=== PATIENT | male | born 1955 | race Caucasian/White ===

== ENCOUNTER 2020-06-29 13:19 | Outpatient (REF) | payer OTHER, SELFPAY | END 2020-06-29 13:20 | disposition home or self-care (01) | LOC: HO.LAB 13:19 | PROVIDERS: PCP Internal Medicine; Visit Provider Internal Medicine | DX: Z20.828 Contact with and (suspected) exposure to other viral communicable diseases (principal) | CPT/HCPCS: C9803; U0003 ==

== ENCOUNTER 2020-07-04 06:10 | Outpatient (REF) | payer OTHER, SELFPAY ==
[2020-07-04 07:32] LABS: Alanine Aminotransferase 24 U/L (0-40); Albumin Level 4.6 g/dL (3.5-5.0); Alkaline Phosphatase 70 U/L (39-117); Anion Gap 14 (12-20); Aspartate Amino Transferase 17 U/L (5-37); Bilirubin Total 0.3 mg/dL (0.0-1.0); Blood Urea Nitrogen 34 mg/dL (9-16); Calcium 9.3 mg/dL (8.4-10.2); Carbon Dioxide 29 mmol/L (22-29); Chloride 104 mmol/L (96-108); Cholesterol 209 mg/dL; Estimated Glomerular Filt Rate 57; Glucose Random 103 mg/dL (60-115); HDL Cholesterol 34 mg/dL; Sodium 142 mmol/L (135-145); Total Protein 7.3 g/dL (6.5-8.0); Triglycerides 552 mg/dL
== END 2020-07-04 06:11 | disposition home or self-care (01) ==
LOC: HO.LAB 06:10
PROVIDERS: Visit Provider Internal Medicine
DX: E78.00 Pure hypercholesterolemia, unspecified (principal); I10 Essential (primary) hypertension
CPT/HCPCS: 36415; 80053; 80061

== ENCOUNTER 2020-08-09 08:09 | Outpatient (REF) | payer OTHER, SELFPAY | END 2020-08-09 08:10 | disposition home or self-care (01) | LOC: HO.LAB 08:09 | PROVIDERS: Visit Provider Internal Medicine | DX: Z20.822 Contact with and (suspected) exposure to COVID-19 (principal) | CPT/HCPCS: 36415; C9803; U0003; U0005 ==

== ENCOUNTER 2020-08-31 08:53 | Outpatient (REF) | payer OTHER, SELFPAY | END 2020-08-31 08:54 | disposition home or self-care (01) | LOC: HO.LAB 08:53 | PROVIDERS: Visit Provider Internal Medicine | DX: Z20.822 Contact with and (suspected) exposure to COVID-19 (principal) | CPT/HCPCS: 36415; C9803; U0003; U0005 ==

== ENCOUNTER 2020-09-29 06:08 | Outpatient (REF) | payer OTHER, SELFPAY ==
[2020-09-29 07:30] LABS: Alanine Aminotransferase 31 U/L (0-40); Albumin Level 4.7 g/dL (3.5-5.0); Alkaline Phosphatase 53 U/L (39-117); Anion Gap 13 (12-20); Aspartate Amino Transferase 22 U/L (5-37); Bilirubin Total 0.5 mg/dL (0.0-1.0); Blood Urea Nitrogen 29 mg/dL (9-16); Calcium 9.6 mg/dL (8.4-10.2); Carbon Dioxide 26 mmol/L (22-29); Chloride 105 mmol/L (96-108); Cholesterol 181 mg/dL; Estimated Glomerular Filt Rate > 60; Glucose Random 110 mg/dL (60-115); HDL Cholesterol 37 mg/dL; LDL Cholesterol Calculated 91 mg/dl; Potassium 5.3 mmol/L (3.3-5.1); Sodium 139 mmol/L (135-145); Total Protein 7.6 g/dL (6.5-8.0); Triglycerides 267 mg/dL
[2020-09-29 07:57] LABS: Estimated Average Glucose 117 mg/dL; Hemoglobin A1C 155.5362 umol/L; Hemoglobin A1c % 5.7 %
== END 2020-09-29 06:09 | disposition home or self-care (01) ==
LOC: HO.LAB 06:08
PROVIDERS: PCP Internal Medicine; Visit Provider Internal Medicine
DX: N28.9 Disorder of kidney and ureter, unspecified (principal); R73.02 Impaired glucose tolerance (oral); E78.00 Pure hypercholesterolemia, unspecified
CPT/HCPCS: 36415; 80053; 80061; 83036

== ENCOUNTER 2020-10-19 07:52 | Outpatient (REF) | payer OTHER, SELFPAY | END 2020-10-19 07:53 | disposition home or self-care (01) | LOC: HO.HOSX 07:52 | PROVIDERS: Visit Provider Orthopaedic Surgery | DX: M17.11 Unilateral primary osteoarthritis, right knee (principal); R73.02 Impaired glucose tolerance (oral) | CPT/HCPCS: 20610; 99212; J1100 ==

== ENCOUNTER 2021-01-10 17:02 | Emergency (ER) | payer OTHER, SELFPAY ==
--- NOTE | ~2021-01-10 | CT_ITS ---
EXAMINATION: CT ABDOMEN AND PELVIS WITHOUT CONTRAST CLINICAL INFORMATION: upper abd pain rule out complicated pancreatitis . COMPARISON: 06/26/2016. TECHNIQUE: Multidetector volumetric imaging was performed from the superior aspect of the liver through the pubic symphysis without contrast per request. Sagittal and coronal reformatted images were obtained on the technologist workstation. This CT examination was performed using dose optimization techniques as appropriate, variously including the following: *Automated exposure control *Adjustment of mA and/or kV according to patient size (this includes techniques or standardized protocols for targeted exams where dose is matched to indication/reason for exam; i.e. extremities or head) *Use of iterative reconstruction technique DLP: 500 mGy-cm. FINDINGS: LUNG BASES: Calcified granuloma the right lung base. LIVER, GALLBLADDER, BILIARY TREE: Diffuse fatty infiltration of the liver with mild focal fatty sparing adjacent to the gallbladder fossa and falciform ligament. No suspicious hepatic lesion or biliary ductal dilatation. The gallbladder is contracted but otherwise unremarkable with no evidence of radiopaque gallstones, gallbladder wall thickening, or obvious pericholecystic inflammatory changes. PANCREAS: Pancreas is grossly unremarkable on this noncontrast study. I do not appreciate any pancreatic calcification or peripancreatic inflammatory changes/fluid. No obvious pancreatic ductal dilatation. Contrast was not given and I cannot assess for degree of pancreatic enhancement. SPLEEN: Unremarkable. ADRENAL GLANDS: Unremarkable. KIDNEYS AND URETERS: The kidneys are normal in size, shape, and attenuation. No hydronephrosis, hydroureter, or calculi seen. No perinephric stranding. BLADDER: Unremarkable. GASTROINTESTINAL TRACT: Decompressed with a few scattered colonic diverticula but no evidence for diverticulitis. Visualized small bowel unremarkable ABDOMINAL WALL: No significant hernia is appreciated. LYMPHOVASCULAR STRUCTURES: Vascular calcification within the aorta iliac system. No bulky adenopathy. PELVIC VISCERA: Unremarkable. OSSEUS STRUCTURES: Multilevel degenerative changes in the spine and degenerative changes in the hips. CT/CT abdomen pelvis wo con IMPRESSION: Diffuse fatty infiltration of the liver. No biliary ductal dilatation. Pancreas is essentially unremarkable on this noncontrast CT scan. I do not appreciate any CT complications of pancreatitis at this time.
[2021-01-10 17:08] VITALS: BP 124/57; PULSE 86; RESP 18; TEMP 36.2; O2SAT 97; BMI 29.2
[2021-01-10 17:46] VITALS: BP 124/57; PULSE 86; RESP 18; TEMP 36.2; O2SAT 97
--- NOTE | 2021-01-10 17:50 | ED_ITS ---
HPI - Abdominal Pain General Chief Complaint: Abdominal Pain Stated Complaint: Possible pancreas?? Time Seen by Provider: 01/10/21 17:45 Source: patient Mode of arrival: ambulatory Limitations: no limitations History of Present Illness HPI narrative: 65-year-old male came in for evaluation abdominal pain. started since yesterday, described as dull aching pain, constant, severe 7/10, pain is localized to the epigastric mid abdominal area, no radiation, food worsening the pain, nothing relieves the pain, pain is associated with nausea but no vomiting, had similar pain in the past and patient had pancreatitis. Patient also feels the abdomen is bloated since yesterday, normal bowel movement, passing flatus. Patient is a former alcohol abuser. Related Data Home Medications Medication Instructions Recorded Confirmed alclometasone 0.05 % topical cream 1 applic TOPICAL BID 03/29/20 10/03/20 Previous Rx's Medication Instructions Recorded hydrochlorothiazide 12.5 mg tablet 12.5 mg PO QAM #90 tab 04/26/20 folic acid 1 mg tablet 1 mg PO DAILY #90 tab 06/16/20 citalopram 10 mg tablet 10 mg PO QAM #90 tab 06/21/20 quetiapine 100 mg tablet 100 mg PO BEDTIME #90 tab 06/21/20 simvastatin 20 mg tablet 20 mg PO BEDTIME #90 tab 10/03/20 tramadol 50 mg tablet 50 mg PO BID PRN #60 tab 10/03/20 sildenafil 100 mg tablet 100 mg PO DAILY PRN #10 tab 11/02/20 diclofenac sodium 50 mg 50 mg PO BID 90 Days #180 tab 12/20/20 tablet,delayed release lisinopril 40 mg tablet 40 mg PO DAILY 90 Days #90 tab 12/25/20 fenofibrate 160 mg tablet 160 mg PO DAILY #90 tab 01/04/21 omeprazole magnesium [Prilosec OTC] 20 mg PO BID #30 tab 01/10/21 oxycodone 5 mg PO Q8H PRN #7 tab 01/10/21 Allergies Allergy/AdvReac Type Severity Reaction Status Date / Time bupropion [From Wellbutrin] AdvReac Unknown Anxiety Verified 01/10/21 17:12 Review of Systems Review of Systems All other systems are reviewed and are negative Constitutional: Reports as per HPI and Reports no additional constitutional complaints Eyes: Reports as per HPI and Reports no additional eye complaints Reports system reviewed and no additional complaints, except as documented Cardiovascular: Reports as per HPI and Reports no additional cardiovascular complaints Respiratory: Reports as per HPI and Reports no additional respiratory complaints Gastrointestinal: Reports as per HPI and Reports no additional gastrointestinal complaints Genitourinary: Reports no additional female genitourinary complaints Musculoskeletal: Reports no additional musculoskeletal complaints Skin/Breast: Reports system reviewed and no additional complaints, except as docu Psychiatric: Reports no additional psychiatric complaints Endocrine: Reports no additional endocrine complaints Hematologic/Lymphatic: Reports no additional hematologic/lymphatic complaints Allergic/Immunologic: Reports no additional allergic/immunologic complaints Reports system reviewed and no additional complaints, except as documented and Reports Abnormal speech present Physical Exam Vital Signs: Vital Signs: Last Vital Signs Temp 98.4 F 01/10/21 18:00 Pulse 69 01/10/21 18:00 Resp 20 01/10/21 19:13 BP 115/61 01/10/21 18:00 Pulse Ox 96 01/10/21 18:00 Body Mass Index 29.2 Vital signs have been reviewed as appeared to be correct. Blood pressure normal. Heart rate normal. Respiration rate normal. Temperature normal. Oxygen saturation normal. Appearance: Alert. Oriented X3. No acute distress. Head: Normal external exam. Normocephalic. Atraumatic. No Carpenter signs noted. No raccoon eyes noted Eyes: PERRLA. EOMI. Conjunctiva and sclera normal. Eyelids normal. ENT: TM's Normal. Pharynx normal. Uvula midline. Moist mucous membranes. No trismus noted. No drooling noted. No muffled voice noted. Neck: Normal inspection. Neck supple. FROM. No adenopathy. Thyroid Normal. No meningeal signs. No neck mass noted. CVS: Normal heart rate and rhythm. Heart sound normal. No murmurs noted. Pulses normal throughout. Respiratory: No respiratory distress. Painless inspiration. Breath sounds normal. No wheezes/rales/rhonchi noted. Chest nontender. No accessory muscle usage noted or decreased air movement noted. Abdomen: Soft , epigastric tenderness, no rebound tenderness or guarding.. Bowel sounds normal in all 4 quadrants. No distention noted. No organomegaly noted. No visible injury noted. Back: No CVA tenderness. Full range of motion noted. Skin: Skin warm and dry. Normal skin color. Normal skin turgor. No rashes/lesions/lacerations noted. Extremities: No lower extremity edema. Extremities exhibit normal range of motion. Extremities nontender. Neuro: Oriented X 3. No motor deficit. No sensory deficit. Reflexes normal. Course Course Course Narrative: Assessment and plan. 65-year-old male came in with abdominal pain, patient has a slight elevation of lipase, CT of the abdomen pelvis was unremarkable. Labs unremarkable except for slight elevation of lipase. Patient admitted to eating fried food, do not drink alcohol. Patient was instructed to stay away from spicy food and fried food. Will discharge the patient with Prilosec and pain medication. MDM - Abdominal Pain Lab Data Attestation: I reviewed the patient's lab results. Result diagrams: 01/10/21 18:17 01/10/21 18:17 Labs: Lab Results 01/10/21 01/10/21 01/10/21 Range/Units 18:17 18:17 18:17 WBC 10.1 (4.8-10.8) X10*3/uL RBC 3.76 L (4.60-5.80) X10*6/uL Hgb 12.5 L (14.0-18.0) g/dl Hct 36.5 L (42-52) % MCV 97.1 (80-98) fL MCH 33.2 H (27.0-33.0) pg MCHC 34.2 (31.0-36.0) g/dl RDW 12.8 (11.0-16.0) % Plt Count 216 (160-400) X10*3/uL MPV 12.3 (9.4-12.4) fL Immature Gran % (Auto) 0.3 (0.0-0.4) % Neut % (Auto) 66.5 (45-73) % Lymph % (Auto) 23.5 (20-40) % [place] % (Auto) 6.6 (2-11) % Eos % (Auto) 2.8 (0-4) % Baso % (Auto) 0.3 (0-2) % Lymph # (Auto) 2.4 (1.2-4.9) X10*3/uL [place] # (Auto) 0.7 (0.1-1.2) X10*3/uL Eos # (Auto) 0.3 (0.0-0.4) X10*3/uL Baso # (Auto) 0.0 (0.0-0.2) X10*3/uL Abs Immat Gran (auto) 0.03 (0.00-0.03) X10*3/uL Absolute Neuts (auto) 6.7 (2.0-8.3) X10*3/uL Absolute Nucleated RBC 0.000 (0.0-0.012) X10*3/uL Nucleated RBC % (auto) 0.0 (0.0-0.2) /100WBC Sodium 140 (135-145) mmol/L Potassium 4.4 (3.3-5.1) mmol/L Chloride 109 H (96-108) mmol/L Carbon Dioxide 21 L (22-29) mmol/L Anion Gap 14 (12-20) BUN 37 H (9-16) mg/dL Creatinine 1.73 H (0.5-1.4) mg/dL Estim Creat Clear Calc 37.7 Estimated GFR 40 Random Glucose 128 H (60-115) mg/dL Calcium 9.6 (8.4-10.2) mg/dL Total Bilirubin 0.4 (0.0-1.0) mg/dL Direct Bilirubin < 0.2 (0.0-0.5) mg/dL AST 21 (5-37) U/L ALT 26 (0-40) U/L Alkaline Phosphatase 47 (39-117) U/L Total Protein 7.0 (6.5-8.0) g/dL Albumin 4.4 (3.5-5.0) g/dL Lipase 101 H (8-78) U/L Urine Color Urine Appearance Urine pH (5.0-8.0) Ur Specific [place] (1.005-1.025) Urine Protein (NEG-TRACE) MG/DL Urine Glucose (UA) (NEG) MG/DL Urine Ketones (NEG) MG/DL Urine Blood (NEG) Urine Nitrite (NEG) Ur Leukocyte Esterase (NEG) 01/10/21 Range/Units 18:17 WBC (4.8-10.8) X10*3/uL RBC (4.60-5.80) X10*6/uL Hgb (14.0-18.0) g/dl Hct (42-52) % MCV (80-98) fL MCH (27.0-33.0) pg MCHC (31.0-36.0) g/dl RDW (11.0-16.0) % Plt Count (160-400) X10*3/uL MPV (9.4-12.4) fL Immature Gran % (Auto) (0.0-0.4) % Neut % (Auto) (45-73) % Lymph % (Auto) (20-40) % [place] % (Auto) (2-11) % Eos % (Auto) (0-4) % Baso % (Auto) (0-2) % Lymph # (Auto) (1.2-4.9) X10*3/uL [place] # (Auto) (0.1-1.2) X10*3/uL Eos # (Auto) (0.0-0.4) X10*3/uL Baso # (Auto) (0.0-0.2) X10*3/uL Abs Immat Gran (auto) (0.00-0.03) X10*3/uL Absolute Neuts (auto) (2.0-8.3) X10*3/uL Absolute Nucleated RBC (0.0-0.012) X10*3/uL Nucleated RBC % (auto) (0.0-0.2) /100WBC Sodium (135-145) mmol/L Potassium (3.3-5.1) mmol/L Chloride (96-108) mmol/L Carbon Dioxide (22-29) mmol/L Anion Gap (12-20) BUN (9-16) mg/dL Creatinine (0.5-1.4) mg/dL Estim Creat Clear Calc Estimated GFR Random Glucose (60-115) mg/dL Calcium (8.4-10.2) mg/dL Total Bilirubin (0.0-1.0) mg/dL Direct Bilirubin (0.0-0.5) mg/dL AST (5-37) U/L ALT (0-40) U/L Alkaline Phosphatase (39-117) U/L Total Protein (6.5-8.0) g/dL Albumin (3.5-5.0) g/dL Lipase (8-78) U/L Urine Color YELLOW Urine Appearance CLEAR Urine pH 6.0 (5.0-8.0) Ur Specific [place] 1.025 (1.005-1.025) Urine Protein NEG (NEG-TRACE) MG/DL Urine Glucose (UA) NEG (NEG) MG/DL Urine Ketones NEG (NEG) MG/DL Urine Blood NEG (NEG) Urine Nitrite NEG (NEG) Ur Leukocyte Esterase NEG (NEG) Imaging Data CT scan - abdomen: Radiologist's impression: Diffuse fatty infiltration of the liver. No biliary ductal dilatation. Pancreas is essentially unremarkable on this noncontrast CT scan. I do not appreciate any CT complications of pancreatitis at this time. Discharge Plan Discharge Clinical Impression: Pancreatitis Qualifiers: Chronicity: acute Pancreatitis type: unspecified pancreatitis type Acute pancreatitis complication: no infection or necrosis Qualified Code(s): K85.90 - Acute pancreatitis without necrosis or infection, unspecified Gastritis Qualifiers: Gastritis type: unspecified gastritis Chronicity: acute Gastritis bleeding: without bleeding Qualified Code(s): K29.00 - Acute gastritis without bleeding Patient Disposition: Home, Self-Care Instructions: Gastritis (ED), Pancreatitis (ED) Prescriptions: New omeprazole magnesium [Prilosec OTC] 20 mg tablet,delayed release (DR/EC) 20 mg PO BID Qty: 30 RF: 0 oxycodone 5 mg tablet 5 mg PO Q8H PRN (Reason: pain) Qty: 7 RF: 0 No Action hydrochlorothiazide 12.5 mg tablet 12.5 mg PO QAM Qty: 90 RF: 3 folic acid 1 mg tablet 1 mg PO DAILY Qty: 90 RF: 2 citalopram 10 mg tablet 10 mg PO QAM Qty: 90 RF: 0 quetiapine 100 mg tablet 100 mg PO BEDTIME Qty: 90 RF: 0 sildenafil 100 mg tablet 100 mg PO DAILY PRN (Reason: sexual activity) Qty: 10 RF: 5 diclofenac sodium 50 mg tablet,delayed release (DR/EC) 50 mg PO BID 90 Days Qty: 180 RF: 0 lisinopril 40 mg tablet 40 mg PO DAILY 90 Days Qty: 90 RF: 2 fenofibrate 160 mg tablet 160 mg PO DAILY Qty: 90 RF: 2 alclometasone 0.05 % cream 1 applic topical BID RF: 0 tramadol 50 mg tablet 50 mg PO BID PRN (Reason: pain) Qty: 60 RF: 0 simvastatin 20 mg tablet 20 mg PO BEDTIME Qty: 90 RF: 1 Referrals: Romulo Ward MD [Physician] - 2 days [facility] Past Medical History Medical History Alcohol abuse Amputation finger Bipolar disorder Erectile dysfunction Hypercholesterolemia Hypertension Hypogonadism Macrocytosis without anemia Osteoarthritis Overweight (BMI 25.0-29.9) Pancreatitis Right arm fracture Tobacco abuse Vitamin D deficiency Surgical History Finger amputation, no complication History of surgery on arm Family History Family History Father No problems noted. Mother No problems noted. Sister No problems noted. Sister No problems noted. Son No problems noted. Daughter No problems noted. Daughter No problems noted. 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
[2021-01-10 18:00] VITALS: BP 115/61; PULSE 69; RESP 16; TEMP 36.9; O2SAT 96
[2021-01-10] MEDS: Morphine Sulfate 2 MG/ML CARTRIDGE 1 MG IVPUSH (18:21)
[2021-01-10] MEDS: 0.9 % Sodium Chloride 1,000 ML 999 ML IVCONT (18:22)
[2021-01-10 18:23] LABS: Basophils Percent Auto 0.3 % (0-2); Eosinophils Absolute Auto 0.3 X10*3/uL (0.0-0.4); Eosinophils Percent Auto 2.8 % (0-4); Glucose Urine UA NEG (NEG); Hematocrit 36.5 % (42-52); Hemoglobin 12.5 g/dl (14.0-18.0); Imm Gran Abs Auto 0.03 X10*3/uL (0.00-0.03); Imm Gran Pct Auto 0.3 % (0.0-0.4); Leukocyte Esterase Urine NEG (NEG); Lymphocytes Absolute Auto 2.4 X10*3/uL (1.2-4.9); Lymphocytes Percent Auto 23.5 % (20-40); MANUAL DIFF FLAG NO; Mean Corpuscular HGB Conc 34.2 g/dl (31.0-36.0); Mean Corpuscular Hemoglobin 33.2 pg (27.0-33.0); Mean Corpuscular Volume 97.1 fL (80-98); Mean Platelet Volume 12.3 fL (9.4-12.4); Monocytes Absolute Auto 0.7 X10*3/uL (0.1-1.2); Monocytes Percent Auto 6.6 % (2-11); Neutrophils Absolute Auto 6.7 X10*3/uL (2.0-8.3); Neutrophils Percent Auto 66.5 % (45-73); Nitrite Urine NEG (NEG); Platelet Count 216 X10*3/uL (160-400); Red Blood Count 3.76 X10*6/uL (4.60-5.80); Red Cell Distribution Width 12.8 % (11.0-16.0); Specific Gravity - Urine 1.025 (1.005-1.025); Urine Blood NEG (NEG); Urine Ketones NEG (NEG); Urine Protein NEG (NEG-TRACE); White Blood Count 10.1 X10*3/uL (4.8-10.8)
[2021-01-10 18:24] LABS: Appearance Urine CLEAR; Color Urine YELLOW
[2021-01-10 18:46] LABS: Anion Gap 14 (12-20); Blood Urea Nitrogen 37 mg/dL (9-16); Calcium 9.6 mg/dL (8.4-10.2); Carbon Dioxide 21 mmol/L (22-29); Chloride 109 mmol/L (96-108); Creatinine Clr Calc Pharmacy 37.7; Estimated Glomerular Filt Rate 40; Glucose Random 128 mg/dL (60-115); Potassium 4.4 mmol/L (3.3-5.1); Sodium 140 mmol/L (135-145)
[2021-01-10 18:51] LABS: Alanine Aminotransferase 26 U/L (0-40); Albumin Level 4.4 g/dL (3.5-5.0); Alkaline Phosphatase 47 U/L (39-117); Aspartate Amino Transferase 21 U/L (5-37); Bilirubin Direct < 0.2 mg/dL (0.0-0.5); Bilirubin Total 0.4 mg/dL (0.0-1.0)
[2021-01-10 19:05] LABS: Lipase 101 U/L (8-78)
[2021-01-10 19:13] VITALS: RESP 20
[2021-01-10] MEDS: HYDROmorphone HCl 1 MG/ML SYRINGE IVPUSH (19:13)
== END 2021-01-10 20:16 | disposition home or self-care (01) ==
PROVIDERS: Emergency Provider Emergency Medicine; PCP Internal Medicine
DX: K85.90 Acute pancreatitis without necrosis or infection, unspecified (principal); K29.00 Acute gastritis without bleeding; Z79.899 Other long term (current) drug therapy; F17.210 Nicotine dependence, cigarettes, uncomplicated; Z71.6 Tobacco abuse counseling
CPT/HCPCS: 36415; 74176; 80048; 80076; 81003; 83690; 85025; 96365; 96375; 99284; J1170; J2270

== ENCOUNTER → 2021-01-18 10:38 | Outpatient (BNVA) | payer OTHER, SELFPAY | PROVIDERS: PCP Internal Medicine; Visit Provider Orthopaedic Surgery | DX: M17.11 Unilateral primary osteoarthritis, right knee (principal); E55.9 Vitamin D deficiency, unspecified; I10 Essential (primary) hypertension; E66.9 Obesity, unspecified; Z68.29 Body mass index [BMI] 29.0-29.9, adult; Z88.8 Allergy status to other drugs, medicaments and biological substances | CPT/HCPCS: 99212 ==

== ENCOUNTER 2021-01-20 18:56 | Emergency (ER) | payer OTHER, SELFPAY | END 2021-01-20 19:38 | disposition left against medical advice (07) | PROVIDERS: Emergency Provider Emergency Medicine; PCP Internal Medicine | DX: S61.419A Laceration without foreign body of unspecified hand, initial encounter (principal); W45.8XXA Other foreign body or object entering through skin, initial encounter; Y93.9 Activity, unspecified; Y92.9 Unspecified place or not applicable; Y99.9 Unspecified external cause status ==

== ENCOUNTER 2021-01-21 06:10 | Emergency (ER) | payer OTHER, SELFPAY ==
--- NOTE | ~2021-01-21 | XR_ITS ---
EXAMINATION: XR HAND, LEFT CLINICAL INFORMATION: Dog bite COMPARISON: None TECHNIQUE: PA, lateral, and oblique views of the left hand. FINDINGS: There is indistinctness in the tuft of the third distal phalanx. There may be some soft tissue swelling. There is an opaque foreign body in the soft tissues adjacent to the distal radius. Although difficult to evaluate I suspect an incomplete fingernail overlying the distal aspect of the long finger. There is no other evidence of an acute fracture. There is joint narrowing with proliferative changes including osteophytes involving the PIP and DIP joints of all the fingers. There is a cyst or erosion involving the lunate and there is some proliferative change involving the ulnar styloid. These findings are all consistent with degenerative joint disease. XR/XR hand LT min 3V IMPRESSION: There is cortical disruption involving the distal tuft of the third finger and there may be an overlying soft tissue injury. Correlation necessary. There is soft tissue swelling. Small foreign body of uncertain chronicity.
[2021-01-21 06:20] VITALS: BP 134/70; PULSE 82; RESP 16; TEMP 36.8; O2SAT 98; BMI 28.3
--- NOTE | 2021-01-21 06:35 | ED_ITS ---
HPI - Animal Bite General Chief Complaint: Animal Bite Stated Complaint: Dog bite Time Seen by Provider: 01/21/21 06:35 Source: patient Mode of arrival: ambulatory Limitations: no limitations History of Present Illness HPI narrative: dog bite left hand yesterday. Bit by stray dog yesterday complaint: animal bite Onset (ago): day(s) Animal: dog Description of animal: unknown animal Mechanism: bite Location - Extremities: left: hand Pain description: sharp Severity scale (1-10): 6 Context: unprovoked Associated symptoms: other (swelling and pain) Related Data Home Medications Medication Instructions Recorded Confirmed alclometasone 0.05 % topical cream 1 applic TOPICAL BID 03/29/20 10/03/20 Previous Rx's Medication Instructions Recorded hydrochlorothiazide 12.5 mg tablet 12.5 mg PO QAM #90 tab 04/26/20 folic acid 1 mg tablet 1 mg PO DAILY #90 tab 06/16/20 citalopram 10 mg tablet 10 mg PO QAM #90 tab 06/21/20 quetiapine 100 mg tablet 100 mg PO BEDTIME #90 tab 06/21/20 simvastatin 20 mg tablet 20 mg PO BEDTIME #90 tab 10/03/20 tramadol 50 mg tablet 50 mg PO BID PRN #60 tab 10/03/20 sildenafil 100 mg tablet 100 mg PO DAILY PRN #10 tab 11/02/20 diclofenac sodium 50 mg 50 mg PO BID 90 Days #180 tab 12/20/20 tablet,delayed release lisinopril 40 mg tablet 40 mg PO DAILY 90 Days #90 tab 12/25/20 fenofibrate 160 mg tablet 160 mg PO DAILY #90 tab 01/04/21 omeprazole magnesium [Prilosec OTC] 20 mg PO BID #30 tab 01/10/21 oxycodone 5 mg PO Q8H PRN #7 tab 01/10/21 amoxicillin-pot clavulanate 1 tab PO BID #14 tab 01/21/21 [Augmentin] naproxen [Naprosyn] 500 mg PO BID #20 tab 01/21/21 Allergies Allergy/AdvReac Type Severity Reaction Status Date / Time bupropion [From Wellbutrin] AdvReac Unknown Anxiety Verified 01/18/21 10:55 Review of Systems Constitutional: Constitutional: Reports no additional constitutional complaints Eyes: Eyes: Reports no additional eye complaints ENT: Denies dizziness Cardiovascular: Cardiovascular: Reports no additional cardiovascular complaints Respiratory: Respiratory: Reports as per HPI Gastrointestinal: Gastrointestinal: Reports no additional gastrointestinal complaints Musculoskeletal: Musculoskeletal: Reports no additional musculoskeletal complaints Integumentary/Breasts: Skin/Breast: Denies rash Neurologic: Reports system reviewed and no additional complaints, except as documented, Denies dizziness and Denies Sensory deficit (Neuro) Psychiatric: Psychiatric: Denies anxiety [facility] Past Medical History Medical History Alcohol abuse Amputation finger Bipolar disorder Erectile dysfunction Hypercholesterolemia Hypertension Hypogonadism Macrocytosis without anemia Osteoarthritis Overweight (BMI 25.0-29.9) Pancreatitis Right arm fracture Tobacco abuse Vitamin D deficiency Surgical History Finger amputation, no complication History of surgery on arm Family History Family History Father No problems noted. Mother No problems noted. Sister No problems noted. Sister No problems noted. Son No problems noted. Daughter No problems noted. Daughter No problems noted. 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 Physical Exam Vital Signs: Vital Signs: Last Vital Signs Temp 98.2 F 01/21/21 06:20 Pulse 82 01/21/21 06:20 Resp 16 01/21/21 06:20 BP 134/70 01/21/21 06:20 Pulse Ox 98 01/21/21 06:20 Body Mass Index 28.3 Const: General: healthy appearing Nutritional Appearance: average body habitus Orientation/consciousness: oriented to person and patient oriented x3 Limitations: no limitations HENMT: Head: Yes normal to inspection Ears: external ears normal General nose exam: Normal external nose present Mouth: Normal oral and palatal mucosa present and oropharynx normal Throat: Yes posterior oropharynx normal Eyes: General: appearance normal, both eyes and all related structures Neck: Other: supple Neck: Yes normal visual inspection Chest: Chest palpation & inspection: normal inspection of the chest Resp: Auscultation: clear to auscultation bilaterally Cardio: Jugular venous distension: no JVD Rate: regular rate Rhythm: regular rhythm Heart sounds: S1 normal heart sound present and S2 normal heart sound present GI: Inspection: Yes normal to inspection Palpation (GI): Soft to palpation, nontender and No hepatosplenomegaly present Auscultation: normal bowel sounds : General: Yes no CVA tenderness Back/Spine/Pelvis: Back: no CVA tenderness Skin: General skin exam: no rashes or lesions noted Neuro: General: oriented to person and patient oriented x3 Cranial nerves: Yes CN's II-XII intact bilaterally Motor exam (neuro): 5/5 motor strength present throughout Sensory Exam: No Sensory deficit (Neuro) Extrem: Other: LEft hand at 2nd digit MCP joint with puncture wounds and swelling, no pus, no drainage Psych: Appearance: grossly normal Course Reevaluation(s) Reevaluation #1: No fracture, patient with dog bit and likely early infection, will splint hand and start abx and dc home with follow up Time: 08:47 MDM - Animal Bite Lab Data Result diagrams: 01/21/21 06:59 01/21/21 06:59 Labs: Lab Results 01/21/21 01/21/21 Range/Units 06:59 06:59 WBC 10.7 (4.8-10.8) X10*3/uL RBC 3.82 L (4.60-5.80) X10*6/uL Hgb 12.3 L (14.0-18.0) g/dl Hct 37.0 L (42-52) % MCV 96.9 (80-98) fL MCH 32.2 (27.0-33.0) pg MCHC 33.2 (31.0-36.0) g/dl RDW 12.8 (11.0-16.0) % Plt Count 222 (160-400) X10*3/uL MPV 12.1 (9.4-12.4) fL Immature Gran % (Auto) 0.4 (0.0-0.4) % Neut % (Auto) 74.8 H (45-73) % Lymph % (Auto) 14.1 L (20-40) % [place] % (Auto) 8.2 (2-11) % Eos % (Auto) 2.2 (0-4) % Baso % (Auto) 0.3 (0-2) % Lymph # (Auto) 1.5 (1.2-4.9) X10*3/uL [place] # (Auto) 0.9 (0.1-1.2) X10*3/uL Eos # (Auto) 0.2 (0.0-0.4) X10*3/uL Baso # (Auto) 0.0 (0.0-0.2) X10*3/uL Abs Immat Gran (auto) 0.04 H (0.00-0.03) X10*3/uL Absolute Neuts (auto) 8.0 (2.0-8.3) X10*3/uL Absolute Nucleated RBC 0.000 (0.0-0.012) X10*3/uL Nucleated RBC % (auto) 0.0 (0.0-0.2) /100WBC Sodium 137 (135-145) mmol/L Potassium 4.7 (3.3-5.1) mmol/L Chloride 107 (96-108) mmol/L Carbon Dioxide 22 (22-29) mmol/L Anion Gap 13 (12-20) BUN 30 H (9-16) mg/dL Creatinine 1.18 (0.5-1.4) mg/dL Estim Creat Clear Calc 52.4 Estimated GFR > 60 Random Glucose 113 (60-115) mg/dL Calcium 9.4 (8.4-10.2) mg/dL Imaging Data left hand: Radiologist's impression: IMPRESSION: There is cortical disruption involving the distal tuft of the third finger and there may be an overlying soft tissue injury. Correlation necessary. There is soft tissue swelling. Discharge Plan Discharge Clinical Impression: Bite by animal, Rabies contact Patient Disposition: Home, Self-Care Instructions: Animal Bite (ED) Additional Instructions: must follow up with Dr. Ackerman for wound check in 2 days. Return to the ED for increased swelling pain or fever. Follow the regimen for rabies Prescriptions: New amoxicillin-pot clavulanate [Augmentin] 875-125 mg tablet 1 tab PO BID Qty: 14 RF: 0 naproxen [Naprosyn] 500 mg tablet 500 mg PO BID Qty: 20 RF: 0 No Action hydrochlorothiazide 12.5 mg tablet 12.5 mg PO QAM Qty: 90 RF: 3 folic acid 1 mg tablet 1 mg PO DAILY Qty: 90 RF: 2 citalopram 10 mg tablet 10 mg PO QAM Qty: 90 RF: 0 quetiapine 100 mg tablet 100 mg PO BEDTIME Qty: 90 RF: 0 sildenafil 100 mg tablet 100 mg PO DAILY PRN (Reason: sexual activity) Qty: 10 RF: 5 diclofenac sodium 50 mg tablet,delayed release (DR/EC) 50 mg PO BID 90 Days Qty: 180 RF: 0 lisinopril 40 mg tablet 40 mg PO DAILY 90 Days Qty: 90 RF: 2 fenofibrate 160 mg tablet 160 mg PO DAILY Qty: 90 RF: 2 omeprazole magnesium [Prilosec OTC] 20 mg tablet,delayed release (DR/EC) 20 mg PO BID Qty: 30 RF: 0 oxycodone 5 mg tablet 5 mg PO Q8H PRN (Reason: pain) Qty: 7 RF: 0 alclometasone 0.05 % cream 1 applic topical BID RF: 0 tramadol 50 mg tablet 50 mg PO BID PRN (Reason: pain) Qty: 60 RF: 0 simvastatin 20 mg tablet 20 mg PO BEDTIME Qty: 90 RF: 1 Referrals: Po,Latesha Astudillo MD [Primary Care Provider] - 2 days (must be seen for wound check)
[2021-01-21 07:03] LABS: MANUAL DIFF FLAG NO
[2021-01-21 07:08] LABS: Basophils Percent Auto 0.3 % (0-2); Eosinophils Absolute Auto 0.2 X10*3/uL (0.0-0.4); Eosinophils Percent Auto 2.2 % (0-4); Hemoglobin 12.3 g/dl (14.0-18.0); Imm Gran Abs Auto 0.04 X10*3/uL (0.00-0.03); Imm Gran Pct Auto 0.4 % (0.0-0.4); Lymphocytes Absolute Auto 1.5 X10*3/uL (1.2-4.9); Lymphocytes Percent Auto 14.1 % (20-40); Mean Corpuscular HGB Conc 33.2 g/dl (31.0-36.0); Mean Corpuscular Hemoglobin 32.2 pg (27.0-33.0); Mean Corpuscular Volume 96.9 fL (80-98); Mean Platelet Volume 12.1 fL (9.4-12.4); Monocytes Absolute Auto 0.9 X10*3/uL (0.1-1.2); Monocytes Percent Auto 8.2 % (2-11); Neutrophils Percent Auto 74.8 % (45-73); Platelet Count 222 X10*3/uL (160-400); Red Blood Count 3.82 X10*6/uL (4.60-5.80); Red Cell Distribution Width 12.8 % (11.0-16.0); White Blood Count 10.7 X10*3/uL (4.8-10.8)
[2021-01-21 07:26] LABS: Anion Gap 13 (12-20); Blood Urea Nitrogen 30 mg/dL (9-16); Calcium 9.4 mg/dL (8.4-10.2); Carbon Dioxide 22 mmol/L (22-29); Chloride 107 mmol/L (96-108); Creatinine Clr Calc Pharmacy 52.4; Estimated Glomerular Filt Rate > 60; Glucose Random 113 mg/dL (60-115); Potassium 4.7 mmol/L (3.3-5.1); Sodium 137 mmol/L (135-145)
[2021-01-21] MEDS: Rabies Immune Globulin/PF 900 UNIT/3 ML VIAL 1360.78 UNIT IM (07:40)
[2021-01-21] MEDS: Rabies Vaccine (PCEC)/PF 1 ML VIAL IM (07:41)
[2021-01-21] MEDS: Diphth,Pertus(ACell),Tet Adult 0.5 ML SYRINGE IM (07:43)
[2021-01-21] MEDS: Ampicillin Sodium/Sulbactam Na 3 GM in 0.9 % Sodium Chloride 100 ML IV (07:56)
[2021-01-21] MEDS: NaPROXEN 500 MG TABLET PO (09:07)
--- NOTE | 2021-01-21 09:15 | PC.NURSE ---
PT DC TO HOME SPLINT APPLIED PRIOR TO C PAIN MEDIATION GIVEN. PT AOX4 AMB WITH STEADY GAIT
== END 2021-01-21 09:17 | disposition home or self-care (01) ==
PROVIDERS: Emergency Provider Emergency Medicine; PCP Internal Medicine
DX: S61.231A Puncture wound without foreign body of left index finger without damage to nail, initial encounter (principal); W54.0XXA Bitten by dog, initial encounter; R22.32 Localized swelling, mass and lump, left upper limb; Y93.9 Activity, unspecified; Y92.410 Unspecified street and highway as the place of occurrence of the external cause; Y99.9 Unspecified external cause status; Z20.3 Contact with and (suspected) exposure to rabies
CPT/HCPCS: 36415; 73130; 80048; 85025; 90375; 90471; 90675; 90715; 96365; 96372; 99283; 99284; J0295

== ENCOUNTER 2021-01-24 13:30 | Outpatient (REF) | payer OTHER, SELFPAY | END 2021-01-24 13:31 | disposition home or self-care (01) | LOC: HO.MDS 13:30 | PROVIDERS: PCP Internal Medicine | DX: Z29.14 Encounter for prophylactic rabies immune globulin (principal); S60.572D Other superficial bite of hand of left hand, subsequent encounter; W54.0XXD Bitten by dog, subsequent encounter; Z20.3 Contact with and (suspected) exposure to rabies | CPT/HCPCS: 90471; 90675 ==

== ENCOUNTER 2021-01-28 07:50 | Outpatient (REF) | payer OTHER, SELFPAY | END 2021-01-28 07:51 | disposition home or self-care (01) | LOC: HO.MDS 07:50 | PROVIDERS: PCP Internal Medicine | DX: Z29.14 Encounter for prophylactic rabies immune globulin (principal); S60.47 Other superficial bite of fingers; W54.0XXD Bitten by dog, subsequent encounter; Z20.3 Contact with and (suspected) exposure to rabies | CPT/HCPCS: 90471; 90675 ==

== ENCOUNTER 2021-02-05 14:23 | Outpatient (REF) | payer OTHER, SELFPAY | END 2021-02-05 14:24 | disposition home or self-care (01) | LOC: HO.MDS 14:23 | PROVIDERS: PCP Internal Medicine | DX: Z29.14 Encounter for prophylactic rabies immune globulin (principal); S60.572D Other superficial bite of hand of left hand, subsequent encounter; W54.0XXD Bitten by dog, subsequent encounter; Z20.3 Contact with and (suspected) exposure to rabies | CPT/HCPCS: 90471; 90675 ==

== ENCOUNTER → 2021-02-22 09:27 | Outpatient (BNVA) | payer OTHER, SELFPAY | PROVIDERS: Visit Provider Orthopaedic Surgery | DX: Z01.812 Encounter for preprocedural laboratory examination (principal); Z01.810 Encounter for preprocedural cardiovascular examination ==

== ENCOUNTER 2021-03-19 06:22 | Outpatient (REF) | payer OTHER, SELFPAY ==
[2021-03-19 07:10] LABS: MANUAL DIFF FLAG NO
[2021-03-19 07:13] LABS: Basophils Percent Auto 0.4 % (0-2); Eosinophils Absolute Auto 0.3 X10*3/uL (0.0-0.4); Eosinophils Percent Auto 4.6 % (0-4); Hemoglobin 14.1 g/dl (14.0-18.0); Imm Gran Abs Auto 0.03 X10*3/uL (0.00-0.03); Imm Gran Pct Auto 0.4 % (0.0-0.4); Immature Retic Fraction 6.9 % (2.3-13.4); Lymphocytes Absolute Auto 2.1 X10*3/uL (1.2-4.9); Lymphocytes Percent Auto 28.7 % (20-40); Mean Corpuscular HGB Conc 32.8 g/dl (31.0-36.0); Mean Corpuscular Hemoglobin 32.3 pg (27.0-33.0); Mean Corpuscular Volume 98.4 fL (80-98); Mean Platelet Volume 12.7 fL (9.4-12.4); Monocytes Absolute Auto 0.6 X10*3/uL (0.1-1.2); Monocytes Percent Auto 7.9 % (2-11); Neutrophils Absolute Auto 4.2 X10*3/uL (2.0-8.3); Platelet Count 238 X10*3/uL (160-400); Red Blood Count 4.37 X10*6/uL (4.60-5.80); Red Cell Distribution Width 12.6 % (11.0-16.0); Retic HGB Equivalent 33.4 pg (30.0-35.0); Reticulocyte Percent 1.1 % (0.5-1.8); Reticulocytes Absolute 0.049 X10*6/uL (0.026-0.095); White Blood Count 7.2 X10*3/uL (4.8-10.8)
[2021-03-19 07:46] LABS: Anion Gap 16 (12-20); Blood Urea Nitrogen 34 mg/dL (9-16); Calcium 9.8 mg/dL (8.4-10.2); Carbon Dioxide 23 mmol/L (22-29); Chloride 104 mmol/L (96-108); Estimated Glomerular Filt Rate 52; Glucose Random 121 mg/dL (60-115); Iron 124 mcg/dL (45-160); Percent Iron Saturation 37 % (15-50); Potassium 4.9 mmol/L (3.3-5.1); Sodium 138 mmol/L (135-145); Total Iron Binding Capacity 331 mcg/dL (228-428); Unsaturated Iron Binding 207 ug/dL
[2021-03-19 08:01] LABS: Ferritin 262 ng/mL (20-250)
== END 2021-03-19 06:23 | disposition home or self-care (01) ==
LOC: HO.LAB 06:22
PROVIDERS: PCP Internal Medicine; Visit Provider Internal Medicine
DX: N28.9 Disorder of kidney and ureter, unspecified (principal)
CPT/HCPCS: 36415; 80048; 82728; 83540; 85025; 85045

== ENCOUNTER 2021-03-27 09:02 | Outpatient (REF) | payer OTHER, SELFPAY | END 2021-03-27 09:03 | disposition home or self-care (01) | LOC: HO.LAB 09:02 | PROVIDERS: PCP Internal Medicine; Visit Provider Internal Medicine | DX: Z20.822 Contact with and (suspected) exposure to COVID-19 (principal) | CPT/HCPCS: C9803; U0003; U0005 ==

== ENCOUNTER → 2021-03-27 | Day surgery (SDC) | payer OTHER, MEDICARE, SELFPAY ==
--- NOTE | 2021-03-07 11:26 | ECG_ITS ---
Test Reason : PREOP Blood Pressure : / mmHG Vent. Rate : 072 BPM Atrial Rate : 072 BPM P-R Int : 184 ms QRS Dur : 078 ms QT Int : 380 ms P-R-T Axes : 050 070 051 degrees QTc Int : 416 ms Normal sinus rhythm Normal ECG When compared with ECG of 08-MAR-2019 13:23, No significant change was found Referred By: Kev Adair Electronically Signed By:JONATAN LOPEZ
[2021-03-07 11:51] LABS: MANUAL DIFF FLAG NO
[2021-03-07 11:53] LABS: Basophils Percent Auto 0.1 % (0-2); Eosinophils Absolute Auto 0.2 X10*3/uL (0.0-0.4); Eosinophils Percent Auto 2.4 % (0-4); Hemoglobin 13.2 g/dl (14.0-18.0); Imm Gran Abs Auto 0.03 X10*3/uL (0.00-0.03); Imm Gran Pct Auto 0.4 % (0.0-0.4); Lymphocytes Absolute Auto 2.1 X10*3/uL (1.2-4.9); Mean Corpuscular Hemoglobin 32.6 pg (27.0-33.0); Mean Corpuscular Volume 98.8 fL (80-98); Mean Platelet Volume 12.6 fL (9.4-12.4); Monocytes Absolute Auto 0.6 X10*3/uL (0.1-1.2); Monocytes Percent Auto 7.8 % (2-11); Neutrophils Absolute Auto 4.6 X10*3/uL (2.0-8.3); Neutrophils Percent Auto 61.3 % (45-73); Platelet Count 197 X10*3/uL (160-400); Red Blood Count 4.05 X10*6/uL (4.60-5.80); White Blood Count 7.6 X10*3/uL (4.8-10.8)
[2021-03-07 12:12] LABS: Anion Gap 16 (12-20); Blood Urea Nitrogen 22 mg/dL (9-16); Calcium 9.5 mg/dL (8.4-10.2); Carbon Dioxide 23 mmol/L (22-29); Chloride 106 mmol/L (96-108); Estimated Glomerular Filt Rate 54; Glucose Random 107 mg/dL (60-115); Sodium 140 mmol/L (135-145)
[2021-03-27 12:00] VITALS: BP 136/64; PULSE 70; RESP 20; O2SAT 97; BMI 29.9
--- NOTE | 2021-03-27 12:15 | P.CONAN_ITS ---
HPI - Anesthesia Eval Consult details Narrative: Surgery to be rescheduled d/t pt with increased productive cough, SOB since PAT. DOS pt admitted through ED for COPD exac 65yo M for Right Knee Replacement Total 04/10/21 PCP cleared pending repeat blood work Pending covid (negative) PMFSH Active Problems Active Problems: All Active Problems (Updated 03/27/21 @ 11:58 by Barbra Turk, RN) Impaired glucose tolerance (Acute) Renal insufficiency (Acute) Primary osteoarthritis of knee (Acute) Preop exam for internal medicine (Acute) Obesity (BMI 30-39.9) (Acute) Overweight (BMI 25.0-29.9) (Acute) Tobacco abuse (Acute) Hypercholesterolemia (Acute) Hypertension (Acute) Bipolar disorder (Acute) Past Medical History Medical History Alcohol abuse Amputation finger Bipolar disorder COVID-19 vaccine series completed Elevated cholesterol Erectile dysfunction Hypercholesterolemia Hypertension Hypogonadism Lab test negative for COVID-19 virus Macrocytosis without anemia Osteoarthritis Overweight (BMI 25.0-29.9) Pancreatitis Right arm fracture Tobacco abuse Vitamin D deficiency Narrative: Mild cough, mostly at night. COVID test 03/27/21 pending No CP/SOB with walking. Limited to knee pain Family History Family History Father No problems noted. Mother No problems noted. Sister No problems noted. Sister No problems noted. Son No problems noted. Daughter No problems noted. Daughter No problems noted. Family history of problems with anesthesia: No Surgical History Surgical History Finger amputation, no complication History of surgery on arm History of Problems with Anesthesia: No Social History Social History Housing: Apartment Are you a primary child care center assistant director to a significant other at home: No Do you presently have visiting nurse or other home services: No Alcohol intake: never Patient Tobacco Use Status: Current everyday Tobacco user Tobacco use type: Cigarette Cigarette Packs Per Day: 1 Cigarettes Per Day: 20.0 Years Smoked: 35 Smoked in Last 30 Days: Yes e-Cigarette/Vaping Use: Never Used Patient Interested in Nicotine Replacement: No Patient Given Instructions on How to Stop Smoking: Yes Date Education Initiated: 04/10/21 Second Hand Smoke Exposure: No Use of substances other than those prescribed or required for medical reasons: No Advance Directives: No Advance Directives Information Provided: Yes service: No Current occupational status: employed 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 Meds Allergies Allergy/AdvReac Type Severity Reaction Status Date / Time bupropion [From Wellbutrin] AdvReac Severe Anxiety Verified 04/03/21 15:36 Exam Exam Date and Time: March 27, 2021 1215 Height,Weight and Vital Signs: Height 5 ft 2 in Weight 74.389 kg Last Vital Signs Pulse 70 03/27/21 12:00 Resp 20 03/27/21 12:00 BP 136/64 03/27/21 12:00 Pulse Ox 97 03/27/21 12:00 Pertinent Lab Results Pertinent Lab Results: Laboratory Tests 03/07/21 03/07/21 11:05 11:05 WBC 7.6 RBC 4.05 L Hgb 13.2 L Hct 40.0 L MCV 98.8 H MCH 32.6 MCHC 33.0 RDW 13.0 Plt Count 197 MPV 12.6 H Immature Gran % (Auto) 0.4 Neut % (Auto) 61.3 Lymph % (Auto) 28.0 Cedar % (Auto) 7.8 Eos % (Auto) 2.4 Baso % (Auto) 0.1 Lymph # (Auto) 2.1 Cedar # (Auto) 0.6 Eos # (Auto) 0.2 Baso # (Auto) 0.0 Abs Immat Gran (auto) 0.03 Absolute Neuts (auto) 4.6 Absolute Nucleated RBC 0.000 Nucleated RBC % (auto) 0.0 Sodium 140 Potassium 5.0 Chloride 106 Carbon Dioxide 23 Anion Gap 16 BUN 22 H Creatinine 1.34 Estim Creat Clear Calc TNP Estimated GFR 54 Random Glucose 107 Calcium 9.5 Narrative Narrative: EKG 02/2021 Vent. Rate : 072 BPM ? ? Atrial Rate : 072 BPM ?? P-R Int : 184 ms? QRS Dur : 078 ms ? ? QT Int : 380 ms ? ? ? P-R-T Axes : 050 070 051 degrees ?? QTc Int : 416 ms ? Normal sinus rhythm Normal ECG When compared with ECG of 08-MAR-2019 13:23, No significant change was found Airway Mallampati Class: II TM Dist: >3cm Neck ROM: Full Denture: Upper and Lower Heart: RRR, +M Lungs: CTAB Assessment and Plan Assessment Anesthesia Assessment: Anesthesia Plan Discussed, Smoking Cess. Discussed and PAT Visit Final Anesthetic Review Family History of Problems with Anesthesia: No History of Problems with Anesthesia: No
[2021-03-27 15:12] LABS: MRSA Nasal PCR NEGATIVE (Negative); SA Nasal PCR NEGATIVE (Negative)
== END ==
PROVIDERS: Physician Assistant; PCP Internal Medicine; Visit Provider Orthopaedic Surgery
DX: M25.561 Pain in right knee (principal); M17.11 Unilateral primary osteoarthritis, right knee; Z53.8 Procedure and treatment not carried out for other reasons
CPT/HCPCS: 36415; 80048; 85025; 86850; 86900; 86901; 87640; 87641; 93005

== ENCOUNTER 2021-04-01 06:25 | Emergency (ER) | payer MEDICARE, SELFPAY ==
--- NOTE | ~2021-04-01 | XR_ITS ---
EXAMINATION: XR CHEST CLINICAL INFORMATION: Cough, rule out pneumonia. COMPARISON: 03/07/2019 portable chest. TECHNIQUE: 2 views of the chest were obtained. FINDINGS: No significant abnormality is noted involving the heart, lungs, mediastinum, bony thorax or soft tissues. XR/XR chest 2V IMPRESSION: No acute cardiopulmonary process.
[2021-04-01 06:50] VITALS: BP 117/75; PULSE 78; RESP 18; TEMP 36.8; O2SAT 95; BMI 30.3
[2021-04-01 07:23] LABS: COVID-19 Test Negative (Negative)
--- NOTE | 2021-04-01 08:23 | ED.URI ---
HPI - URI/Sore Throat General Chief Complaint: Upper Respiratory Symptoms Stated Complaint: Difficulty breathing, SoB Time Seen by Provider: 04/01/21 08:08 Source: patient and group contract analyst Mode of arrival: ambulatory Limitations: language barrier History of Present Illness HPI Narrative: 66-year-old male past medical history significant for hypertension, and renal insufficiency presents to the emergency department with dry cough X10 days. He states this is his only complaint. Cough is worse at night. The cough has been progressively worsening. He smokes 1 pack per day. He does not have asthma or COPD that he knows of. He denies chest pain, shortness of breath, fevers, chills, abdominal pain, weakness, recent sick contacts. He states he is knee replacement scheduled for 04/10/2021, and for this reason he stopped his blood pressure medication. MD elicited complaint: cough Onset (ago): day(s) Consistency: intermittent Severity: severe Able to tolerate fluids by mouth: Yes Exacerbating factors: nothing Relieving factors: nothing Associated symptoms: denies other symptoms Treatments prior to arrival: none Related Data Home Medications Medication Instructions Recorded Confirmed alclometasone 0.05 % topical cream 1 applic TOPICAL BID 03/29/20 03/26/21 Previous Rx's Medication Instructions Recorded hydrochlorothiazide 12.5 mg tablet 12.5 mg PO QAM #90 tab 04/26/20 simvastatin 20 mg tablet 20 mg PO BEDTIME #90 tab 10/03/20 lisinopril 40 mg tablet 40 mg PO DAILY 90 Days #90 tab 12/25/20 fenofibrate 160 mg tablet 160 mg PO DAILY #90 tab 01/04/21 hydrocodone-homatropine 5 mg-1.5 5 ml PO Q6H PRN #50 ml 04/01/21 mg/5 mL oral syrup (Hycodan (with homatropine)) prednisone 20 mg tablet 40 mg PO DAILY 4 Days #8 tab 04/01/21 Allergies Allergy/AdvReac Type Severity Reaction Status Date / Time bupropion [From Wellbutrin] AdvReac Severe Anxiety Verified 03/27/21 11:59 Review of Systems Review of Systems: Yes all other systems are reviewed and are negative Constitutional: Constitutional: Reports no additional constitutional complaints, Denies body ache(s), Denies chills, Denies fever(s), Denies headache(s) and Denies weakness Eyes: Eyes: Reports no additional eye complaints ENT: Reports system reviewed and no additional complaints, except as documented, Denies dizziness, Denies headache(s), Denies nasal congestion, Denies nasal discharge and Denies neck pain Cardiovascular: Cardiovascular: Reports no additional cardiovascular complaints, Denies chest pain, Denies leg edema and Denies dyspnea Respiratory: Respiratory: Reports cough and Denies dyspnea Gastrointestinal: Gastrointestinal: Reports no additional gastrointestinal complaints, Denies abdominal pain, Denies diarrhea, Denies nausea and Denies vomiting Genitourinary: Genitourinary: Denies urinary incontinence Musculoskeletal: Musculoskeletal: Reports no additional musculoskeletal complaints, Denies back pain, Denies arthralgias, Denies joint swelling, Denies neck pain, Denies numbness and Denies tingling Integumentary/Breasts: Skin/Breast: Reports system reviewed and no additional complaints, except as docu and Denies rash Neurologic: Reports system reviewed and no additional complaints, except as documented, Denies Abnormal speech present, Denies dizziness, Denies headache(s), Denies numbness, Denies tingling and Denies weakness [facility] Past Medical History Attestation statement: The following information was validated with the patient. Source: old records reviewed Medical History (Updated 04/01/21 @ 10:04 by Concha Devlin NP) Alcohol abuse Amputation finger Bipolar disorder COVID-19 vaccine series completed Elevated cholesterol Erectile dysfunction Hypercholesterolemia Hypertension Hypogonadism Lab test negative for COVID-19 virus Macrocytosis without anemia Osteoarthritis Overweight (BMI 25.0-29.9) Pancreatitis Right arm fracture Tobacco abuse Vitamin D deficiency Surgical History Finger amputation, no complication History of surgery on arm Family History Family History Father No problems noted. Mother No problems noted. Sister No problems noted. Sister No problems noted. Son No problems noted. Daughter No problems noted. Daughter No problems noted. 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 Physical Exam Vital Signs: Vital Signs: Last Vital Signs Temp 98.2 F 04/01/21 06:50 Pulse 78 04/01/21 11:16 Resp 18 04/01/21 11:16 BP 139/82 04/01/21 11:16 Pulse Ox 95 04/01/21 11:16 Body Mass Index 30.3 Const: General: cooperative, healthy appearing, comfortable and no acute distress Orientation/consciousness: patient oriented x3 Limitations: no limitations HENMT: Head: Yes normal to inspection Ears: hearing grossly normal bilaterally General nose exam: Normal external nose present Face and sinus: Yes normal facial exam Mouth: Normal oral and palatal mucosa present Throat: Yes posterior oropharynx normal Eyes: General: appearance normal, both eyes and all related structures Pupils: Equal, round and reactive pupils present Neck: Neck: Yes normal visual inspection Chest: Chest palpation & inspection: normal inspection of the chest Resp: Effort & Inspection: normal respiratory effort Auscultation: wheezes (Expiratory wheezes bilaterally) expiratory wheezes Cardio: Rate: regular rate Rhythm: regular rhythm Peripheral pulses: Peripheral pulses 2+ throughout GI: Inspection: Yes normal to inspection Palpation (GI): Soft to palpation and nontender Auscultation: normal bowel sounds Back/Spine/Pelvis: Thoracic/Lumbar Spine: thoracic and lumbar spine normal to inspection Skin: General skin exam: no rashes or lesions noted Neuro: General: patient oriented x3, no focal motor deficits and normal sensation to monofilament Cranial nerves: Yes Equal, round and reactive pupils present Cognition (Neuro): normal cognition Speech: No Abnormal speech present Gait exam (Neuro): Normal gait present Motor exam (neuro): 5/5 motor strength present throughout Extrem: General: Yes normal to inspection Course Course Course Narrative: 66-year-old male past medical history significant for hypertension presents with 10 days of dry cough. He is a daily smoker he smokes 1 pack per day. He denies chest pain, fever and shortness of breath. On physical examination there are faint expiratory wheezes noted to bilateral lower lobes. This is likely undiagnosed COPD, based off the patient's symptoms, and his longstanding smoking history. Reevaluation(s) Reevaluation #1: Upon re-evaluation the patient is feeling better after DuoNeb, and prednisone. He still having a dry cough, likely due to underlying COPD. Laboratory study show no acute infection, chest x-ray is negative, COVID negative. Based off of laboratory studies, physical exam, and chest x-ray this is likely bronchitis, with underlying COPD. He will be discharged home with an albuterol inhaler, prednisone burst, and medication for the cough. Time: 10:03 MDM - URI/Sore Throat MDM Narrative Medical decision making narrative: Plan at this time is to administer DuoNeb and prednisone, obtain a chest x-ray, and basic labs to rule out infection. Less likely PNA with no reports of fever, normal CXR Less likely PE with score 1 for age. Medical Records Attestation: I reviewed the patient's medical records. Lab Data Attestation: I reviewed the patient's lab results. Result diagrams: 04/01/21 08:36 04/01/21 08:36 Labs: Lab Results 04/01/21 04/01/21 04/01/21 Range/Units 06:56 08:36 08:36 WBC 7.6 (4.8-10.8) X10*3/uL RBC 4.27 L (4.60-5.80) X10*6/uL Hgb 13.9 L (14.0-18.0) g/dl Hct 41.2 L (42-52) % MCV 96.5 (80-98) fL MCH 32.6 (27.0-33.0) pg MCHC 33.7 (31.0-36.0) g/dl RDW 12.7 (11.0-16.0) % Plt Count 232 (160-400) X10*3/uL MPV 12.0 (9.4-12.4) fL Immature Gran % (Auto) 0.3 (0.0-0.4) % Neut % (Auto) 59.7 (45-73) % Lymph % (Auto) 27.9 (20-40) % Orange % (Auto) 7.9 (2-11) % Eos % (Auto) 3.8 (0-4) % Baso % (Auto) 0.4 (0-2) % Lymph # (Auto) 2.1 (1.2-4.9) X10*3/uL Orange # (Auto) 0.6 (0.1-1.2) X10*3/uL Eos # (Auto) 0.3 (0.0-0.4) X10*3/uL Baso # (Auto) 0.0 (0.0-0.2) X10*3/uL Abs Immat Gran (auto) 0.02 (0.00-0.03) X10*3/uL Absolute Neuts (auto) 4.6 (2.0-8.3) X10*3/uL Absolute Nucleated RBC 0.000 (0.0-0.012) X10*3/uL Nucleated RBC % (auto) 0.0 (0.0-0.2) /100WBC Sodium 138 (135-145) mmol/L Potassium 4.9 (3.3-5.1) mmol/L Chloride 108 (96-108) mmol/L Carbon Dioxide 21 L (22-29) mmol/L Anion Gap 14 (12-20) BUN 30 H (9-16) mg/dL Creatinine 1.27 (0.5-1.4) mg/dL Estim Creat Clear Calc 51.5 Estimated GFR 57 Random Glucose 95 (60-115) mg/dL Calcium 9.8 (8.4-10.2) mg/dL COVID-19 (JASSON) Negative (Negative) COVID-19 Clin Com See Note Discharge Plan Discharge Clinical Impression: Cough, Bronchitis Patient Disposition: Home, Self-Care Instructions: Acute Bronchitis (ED), Acute Cough (ED) Additional Instructions: You will be sent home with medications for the cough, who also be sent home with an inhaler. Follow-up with your PCP, it is important that you see them before your surgical procedure. You tested negative for COVID-19 today Return to the emergency department with new or worsening symptoms Prescriptions: New prednisone 20 mg tablet 40 mg PO DAILY 4 Days Qty: 8 RF: 0 hydrocodone-homatropine [Hycodan (with homatropine)] 5-1.5 mg/5 mL syrup 5 ml PO Q6H PRN (Reason: cough) Qty: 50 RF: 0 No Action hydrochlorothiazide 12.5 mg tablet 12.5 mg PO QAM Qty: 90 RF: 3 lisinopril 40 mg tablet 40 mg PO DAILY 90 Days Qty: 90 RF: 2 fenofibrate 160 mg tablet 160 mg PO DAILY Qty: 90 RF: 2 alclometasone 0.05 % cream 1 applic topical BID RF: 0 simvastatin 20 mg tablet 20 mg PO BEDTIME Qty: 90 RF: 1 Referrals: Po,Latesha Astudillo MD [Primary Care Provider] - 2 days Interventions: ED Discharge Assessment Last Done: 04/01/21 11:16 Discharge Date/Time: 04/01/21 11:17
[2021-04-01] MEDS: predniSONE 20 MG TABLET 60 MG PO (08:33)
[2021-04-01] MEDS: Albuterol/Iprat 2.5/0.5MG 3 ML AMPUL.NEB INHALE (08:37)
[2021-04-01 08:38] VITALS: PULSE 74; O2SAT 96
[2021-04-01 08:44] VITALS: O2SAT 95
[2021-04-01 08:44] LABS: MANUAL DIFF FLAG NO
[2021-04-01 08:45] LABS: Basophils Percent Auto 0.4 % (0-2); Eosinophils Absolute Auto 0.3 X10*3/uL (0.0-0.4); Eosinophils Percent Auto 3.8 % (0-4); Hematocrit 41.2 % (42-52); Hemoglobin 13.9 g/dl (14.0-18.0); Imm Gran Abs Auto 0.02 X10*3/uL (0.00-0.03); Imm Gran Pct Auto 0.3 % (0.0-0.4); Lymphocytes Absolute Auto 2.1 X10*3/uL (1.2-4.9); Lymphocytes Percent Auto 27.9 % (20-40); Mean Corpuscular HGB Conc 33.7 g/dl (31.0-36.0); Mean Corpuscular Hemoglobin 32.6 pg (27.0-33.0); Mean Corpuscular Volume 96.5 fL (80-98); Monocytes Absolute Auto 0.6 X10*3/uL (0.1-1.2); Monocytes Percent Auto 7.9 % (2-11); Neutrophils Absolute Auto 4.6 X10*3/uL (2.0-8.3); Neutrophils Percent Auto 59.7 % (45-73); Platelet Count 232 X10*3/uL (160-400); Red Blood Count 4.27 X10*6/uL (4.60-5.80); Red Cell Distribution Width 12.7 % (11.0-16.0); White Blood Count 7.6 X10*3/uL (4.8-10.8)
[2021-04-01 08:47] VITALS: RESP 19
[2021-04-01 09:08] LABS: Anion Gap 14 (12-20); Blood Urea Nitrogen 30 mg/dL (9-16); Calcium 9.8 mg/dL (8.4-10.2); Carbon Dioxide 21 mmol/L (22-29); Chloride 108 mmol/L (96-108); Creatinine Clr Calc Pharmacy 51.5; Estimated Glomerular Filt Rate 57; Glucose Random 95 mg/dL (60-115); Potassium 4.9 mmol/L (3.3-5.1); Sodium 138 mmol/L (135-145)
[2021-04-01] MEDS: Albuterol Sulfate 90 MCG 8 GM INHALER 2 PUFF INHALE (10:07)
[2021-04-01 10:11] VITALS: PULSE 75; O2SAT 90
[2021-04-01 11:16] VITALS: BP 139/82; PULSE 78; RESP 18; O2SAT 95
== END 2021-04-01 11:17 | disposition home or self-care (01) ==
PROVIDERS: Nurse Practitioner Family; Emergency Provider Internal Medicine; PCP Internal Medicine
DX: J40 Bronchitis, not specified as acute or chronic (principal); R05.9 Cough, unspecified; R06.02 Shortness of breath; Z20.822 Contact with and (suspected) exposure to COVID-19; F17.210 Nicotine dependence, cigarettes, uncomplicated; Z71.6 Tobacco abuse counseling
CPT/HCPCS: 36415; 71046; 80048; 85025; 87635; 94640; 99284; 99285

== ENCOUNTER 2021-04-10 08:37 | Observation (INO) | payer MEDICARE, OTHER, SELFPAY ==
[2021-04-10] VITALS (12 sets, daily range): BP systolic 122–158; BP diastolic 58–96; PULSE 90–121; RESP 16–29; TEMP 36.5–37.3; O2SAT 91–97; BMI 28.5
--- NOTE | 2021-04-10 | ECG_ITS ---
Test Reason : CHEST PAIN Blood Pressure : / mmHG Vent. Rate : 118 BPM Atrial Rate : 118 BPM P-R Int : 164 ms QRS Dur : 080 ms QT Int : 334 ms P-R-T Axes : 051 077 044 degrees QTc Int : 468 ms Sinus tachycardia Otherwise normal ECG When compared with ECG of 10-APR-2021 08:50, No significant change was found Referred By: Ismael Weston Electronically Signed By:LIZZ MCRAE MD
--- NOTE | ~2021-04-10 | CT_ITS ---
EXAMINATION: CT CHEST WITHOUT CONTRAST CLINICAL INFORMATION: SOB COMPARISON: None TECHNIQUE: Multidetector volumetric CT imaging of the chest was done. Axial MIP volume rendering provided. Sagittal and coronal reformatted images were obtained. This CT examination was performed using dose optimization techniques as appropriate, variously including the following: *Automated exposure control *Adjustment of mA and/or kV according to patient size (this includes techniques or standardized protocols for targeted exams where dose is matched to indication/reason for exam; i.e. 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 There is bibasilar mild bronchiectasis. Minimal parenchymal groundglass attenuation seen in both lung bases, nonspecific. No acute consolidation or mass seen. There is 3 mm subpleural nodule right middle lobe adjacent to the minor fissure axial image 204/9, right posterior pleural-based 1.1 cm thickening, 2 mm calcified nodule right lower lobe axial image 305/9. MEDIASTINUM: The thyroid lobes are symmetrical and normal. The central trachea and the bronchi widely patent. Heart size and the great vessels are normal caliber. No pericardial effusion seen. There are coronary artery calcifications present. PLEURA: No pleural effusion or calcification. There is mild right posterior pleural thickening measuring 1.1 cm long on axial image 191/9. AXILLA: There are small shotty lymph nodes in the axilla. The chest wall is unremarkable. UPPER ABDOMEN: Visualized liver is diffusely attenuated with likely mild hepatomegaly. No focal lesion or intrahepatic ductal dilatation seen. Visualized spleen, pancreas and bilateral adrenal glands are unremarkable. OSSEOUS STRUCTURES: There is mild ventral spondylosis mid and lower dorsal spine. No lytic process seen. Mild degenerative changes bilateral sternoclavicular joint and first rib costochondral junctions are noted CT/CT chest wo con IMPRESSION: Mild centrilobular emphysema with bibasilar minimal bronchiectasis but no consolidation. Nonspecific groundglass attenuation seen in both lung bases. Small nodules and mild right posterior pleural thickening, nonspecific. Diffuse hepatic steatosis with probable hepatomegaly.
--- NOTE | ~2021-04-10 | XR_ITS ---
EXAMINATION: XR CHEST CLINICAL INFORMATION: SOB. COMPARISON: Chest 04/01/2021. TECHNIQUE: Frontal view of the chest was obtained. FINDINGS: The lungs are well-expanded and clear of acute pneumonic process. There is mild prominence of bilateral parahilar interstitial markings without any edema. No pleural effusion. The heart size and pulmonary vascularity is normal. XR/XR chest 1V IMPRESSION: Mild prominent interstitial markings with no acute process. No major change from 04/01/2021.
--- NOTE | 2021-04-10 08:59 | ECG_ITS ---
Test Reason : SOB Blood Pressure : / mmHG Vent. Rate : 106 BPM Atrial Rate : 106 BPM P-R Int : 162 ms QRS Dur : 074 ms QT Int : 328 ms P-R-T Axes : 063 091 064 degrees QTc Int : 435 ms Sinus tachycardia Rightward axis Borderline ECG When compared with ECG of 07-MAR-2021 12:00, Heart rate has increased Referred By: Concha Devlin Electronically Signed By:LIZZ MCRAE MD
--- NOTE | 2021-04-10 09:03 | ED_ITS ---
HPI - SOB/Dyspnea General Chief Complaint: Dyspnea Stated Complaint: difficulty breathing Time Seen by Provider: 04/10/21 08:55 Source: patient Mode of arrival: ambulatory Limitations: no limitations History of Present Illness HPI Narrative: 66-year-old male with a past medical history of hypertension, renal insufficiency, longstanding smoking history here with complaints of shortness of breath. The patient was seen here on April 01 for similar complaints. He was thought to have underlying COPD and was sent home with albuterol MDI and a course of prednisone. Patient tells me he has been using the inhaler but was unable to fill the prednisone. He did have some improvement for several days but then his shortness of breath returned. It is associated with cough and wheezing. No fevers, chills, leg swelling or pain. No chest pain. Patient has tried to get in with his primary care but has been unable Related Data Previous Rx's Medication Instructions Recorded hydrochlorothiazide 12.5 mg tablet 12.5 mg PO QAM #90 tab 04/26/20 lisinopril 40 mg tablet 40 mg PO DAILY 90 Days #90 tab 12/25/20 fenofibrate 160 mg tablet 160 mg PO DAILY #90 tab 01/04/21 simvastatin 20 mg tablet 20 mg PO BEDTIME #90 tab 04/03/21 Allergies Allergy/AdvReac Type Severity Reaction Status Date / Time bupropion [From Wellbutrin] AdvReac Severe Anxiety Verified 04/03/21 15:36 Review of Systems Review of Systems: Yes all other systems are reviewed and are negative Constitutional: Constitutional: Reports no additional constitutional complaints, Denies body ache(s), Denies chills, Denies fever(s), Denies headache(s) and Denies weakness Eyes: Eyes: Reports no additional eye complaints and Denies change in vision ENT: Reports system reviewed and no additional complaints, except as documented, Denies dizziness, Denies headache(s), Denies nasal congestion, Denies nasal discharge and Denies neck pain Cardiovascular: Cardiovascular: Reports no additional cardiovascular complaints, Denies chest pain, Denies leg edema and Reports dyspnea Respiratory: Respiratory: Reports no additional respiratory complaints, Reports cough and Reports dyspnea Gastrointestinal: Gastrointestinal: Reports no additional gastrointestinal complaints, Denies abdominal pain, Denies diarrhea, Denies nausea and Denies vomiting Genitourinary: Genitourinary: Denies urinary incontinence Musculoskeletal: Musculoskeletal: Reports no additional musculoskeletal complaints, Denies back pain, Denies arthralgias, Denies joint swelling, Denies neck pain, Denies numbness and Denies tingling Integumentary/Breasts: Skin/Breast: Reports system reviewed and no additional complaints, except as docu and Denies rash Neurologic: Reports system reviewed and no additional complaints, except as documented, Denies Abnormal speech present, Denies dizziness, Denies headache(s), Denies numbness, Denies tingling and Denies weakness Psychiatric: Psychiatric: Reports anxiety PMFSH Past Medical History Attestation statement: The following information was validated with the patient. Source: old records reviewed and nursing notes reviewed Medical History Alcohol abuse Amputation finger Bipolar disorder COVID-19 vaccine series completed Elevated cholesterol Erectile dysfunction Hypercholesterolemia Hypertension Hypogonadism Lab test negative for COVID-19 virus Macrocytosis without anemia Osteoarthritis Overweight (BMI 25.0-29.9) Pancreatitis Right arm fracture Tobacco abuse Vitamin D deficiency Surgical History Finger amputation, no complication History of surgery on arm Family History Family History Father No problems noted. Mother No problems noted. Sister No problems noted. Sister No problems noted. Son No problems noted. Daughter No problems noted. Daughter No problems noted. Social History Social History Housing: Apartment Are you a primary home care assistant to a significant other at home: No Do you presently have visiting nurse or other home services: No Alcohol intake: never Patient Tobacco Use Status: Current everyday Tobacco user Tobacco use type: Cigarette Cigarette Packs Per Day: 1 Cigarettes Per Day: 20 Years Smoked: 52 e-Cigarette/Vaping Use: Never Used Second Hand Smoke Exposure: No Use of substances other than those prescribed or required for medical reasons: No Advance Directives: No Advance Directives Information Provided: Yes service: No Current occupational status: employed 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 Physical Exam Vital Signs: Vital Signs: Last Vital Signs Temp 98.3 F 04/10/21 08:39 Pulse 90 04/10/21 10:30 Resp 22 H 04/10/21 09:39 BP 158/96 H 04/10/21 08:39 Pulse Ox 91 L 04/10/21 11:45 Body Mass Index 28.5 Const: General: cooperative, healthy appearing, comfortable and no acute distress Orientation/consciousness: patient oriented x3 Limitations: no limitations HENMT: Head: Yes normal to inspection Ears: hearing grossly normal bilaterally General nose exam: Normal external nose present Face and sinus: Yes normal facial exam Mouth: Normal oral and palatal mucosa present Throat: Yes posterior oropharynx normal Eyes: General: appearance normal, both eyes and all related structures Pupils: Equal, round and reactive pupils present Neck: Neck: Yes normal visual inspection Chest: Chest palpation & inspection: normal inspection of the chest Resp: Other: Tachypnea with a rate of 26 Inspiratory and expiratory wheezing throughout Sitting upright, pursed lip breathing, accessory muscle use Cardio: Rate: regular rate Rhythm: regular rhythm Peripheral pulses: Peripheral pulses 2+ throughout GI: Inspection: Yes normal to inspection Palpation (GI): Soft to palpation and nontender Auscultation: normal bowel sounds Back/Spine/Pelvis: Thoracic/Lumbar Spine: thoracic and lumbar spine normal to inspection Skin: General skin exam: no rashes or lesions noted Neuro: General: patient oriented x3, no focal motor deficits and normal sensation to monofilament Cranial nerves: Yes Equal, round and reactive pupils present Cognition (Neuro): normal cognition Speech: No Abnormal speech present Gait exam (Neuro): Normal gait present Motor exam (neuro): 5/5 motor strength present throughout Extrem: General: Yes normal to inspection, Yes no pedal edema and Yes no calf tenderness Course Course Course Narrative: 66-year-old male here with likely underlying COPD with shortness of breath, cough. Patient on arrival is tachypneic, mild respiratory distress noted. He is also quite anxious. Has wheezing throughout. Will check EKG, chest x-ray, COVID screen and labs. Will give DuoNeb and Solu- Medrol and reassessed. 1115-CT chest consistent with emphysema. No focal consolidation. Patient received additional 5 mg of albuterol for wheezing. Plan for ambulatory oxygen saturation trial for disposition. 1150-Patient very tachypnic with any movement. RA sat91%. Continued wheezing. Feels quite uncomfortable going home as he lives alone. Will admit to medicine. 1400-No response from medicine. Call back. 1430-Spoke to Patricia STOVER from medicine for admit. MDM - SOB/Dyspnea MDM Narrative Medical decision making narrative: pe Differential Diagnosis Differential diagnosis: Likely acute exacerbation of chronic obstructive airways disease and pneumonia Medical Records Attestation: I reviewed the patient's medical records. Lab Data Attestation: I reviewed the patient's lab results. Result diagrams: 04/10/21 09:04 04/10/21 09:04 Labs: Lab Results 04/10/21 04/10/21 04/10/21 Range/Units 09:04 09:04 09:04 WBC 11.7 H (4.8-10.8) X10*3/uL RBC 4.38 L (4.60-5.80) X10*6/uL Hgb 14.3 (14.0-18.0) g/dl Hct 42.9 (42-52) % MCV 97.9 (80-98) fL MCH 32.6 (27.0-33.0) pg MCHC 33.3 (31.0-36.0) g/dl RDW 13.0 (11.0-16.0) % Plt Count 226 (160-400) X10*3/uL MPV 12.2 (9.4-12.4) fL Immature Gran % (Auto) 0.7 H (0.0-0.4) % Neut % (Auto) 68.5 (45-73) % Lymph % (Auto) 17.8 L (20-40) % [place] % (Auto) 8.9 (2-11) % Eos % (Auto) 3.8 (0-4) % Baso % (Auto) 0.3 (0-2) % Lymph # (Auto) 2.1 (1.2-4.9) X10*3/uL [place] # (Auto) 1.0 (0.1-1.2) X10*3/uL Eos # (Auto) 0.5 H (0.0-0.4) X10*3/uL Baso # (Auto) 0.0 (0.0-0.2) X10*3/uL Abs Immat Gran (auto) 0.08 H (0.00-0.03) X10*3/uL Absolute Neuts (auto) 8.0 (2.0-8.3) X10*3/uL Absolute Nucleated RBC 0.000 (0.0-0.012) X10*3/uL Nucleated RBC % (auto) 0.0 (0.0-0.2) /100WBC D-Dimer NG/ML Sodium 140 (135-145) mmol/L Potassium 5.0 (3.3-5.1) mmol/L Chloride 105 (96-108) mmol/L Carbon Dioxide 26 (22-29) mmol/L Anion Gap 14 (12-20) BUN 29 H (9-16) mg/dL Creatinine 1.30 (0.5-1.4) mg/dL Estim Creat Clear Calc 52.5 Estimated GFR 55 Random Glucose 107 (60-115) mg/dL Lactic Acid 1.8 (0.5-2.0) mmol/L Calcium 9.6 (8.4-10.2) mg/dL Magnesium 2.0 (1.6-2.6) mg/dL Total Bilirubin 0.4 (0.0-1.0) mg/dL Direct Bilirubin 0.2 (0.0-0.5) mg/dL AST 21 (5-37) U/L ALT 26 (0-40) U/L Alkaline Phosphatase 51 (39-117) U/L Troponin I High Sens (<3.5-35.0) ng/L B-Natriuretic Peptide (<100) pg/mL Total Protein 7.4 (6.5-8.0) g/dL Albumin 4.4 (3.5-5.0) g/dL COVID-19 (JASSON) (Negative) COVID-19 Clin Com 04/10/21 04/10/21 04/10/21 Range/Units 09:04 09:42 09:42 WBC (4.8-10.8) X10*3/uL RBC (4.60-5.80) X10*6/uL Hgb (14.0-18.0) g/dl Hct (42-52) % MCV (80-98) fL MCH (27.0-33.0) pg MCHC (31.0-36.0) g/dl RDW (11.0-16.0) % Plt Count (160-400) X10*3/uL MPV (9.4-12.4) fL Immature Gran % (Auto) (0.0-0.4) % Neut % (Auto) (45-73) % Lymph % (Auto) (20-40) % [place] % (Auto) (2-11) % Eos % (Auto) (0-4) % Baso % (Auto) (0-2) % Lymph # (Auto) (1.2-4.9) X10*3/uL [place] # (Auto) (0.1-1.2) X10*3/uL Eos # (Auto) (0.0-0.4) X10*3/uL Baso # (Auto) (0.0-0.2) X10*3/uL Abs Immat Gran (auto) (0.00-0.03) X10*3/uL Absolute Neuts (auto) (2.0-8.3) X10*3/uL Absolute Nucleated RBC (0.0-0.012) X10*3/uL Nucleated RBC % (auto) (0.0-0.2) /100WBC D-Dimer < 200 NG/ML Sodium (135-145) mmol/L Potassium (3.3-5.1) mmol/L Chloride (96-108) mmol/L Carbon Dioxide (22-29) mmol/L Anion Gap (12-20) BUN (9-16) mg/dL Creatinine (0.5-1.4) mg/dL Estim Creat Clear Calc Estimated GFR Random Glucose (60-115) mg/dL Lactic Acid (0.5-2.0) mmol/L Calcium (8.4-10.2) mg/dL Magnesium (1.6-2.6) mg/dL Total Bilirubin (0.0-1.0) mg/dL Direct Bilirubin (0.0-0.5) mg/dL AST (5-37) U/L ALT (0-40) U/L Alkaline Phosphatase (39-117) U/L Troponin I High Sens 7.6 (<3.5-35.0) ng/L B-Natriuretic Peptide < 10 (<100) pg/mL Total Protein (6.5-8.0) g/dL Albumin (3.5-5.0) g/dL COVID-19 (JASSON) Negative (Negative) COVID-19 Clin Com See Note Imaging Data Chest x-ray: Attestation: I personally reviewed and interpreted this imaging study as follows: Radiologist's impression: EXAMINATION: XR CHEST CLINICAL INFORMATION: SOB. COMPARISON: Chest 04/01/2021. TECHNIQUE: Frontal view of the chest was obtained. FINDINGS: The lungs are well-expanded and clear of acute pneumonic process. There is mild prominence of bilateral parahilar interstitial markings without any edema. No pleural effusion. The heart size and pulmonary vascularity is normal. XR/XR chest 1V IMPRESSION: Mild prominent interstitial markings with no acute process. No major change from 04/01/2021. ? CT scan - chest: Attestation: I personally reviewed and interpreted this imaging study as follows: Radiologist's impression: IMPRESSION: Mild centrilobular emphysema with bibasilar minimal bronchiectasis but no consolidation. Nonspecific groundglass attenuation seen in both lung bases. ? Small nodules and mild right posterior pleural thickening, nonspecific. ? Diffuse hepatic steatosis with probable hepatomegaly.? ? ECG Data Attestation: I personally reviewed and interpreted this ECG as follows: ECG interpretation date: 04/10/21 ECG interpretation time: 08:50 Interpretation: Sinus tachycardia with a rate of 106, normal DC, normal QRS, normal QT Rightward axis Discharge Plan Discharge Clinical Impression: Emphysema/COPD Patient Disposition: Admitted As Inpatient
[2021-04-10 09:11] LABS: MANUAL DIFF FLAG NO
[2021-04-10 09:12] LABS: Basophils Percent Auto 0.3 % (0-2); Eosinophils Absolute Auto 0.5 X10*3/uL (0.0-0.4); Eosinophils Percent Auto 3.8 % (0-4); Hematocrit 42.9 % (42-52); Hemoglobin 14.3 g/dl (14.0-18.0); Imm Gran Abs Auto 0.08 X10*3/uL (0.00-0.03); Imm Gran Pct Auto 0.7 % (0.0-0.4); Lymphocytes Absolute Auto 2.1 X10*3/uL (1.2-4.9); Lymphocytes Percent Auto 17.8 % (20-40); Mean Corpuscular HGB Conc 33.3 g/dl (31.0-36.0); Mean Corpuscular Hemoglobin 32.6 pg (27.0-33.0); Mean Corpuscular Volume 97.9 fL (80-98); Mean Platelet Volume 12.2 fL (9.4-12.4); Monocytes Percent Auto 8.9 % (2-11); Neutrophils Percent Auto 68.5 % (45-73); Platelet Count 226 X10*3/uL (160-400); Red Blood Count 4.38 X10*6/uL (4.60-5.80); White Blood Count 11.7 X10*3/uL (4.8-10.8)
[2021-04-10] MEDS: Albuterol/Iprat 2.5/0.5MG 3 ML AMPUL.NEB INHALE (09:13)
[2021-04-10] MEDS: methylPREDNISolone Sod Succ 125 MG/2 ML VIAL IVPUSH (09:15)
[2021-04-10 09:26] LABS: Lactic Acid 1.8 mmol/L (0.5-2.0)
[2021-04-10 09:36] LABS: B Type Natriuretic Peptide < 10 pg/mL (<100); Troponin-I High Sensitivity 7.6 ng/L (<3.5-35.0)
[2021-04-10 09:39] LABS: Alanine Aminotransferase 26 U/L (0-40); Albumin Level 4.4 g/dL (3.5-5.0); Alkaline Phosphatase 51 U/L (39-117); Anion Gap 14 (12-20); Aspartate Amino Transferase 21 U/L (5-37); Bilirubin Direct 0.2 mg/dL (0.0-0.5); Bilirubin Total 0.4 mg/dL (0.0-1.0); Blood Urea Nitrogen 29 mg/dL (9-16); Calcium 9.6 mg/dL (8.4-10.2); Carbon Dioxide 26 mmol/L (22-29); Chloride 105 mmol/L (96-108); Creatinine Clr Calc Pharmacy 52.5; Estimated Glomerular Filt Rate 55; Glucose Random 107 mg/dL (60-115); Sodium 140 mmol/L (135-145); Total Protein 7.4 g/dL (6.5-8.0)
[2021-04-10 10:04] LABS: D Dimer < 200 NG/ML
[2021-04-10 10:17] LABS: COVID-19 Test Negative (Negative)
[2021-04-10] MEDS: Albuterol Sulfate (0.083%) 2.5 MG/3 ML VIAL.NEB 5 MG INHALE (10:28)
[2021-04-10] MEDS: HYDROcodone/Homat 5/1.5/5 ML 5 ML SYRUP PO ×2 (10:28→21:25)
--- NOTE | 2021-04-10 13:33 | PHA.MEDREC ---
Pharmacy Consult ? Medication Reconciliation Pharmacy has completed the medication reconciliation. There are no remarkable issues for provider's attention. Jaqueline Brooks, ViridianaD
--- NOTE | 2021-04-10 16:26 | PM.IMHP ---
History of Present Illness Date of Service: 04/10/21 <Patricia Monsivais NP - Last Filed: 04/10/21 16:43> Chief Complaint: Coughing <Patricia Monsivais NP - Last Filed: 04/10/21 16:43> 66 year old man presenting to the ER with increased cough and shortness of breath. He reports that over the last 2 weeks he has had coughing mostly at nighttime that has been keeping him awake with no sputum production. He did report some shortness of breath. He continues to smoke a pack cigarettes a day. He denies chest pain, nausea, vomiting diarrhea, alcohol use or drug use. Chest CT shows central lobular emphysema with bibasilar minimum bronchiectases no consolidation. Labs within acceptable limits he was given Albuterol, Solumedrol in the ED. he will be placed on observation for COPD exacerbation. <Patricia Monsivais NP - Last Filed: 04/10/21 16:43> Review of Systems Review of Systems: Denies any recent fever chills or decrease in appetite respiratory See HPI cardiovascular denies chest pain gastrointestinal denies any dysphagia abdominal pain nausea vomiting or diarrhea genitourinary denies any dysuria frequency or hematuria musculoskeletal denies any joint pain or swelling neuropsych denies any weakness or seizures all other systems reviewed are negative <Patricia Monsivais NP - Last Filed: 04/10/21 16:43> [facility] Medical History: Medical History Alcohol abuse Amputation finger Bipolar disorder COVID-19 vaccine series completed Elevated cholesterol Erectile dysfunction Hypercholesterolemia Hypertension Hypogonadism Lab test negative for COVID-19 virus Macrocytosis without anemia Osteoarthritis Overweight (BMI 25.0-29.9) Pancreatitis Right arm fracture Tobacco abuse Vitamin D deficiency <Patricia Monsivais NP - Last Filed: 04/10/21 16:43> Family History: Family History Father No problems noted. Mother No problems noted. Sister No problems noted. Sister No problems noted. Son No problems noted. Daughter No problems noted. Daughter No problems noted. <Patricia Monsivais NP - Last Filed: 04/10/21 16:43> Pertinent family history: . <Patricia Monsivais NP - Last Filed: 04/10/21 16:43> Surgical History: Surgical History Finger amputation, no complication History of surgery on arm <Patricia Monsivais NP - Last Filed: 04/10/21 16:43> Social History: Social History Housing: Apartment Are you a primary associate director career services to a significant other at home: No Do you presently have visiting nurse or other home services: No Alcohol intake: never Patient Tobacco Use Status: Current everyday Tobacco user Tobacco use type: Cigarette Cigarette Packs Per Day: 1 Cigarettes Per Day: 20.0 Years Smoked: 35 Smoked in Last 30 Days: Yes e-Cigarette/Vaping Use: Never Used Patient Interested in Nicotine Replacement: No Patient Given Instructions on How to Stop Smoking: Yes Date Education Initiated: 04/10/21 Second Hand Smoke Exposure: No Use of substances other than those prescribed or required for medical reasons: No Advance Directives: No Advance Directives Information Provided: Yes service: No Current occupational status: employed 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 <Patricia Monsivais NP - Last Filed: 04/10/21 16:43> Meds Allergies/Adverse reactions: Allergies Allergy/AdvReac Type Severity Reaction Status Date / Time bupropion [From Wellbutrin] AdvReac Severe Anxiety Verified 04/03/21 15:36 <Patricia Monsivais NP - Last Filed: 04/10/21 16:43> Active Medications: Current Medications Acetaminophen (Acetaminophen 325 Mg Tablet) 650 mg PO Q6H PRN PRN Reason: Pain, Mild (Pain Scale 1-3) Albuterol Sulfate (Albuterol Sulfate (0.083%) 2.5 Mg/3 Ml Vial.Neb) 2.5 mg INHALE RQ4H WHILE AWAKE CATHIE Fenofibrate (Fenofibrate 160 Mg Tablet) 160 mg PO DAILY CATHIE Hydrochlorothiazide (Hydrochlorothiazide 12.5 Mg Tablet) 12.5 mg PO QAM CATHIE; Protocol Lisinopril (Lisinopril 40 Mg Tablet) 40 mg PO DAILY CATHIE; Protocol Methylprednisolone Sodium Succinate (Methylprednisolone Sod Succ 40 Mg/Ml Vial) 40 mg IVPUSH Q12H CATHIE Non-Formulary Medication (Simvastatin) 20 mg PO BEDTIME CATHIE Ondansetron HCl (Ondansetron Hcl 4 Mg/2 Ml Vial) 4 mg IVPUSH Q8H PRN PRN Reason: Nausea and Vomiting Pharmacy Consult (Consult Rx Perform Med Rec) 1 each MISCELLANE ONCE PRN PRN Reason: Consult order Sodium Chloride (0.9 % Sodium Chloride Flush 3 Ml Syringe) 3 ml IVFLUSH QSHIFT CATHIE <Patricia Monsivais NP - Last Filed: 04/10/21 16:43> Physical Exam Vital Signs and Narrative: Vital Signs: Last Vital Signs Temp 98.3 F 04/10/21 08:39 Pulse 90 04/10/21 10:30 Resp 22 H 04/10/21 09:39 BP 158/96 H 04/10/21 08:39 Pulse Ox 91 L 04/10/21 11:45 Body Mass Index 28.5 <Patricia Monsivais NP - Last Filed: 04/10/21 16:43> Appearing in no acute distress head is normocephalic atraumatic eyes pupils are PERRLA sclera is anicteric mouth throat mucous membranes are intact and moist neck is supple no lymphadenopathy, no JVD noted lung sounds rhonchi, expiratory wheezes heart regular rate rhythm, clear S1, S2 positive bowel sounds, abdomen is soft, nontender neuro patient is alert x3, no focal deficits <Patricia Monsivais NP - Last Filed: 04/10/21 16:43> Results Labs CBC and Chem 7: : 04/11/21 05:16 04/11/21 05:16 <Patricia Monsivais NP - Last Filed: 04/10/21 16:43> Labs: Laboratory Results - last 24 hr 04/10/21 04/10/21 04/10/21 09:04 09:04 09:04 MCV 97.9 MCH 32.6 MCHC 33.3 RDW 13.0 Plt Count 226 MPV 12.2 Immature Gran % (Auto) 0.7 H Neut % (Auto) 68.5 Lymph % (Auto) 17.8 L [place] % (Auto) 8.9 Eos % (Auto) 3.8 Baso % (Auto) 0.3 Lymph # (Auto) 2.1 [place] # (Auto) 1.0 Eos # (Auto) 0.5 H Baso # (Auto) 0.0 Abs Immat Gran (auto) 0.08 H Absolute Neuts (auto) 8.0 Absolute Nucleated RBC 0.000 Nucleated RBC % (auto) 0.0 D-Dimer Anion Gap 14 Estim Creat Clear Calc 52.5 Estimated GFR 55 Random Glucose 107 Lactic Acid 1.8 Calcium 9.6 Magnesium 2.0 Total Bilirubin 0.4 Direct Bilirubin 0.2 AST 21 ALT 26 Alkaline Phosphatase 51 Troponin I High Sens B-Natriuretic Peptide Total Protein 7.4 Albumin 4.4 COVID-19 (JASSON) COVID-19 Clin Com 04/10/21 04/10/21 04/10/21 09:04 09:42 09:42 MCV MCH MCHC RDW Plt Count MPV Immature Gran % (Auto) Neut % (Auto) Lymph % (Auto) [place] % (Auto) Eos % (Auto) Baso % (Auto) Lymph # (Auto) [place] # (Auto) Eos # (Auto) Baso # (Auto) Abs Immat Gran (auto) Absolute Neuts (auto) Absolute Nucleated RBC Nucleated RBC % (auto) D-Dimer < 200 Anion Gap Estim Creat Clear Calc Estimated GFR Random Glucose Lactic Acid Calcium Magnesium Total Bilirubin Direct Bilirubin AST ALT Alkaline Phosphatase Troponin I High Sens 7.6 B-Natriuretic Peptide < 10 Total Protein Albumin COVID-19 (JASSON) Negative COVID-19 Clin Com See Note <Patricia Monsivais NP - Last Filed: 04/10/21 16:43> Imaging Radiologist's Impressions: Impressions Chest X-Ray 04/10/21 08:59 IMPRESSION: Mild prominent interstitial markings with no acute process. No major change from 04/01/2021. Chest CT 04/10/21 10:18 IMPRESSION: Mild centrilobular emphysema with bibasilar minimal bronchiectasis but no consolidation. Nonspecific groundglass attenuation seen in both lung bases. Small nodules and mild right posterior pleural thickening, nonspecific. Diffuse hepatic steatosis with probable hepatomegaly. <Patricia Monsivais NP - Last Filed: 04/10/21 16:43> Assessment and Plan (1) Emphysema/COPD: Status: Acute <Patricia Monsivais NP - Last Filed: 04/10/21 16:43> (2) Tobacco abuse: Status: Acute <Patricia Monsivais NP - Last Filed: 04/10/21 16:43> (3) Bipolar disorder: Qualifiers: Active/Remission status: currently active Current bipolar episode type: mixed Current episode severity: moderate Qualified Code(s): F31.62 - Bipolar disorder, current episode mixed, moderate <Patricia Monsivais NP - Last Filed: 04/10/21 16:43> Status: Acute <Patricia Monsivais NP - Last Filed: 04/10/21 16:43> (4) Hypercholesterolemia: Status: Acute <Patricia Monsivais NP - Last Filed: 04/10/21 16:43> (5) Hypertension: Qualifiers: Hypertension type: essential hypertension Qualified Code(s): I10 - Essential (primary) hypertension <Patricia Monsivais NP - Last Filed: 04/10/21 16:43> Status: Acute <Patricia Monsivais NP - Last Filed: 04/10/21 16:43> (6) Obesity (BMI 30-39.9): Status: Acute <Patricia Monsivais NP - Last Filed: 04/10/21 16:43> 66-year-old smoker admit admitted to observation for COPD exacerbation COPD exacerbation/emphysema IV Solu-Medrol b.i.d. Albuterol q.4 hours while awake Supplemental oxygen as needed Hypertension. Stable blood pressure Continue hydrochlorothiazide and lisinopril Hyperlipidemia Continue statin Tobacco use Discussed the importance of smoking cessation NRT DVT prophylaxis with heparin Attending Dr. Jamil Full code <Patricia Monsivais NP - Last Filed: 04/10/21 16:43> 66-year-old smoker admit admitted to observation for COPD exacerbation COPD exacerbation/emphysema IV Solu-Medrol b.i.d. Albuterol q.4 hours while awake Supplemental oxygen as needed Hypertension. Stable blood pressure Continue hydrochlorothiazide and lisinopril Hyperlipidemia Continue statin Tobacco use Discussed the importance of smoking cessation NRT DVT prophylaxis with heparin Attending Dr. Jamil Full code Attending Attestation: Patient seen and examined independently and I was present during mitchell portion of E/M service. Agree with Dinora Monsivais NP's history, physical, assessment, and plan. 66 yo presenting with respiratory symptoms and found to be in COPD exacerbation. Will give IV steroids and updrafts. Remainder per BUSINESS SOLUTION ANALYST documentation as above. <Lee Jamil MD - Last Filed: 04/11/21 13:53> Quality Stroke Does the patient have a stroke diagnosis?: No <Patricia Monsivais NP - Last Filed: 04/10/21 16:43> VTE Prior VTE?: No <Patricia Monsivais NP - Last Filed: 04/10/21 16:43> VTE Risk Level:: Medical - moderate - high <Patricia Monsivais NP - Last Filed: 04/10/21 16:43> VTE Device Contraindication: Treatment Not Indicated <Patricia Mnosivais NP - Last Filed: 04/10/21 16:43> VTE Drug Contraindication: N/A - Med Ordered <Patricia Monsivais NP - Last Filed: 04/10/21 16:43>
[2021-04-10] MEDS: hydroCHLOROthiazide 12.5 MG TABLET PO (18:07)
[2021-04-10] MEDS: methylPREDNISolone Sod Succ 40 MG/ML VIAL IVPUSH (18:08)
--- NOTE | 2021-04-10 19:08 | PC.NURSE ---
REPORT FROM LARRY AT 19:30, PT ADIMIT AWAITING BED ASSIGNMENT.
[2021-04-10] MEDS: Albuterol Sulfate (0.083%) 2.5 MG/3 ML VIAL.NEB INHALE (19:58)
--- NOTE | 2021-04-10 20:41 | PC.NURSE ---
PT EVELOPED CHEST PAIN FOLLOWING NEB TREATMENT, RANG HIS CALL WILSON. PT ALSO HAS INCREASED COUGHING.
--- NOTE | 2021-04-10 20:42 | PC.NURSE ---
HOSPITALIST NOTIFIED OF CHEST DISCOMFORT.
[2021-04-10] MEDS: Nitroglycerin 0.4 MG TAB.SUBL SUBLINGUAL (20:43)
[2021-04-10 21:23] LABS: D Dimer < 200 NG/ML
--- NOTE | 2021-04-10 21:26 | PC.NURSE ---
PT HAS PERSISTANT COUGH, HOSPITAL APPROVED VERBAL ORDERS FOR ANOTHR DOSE OF HYDROCODONE SYRUP. PT'S CHEST PAIN REDUCED TO 2/10 FOLLOWING NITRO.
[2021-04-10 21:34] LABS: Troponin-I High Sensitivity 6.6 ng/L (<3.5-35.0)
[2021-04-10] MEDS: Benzonatate 100 MG CAPSULE PO (22:42)
--- NOTE | 2021-04-10 22:47 | PC.NURSE ---
PT WAS GIVEN HIS ATORVASTATIN AT SAME TIME NITRO TAB, 20:23? MEDICATION WAS NOT CHARTED, COULD NOT GO BACK TO DOCUMENT.
[2021-04-10] MEDS: 0.9 % Sodium Chloride Flush 3 ML SYRINGE IVFLUSH (23:22)
[2021-04-11] VITALS (12 sets, daily range): BP systolic 124–174; BP diastolic 55–86; PULSE 91–113; RESP 16–22; TEMP 36.4–36.9; O2SAT 92–99
--- NOTE | 2021-04-11 04:48 | PC.NURSE ---
04/10 @ 2220; P: Patient admitted to room 386 under observation with copd exacerbation. Patient tachy, hr 121 with oxygen saturation of 96 % on room air. I: Dr. Weston made aware of elevated hr. 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
[2021-04-11 05:42] LABS: MANUAL DIFF FLAG NO
[2021-04-11 05:47] LABS: Basophils Percent Auto 0.1 % (0-2); Hematocrit 37.4 % (42-52); Hemoglobin 12.6 g/dl (14.0-18.0); Imm Gran Abs Auto 0.19 X10*3/uL (0.00-0.03); Lymphocytes Absolute Auto 1.3 X10*3/uL (1.2-4.9); Lymphocytes Percent Auto 6.6 % (20-40); Mean Corpuscular HGB Conc 33.7 g/dl (31.0-36.0); Mean Corpuscular Hemoglobin 32.6 pg (27.0-33.0); Mean Corpuscular Volume 96.6 fL (80-98); Mean Platelet Volume 12.4 fL (9.4-12.4); Monocytes Absolute Auto 0.7 X10*3/uL (0.1-1.2); Monocytes Percent Auto 3.5 % (2-11); Neutrophils Absolute Auto 17.1 X10*3/uL (2.0-8.3); Neutrophils Percent Auto 88.8 % (45-73); Platelet Count 218 X10*3/uL (160-400); Red Blood Count 3.87 X10*6/uL (4.60-5.80); Red Cell Distribution Width 13.4 % (11.0-16.0); White Blood Count 19.3 X10*3/uL (4.8-10.8)
[2021-04-11] MEDS: Benzonatate 100 MG CAPSULE PO ×3 (05:51→20:23)
[2021-04-11] MEDS: methylPREDNISolone Sod Succ 40 MG/ML VIAL IVPUSH (05:51)
[2021-04-11 06:10] LABS: Anion Gap 14 (12-20); Blood Urea Nitrogen 40 mg/dL (9-16); Calcium 9.2 mg/dL (8.4-10.2); Carbon Dioxide 24 mmol/L (22-29); Chloride 105 mmol/L (96-108); Creatinine Clr Calc Pharmacy 50.6; Estimated Glomerular Filt Rate 53; Glucose Random 143 mg/dL (60-115); Potassium 5.2 mmol/L (3.3-5.1); Sodium 138 mmol/L (135-145)
[2021-04-11] MEDS: lisinopriL 40 MG TABLET PO (07:44)
[2021-04-11] MEDS: hydroCHLOROthiazide 12.5 MG TABLET PO (07:45)
[2021-04-11] MEDS: Fenofibrate 160 MG TABLET PO (07:48)
[2021-04-11] MEDS: 0.9 % Sodium Chloride Flush 3 ML SYRINGE IVFLUSH ×3 (07:49→20:21)
[2021-04-11] MEDS: methylPREDNISolone Sod Succ 40 MG/ML VIAL 60 MG IVPUSH ×3 (08:26→23:28)
[2021-04-11] MEDS: Doxycycline Hyclate 100 MG in 0.9 % Sodium Chloride 250 ML 166.67 MG IV ×2 (08:48→20:21)
--- NOTE | 2021-04-11 11:09 | MHC.CM.PN ---
met with pt who explains that he lives with s/o dc plan home no services pt has won transportation home
--- NOTE | 2021-04-11 11:26 | P.PNIM_ITS ---
Progress Note: A&P (1) Emphysema/COPD: Status: Acute (2) Hypertension: Status: Acute (3) Tobacco abuse: Status: Acute (4) Suicidal ideation: Status: Acute Assessment and Plan: 66-year-old smoker admit admitted to observation for COPD exacerbation COPD exacerbation/emphysema, worse today increased IV Solu-Medrol to 60 mg t.i.d. LevAlbuterol q.4 hours while awake d/t tachycardia Supplemental oxygen as needed Mucinex for dry cough Doxycycline for possible bronchitis Stated suicidal ideation. Patient significant other stated that he said that he wanted to because of his cough He stated to me that he did not say that however will obtain care team consultation Hypertension.? Stable blood pressure Continue hydrochlorothiazide and lisinopril Hyperlipidemia Continue statin Tobacco use Discussed the importance of smoking cessation NRT DVT prophylaxis with heparin Attending Dr. Jamil Full code Subjective Subjective Date of Service: 04/11/21 Review of Systems Follow-up COPD exacerbation More wheezy today Dry cough Physical Exam Vital Signs: Vital Signs: Last Vital Signs Temp 97.8 F 04/11/21 07:46 Pulse 113 H 04/11/21 09:31 Resp 22 H 04/11/21 07:46 BP 172/74 H 04/11/21 09:31 Pulse Ox 96 04/11/21 07:46 Body Mass Index 28.5 Appearing in no acute distress lung sounds expiratory wheezes, diminished heart regular rate rhythm, clear S1, S2 positive bowel sounds, abdomen is soft, nontender neuro patient is alert x3, no focal deficits Objective Data Current Medications Acetaminophen (Acetaminophen 325 Mg Tablet) 650 mg PO Q6H PRN PRN Reason: Pain, Mild (Pain Scale 1-3) Atorvastatin Calcium (Atorvastatin Calcium 10 Mg Tablet) 10 mg PO BEDTIME [facility] Benzonatate (Benzonatate 100 Mg Capsule) 100 mg PO TID PRN PRN Reason: Cough Last Admin: 04/11/21 05:51 Dose: 100 mg Documented by: Fenofibrate (Fenofibrate 160 Mg Tablet) 160 mg PO DAILY [facility] Last Admin: 04/11/21 07:48 Dose: 160 mg Documented by: Hydrochlorothiazide (Hydrochlorothiazide 12.5 Mg Tablet) 12.5 mg PO DAILY [facility]; Protocol Last Admin: 04/11/21 07:45 Dose: 12.5 mg Documented by: Doxycycline Hyclate 100 mg/ (Sodium Chloride) 250 mls @ 166.67 mls/hr IV Q12H [facility] Last Infusion: 04/11/21 11:10 Dose: Infused Documented by: Levalbuterol HCl (Levalbuterol Hcl 1.25 Mg/0.5 Ml Vial.Neb) 1.25 mg INHALE RQ4H WHILE AWAKE [facility] Last Admin: 04/11/21 08:47 Dose: 1.25 mg Documented by: Levalbuterol HCl (Levalbuterol Hcl 1.25 Mg/0.5 Ml Vial.Neb) 1.25 mg INHALE Q3H PRN PRN Reason: Wheezing Lisinopril (Lisinopril 40 Mg Tablet) 40 mg PO DAILY [facility]; Protocol Last Admin: 04/11/21 07:44 Dose: 40 mg Documented by: Methylprednisolone Sodium Succinate (Methylprednisolone Sod Succ 40 Mg/Ml Vial) 60 mg IVPUSH Q8H [facility] Last Admin: 04/11/21 08:26 Dose: 60 mg Documented by: Nitroglycerin (Nitroglycerin 0.4 Mg Tab.Subl) 0.4 mg SUBLINGUAL Q5MX3 PRN PRN Reason: Chest Pain Last Admin: 04/10/21 20:43 Dose: 0.4 mg Documented by: Ondansetron HCl (Ondansetron Hcl 4 Mg/2 Ml Vial) 4 mg IVPUSH Q8H PRN PRN Reason: Nausea and Vomiting Pharmacy Consult (Consult Rx Perform Med Rec) 1 each MISCELLANE ONCE PRN PRN Reason: Consult order Sodium Chloride (0.9 % Sodium Chloride Flush 3 Ml Syringe) 3 ml IVFLUSH QSHIFT [facility] Last Admin: 04/11/21 07:49 Dose: 3 ml Documented by: Labs CBC & Chem 7: 04/11/21 05:16 04/11/21 05:16 Labs: Laboratory Results - last 24 hr 04/10/21 04/10/21 04/11/21 21:06 21:06 05:16 MCV 96.6 MCH 32.6 MCHC 33.7 RDW 13.4 Plt Count 218 MPV 12.4 Immature Gran % (Auto) 1.0 H Neut % (Auto) 88.8 H Lymph % (Auto) 6.6 L Meagher % (Auto) 3.5 Eos % (Auto) 0.0 Baso % (Auto) 0.1 Lymph # (Auto) 1.3 Meagher # (Auto) 0.7 Eos # (Auto) 0.0 Baso # (Auto) 0.0 Abs Immat Gran (auto) 0.19 H Absolute Neuts (auto) 17.1 H Absolute Nucleated RBC 0.000 Nucleated RBC % (auto) 0.0 D-Dimer < 200 Anion Gap Estim Creat Clear Calc Estimated GFR Random Glucose Calcium Troponin I High Sens 6.6 04/11/21 05:16 MCV MCH MCHC RDW Plt Count MPV Immature Gran % (Auto) Neut % (Auto) Lymph % (Auto) Meagher % (Auto) Eos % (Auto) Baso % (Auto) Lymph # (Auto) Meagher # (Auto) Eos # (Auto) Baso # (Auto) Abs Immat Gran (auto) Absolute Neuts (auto) Absolute Nucleated RBC Nucleated RBC % (auto) D-Dimer Anion Gap 14 Estim Creat Clear Calc 50.6 Estimated GFR 53 Random Glucose 143 H Calcium 9.2 Troponin I High Sens Microbiology Microbiology Results: Microbiology 04/10/21 09:04 Blood - Venous Blood Culture - Preliminary No growth after 24 hours. Quality Stroke Does the patient have a stroke diagnosis?: No VTE Prior VTE?: No VTE Risk Level:: Medical - moderate - high VTE Device Contraindication: Treatment Not Indicated VTE Drug Contraindication: N/A - Med Ordered
[2021-04-11] MEDS: guaiFENesin LA 600 MG TAB.ER.12H PO ×2 (13:11→20:21)
--- NOTE | 2021-04-11 14:15 | MHC.CARE ---
Met with pt after receiving a consult from SAMEER Monsivais, the concern being suicidal ideation that was reported by his , upon entering the room pt asked if CARE Team was there because ?I?m suicidal?.? Pt stated that he is not suicidal and that ?I am afraid to .? I don?t want to .?? He states that he was frustrated and angry because he cannot walk and is having difficulty breathing.? 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 He stated that his present condition makes him angry and frustrated as it is a loss of a great deal of independence, the constant coughing and wheezing ads to his frustration as well.? Pt stated that he was scheduled to have knee surgery and was concerned for over a month due to fear of him being put to sleep and not waking up ever again.? He then repeated ?I?m afraid to .? I don?t want to .? Pt is at times, cheerful, laughing occasionally and smiling at other times.? He denies any hx of mental illness, denies SI/HI, AVH and does not appear delusional or suffering from psychosis.? Pt does report that he struggled with alcoholism but has been sober for 21 years. Pt does not appear in crisis.
[2021-04-11] MEDS: Atorvastatin Calcium 10 MG TABLET PO (20:21)
[2021-04-12 04:00] VITALS: BP 135/69; PULSE 94; RESP 16; TEMP 36.8; O2SAT 94
[2021-04-12 05:40] LABS: Hematocrit 37.4 % (42-52); Hemoglobin 12.4 g/dl (14.0-18.0); Mean Corpuscular HGB Conc 33.2 g/dl (31.0-36.0); Mean Corpuscular Hemoglobin 32.4 pg (27.0-33.0); Mean Corpuscular Volume 97.7 fL (80-98); Mean Platelet Volume 12.6 fL (9.4-12.4); Platelet Count 216 X10*3/uL (160-400); Red Blood Count 3.83 X10*6/uL (4.60-5.80); Red Cell Distribution Width 13.8 % (11.0-16.0); White Blood Count 22.1 X10*3/uL (4.8-10.8)
[2021-04-12 06:09] LABS: Anion Gap 14 (12-20); Blood Urea Nitrogen 42 mg/dL (9-16); Carbon Dioxide 23 mmol/L (22-29); Chloride 108 mmol/L (96-108); Creatinine Clr Calc Pharmacy 58.9; Estimated Glomerular Filt Rate > 60; Glucose Random 175 mg/dL (60-115); Potassium 4.6 mmol/L (3.3-5.1); Sodium 140 mmol/L (135-145)
[2021-04-12 07:42] VITALS: BP 160/72; PULSE 92; RESP 21; TEMP 37; O2SAT 95
[2021-04-12] MEDS: methylPREDNISolone Sod Succ 40 MG/ML VIAL 60 MG IVPUSH (08:08)
[2021-04-12] MEDS: hydroCHLOROthiazide 12.5 MG TABLET PO (08:09)
[2021-04-12] MEDS: lisinopriL 40 MG TABLET PO (08:09)
[2021-04-12] MEDS: guaiFENesin LA 600 MG TAB.ER.12H PO (08:09)
[2021-04-12] MEDS: Fenofibrate 160 MG TABLET PO (08:09)
[2021-04-12] MEDS: 0.9 % Sodium Chloride Flush 3 ML SYRINGE IVFLUSH (08:10)
[2021-04-12] MEDS: Doxycycline Hyclate 100 MG in 0.9 % Sodium Chloride 250 ML 166.67 MG IV (08:10)
[2021-04-12 08:23] VITALS: PULSE 86; O2SAT 94
--- NOTE | 2021-04-12 10:22 | PM.DS ---
DS: Providers Provider Date of Service: 04/12/21 Date of admission: 04/10/21 16:20 Primary care physician: Latesha Ackerman MD Consults: 04/11/21 11:26 Consult to Care Team Stat Comment: Reason for consultation: suicidal ideation reported from spouse DS: Diagnosis Discharge Diagnosis (1) COPD exacerbation: Status: Acute DS: Summary Hospital Course Hospital Course: HPI: 66 year old man? presenting to the ER with increased cough and shortness of breath.? He reports that over the last 2 weeks he has had coughing mostly at nighttime that has been keeping him awake with no sputum production.? He did report some shortness of breath.? He continues to smoke a pack cigarettes a day.? He denies chest pain, nausea, vomiting diarrhea, alcohol use or drug use.? Chest CT shows central lobular emphysema with bibasilar minimum bronchiectases no consolidation.? Labs within acceptable limits he was given Albuterol, Solumedrol in the ED.? he will be placed on observation for COPD exacerbation. Hospital Course: Patient was treated with systemic steroids and scheduled bronchodilators and doxycycline Over the course of 3 days his symptoms improved significantly. He was no longer wheezing was not requiring oxygen either. He will be discharged home on 5 more days of p.o. prednisone and doxycycline. He has also been referred to Pulmonary for further management of his COPD. Patient is hospital course was complicated suicidal ideation. Patient made a statement along the lines of I want to because of my cough.? Upon further evaluation by the care team he further clarify this by stating that he was frustrated and that in fact he did not want to . He was cleared by the care team. Time Spent with Patient Time attestation: Total time spent providing and/or coordinating discharge services: Discharge coordination time: Greater than 30 minutes Quality: Stroke Does the patient have a stroke diagnosis?: No Physical Exam Vital Signs: Vital Signs: Last Vital Signs Temp 98.6 F 04/12/21 07:42 Pulse 86 04/12/21 08:23 Resp 21 H 04/12/21 07:42 BP 160/72 H 04/12/21 07:42 Pulse Ox 95 04/12/21 07:42 Body Mass Index 28.5 Const: Other: General - no acute distress, appears comfortable Cardiovascular - regular rate and rhythm, S1-S2 Lungs - normal respiratory effort, clear to auscultation bilaterally, no wheezing Abdomen - soft, nontender, no rebound or guarding Extremities - no edema bilaterally Neuro - awake and alert, no focal deficits DS: Data Data Completed and Pending Labs on day of discharge: Laboratory Results - last 24 hr 04/12/21 04/12/21 05:09 05:09 WBC 22.1 H RBC 3.83 L Hgb 12.4 L Hct 37.4 L MCV 97.7 MCH 32.4 MCHC 33.2 RDW 13.8 Plt Count 216 MPV 12.6 H Absolute Nucleated RBC 0.000 Nucleated RBC % (auto) 0.0 Sodium 140 Potassium 4.6 Chloride 108 Carbon Dioxide 23 Anion Gap 14 BUN 42 H Creatinine 1.16 Estim Creat Clear Calc 58.9 Estimated GFR > 60 Random Glucose 175 H Calcium 9.0 Preliminary micro results at discharge 04/10/21 09:42 Blood Culture - Preliminary Blood - Venous No growth after 24 hours. 04/10/21 09:04 Blood Culture - Preliminary Blood - Venous No growth after 24 hours. Discharge Plan Discharge Patient Disposition: Home, Self-Care Referrals: Latesha Ackerman MD [Primary Care Provider] - 1 Week Wang Monsivais MD [Physician] - 1 Month Discharge Medications: New albuterol sulfate 90 mcg/actuation HFA aerosol inhaler 2 puff inhalation Q6H PRN (Reason: shortness of breath or wheezing) Qty: 8.5 RF: 1 prednisone 20 mg tablet 40 mg PO DAILY Qty: 10 RF: 0 doxycycline hyclate 100 mg capsule 100 mg PO BID Qty: 10 RF: 0 Continued hydrochlorothiazide 12.5 mg tablet 12.5 mg PO QAM Qty: 90 RF: 3 lisinopril 40 mg tablet 40 mg PO DAILY 90 Days Qty: 90 RF: 2 fenofibrate 160 mg tablet 160 mg PO DAILY Qty: 90 RF: 2 simvastatin 20 mg tablet 20 mg PO BEDTIME Qty: 90 RF: 0 Discharge Orders: Discharge Order (Routine); Ordered 04/12/21 Ordered By: Lee Jamil Diet: advance to usual diet Activity on Discharge: As tolerated Stand Alone Forms: Patient Portal Discharge page Care Plan Goals: To stay healthy and out of the hospital. Health Concerns: COPD, Bronchitis, Tobacco use Plan of Treatment: Take 5 more days of prednisone and doxycycline. Take albuterol inhaler as needed. Do not smoke. Follow up with Dr. Ackerman and pulmonology. Assessment: 66 yo smoker admitted for COPD exacerbation. Treated with systemic steroids. Will be d/c on short prednisone course. Will also be referred to pulmonary as well.
--- NOTE | 2021-04-12 11:50 | MHC.CM.PN ---
PT DISCHARGED HOME SELF-CARE, PT ARRANGED TRANSPORT
== END 2021-04-12 11:23 | disposition home or self-care (01) ==
LOC: HO.ED 15:58 → HO.EDOVER 16:37 → HO.S3 20:30
PROVIDERS: Hospitalist; Nurse Practitioner Family; Admitting Provider Nurse Practitioner Acute Care; Emergency Provider Emergency Medicine; PCP Internal Medicine; Visit Provider Physician Assistant Medical
DX: J43.2 Centrilobular emphysema (principal); J47.9 Bronchiectasis, uncomplicated; R06.02 Shortness of breath; K76.0 Fatty (change of) liver, not elsewhere classified; I10 Essential (primary) hypertension; E78.00 Pure hypercholesterolemia, unspecified; E66.9 Obesity, unspecified; F17.210 Nicotine dependence, cigarettes, uncomplicated; R45.851 Suicidal ideations; F31.62 Bipolar disorder, current episode mixed, moderate; Z20.822 Contact with and (suspected) exposure to COVID-19; Z79.899 Other long term (current) drug therapy
CPT/HCPCS: 36415; 71045; 71250; 80048; 80076; 83605; 83735; 83880; 84484; 85025; 85027; 85379; 87040; 87635; 93005; 94640; 96365; 96375; 96376; 99218; 99285; J2920; J2930

== ENCOUNTER → 2021-05-04 14:36 | Outpatient (BNVA) | payer OTHER, MEDICARE, SELFPAY | PROVIDERS: PCP Internal Medicine; Visit Provider Hospitalist ==

== ENCOUNTER 2021-06-14 06:01 | Outpatient (REF) | payer MEDICARE, MEDICAID, SELFPAY ==
[2021-06-14 06:14] LABS: MANUAL DIFF FLAG NO
[2021-06-14 07:16] LABS: Basophils Percent Auto 0.5 % (0-2); Eosinophils Absolute Auto 0.3 X10*3/uL (0.0-0.4); Eosinophils Percent Auto 4.2 % (0-4); Hematocrit 42.4 % (42.0-52.0); Hemoglobin 13.8 g/dl (14.0-18.0); Imm Gran Abs Auto 0.03 X10*3/uL (0.00-0.03); Imm Gran Pct Auto 0.5 % (0.0-0.4); Lymphocytes Absolute Auto 2.4 X10*3/uL (1.2-4.9); Lymphocytes Percent Auto 38.7 % (20-40); Mean Corpuscular HGB Conc 32.5 g/dl (31.0-36.0); Mean Corpuscular Hemoglobin 32.2 pg (27.0-33.0); Mean Corpuscular Volume 99.1 fL (80.0-98.0); Mean Platelet Volume 12.6 fL (9.4-12.4); Monocytes Absolute Auto 0.7 X10*3/uL (0.1-1.2); Monocytes Percent Auto 10.5 % (2-11); Neutrophils Absolute Auto 2.8 x10*3/uL (2.0-8.3); Neutrophils Percent Auto 45.6 % (45-73); Platelet Count 228 X10*3/uL (160-400); Red Blood Count 4.28 X10*6/uL (4.60-5.80); Red Cell Distribution Width 13.5 % (11.0-16.0); White Blood Count 6.2 X10*3/uL (4.8-10.8)
[2021-06-14 07:26] LABS: INTERNATIONAL NORM RATIO 0.9 (0.9-1.1); Prothrombin Time 10.3 SEC (9.9-13.0)
[2021-06-14 07:43] LABS: Estimated Average Glucose 123 mg/dL; Hemoglobin A1c % 5.9 %
[2021-06-14 07:49] LABS: Alanine Aminotransferase 25 U/L (0-40); Albumin Level 4.3 g/dL (3.5-5.0); Alkaline Phosphatase 42 U/L (39-117); Anion Gap 11 (12-20); Aspartate Amino Transferase 18 U/L (5-37); Bilirubin Total 0.4 mg/dL (0.0-1.0); Blood Urea Nitrogen 26 mg/dL (9-16); Calcium 9.4 mg/dL (8.4-10.2); Carbon Dioxide 24 mmol/L (22-29); Chloride 110 mmol/L (96-108); Estimated Glomerular Filt Rate 55; Glucose Random 110 mg/dL (60-115); Potassium 5.1 mmol/L (3.3-5.1); Sodium 140 mmol/L (135-145); Total Protein 6.8 g/dL (6.5-8.0)
[2021-06-14 08:43] LABS: Appearance Urine CLEAR; Color Urine YELLOW; Glucose Urine UA NEG (NEG); Leukocyte Esterase Urine NEG (NEG); Nitrite Urine NEG (NEG); PH 5.5 (5.0-8.0); Specific Gravity - Urine 1.025 (1.005-1.025); Urine Blood NEG (NEG); Urine Ketones NEG (NEG); Urine Protein NEG (NEG-TRACE)
[2021-06-14 08:57] LABS: RBC Urine 0 /HPF (0); WBC Urine 0-2 /HPF (0-4)
[2021-06-14 09:21] LABS: UACC CULT NO
== END 2021-06-14 06:02 | disposition home or self-care (01) ==
LOC: HO.LAB 06:01
PROVIDERS: Nurse Practitioner Family; PCP Internal Medicine; Visit Provider Internal Medicine
DX: Z01.818 Encounter for other preprocedural examination (principal); I10 Essential (primary) hypertension; R73.02 Impaired glucose tolerance (oral)
CPT/HCPCS: 36415; 80053; 81001; 83036; 85025; 85610

== ENCOUNTER 2021-07-24 12:38 | Outpatient (REF) | payer MEDICARE, OTHER, SELFPAY ==
--- NOTE | 2021-07-24 17:23 | PFT_ITS ---
Forced vital capacity 93, FEV1 96, FEF 25-75 is 100 and MVV 103. All these numbers are within normal range. There is no significant change after bronchodilator therapy. Total lung capacity 105% and residual volume 126%. Diffusion capacity 94, normal. CONCLUSION: Normal pulmonary function test without any evidence of obstructive or restrictive pulmonary disorder. MD JULIAN Ventura/KHARI / [id number]
== END 2021-07-24 12:39 | disposition home or self-care (01) ==
LOC: HO.RESP 12:38
PROVIDERS: Visit Provider Hospitalist
DX: J40 Bronchitis, not specified as acute or chronic (principal)
CPT/HCPCS: 94060; 94727; 94729; 99212

== ENCOUNTER 2021-07-25 10:44 | Outpatient (REF) | payer MEDICARE, OTHER, SELFPAY ==
--- NOTE | ~2021-07-25 | US_ITS ---
EXAMINATION: US PELVIS LIMITED (BLADDER) CLINICAL INFORMATION: Frequency of micturition. COMPARISON: CT abdomen and pelvis 01/10/2021. Ultrasound abdomen complete 06/26/2016. TECHNIQUE: Real-time imaging of the bladder. FINDINGS: BLADDER: Partially distended. Bilateral ureteral jets are demonstrated. Prevoid bladder volume is 141.0 mL. Postvoid bladder volume is 13.0 mL. ADDITIONAL FINDINGS: Prostate is enlarge 61 mL. US/US bladder IMPRESSION: Prostatomegaly. Normal post void urine volume 13 mL..
== END 2021-07-25 10:45 | disposition home or self-care (01) ==
LOC: HO.US 10:44
PROVIDERS: Visit Provider Internal Medicine
DX: R35.0 Frequency of micturition (principal)
CPT/HCPCS: 76857

== ENCOUNTER 2021-08-06 09:28 | Outpatient (REF) | payer MEDICARE, OTHER, SELFPAY ==
[2021-08-07 07:40] LABS: COVID-19 Test Negative (Negative)
== END 2021-08-06 09:29 | disposition home or self-care (01) ==
LOC: HO.LAB 09:28
PROVIDERS: PCP Internal Medicine; Visit Provider Internal Medicine
DX: Z20.822 Contact with and (suspected) exposure to COVID-19 (principal)
CPT/HCPCS: 87635; C9803

== ENCOUNTER 2021-12-08 07:10 | Outpatient (REF) | payer MEDICARE, OTHER, SELFPAY ==
[2021-12-08 07:34] LABS: MANUAL DIFF FLAG NO
[2021-12-08 08:36] LABS: Basophils Percent Auto 0.4 % (0-2); Eosinophils Absolute Auto 0.2 X10*3/uL (0.0-0.4); Eosinophils Percent Auto 3.3 % (0-4); Hematocrit 45.5 % (42.0-52.0); Hemoglobin 15.1 g/dl (14.0-18.0); Imm Gran Abs Auto 0.03 X10*3/uL (0.00-0.03); Imm Gran Pct Auto 0.4 % (0.0-0.4); Immature Retic Fraction 9.1 % (2.3-13.4); Lymphocytes Percent Auto 27.8 % (20-40); Mean Corpuscular HGB Conc 33.2 g/dl (31.0-36.0); Mean Corpuscular Hemoglobin 32.2 pg (27.0-33.0); Monocytes Absolute Auto 0.6 X10*3/uL (0.1-1.2); Monocytes Percent Auto 8.4 % (2-11); Neutrophils Absolute Auto 4.2 x10*3/uL (2.0-8.3); Neutrophils Percent Auto 59.7 % (45-73); Platelet Count 226 X10*3/uL (160-400); Red Blood Count 4.69 X10*6/uL (4.60-5.80); Red Cell Distribution Width 13.2 % (11.0-16.0); Retic HGB Equivalent 37.4 pg (30.0-35.0); Reticulocyte Percent 1.2 % (0.5-1.8); Reticulocytes Absolute 0.057 X10*6/uL (0.026-0.095)
[2021-12-08 08:37] LABS: Estimated Average Glucose 126 mg/dL
[2021-12-08 08:58] LABS: Alanine Aminotransferase 27 U/L (0-40); Albumin Level 4.6 g/dL (3.5-5.0); Alkaline Phosphatase 48 U/L (39-117); Anion Gap 13 (12-20); Aspartate Amino Transferase 21 U/L (5-37); Bilirubin Total 0.5 mg/dL (0.0-1.0); Blood Urea Nitrogen 42 mg/dL (9-16); Calcium 9.5 mg/dL (8.4-10.2); Carbon Dioxide 22 mmol/L (22-29); Chloride 108 mmol/L (96-108); Cholesterol 174 mg/dL; Estimated Glomerular Filt Rate 47; Glucose Random 108 mg/dL (60-115); HDL Cholesterol 31 mg/dL; Iron 124 mcg/dL (45-160); LDL Cholesterol Calculated 100 mg/dl; Percent Iron Saturation 34 % (15-50); Potassium 5.4 mmol/L (3.3-5.1); Sodium 138 mmol/L (135-145); Total Iron Binding Capacity 369 mcg/dL (228-428); Total Protein 7.4 g/dL (6.5-8.0); Triglycerides 217 mg/dL; Unsaturated Iron Binding 245 ug/dL
[2021-12-08 09:08] LABS: Ferritin 258 ng/mL (20-250); Free T4 (Free Thyroxine) 0.93 ng/dL (0.71-1.85); Prostate Specific Antigen Scr 1.08 ng/mL (<0.05-4.0); Thyroid Stimulating Hormone 1.15 uIU/mL (0.32-4.0)
[2021-12-10 09:26] LABS: Folate 11.3 ng/mL (> or = 4.0); Vitamin B12 257 pg/mL (200-900)
== END 2021-12-08 07:11 | disposition home or self-care (01) ==
LOC: HO.LAB 07:10
PROVIDERS: PCP Internal Medicine; Visit Provider Internal Medicine
DX: N40.0 Benign prostatic hyperplasia without lower urinary tract symptoms (principal); R73.02 Impaired glucose tolerance (oral); E78.00 Pure hypercholesterolemia, unspecified; Z12.5 Encounter for screening for malignant neoplasm of prostate; D64.9 Anemia, unspecified
CPT/HCPCS: 36415; 80053; 80061; 82607; 82728; 82746; 83036; 83540; 84153; 84439; 84443; 85025; 85045

== ENCOUNTER 2021-12-24 06:02 | Outpatient (REF) | payer MEDICARE, OTHER, SELFPAY ==
[2021-12-24 07:56] LABS: Appearance Urine CLEAR; Color Urine YELLOW; Glucose Urine UA NEG (NEG); Leukocyte Esterase Urine NEG (NEG); Nitrite Urine NEG (NEG); Specific Gravity - Urine 1.025 (1.005-1.025); Urine Blood NEG (NEG); Urine Ketones NEG (NEG); Urine Protein NEG (NEG-TRACE)
[2021-12-24 08:12] LABS: Alanine Aminotransferase 27 U/L (0-40); Albumin Level 4.4 g/dL (3.5-5.0); Alkaline Phosphatase 45 U/L (39-117); Anion Gap 14 (12-20); Aspartate Amino Transferase 17 U/L (5-37); Bilirubin Total 0.4 mg/dL (0.0-1.0); Blood Urea Nitrogen 38 mg/dL (9-16); Calcium 9.3 mg/dL (8.4-10.2); Carbon Dioxide 23 mmol/L (22-29); Chloride 107 mmol/L (96-108); Estimated Glomerular Filt Rate 47; Glucose Random 178 mg/dL (60-115); Potassium 4.8 mmol/L (3.3-5.1); Sodium 139 mmol/L (135-145); Total Protein 6.9 g/dL (6.5-8.0)
[2021-12-24 08:27] LABS: RBC Urine 0 /HPF (0); Squamous Epithelial Cell Urine TRACE /LPF; WBC Urine 0-2 /HPF (0-4)
== END 2021-12-24 06:03 | disposition home or self-care (01) ==
LOC: HO.LAB 06:02
PROVIDERS: PCP Internal Medicine; Visit Provider Internal Medicine
DX: H53.9 Unspecified visual disturbance (principal); N28.9 Disorder of kidney and ureter, unspecified
CPT/HCPCS: 36415; 80053; 81001

== ENCOUNTER 2022-01-02 16:10 | Outpatient (REF) | payer MEDICARE, OTHER, SELFPAY ==
--- NOTE | ~2022-01-02 | CT_ITS ---
EXAMINATION: CT CHEST WITHOUT CONTRAST CLINICAL INFORMATION: Pulmonary nodule COMPARISON: Previous chest CT March 2021 TECHNIQUE: Multidetector volumetric CT imaging of the chest was done. Axial MIP volume rendering provided. Sagittal and coronal reformatted images were obtained. This CT examination was performed using dose optimization techniques as appropriate, variously including the following: *Automated exposure control *Adjustment of mA and/or kV according to patient size (this includes techniques or standardized protocols for targeted exams where dose is matched to indication/reason for exam; i.e. extremities or head) *Use of iterative reconstruction technique DLP: 189 mGy-cm FINDINGS: LUNGS: There is evidence of mild paraseptal emphysema. There is increased peribronchial attenuation seen predominantly in the upper lobes. This may represent respiratory bronchiolitis related to smoking. Small calcified and noncalcified pulmonary nodules are stable. No new pulmonary nodule is seen. No endobronchial or endotracheal lesion is seen. MEDIASTINUM: Normal heart size. Coronary artery and aortic valve calcification. Upper normal caliber thoracic aorta. Small mediastinal lymph nodes. No enlarged hilar or mediastinal lymph nodes. PLEURA: There is no pleural effusion. No pleural mass or thickening. AXILLA: No lymphadenopathy. UPPER ABDOMEN: Fatty liver. OSSEOUS STRUCTURES: Degenerative changes of the spine. CT/CT chest wo con IMPRESSION: Stable small pulmonary nodules. Mild paraseptal emphysema. Increased peribronchial attenuation in the upper lobes, question representing respiratory bronchiolitis related to smoking. Coronary artery and aortic valve calcification. Fatty liver. Fleischner guidelines were followed.
== END 2022-01-02 16:11 | disposition home or self-care (01) ==
LOC: HO.CT 16:10
PROVIDERS: Visit Provider Hospitalist
DX: R91.1 Solitary pulmonary nodule (principal)
CPT/HCPCS: 71250

== ENCOUNTER 2022-04-12 11:56 | Outpatient (REF) | payer MEDICARE, OTHER, SELFPAY ==
--- NOTE | ~2022-04-12 | US_ITS ---
EXAMINATION: US RETROPERITONEAL LIMITED (RENAL ONLY) CLINICAL INFORMATION: Disorder of kidney and ureter, unspecified. COMPARISON: CT abdomen and pelvis without contrast 01/10/2021. Ultrasound abdomen complete 06/26/2016. TECHNIQUE: Real-time imaging of the kidneys. FINDINGS: RIGHT KIDNEY: 11.7 x 6.5 x 4.6 cm (SAG x AP x TRV). The kidney is normal in size, contour, and echogenicity. Renal cortical thickness is normal. No calculi or focal parenchymal lesions. No hydronephrosis. LEFT KIDNEY: 10.1 x 5.3 x 4.2 cm (SAG x AP x TRV). The kidney is normal in size, contour, and echogenicity. Renal cortical thickness is normal. No calculi or focal parenchymal lesions. No hydronephrosis. US/US renal BI IMPRESSION: Unremarkable renal ultrasound..
== END 2022-04-12 11:57 | disposition home or self-care (01) ==
LOC: HO.US 11:56
PROVIDERS: Visit Provider Internal Medicine
DX: N28.9 Disorder of kidney and ureter, unspecified (principal)
CPT/HCPCS: 76775

== ENCOUNTER → 2022-05-09 14:28 | Outpatient (BNVA) | payer MEDICARE, OTHER, SELFPAY | PROVIDERS: PCP Internal Medicine; Visit Provider Hospitalist | DX: J41.8 Mixed simple and mucopurulent chronic bronchitis (principal); R91.1 Solitary pulmonary nodule; I27.20 Pulmonary hypertension, unspecified; R01.1 Cardiac murmur, unspecified; F17.210 Nicotine dependence, cigarettes, uncomplicated | CPT/HCPCS: 99212 ==

== ENCOUNTER → 2022-05-16 13:32 | Outpatient (REF) | payer MEDICARE, OTHER, SELFPAY ==
--- NOTE | 2022-05-16 13:35 | CA_ITS ---
Transthoracic Echocardiogram Patient (Last, First, Middle): Kris Hunter A Gender: Male Date of : 1955 Age: 67 Procedure Date: 05/16/2022 Procedure Type: Transthoracic Echocardiogram Location: OP Height: 157.48 cm Weight: 79.83 kg BSA: 1.81 m2 Heart Rate: bpm BP: 130 / 68 mmHg General Manager Land Department: [place] Referring MD: Wang Monsivais MD Tank Truck Engine Mechanic: Jj Iyer MD Symptoms: I27.20 - Pulmonary hypertension, unspecified Study Quality: Adequate ECG Rhythm: Sinus Conclusions: - 1. Normal LV systolic function with impaired relaxation filling pattern 2. Mild aortic stenosis 3. Normal RV systolic pressure 4. No gross pericardial effusion Findings Left Ventricle Normal left ventricular size, thickness, and systolic function. The visually estimated ejection fraction is between 60-65%. Spectral Doppler is indicative of an impaired relaxation filling pattern. E/E prime ratio is between 8 and 15 consistent with indeterminate filling pressures. Right Ventricle Normal right ventricular cavity size and systolic function. Atria Both atria are normal in size. Interatrial shunt cannot be excluded. Aortic Valve There is mild calcification of the aortic valve. There is mild aortic valve stenosis. The peak aortic gradient is 19 mmHg.The mean gradient is 10 mmHg. The aortic valve area is 1.94 cm2. There is no aortic valve regurgitation. Mitral Valve Likely normal mitral valve structure and function. There is trace mitral valve regurgitation. There is no mitral valve stenosis. Pulmonic Valve The pulmonic valve is likely normal. Tricuspid Valve Likely normal tricuspid valve structure and function. There is trace tricuspid valve regurgitation. The right ventricular systolic pressure is normal. The right ventricular systolic pressure is 17 mmHg. Normal right atrial pressure. There is no evidence of pulmonary hypertension. Great Vessels All visible segments of the aorta are normal in size. The pulmonary artery was not well visualized. Venous The inferior vena cava is normal in size and collapses greater than 50% with inspiration. Pericardium/Pleural There is no evidence of pericardial effusion. Prior Study Comparison Changes noted compared to prior study dated: 05/31/2016. mild aortic stenosis is noted Measurements 2D Linear Measurements IVSd: 1.03 0.6-0.9/0.6-1.0 cm LVIDd: 4.67 3.9-5.3/4.2-5.9 cm LVIDd Index: 2.58 2.4-3.2/2.2-3.1 cm/m2 LVIDs: 2.96 2.0-3.6 cm LVPWd: 0.91 0.7-1.1 cm LA Diam: 3.40 2.7-3.8/3.0-4.0 cm LAIDs Index: 1.88 1.5-2.3 cm/m2 LV Mass: 194.98 67-162/88-224 g LV Mass Index: 107.72 43-95/49-115 g/m2 LVOT Diam: 2.20 3.0+(-)1.3 cm 2D Systolic Function EF 4C: 57.30 >55% EF 2C: 64.00 >55% EF BiP: 60.90 >55% Mitral Valve MV Pk E: 0.62 MV PK A: 0.77 MV Decel Time: 116.00 E/A: 0.80 E'Lateral: 9.03 E'Medial: 5.33 E/E' Med: 11.70 E/E' Lat: 6.90 PHT: 34.00 MVA PHT: 6.47 Decel [place]: 5.36 Aortic Valve AoV Pk Kosta: 2.16 AoV Mn Kosta: 1.51 AoV VTI: 0.41 AoV Pk Grad: 19.00 Aov Mn Grad: 10.00 JESUS Cont.VTI: 1.94 LVOT LVOT Pk Kosta: 1.03 LVOT Mn Kosta: 0.74 LVOT VTI: 0.21 LVOT Pk Grad: 4.00 LVOT Mn Grad: 2.00 LVOT Diam: 2.20 LVOT Area: 3.80 Diastolic Function MV Pk E: 0.62 MV Pk A: 0.77 E/A: 0.80 E'Medial: 5.33 E/E' Med: 11.70 E' Laterial: 9.03 E/E' Lat: 6.90 Right Ventricle TAPSE (mm): 21.10 TVS' Kosta: 10.00 Tricuspid Valve TR Pk Kosta: 1.85 TR Pk Grad: 14.00 RA Press: 3.00 RVSP: 17.00 Great Vessels Aorta Sinus of Valsalva: 3.22 2.0-3.5 cm Ao Asc: 3.20 2.1-3.4 cm Updated in Other Vendor System with Status of Final Jj Jaylon MD electronically signed on 05/17/2022 2:35:35 PM with status of Final
== END ==
LOC: HO.CARD 13:32
PROVIDERS: Visit Provider Hospitalist
DX: I27.20 Pulmonary hypertension, unspecified (principal)
CPT/HCPCS: 93306

== ENCOUNTER 2022-10-10 06:04 | Outpatient (REF) | payer MEDICARE, MEDICAID, SELFPAY ==
[2022-10-10 08:03] LABS: Alanine Aminotransferase 31 U/L (0-40); Albumin Level 4.4 g/dL (3.5-5.0); Alkaline Phosphatase 46 U/L (39-117); Anion Gap 14 (12-20); Aspartate Amino Transferase 20 U/L (5-37); Bilirubin Total 0.6 mg/dL (0.0-1.0); Blood Urea Nitrogen 24 mg/dL (9-16); Calcium 9.7 mg/dL (8.4-10.2); Carbon Dioxide 25 mmol/L (22-29); Chloride 109 mmol/L (96-108); Cholesterol 157 mg/dL; Estimated Glomerular Filt Rate 54; Glucose Random 106 mg/dL (60-115); HDL Cholesterol 30 mg/dL; LDL Cholesterol Calculated 83 mg/dl; Potassium 5.5 mmol/L (3.3-5.1); Sodium 142 mmol/L (135-145); Total Protein 6.8 g/dL (6.5-8.0); Triglycerides 220 mg/dL
[2022-10-10 08:29] LABS: Free T4 (Free Thyroxine) 0.98 ng/dL (0.71-1.85)
== END 2022-10-10 06:05 | disposition home or self-care (01) ==
LOC: HO.LAB 06:04
PROVIDERS: PCP Internal Medicine; Visit Provider Internal Medicine
DX: E78.00 Pure hypercholesterolemia, unspecified (principal); R73.02 Impaired glucose tolerance (oral)
CPT/HCPCS: 36415; 80053; 80061; 84439

== ENCOUNTER 2022-11-22 05:58 | Outpatient (REF) | payer MEDICARE, MEDICAID, SELFPAY ==
[2022-11-22 08:12] LABS: Alanine Aminotransferase 28 U/L (0-40); Albumin Level 4.3 g/dL (3.5-5.0); Alkaline Phosphatase 51 U/L (39-117); Anion Gap 15 (12-20); Aspartate Amino Transferase 19 U/L (5-37); Bilirubin Total 0.4 mg/dL (0.0-1.0); Blood Urea Nitrogen 31 mg/dL (9-16); Calcium 9.4 mg/dL (8.4-10.2); Carbon Dioxide 23 mmol/L (22-29); Chloride 108 mmol/L (96-108); Cholesterol 125 mg/dL; Estimated Glomerular Filt Rate 51; Glucose Random 134 mg/dL (60-115); HDL Cholesterol 32 mg/dL; LDL Cholesterol Calculated 70 mg/dl; Potassium 5.2 mmol/L (3.3-5.1); Sodium 141 mmol/L (135-145); Triglycerides 119 mg/dL
== END 2022-11-22 05:59 | disposition home or self-care (01) ==
LOC: HO.LAB 05:58
PROVIDERS: PCP Internal Medicine; Visit Provider Internal Medicine
DX: E78.00 Pure hypercholesterolemia, unspecified (principal); E87.5 Hyperkalemia
CPT/HCPCS: 36415; 80053; 80061

== ENCOUNTER 2023-01-22 12:43 | Outpatient (REF) | payer MEDICARE, MEDICAID, SELFPAY ==
--- NOTE | ~2023-01-22 | CT_ITS ---
EXAMINATION: CT CHEST WITHOUT CONTRAST CLINICAL INFORMATION: Solitary pulmonary nodule. COMPARISON: CT chest 01/04/2022, 04/10/2021. TECHNIQUE: Multidetector volumetric CT imaging of the chest was done. Axial MIP volume rendering provided. Sagittal and coronal reformatted images were obtained. This CT examination was performed using dose optimization techniques as appropriate, variously including the following: *Automated exposure control *Adjustment of mA and/or kV according to patient size (this includes techniques or standardized protocols for targeted exams where dose is matched to indication/reason for exam; i.e. 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 LUNGS: There are emphysematous changes of both lungs with mild bronchial wall thickening and minimal bronchiectasis in both lower lobes. Mild peribronchial attenuation seen in upper lobes is stable. There is a right middle lobe 3 mm nodule on axial slice 241/6 is stable to last two CT chest exams. No new nodules are seen. No acute consolidation. MEDIASTINUM: Heart size and the great vessels are normal caliber. No abnormal-sized mediastinal or hilar lymph node seen. Thyroid lobes are symmetrical. The central trachea and the bronchi are widely patent. Small benign lymph nodes seen in the precarinal space CORONARY ARTERY CALCIFICATION: Moderate coronary artery calcification seen. PLEURA: There is no pleural effusion. No pleural mass or thickening. AXILLA: Small shotty lymph nodes are seen in bilateral axilla similar to previous study. UPPER ABDOMEN: The liver is diffusely attenuated from fatty infiltration. No focal lesion seen. There is no hepatomegaly. Visualized spleen, pancreas and adrenal glands are unremarkable. OSSEOUS STRUCTURES: No aggressive lytic or sclerotic process seen. CT/CT chest wo IV con IMPRESSION: 1. Emphysema with stable pulmonary nodule right middle lobe adjacent to the minor fissure. No new nodule seen. 2. Minimal bronchiectasis and bronchial wall thickening in both lower lobes and peribronchial attenuation are all stable. 3. Fatty liver. Fleischner guidelines were followed.
== END 2023-01-22 12:44 | disposition home or self-care (01) ==
LOC: HO.CT 12:43
PROVIDERS: PCP Internal Medicine; Visit Provider Hospitalist
DX: R91.1 Solitary pulmonary nodule (principal)
CPT/HCPCS: 71250

== ENCOUNTER 2023-01-27 13:48 | Outpatient (AMB) | payer MEDICARE, MEDICAID, SELFPAY ==
--- NOTE | 2023-01-27 14:37 | A.OFFVIS_ITS ---
Intake Vital Signs 01/27/23 14:38 Height 5 ft 4 in Weight 174 lb 9.698 oz BMI 30.0 BP 126/70 Blood Pressure Location Lt brachial Position Sitting Pulse 74 Pulse Source Pulse Oximeter Pulse Oximetry (%) 95 Oxygen Delivery Method Room Air Intake Visit Reasons: COPD/CT Chest Follow Up Travel Accommodations Rater Required: No Allergies bupropion [From Wellbutrin] Adverse Reaction (Severe, Verified 01/27/23 14:41) Anxiety HPI HPI Comments History of Present Illness Details The patient is a 67-year-old gentleman with a known history of tobacco dependency. Recently was admitted to the hospital with a COPD exacerbation and bronchitis. the patient was given nebulized therapy In addition to steroids and antibiotics. Further workup included a CT scan of the chest which ruled out PE. I did personally review the CAT scan with the patient demonstrating him the emphysema that he has. He also has extensive chronic bronchitis. In addition to that appears to be a 5 mm hazy pulmonary nodule in the right hemithorax. The patient is motivated to quitting although is very hard for him. He is willing to try the Nicotrol inhaler so therefore I will send the to the pharmacy. He does have a rescue inhaler at this time. He does not use it daily. I will hold off on additional respiratory therapy until he undergoes pulmonary function studies. The patient has been doing well since he was discharged from the [facility]. 07/24/2021 the patient is here for a pulmonary follow-up visit. Overall the patient has been doing very well. He is cutting down his smoking significantly from pack a day to about 4 cigarettes a day. His motivated in will try to quit completely. The inhalers also have been helpful. although, he still complains of chronic bronchitis symptoms with chest congestion and frequent mucus production. He was already hospitalized for COPD exacerbation. I do believe that adding Daliresp will be helpful in decreasing his flare-ups and exacerbations and therefore decreasing his hospitalizations.He continues to use Trelegy. He has not had to use his rescue inhaler as often. In the meantime the patient did undergo pulmonary function studies which I personally reviewed today demonstrating no obstructive nor restrictive ventilatory defects. Actually has pretty good lung capacity which is reassuring. He understands he still have some emphysema on the CT scan. He did try the Nicotrol inhaler but it only made him smoke more. He will just have to quit altogether. He does have pulmonary nodules on his CT scan and he will need follow-up imaging studies. 05/09/2022 the patient is here for a pulmonary follow-up visit. Overall the patient has been doing very well. He finally was able to quit smoking after more than 50 years. He did with the use of Chantix. He has been on Chantix now for couple months. He is agreeable to continue on for another month. Then he can stop the chances and hopefully stable from the cigarettes. Since he stop smoking his respiratory status improved dramatically. Already on the CT scan there was evidence of respiratory bronchiolitis from the smoking. Therefore now that he stop smoking he has significant improvement. He was able to stop his maintenance inhaler. He has not been using his rescue inhaler. Otherwise the patient is without any other complaints. For 01/27/2023 the patient is here for a pulmonary follow-up visit. The patient overall has been doing okay. Unfortunately went back to smoking cigarettes. He did succeed with Chantix. He would like to try again. I will send him a starter pack to the pharmacy. He does have a rescue inhaler. He is no longer using any maintenance therapy which is okay. The patient recently had a CT scan of the chest to follow up his pulmonary nodules. The patient does not appear to have any significant findings on the CT scan of the chest. Although, has not been officially read by Radiology as of yet. will plan to wait for the official read. If the nodules appear stable then we can follow up with the nodules a year from now. [facility] Medical History (Updated 01/27/23 @ 20:52 by Wnag Monsivais MD) Alcohol abuse Amputation finger Arm pain, left Bipolar disorder COPD (chronic obstructive pulmonary disease) COPD exacerbation COVID-19 vaccine series completed Elevated cholesterol Emphysema/COPD Erectile dysfunction Hypercholesterolemia Hyperkalemia Hypertension Hypogonadism Lab test negative for COVID-19 virus Macrocytosis without anemia Murmur, cardiac Obesity (BMI 30-39.9) Osteoarthritis Overweight (BMI 25.0-29.9) Pancreatitis Pulmonary nodule Right arm fracture Tobacco abuse Vitamin D deficiency Surgical History Finger amputation, no complication History of surgery on arm Family History Father No problems noted. Mother No problems noted. Sister No problems noted. Sister No problems noted. Son No problems noted. Daughter No problems noted. Daughter No problems noted. 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 Cognitive needs: No Hearing needs: No Vision needs: Yes Review of Systems Const Denies night sweats ENT Denies change in voice, Denies lip swelling, Denies mouth pain, Reports nasal congestion, Reports nasal discharge and Denies tongue swelling Card Denies chest pain Resp Reports cough GI Denies abdominal pain Musc Denies no additional complaints Neuro Denies Neuro-related abnormal movements Psych Denies no additional complaints Gerardo/Lymph Denies easy bleeding and Denies lymphadenopathy Aller/Immun Denies lip swelling and Denies tongue swelling Physical Exam Vital Signs: Last Vital Signs Pulse 74 01/27/23 14:38 BP 126/70 01/27/23 14:38 Pulse Ox 95 01/27/23 14:38 Oxygen Delivery Method Room Air 01/27/23 14:38 BMI result Body Mass Index 30.0 Const General: alert Neck Neck: Yes normal visual inspection, Yes full ROM and Yes no lymphadenopathy Chest Chest palpation & inspection: normal inspection of the chest Resp Auscultation: no rales, no rhonchi, no wheezes and diminished lung sounds Cardio Rate: regular rate Rhythm: regular rhythm Heart sounds: S1 normal heart sound present, S2 normal heart sound present and Murmur heart sound present systolic GI Palpation (GI): Soft to palpation and nontender Auscultation: normal bowel sounds Skin General skin exam: rashes and/or lesions noted Assessment & Plan Assessment & Plan (1) COPD (chronic obstructive pulmonary disease): Code(s): J44.9 - Chronic obstructive pulmonary disease, unspecified Qualifiers: COPD type: chronic bronchitis Chronic bronchitis type: mixed simple and mucopurulent Qualified Code(s): J41.8 - Mixed simple and mucopurulent chronic bronchitis (2) Pulmonary nodule: Comment: December 2021 CT scan Code(s): R91.1 - Solitary pulmonary nodule (3) Tobacco abuse: Comment: 02/2022 stopped and relapsed Code(s): Z72.0 - Tobacco use (4) Murmur, cardiac: Code(s): R01.1 - Cardiac murmur, unspecified Plan continue BAN as needed Will need repeat CT chest november 2023 tobacco cessation. Restart Chantix requesting echocardiogram to assess cardiac murmur follow-up 6-8 months Medications: New varenicline (Chantix Starting Month Box) PO PER PKG DIR 42 ea 0RF varenicline (Chantix Continuing Month Box) 1 mg PO BID 28 days 56 tabs 4RF Refilled albuterol sulfate 90 mcg/actuation 2 puffs PO Q6H PRN 8.5 ea 11RF for wheezing Quality Reporting (2019) Adult ([facility] 138/08/21/68) Smoking risk assessment performed?: Yes Patient Tobacco Use Status: Current everyday Tobacco user Coding Level of Care Code Est Pt Level 4 (33086) Diagnoses COPD (chronic obstructive pulmonary disease) J41.8 COPD type: chronic bronchitis Chronic bronchitis type: mixed simple and mucopurulent Pulmonary nodule R91.1 Tobacco abuse Z72.0 Murmur, cardiac R01.1 Time Spent (min) 18
[2023-01-27 14:38] VITALS: BP 126/70; PULSE 74; O2SAT 95
== END 2023-01-27 15:01 | disposition home or self-care (01) ==
PROVIDERS: PCP Internal Medicine; Visit Provider Hospitalist
DX: J41.8 Mixed simple and mucopurulent chronic bronchitis (principal); R91.1 Solitary pulmonary nodule; Z72.0 Tobacco use; R01.1 Cardiac murmur, unspecified
CPT/HCPCS: 99214

== ENCOUNTER → 2023-01-27 13:48 | Outpatient (BNVA) | payer MEDICARE, MEDICAID, SELFPAY | PROVIDERS: PCP Internal Medicine; Visit Provider Hospitalist | DX: J41.8 Mixed simple and mucopurulent chronic bronchitis (principal); R91.1 Solitary pulmonary nodule; R01.1 Cardiac murmur, unspecified; F17.210 Nicotine dependence, cigarettes, uncomplicated | CPT/HCPCS: 99212 ==

== ENCOUNTER 2023-01-30 15:23 | Outpatient (AMB) | payer MEDICARE, MEDICAID, SELFPAY ==
[2023-01-30 15:44] VITALS: BP 138/68; PULSE 80; O2SAT 98; BMI 28.7
--- NOTE | 2023-01-30 15:44 | A.OFFPC_ITS ---
Vital Signs 01/30/23 15:44 Height 5 ft 4 in Weight 167 lb BMI 28.7 BP 138/68 Blood Pressure Location Lt brachial Position Sitting Pulse 80 Pulse Source Pulse Oximeter Pulse Oximetry (%) 98 Oxygen Delivery Method Room Air Intake Visit Reasons: hyperkalemia, cholesterol , HTN, Sciatic nerve pain Allergies bupropion [From Wellbutrin] Adverse Reaction (Severe, Verified 01/30/23 15:45) Anxiety Tobacco use date assessed: 07/12/22 Fall risk assessment: No Falls in past year Last assessed Fall Risk: 01/30/23 Dental Screening Dental Screen Date: 01/30/23 Did you have a dental visit in the last 12 months?: No Did you have a dental problem in the last 6 months where you did not have access to dental care?: No Was dental information given to patient?: No HPI hyperkalemia, cholesterol , HTN HPI Details 67-year-old obese male with hypertension, coronary artery disease fatty liver hypercholesterolemia COPD renal insufficiency in generalized anxiety disorder last seen in September 2022 blood work requested and has been prescribed anxiety medication patient is here for follow-up review of the notes follows up with Pulmonary recently admitted for COPD exacerbation and bronchitis patient continues to smoke. Patient had an echocardiogram 2021Normal LV systolic function with impaired relaxation filling pattern 2. Mild aortic stenosis 1.94 3. Normal RV systolic pressure 4. 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 deny fall or trauma [facility] Medical History (Updated 01/30/23 @ 16:10 by Latesha Ackerman MD) Alcohol abuse Amputation finger Arm pain, left Bipolar disorder Bronchitis COPD (chronic obstructive pulmonary disease) COPD exacerbation COVID-19 vaccine series completed Elevated cholesterol Emphysema/COPD Erectile dysfunction Hypercholesterolemia Hyperkalemia Hypertension Hypogonadism Lab test negative for COVID-19 virus Macrocytosis without anemia Murmur, cardiac Obesity (BMI 30-39.9) Osteoarthritis Overweight (BMI 25.0-29.9) Pancreatitis Pulmonary nodule Right arm fracture Tobacco abuse Vitamin D deficiency Surgical History Finger amputation, no complication History of surgery on arm Family History Father No problems noted. Mother No problems noted. Sister No problems noted. Sister No problems noted. Son No problems noted. Daughter No problems noted. Daughter No problems noted. 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 1. Little interest or pleasure in doing things: not at all 2. Feeling down, depressed, or hopeless: not at all 3. Trouble falling or staying asleep, or sleeping too much: not at all 4. Feeling tired or having little energy: not at all 5. Poor appetite or overeating: not at all 6. Feeling bad about yourself - or that you are a failure or have let yourself or your family down: not at all 7. Trouble concentrating on things, such as reading the newspaper or watching television: not at all 8. Moving or speaking so slowly that other people could have noticed. Or the opposite - being so fidgety or restless that you have been moving around a lot more than usual: not at all 9. Thoughts that you would be better off or of hurting yourself in some way: not at all Total score: 0 Depression Screening Interpretation: Negative Source: Developed by Drs. Emil Piedra, Eugenia Hester, Delfin Duncan and colleagues, with an educational leslie from [employer]. Thrive Questionnaire Date Thrive assessed: 07/12/22 AUDIT C Alcohol Use Questionnaire (AUDIT-C) 1. How often do you have a drink containing alcohol?: Never 3. How often do you have six or more drinks on one occasion?: Never Total Score: 0 GENO-7 AMB Questionnaire GENO-7 Date GENO - 7 assessed: 07/12/22 Source: Developed by Drs. Emil Piedra, Eugenia Hester, Delfin Duncan and colleagues, with an educational leslie from [employer]. Physical exam (Primary Care) Vital Signs: Last Vital Signs Pulse 80 01/30/23 15:44 BP 138/68 01/30/23 15:44 Pulse Ox 98 01/30/23 15:44 Oxygen Delivery Method Room Air 01/30/23 15:44 Care Plan Goal for BP management: tender on the L gluteal area BMI result Body Mass Index 28.7 Tobacco/Smoking Status: Tobacco use Status Tobacco use date assessed 07/12/22 01/30/23 15:45 Patient Tobacco Use Status Current everyday Tobacco 01/30/23 15:45 Tobacco use type Cigarette 01/30/23 15:45 e-Cigarette/Vaping Use Never Used 01/30/23 15:45 PHQ-9: PHQ-9 Score PHQ-9: Total score 0 01/30/23 15:56 Depression Screening Interpretation: Negative Thrive Assessment: Date of Thrive Assessment Date Thrive assessed 07/12/22 01/30/23 15:45 Const General: alert; No acute distress Eyes Conjunctivae: conjunctivae normal Resp Auscultation: clear to auscultation bilaterally Cardio Rate: regular rate Rhythm: regular rhythm GI Inspection: Yes normal to inspection Extrem General: Yes normal to inspection and No edema Assessment and Plan Assessment & Plan (1) Sciatic nerve pain: Code(s): M54.30 - Sciatica, unspecified side Plan: decline PT and will refill muscle relaxant (2) Impaired glucose tolerance: Code(s): R73.02 - Impaired glucose tolerance (oral) Plan: Decrease the amount of carbohydrate intake, pasta, bread, rice and potatoes are all sugar and that is aside from all the sweet stuff, remember that fruits are good but they are Sweet also. (3) COPD (chronic obstructive pulmonary disease): Code(s): J44.9 - Chronic obstructive pulmonary disease, unspecified Qualifiers: COPD type: chronic bronchitis Chronic bronchitis type: mixed simple and mucopurulent Qualified Code(s): J41.8 - Mixed simple and mucopurulent chronic bronchitis Plan: Patient follows up with Pulmonary continue with inhaler (4) Pulmonary nodule: Comment: December 2021 CT scan Code(s): R91.1 - Solitary pulmonary nodule Plan: Patient is on surveillance CT scan done 12/2022 results pending (5) Obesity (BMI 30.0-34.9): Code(s): E66.9 - Obesity, unspecified Plan: Diet and exercise (6) Hypercholesterolemia: Comment: long discussion with the patient with regards to the need to diet. Discussed about fried foods chicken skin eggs butter margarine meats like pork or beef has to be decreased or even avoided. The stings needs for prevention of heart attacks Code(s): E78.00 - Pure hypercholesterolemia, unspecified Plan: Avoid fried foods, chicken skin, eggs, butter margarine, pastries and meat. Be it pork or beef they have a lot of cholesterol LDL goal of less than 70 and triglyceride less than 150 patient is on fenofibrate 160 mg once a day and atorvastatin 20 mg once a day (7) Hypertension: Code(s): I10 - Essential (primary) hypertension Plan: Continue with blood pressure medication. Decrease salt intake and exercise (8) Coronary artery disease: Comment: December 2021 CT scan Code(s): I25.10 - Atherosclerotic heart disease of [place] coronary artery without angina pectoris Plan: Control the cholesterol, weight, blood pressure (9) Sciatic nerve injury: Comment: left Code(s): S74.00XA - Injury of sciatic nerve at hip and thigh level, unspecified leg, initial encounter (10) Generalized anxiety disorder: Code(s): F41.1 - Generalized anxiety disorder Medications: Refilled cyclobenzaprine 5 mg PO TID PRN 30 tabs 0RF muscle spasm M79.602 - Pain in left arm Coding Level of Care Code Est Pt Level 4 (66197) Diagnoses Sciatic nerve pain M54.30 Impaired glucose tolerance R73.02 COPD (chronic obstructive pulmonary disease) J41.8 COPD type: chronic bronchitis Chronic bronchitis type: mixed simple and mucopurulent Pulmonary nodule R91.1 Obesity (BMI 30.0-34.9) E66.9 Hypercholesterolemia E78.00 Hypertension I10 Coronary artery disease I25.10 Sciatic nerve injury S74.00XA Generalized anxiety disorder F41.1 Additional Codes PHQ-9 - 09740 - PHQ-9 Billing: Y ([id number])
== END 2023-01-30 16:21 | disposition home or self-care (01) ==
PROVIDERS: PCP Internal Medicine; Visit Provider Internal Medicine
DX: M54.30 Sciatica, unspecified side (principal); I10 Essential (primary) hypertension; R73.02 Impaired glucose tolerance (oral); R91.1 Solitary pulmonary nodule
CPT/HCPCS: 99214

== ENCOUNTER 2023-03-12 07:41 | Emergency (ER) | payer MEDICARE, OTHER, SELFPAY ==
--- NOTE | ~2023-03-12 | XR_ITS ---
EXAMINATION: XR SHOULDER, LEFT CLINICAL INFORMATION: Shoulder pain, limited range of motion, no trauma COMPARISON: None available. TECHNIQUE: AP external rotation, Grashey, scapular Y, views of the left shoulder. FINDINGS: There are calcifications adjacent to the greater tuberosity felt likely to reflect calcific tendinosis. Acromioclavicular hypertrophic and proliferative changes are noted as well. There may be a small loose body within the joint visualized only on the transscapular Y view. The glenohumeral joint space is maintained. No fracture, dislocation or bone lesion is evident. XR/XR shoulder LT min 2V IMPRESSION: 1. Calcific tendinosis. 2. Question intra-articular loose body. 3. Acromioclavicular hypertrophic and proliferative changes.
[2023-03-12 07:43] VITALS: BP 130/67; PULSE 105; RESP 19; TEMP 36.6; O2SAT 99; BMI 29.7
--- NOTE | 2023-03-12 07:59 | ED.EXTPRO ---
HPI - Extremity Problem General Chief complaint: Extremity Injury, Upper Stated complaint: L Shoulder Pain No Injury Time Seen by Provider: 03/12/23 07:49 Source: patient and RN notes reviewed Mode of arrival: ambulatory Limitations: no limitations History of Present Illness HPI Narrative: This is a 67-year-old male, with a past medical history of hypertension, coronary artery disease, fatty liver, hypercholesterolemia, COPD, adrenal insufficiency, and generalized anxiety disorder, presenting to the emergency department with complete to body aches, chills, abdominal pain, and left shoulder pain since yesterday. Patient states that while he was working he noticed increased pain to his left shoulder without any trauma heavy lifting. He noticed throughout the day the pain in his left shoulder was worsening and his range of motion of his left shoulder was diminished. He also states that he had diffuse body aches yesterday. He states that he took ibuprofen and Tylenol which alleviated the body aches but he still continues to have for severe left shoulder pain which worsens with movement and with palpation. He also states that he developed abdominal pain after taking ibuprofen and Tylenol together. He denies any documented fevers, chest pain, shortness of breath, cough, nasal congestion, ear pain, sore throat vomiting or diarrhea. Denies any other complaints or concerns at this time. MD Complaint: extremity pain Onset (ago): day(s) Pain Consistency: constant Location: left and upper extremity Quality: aching Radiation: none Relieving factors: immobilization Exacerbating factors: range of motion and palpation Associated symptoms: denies other symptoms Related Data Previous Rx's Medication Instructions Recorded sildenafil 100 mg tablet 100 mg PO DAILY PRN sexual 09/04/21 activity #10 tabs blood pressure monitor (Blood #1 ea 07/12/22 Pressure Kit) fenofibrate 160 mg tablet 160 mg PO DAILY #90 tabs 09/06/22 hydrochlorothiazide 12.5 mg tablet 12.5 mg PO QAM #90 tabs 10/24/22 buspirone 5 mg tablet 5 mg PO BID #180 tabs 01/20/23 atorvastatin 20 mg tablet 20 mg PO DAILY 30 days #30 tabs 01/21/23 albuterol sulfate 90 mcg/actuation 2 puff PO Q6H PRN for wheezing 01/27/23 aerosol inhaler #8.5 ea varenicline 0.5 mg (11)-1 mg (42) See Rx Instructions PO PER PKG DIR 01/27/23 tablets in a dose pack (Chantix #42 ea Starting Month Box) cyclobenzaprine 5 mg tablet 5 mg PO TID PRN muscle spasm #30 01/30/23 tabs lisinopril 40 mg tablet 40 mg PO DAILY 90 days #90 tabs 02/17/23 varenicline 1 mg tablet (Chantix 1 mg PO BID 28 days #56 tabs 02/27/23 Continuing Month Box) acetaminophen 500 mg tablet 1,000 mg (2 x 500 mg) PO Q6H PRN 03/12/23 (Tylenol Extra Strength) pain #30 tabs cyclobenzaprine 5 mg tablet 5 mg PO TID PRN muscle spasm #14 03/12/23 tabs lidocaine 5 % topical patch 1 patch topical DAILY #30 ea 03/12/23 (Lidoderm) prednisone 20 mg tablet 40 mg (2 x 20 mg) PO DAILY 5 days 03/12/23 #10 tabs Allergies Allergy/AdvReac Type Severity Reaction Status Date / Time bupropion [From Wellbutrin] AdvReac Severe Anxiety Verified 03/12/23 07:43 Review of Systems Review of Systems: Yes all other systems are reviewed and are negative Constitutional: Constitutional: Reports as per [facility] Past Medical History Attestation statement: The following information was validated with the patient. Medical History Murmur, cardiac Arm pain, left Hyperkalemia Pulmonary nodule COPD (chronic obstructive pulmonary disease) COPD exacerbation Emphysema/COPD Bronchitis Lab test negative for COVID-19 virus Elevated cholesterol COVID-19 vaccine series completed Obesity (BMI 30-39.9) Pancreatitis Alcohol abuse Overweight (BMI 25.0-29.9) Tobacco abuse Erectile dysfunction Vitamin D deficiency Hypogonadism Macrocytosis without anemia Osteoarthritis Hypercholesterolemia Hypertension Bipolar disorder Amputation finger Right arm fracture Surgical History History of surgery on arm Finger amputation, no complication Family History Family History Father No problems noted. Mother No problems noted. Sister No problems noted. Sister No problems noted. Son No problems noted. Daughter No problems noted. Daughter No problems noted. 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 Cognitive needs: No Hearing needs: No Vision needs: Yes Physical Exam Vital Signs: Vital Signs: Last Vital Signs Temp 99.0 F 03/12/23 10:16 Pulse 109 H 03/12/23 10:16 Resp 18 03/12/23 10:16 BP 126/69 03/12/23 10:16 Pulse Ox 97 03/12/23 10:16 O2 Del Method Room Air 03/12/23 10:16 BMI result Body Mass Index 29.7 Const: General: cooperative, comfortable and no acute distress Orientation/consciousness: patient oriented x3 Limitations: no limitations HEENT: Head: Yes normal to inspection, Yes normocephalic and Yes atraumatic Ears: hearing grossly normal bilaterally General nose exam: Normal external nose present Face and sinus: Yes normal facial exam Mouth: Normal oral and palatal mucosa present, oropharynx normal and moist mucous membranes Throat: Yes posterior oropharynx normal Eyes: General: appearance normal, both eyes and all related structures Eyelids: Yes eyelids normal Conjunctivae: conjunctivae normal Sclerae: sclerae normal Pupils: Equal, round and reactive pupils present EOM: EOMs intact bilaterally Neck: Neck: Yes normal visual inspection, Yes full ROM and Yes no lymphadenopathy Lymphatic: no lymphadenopathy noted Chest: Chest palpation & inspection: normal inspection of the chest Resp: Effort & Inspection: normal respiratory effort and able to speak in complete sentences Auscultation: clear to auscultation bilaterally, no crackles, no rales, no rhonchi and no wheezes Cardio: Rate: regular rate Rhythm: regular rhythm Heart sounds: S1 normal heart sound present and S2 normal heart sound present GI: Other: Abdomen is soft, with tenderness palpation within the epigastrium, no rebound or guarding. Normoactive bowel sounds present in 4 quadrants Inspection: Yes normal to inspection Skin: General skin exam: no rashes or lesions noted Trauma: no lacerations or abrasions Wounds: no wounds Neuro: General: patient oriented x3 and moves all extremities Cranial nerves: Yes Equal, round and reactive pupils present Extrem: Other: Left shoulder with prominent distal clavicle elevation which is tender to palpation. Tender to palpation within the AC joint. Limited range of motion of the right shoulder secondary to pain. Strong radial pulse noted. No surrounding erythema or edema. Good president and chief operating officer strength, full range of motion of the digits, wrist, and elbow without pain. General: Yes normal to inspection Right upper extremity: normal to inspection Left upper extremity: normal to inspection Right lower extremity: normal to inspection Left lower extremity: normal to inspection Course Reevaluation(s) Reevaluation #1: Patient's stomach feeling much better after receiving lidocaine and Maalox, complaining worsening of left shoulder pain. Patient will be medicated with Toradol 30 mg IM. X-rays were performed and reviewed as calcific tendon no cyst, question intra-articular loose body, AC hypertrophic and proliferative changes. I discussed case with orthopedic PA, Tamera Nielsen, recommends no overhead movements. Time: 09:52 Medications Administered Discontinued Medications Generic Name Dose Route Start Last Admin Trade Name Freq PRN Reason Stop Dose Admin Al Hydroxide/Mg Hydroxide 30 ml 03/12/23 07:58 03/12/23 08:02 Magnesium Hydrox/Alum Hydrox 30 Ml Oral.Susp PO 03/12/23 07:59 30 ml ONCE ONE Administration Ketorolac Tromethamine 30 mg 03/12/23 09:51 03/12/23 10:17 Ketorolac Tromethamine 30 Mg/Ml Vial IM 03/12/23 09:52 30 mg ONCE ONE Administration Lidocaine HCl 15 ml 03/12/23 07:58 03/12/23 08:02 Lidocaine Hcl Viscous 2 % 15 Ml Solution MUCOUS MEM 03/12/23 07:59 15 ml ONCE ONE Administration Medical Decision Making Medical Decision Making MDM Narrative: 57-year-old male presenting to the emergency department with complaints of left shoulder pain since yesterday. He also endorsed body aches and chills which started yesterday. Body aches alleviated with Tylenol and ibuprofen however patient developed a stomach pain shortly after taking these medications. On arrival, vital signs within normal limits. On examination, patient has tenderness to palpation to the left AC joint, and distal clavicle. Limited range of motion secondary to pain. Differential diagnoses include AC joint separation, fracture, septic arthritis, sprain, viral syndrome, gastritis Plan: Left shoulder x-ray, GI cocktail, COVID Differential Diagnosis Differential Diagnoses: The differential diagnosis associated with the presentation includes See above Lab Data MDM Lab Attestation statement: I reviewed the patient's lab results. Labs: Lab Results 03/12/23 Range/Units 08:03 COVID-19 (JASSON) Negative (Negative) COVID-19 Clin Com See Note Radiology Impression Discussion of test interpretation with radiology: I have reviewed the radiologist's reading. External Record Review External record reviewed: Inpatient record, Office record, Outpatient record, Prior outpatient labs, Prior outpatient radiology, Primary care record and Outside ED record Discharge Plan Discharge Clinical Impression: Acute pain of left shoulder Patient Disposition: Home, Self-Care Instructions: Shoulder Pain (ED) Additional Instructions: Your x-ray today shows evidence of arthritis as well as a questionable loose body fragment. This could either be bone are part of the tendon. Please wear sling for comfort measures only. Please take arm at of sling multiple times a day. Gentle range of motion is crucial to prevent frozen shoulder. Please take prescribed medication as directed. Please be advised that Flexeril can cause drowsiness, do not drink alcohol or drive while taking this medication. Take Tylenol as directed as needed for pain. Prednisone is a steroid that can help with anti-inflammatory affects, please complete the whole course. Please call Orthopedics today for follow-up as you may need to be referred to physical therapy and have additional treatment to treat your shoulder pain. You tested negative for COVID today. If any new or worsening symptoms occur, please return for re-evaluation. Caraballo radiograf?a de hoy muestra evidencia de artritis, as? liliana un fragmento de cuerpo suelto cuestionable. Abie podr?a ser hueso o parte del tend?n. Utilice un cabestrillo ?nicamente liliana medida de comodidad. [place] el brazo del cabestrillo varias veces al d?a. Un rango de movimiento suave es crucial para prevenir el hombro congelado. [place] los medicamentos recetados seg?n las indicaciones. Tenga en cuenta que Flexeril puede provocar somnolencia; no mitul alcohol ni conduzca mientras noah sarah medicamento. [place] Tylenol seg?n las indicaciones seg?n sea necesario para el dolor. La prednisona es un esteroide que puede ayudar con los efectos antiinflamatorios; complete todo el curso. Llame a [employer] hoy para realizar un seguimiento, ya que es posible que deba ser remitido a fisioterapia y recibir tratamiento adicional para tratar caraballo dolor de hombro. Tu prueba de COVID fue negativa hoy. Si se presenta alg?n s?ntoma nuevo o que empeora, regrese para gricel nueva evaluaci?n. Prescriptions: New prednisone 20 mg tablet 40 mg PO DAILY 5 Days Qty: 10 0RF cyclobenzaprine 5 mg tablet 5 mg PO TID PRN (Reason: muscle spasm) Qty: 14 0RF lidocaine [Lidoderm] 5 % adhesive patch,medicated 1 patch topical DAILY Qty: 30 0RF Rx Instructions: leave on most painful area for up to 12 hrs acetaminophen [Tylenol Extra Strength] 500 mg tablet 1,000 mg PO Q6H PRN (Reason: pain) Qty: 30 0RF Rx Instructions: Do not exceed 4000 mg in 24 hours No Action fenofibrate 160 mg tablet 160 mg PO DAILY Qty: 90 2RF buspirone 5 mg tablet 5 mg PO BID Qty: 180 2RF atorvastatin 20 mg tablet 20 mg PO DAILY 30 Days Qty: 30 3RF lisinopril 40 mg tablet 40 mg PO DAILY 90 Days Qty: 90 2RF varenicline [Chantix Continuing Month Box] 1 mg tablet 1 mg PO BID 28 Days Qty: 56 4RF (DME) blood pressure monitor [Blood Pressure Kit] Kit See Rx Instructions .ROUTE .MEDSUPPLY Qty: 1 0RF Rx Instructions: As directed cyclobenzaprine 5 mg tablet 5 mg PO TID PRN (Reason: muscle spasm) Qty: 30 0RF sildenafil 100 mg tablet 100 mg PO DAILY PRN (Reason: sexual activity) Qty: 10 5RF Rx Instructions: administer 30 minutes to 4 hours before activity hydrochlorothiazide 12.5 mg tablet 12.5 mg PO QAM Qty: 90 3RF varenicline [Chantix Starting Month Box] 0.5 mg (11)- 1 mg (42) tablets,dose pack See Rx Instructions PO PER PKG DIR Qty: 42 0RF Rx Instructions: PO PER PKG DIR albuterol sulfate 90 mcg/actuation HFA aerosol inhaler 2 puff PO Q6H PRN (Reason: for wheezing) Qty: 8.5 11RF Referrals: [facility] [Provider Group] Print Language: Tunisian
[2023-03-12] MEDS: Lidocaine HCl Viscous 2 % 15 ML SOLUTION MUCOUS MEM (08:02)
[2023-03-12] MEDS: Magnesium Hydrox/Alum Hydrox 30 ML ORAL.SUSP PO (08:02)
--- NOTE | 2023-03-12 08:07 | PC.NURSE ---
alert and oriented, respirations even and unlabored. medicated per the MAR, swab obtained and sent.
[2023-03-12 08:34] LABS: COVID-19 Test Negative (Negative); IDNOW Serial# BCCEAD1C
[2023-03-12 10:16] VITALS: BP 126/69; PULSE 109; RESP 18; TEMP 37.2; O2SAT 97
[2023-03-12] MEDS: Ketorolac Tromethamine 30 MG/ML VIAL IM (10:17)
--- NOTE | 2023-03-12 10:26 | PC.NURSE ---
medicated per the MAR for pain, pt continues to endorse left shoulder pain worsening since his arrival. at bedside, call bates within reach. vss.
== END 2023-03-12 11:29 | disposition home or self-care (01) ==
PROVIDERS: Physician Assistant Medical; Emergency Provider Emergency Medicine Emergency Medical Services; PCP Internal Medicine
DX: M25.512 Pain in left shoulder (principal); F17.210 Nicotine dependence, cigarettes, uncomplicated; Z71.6 Tobacco abuse counseling
CPT/HCPCS: 73030; 87635; 99284; J1885

== ENCOUNTER 2023-03-14 07:07 | Inpatient (IN) | payer MEDICARE, OTHER, SELFPAY ==
[2023-03-14] VITALS (36 sets, daily range): BP systolic 89–121; BP diastolic 44–69; PULSE 107–133; RESP 16–28; TEMP 36.9–40.3; O2SAT 92–98; BMI 29.0
--- NOTE | ~2023-03-14 | XR_ITS ---
EXAMINATION: XR CHEST CLINICAL INFORMATION: Chest pain COMPARISON: 03/16/2023 TECHNIQUE: Frontal view of the chest was obtained. FINDINGS: No significant abnormality is noted involving the heart, lungs, mediastinum, bony thorax or soft tissues. XR/XR chest 1V IMPRESSION: Unremarkable examination.
--- NOTE | ~2023-03-14 | NM_ITS ---
EXAMINATION: TC-99M CERETEC WHITE BLOOD CELL STUDY CLINICAL INFORMATION: Staph. Bacteremia. Left shoulder monoarticular arthritis. COMPARISON: Left shoulder radiograph and CT scan done on 03/12/2023 and 03/15/2023. TECHNIQUE: Multiple gamma scintillation camera images of the whole body were performed 2.25 hours following the intravenous administration of 15 millicuries technetium 99m Ceretec labeled autologous white cells. Additional images of the chest and abdomen were obtained to demonstrate physiological white blood cell tagging. FINDINGS: Normal physiologic radiotracer distribution is identified within the lung, liver, spleen, bone marrow, kidneys and the bladder. Specifically, no asymmetric increased radiotracer activity is identified around the left shoulder. Both shoulders appear symmetric. NM/NM white blood scan IMPRESSION: Unremarkable study. Specifically, no scintigraphic evidence of source of infection is identified, and the left shoulder appear unremarkable.
--- NOTE | ~2023-03-14 | CT_ITS ---
Examination: CT shoulder LT wo IV con Indication: monoarticular arthritis/sepsis Comparison: 03/14/2023 images of the chest partially including this area Technique: Multiple serial helical thin slice CT scan images through the left shoulder were obtained. Soft tissue and bony algorithms were evaluated. Coronal and sagittal reformatted images were obtained on the technologist workstation. DLP [address] examination was performed using dose optimization techniques as appropriate, variously including the following: *Automated exposure control *Adjustment of mA and/or kV according to patient size (this includes techniques or standardized protocols for targeted exams where dose is matched to indication/reason for exam; i.e. extremities or head) *Use of iterative reconstruction technique Findings: Degenerative arthritic changes to the left glenohumeral joint space are seen with subchondral cystic change along the anterior aspect of the humeral head near the bicipital groove. Tiny likely degenerative intra-articular ossifications/loose body along the anteromedial aspect of the joint space. There is also some subtle calcification near the attachment point of the supraspinatus tendon suggesting underlying calcific tendinitis. I do not appreciate any acute fracture or dislocation. Humeral head is well-seated in the glenoid fossa. I do not appreciate a significant joint effusion on this noncontrast study. No abnormal soft tissue gas. Mild hypertrophic degenerative changes in the acromioclavicular joint. Visualized portions of the clavicle, scapula, humerus, and left ribs are grossly unremarkable. CT/CT shoulder LT wo IV con Impression: Chronic appearing and degenerative changes as described above. I do not appreciate any acute fracture or dislocation.
--- NOTE | ~2023-03-14 | XR_ITS ---
EXAMINATION: XR CHEST CLINICAL INFORMATION: Hypoxia. COMPARISON: 03/14/2023 TECHNIQUE: Frontal view of the chest was obtained. FINDINGS: The cardiomediastinal silhouette is normal. There is no focal lung consolidation or pleural effusion. There appears to be bronchial thickening bilaterally. The bony structures and soft tissues are unremarkable. XR/XR chest 1V IMPRESSION: Bronchial thickening may be seen with bronchitis. There is no focal consolidation or evidence for significant pleural effusion.
--- NOTE | ~2023-03-14 | CT_ITS ---
EXAMINATION: CT ABDOMEN AND PELVIS WITHOUT CONTRAST CLINICAL INFORMATION: Upper abdominal pain. COMPARISON: 03/15/2023 TECHNIQUE: Multidetector volumetric imaging was performed from the superior aspect of the liver through the pubic symphysis. Sagittal and coronal reformatted images were obtained on the technologist's workstation. Oral contrast was administered. This CT examination was performed using dose optimization techniques as appropriate, variously including the following: *Automated exposure control *Adjustment of mA and/or kV according to patient size (this includes techniques or standardized protocols for targeted exams where dose is matched to indication/reason for exam; i.e. extremities or head) *Use of iterative reconstruction technique DLP: 530 mGy-cm FINDINGS: LUNG BASES: Small bilateral pleural effusions and dependent atelectasis. LIVER, GALLBLADDER, AND BILIARY TREE: The noncontrast liver is decreased in attenuation. Ill-defined 2.0 cm right hepatic hypodense lesion. No biliary ductal dilatation is present. The gallbladder is unremarkable with no evidence of radiopaque gallstones, gallbladder wall thickening, or obvious pericholecystic inflammatory changes. PANCREAS: Unremarkable. SPLEEN: Unremarkable. ADRENAL GLANDS: Unremarkable. KIDNEYS AND URETERS: The kidneys are symmetric in size. Nonobstructing left renal calculi. No hydronephrosis. Nonspecific perinephric stranding worse on the right. BLADDER: Nondependent gas in the urinary bladder. Anterior bladder wall thickening. GASTROINTESTINAL TRACT: Small and large bowel loops are of normal caliber. No small bowel obstruction. Appendix is within normal limits. ABDOMINAL WALL: No significant hernia is appreciated. LYMPH NODES: No bulky abdominal or pelvic lymphadenopathy. VASCULAR: Normal caliber abdominal aorta. PELVIC VISCERA: The prostate gland and seminal vesicles are unremarkable. OSSEOUS STRUCTURES: No destructive bone lesions. CT/CT abdomen pelvis wo IV con IMPRESSION: Bilateral perinephric stranding. Worse on the right. Correlation should be made with urinalysis. Nondependent gas in the urinary bladder and anterior bladder wall thickening. Nonobstructing left renal calculi. Hepatic steatosis. Ill-defined 2.0 cm right hepatic hypodensity. Further characterization with MRI abdomen is recommended. Small bilateral pleural effusions and dependent atelectasis.
--- NOTE | ~2023-03-14 | XR_ITS ---
EXAMINATION: XR CHEST CLINICAL INFORMATION: Weakness COMPARISON: 04/10/2021 Healthcare Representative image from 01/22/2023 CT TECHNIQUE: Frontal view of the chest was obtained. FINDINGS: Mild opacity in the right upper lung may be a small area of early infiltrate. The remainder lung estes are felt to be comparable. The cardiac silhouette is within normal limits. There is no effusion. The hilar regions do not appear pathologically enlarged XR/XR chest 1V IMPRESSION: Mild right upper lung opacity could be a small area of infiltrate. Follow-up films recommended after treatment to assess for resolution and establish baseline
--- NOTE | ~2023-03-14 | CT_ITS ---
EXAMINATION: CT CHEST WITHOUT CONTRAST CLINICAL INFORMATION: Pneumonia COMPARISON: Same day chest radiograph. 01/22/[address] TECHNIQUE: Multidetector volumetric CT imaging of the chest was done. Axial MIP volume rendering provided. Sagittal and coronal reformatted images were obtained. This CT examination was performed using dose optimization techniques as appropriate, variously including the following: *Automated exposure control *Adjustment of mA and/or kV according to patient size (this includes techniques or standardized protocols for targeted exams where dose is matched to indication/reason for exam; i.e. 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 Flattening of the hemidiaphragms. Mild diffuse bronchial wall thickening. Evaluation of the lung parenchyma limited due to motion artifact. No pulmonary parenchymal abnormality identified in the right upper lung as questioned on same day radiograph. Mild paraseptal emphysema. Small right upper lobe bleb. No suspicious lung nodules. MEDIASTINUM: Unremarkable thyroid. No pathologic lymphadenopathy. Nonenlarged heart. Trace pericardial effusion. Atherosclerotic calcifications nonaneurysmal aorta and branch vessels. Nonenlarged periaortic views. CORONARY ARTERY CALCIFICATION: Severe PLEURA: 3 mm right minor fissural lymph node There is no pleural effusion. No pleural mass or thickening. AXILLA: No pathologic lymphadenopathy. UPPER ABDOMEN: Enlarged hypodense liver, enlarged spleen at 14 cm. OSSEOUS STRUCTURES: No suspicious osseous lesions. CT/CT chest wo IV con IMPRESSION: No CT evidence of pneumonia or other acute intrathoracic pathology. Fleischner guidelines were followed.
--- NOTE | ~2023-03-14 | US_ITS ---
EXAMINATION: US RETROPERITONEAL LIMITED (RENAL ONLY) CLINICAL INFORMATION: AK I. COMPARISON: CT abdomen pelvis 03/15/2023 TECHNIQUE: Ultrasound of the kidneys was performed FINDINGS: RIGHT KIDNEY: 11.3 x 5.7 x 6.2 cm (SAG x AP x TRV). The kidney is normal in size, contour, and echogenicity. Renal cortical thickness is normal. No calculi or focal parenchymal lesions. No hydronephrosis. LEFT KIDNEY: 10.4 x 6.4 x 5.2 cm (SAG x AP x TRV). The kidney is normal in size, contour, and echogenicity. Renal cortical thickness is normal. No calculi or focal parenchymal lesions. No hydronephrosis. US/US renal BI IMPRESSION: Normal-appearing kidneys.
--- NOTE | ~2023-03-14 | CT_ITS ---
EXAMINATION: CT ABDOMEN AND PELVIS WITHOUT CONTRAST CLINICAL INFORMATION: Pain, loose stools COMPARISON: 01/10/2021 TECHNIQUE: Multidetector volumetric imaging was performed from the superior aspect of the liver through the pubic symphysis. Sagittal and coronal reformatted images were obtained on the technologist's workstation. This CT examination was performed using dose optimization techniques as appropriate, variously including the following: *Automated exposure control *Adjustment of mA and/or kV according to patient size (this includes techniques or standardized protocols for targeted exams where dose is matched to indication/reason for exam; i.e. extremities or head) *Use of iterative reconstruction technique DLP: 518 mGy-cm FINDINGS: LUNG BASES: The starts tools visualized lung bases are unremarkable. LIVER, GALLBLADDER, AND BILIARY TREE: Probable fatty change in the liver and focal sparing around the gallbladder there is a low-density lesion on image 21 measuring 1.7 cm that was not present previously. This cannot be said to be a simple cyst The gallbladder is unremarkable with no evidence of radiopaque gallstones, gallbladder wall thickening, or obvious pericholecystic inflammatory changes. PANCREAS: Unremarkable. SPLEEN: Unremarkable. ADRENAL GLANDS: Unremarkable. KIDNEYS AND URETERS: Nonobstructing calculi are noted BLADDER: Unremarkable. GASTROINTESTINAL TRACT: The bowel pattern is felt to be nonobstructing. There is abnormality involving the first and second and third portion of the duodenum. Thickening with soft tissue stranding emanating into the fat around the duodenum. ABDOMINAL WALL: No significant hernia is appreciated. LYMPH NODES: There is no bulky adenopathy here. Prominent node in the region of the duodenum is similar to previous. VASCULAR: Atherosclerotic changes are noted PELVIC VISCERA: Unremarkable. OSSEOUS STRUCTURES: Degenerative change at L5-S1 once again seen. CT/CT abdomen pelvis wo IV con IMPRESSION: This exam is abnormal. There is thickening in the first second and third portion of the duodenum with some surrounding soft tissue stranding. Findings may also include the duodenal bulb and antrum. This would be most consistent with duodenitis. No free air is seen. There are some prominent nodes in the region and these may be reactive. These however appear similar in appearance to previous study. Differential would include pancreatic head abnormality or inflammatory change in the adjacent pancreas but this would seem less likely on the imaging Of course underlying tumor cannot be excluded and follow-up is necessary There is also a low-density lesion which is not present previously in the right lobe of liver. This cannot be said to be a simple cyst on this study. Recommendation is ultrasound or MR to further evaluate Other findings are as described above Fleischner guidelines were followed.
--- NOTE | ~2023-03-14 | CT_ITS ---
EXAMINATION: CT ABDOMEN AND PELVIS WITHOUT CONTRAST CLINICAL INFORMATION: Abdominal pain and loose stools. Abnormal duodenum seen on CT of the abdomen and pelvis done yesterday. Suspected retroperitoneal perforation. COMPARISON: CT of the abdomen and pelvis done on 03/14/2023 and 01/10/2021. TECHNIQUE: Multidetector volumetric imaging was performed from the superior aspect of the liver through the pubic symphysis. Sagittal and coronal reformatted images were obtained on the technologist's workstation. Oral contrast was administered. This CT examination was performed using dose optimization techniques as appropriate, variously including the following: *Automated exposure control *Adjustment of mA and/or kV according to patient size (this includes techniques or standardized protocols for targeted exams where dose is matched to indication/reason for exam; i.e. extremities or head) *Use of iterative reconstruction technique DLP: 746 mGy-cm FINDINGS: LUNG BASES: The visualized lung bases are unremarkable. LIVER, GALLBLADDER, AND BILIARY TREE: Diffuse hepatic steatosis. The gallbladder is unremarkable with no evidence of radiopaque gallstones, gallbladder wall thickening, or obvious pericholecystic inflammatory changes. PANCREAS: Unremarkable. SPLEEN: Unremarkable. ADRENAL GLANDS: Unremarkable. KIDNEYS AND URETERS: The kidneys are normal in size, shape, and attenuation. No hydronephrosis, hydroureter seen. Persistent stable nonspecific mild bilateral perinephric stranding, unchanged since prior studies. Linear radiopaque densities are present within the mid posterior left renal sinus and in the region of the left renal pelvis, likely represent vascular calcifications and less likely to be nonobstructing calculi, unchanged since 01/10/2021. BLADDER: There is a Arroyo's catheter present within the bladder. Air-fluid level is likely secondary to the catheter. GASTROINTESTINAL TRACT: Previously documented apparent mural thickening and stranding around the second, third part of the duodenum shows interval resolution. Apparent thickening of the stomach is likely physiologic, new since prior study. The small, large bowel loops are decompressed. Oral contrast is seen to extend to the level of the distal descending colon and proximal sigmoid colon. ABDOMINAL WALL: No significant hernia is appreciated. LYMPH NODES: There are no pathologically enlarged, morphologically abnormal mesenteric or retroperitoneal lymphadenopathy, unchanged. VASCULAR: Extensive calcific atherosclerotic disease of the aorta and its branches. The infrarenal abdominal aorta measures 2.5 cm, unchanged. PELVIC VISCERA: Unremarkable. OSSEOUS STRUCTURES: Multilevel moderate degenerative spondylosis, unchanged. CT/CT abdomen pelvis wo IV con IMPRESSION: 1. Interval resolution of duodenal thickening and periduodenal inflammatory stranding involving the second and third part of the duodenum since the prior study done yesterday. No evidence of any retroperitoneal perforation. 2. Interval placement of a Arroyo's catheter. 3. No other significant interval change. Fleischner guidelines were followed.
--- NOTE | 2023-03-14 07:23 | ECG_ITS ---
Test Reason : BLACK STOOL, DIARRHEA Blood Pressure : / mmHG Vent. Rate : 114 BPM Atrial Rate : 114 BPM P-R Int : 160 ms QRS Dur : 078 ms QT Int : 288 ms P-R-T Axes : 056 077 058 degrees QTc Int : 396 ms Sinus tachycardia Nonspecific ST abnormality Abnormal ECG When compared with ECG of 10-APR-2021 20:31, Nonspecific ST abnormality is now Present Referred By: Generic ED Physician Electronically Signed By:JONATAN LOPEZ
--- NOTE | 2023-03-14 08:09 | ED.GENADULT ---
HPI - General Adult General Chief complaint: General Medical Stated complaint: seen 2 days ago/ vomiting, body pain Time Seen by Provider: 03/14/23 08:09 History of Present Illness HPI narrative: 67-year-old male past medical history significant for sciatica, anxiety, hyperkalemia, hypertension, high cholesterol, COPD, pancreatitis, alcohol use disorder, who presents emergency department for evaluation of whole body pain x3 days, subjective fevers, nausea and vomiting x2 last night, 1 episode of dark black stools last night, weakness, fatigue. Patient was seen in the emergency department on 03/12/2023 for evaluation of complete body aches, chills, abdominal pain and left shoulder pain which started on 03/11/2023. He was taking Tylenol and ibuprofen without symptoms. Exam did reveal epigastric tenderness as well as tenderness and pain with movement of his left shoulder. X-rays of the left shoulder were concerning for possible left shoulder tendinitis he was prescribed prednisone 40 mg daily, cyclobenzaprine 5 mg 3 times a day and lidocaine patches. He was also advised to take Tylenol for his pain. Patient states his symptoms got worse. He had new symptoms of nausea, vomiting x2 last night and 1 dark tarry stools. Related Data Previous Rx's Medication Instructions Recorded sildenafil 100 mg tablet 100 mg PO DAILY PRN sexual 09/04/21 activity #10 tabs blood pressure monitor (Blood #1 ea 07/12/22 Pressure Kit) fenofibrate 160 mg tablet 160 mg PO DAILY #90 tabs 09/06/22 hydrochlorothiazide 12.5 mg tablet 12.5 mg PO QAM #90 tabs 10/24/22 buspirone 5 mg tablet 5 mg PO BID #180 tabs 01/20/23 atorvastatin 20 mg tablet 20 mg PO DAILY 30 days #30 tabs 01/21/23 albuterol sulfate 90 mcg/actuation 2 puff PO Q6H PRN for wheezing 01/27/23 aerosol inhaler #8.5 ea varenicline 0.5 mg (11)-1 mg (42) See Rx Instructions PO PER PKG DIR 01/27/23 tablets in a dose pack (Chantix #42 ea Starting Month Box) cyclobenzaprine 5 mg tablet 5 mg PO TID PRN muscle spasm #30 01/30/23 tabs lisinopril 40 mg tablet 40 mg PO DAILY 90 days #90 tabs 02/17/23 varenicline 1 mg tablet (Chantix 1 mg PO BID 28 days #56 tabs 02/27/23 Continuing Month Box) acetaminophen 500 mg tablet 1,000 mg (2 x 500 mg) PO Q6H PRN 03/12/23 (Tylenol Extra Strength) pain #30 tabs cyclobenzaprine 5 mg tablet 5 mg PO TID PRN muscle spasm #14 03/12/23 tabs lidocaine 5 % topical patch 1 patch topical DAILY #30 ea 03/12/23 (Lidoderm) prednisone 20 mg tablet 40 mg (2 x 20 mg) PO DAILY 5 days 03/12/23 #10 tabs Allergies Allergy/AdvReac Type Severity Reaction Status Date / Time bupropion [From Wellbutrin] AdvReac Severe Anxiety Verified 03/12/23 07:43 Review of Systems Review of Systems: Yes all other systems are reviewed and are negative [facility] Past Medical History Attestation statement: The following information was validated with the patient. [facility] Narrative: Social history: He is and he has here in the emergency department with his . The patient does smoke cigarettes. He denies alcohol use. He denies drug use. Medical History Murmur, cardiac Arm pain, left Hyperkalemia Pulmonary nodule COPD (chronic obstructive pulmonary disease) COPD exacerbation Emphysema/COPD Bronchitis Lab test negative for COVID-19 virus Elevated cholesterol COVID-19 vaccine series completed Obesity (BMI 30-39.9) Pancreatitis Alcohol abuse Overweight (BMI 25.0-29.9) Tobacco abuse Erectile dysfunction Vitamin D deficiency Hypogonadism Macrocytosis without anemia Osteoarthritis Hypercholesterolemia Hypertension Bipolar disorder Amputation finger Right arm fracture Surgical History History of surgery on arm Finger amputation, no complication Family History Family History Father No problems noted. Mother No problems noted. Sister No problems noted. Sister No problems noted. Son No problems noted. Daughter No problems noted. Daughter No problems noted. Social History Social History Housing: Apartment Are you a primary multi care technician to a significant other at home: No Do you presently have visiting nurse or other home services: No Alcohol intake: never Patient Tobacco Use Status: Current everyday Tobacco user Tobacco use type: Cigarette Cigarettes Per Day: 2 Years Smoked: 35 Smoked in Last 30 Days: Yes e-Cigarette/Vaping Use: Never Used Second Hand Smoke Exposure: No Use of substances other than those prescribed or required for medical reasons: No Advance Directives: Yes Advance Directives Information Provided: Yes Advance Directives on File: No service: No Current occupational status: employed 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 Cognitive needs: No Hearing needs: No Vision needs: Yes Physical Exam ED Vital Signs: Vital Signs - 24 hr 03/14/23 07:14 03/14/23 08:08 03/14/23 08:13 Temperature 98.6 F 98.4 F Pulse Rate 123 H 110 H Pulse Rate [Monitor] 114 H Respiratory Rate 16 20 Blood Pressure 99/57 L 114/69 Pulse Oximetry 97 96 Oxygen Delivery Method Room Air Room Air 03/14/23 10:09 03/14/23 12:01 Temperature 98.9 F 99.9 F Pulse Rate 113 H 122 H Pulse Rate [Monitor] Respiratory Rate 20 24 H Blood Pressure 98/59 L 102/60 Pulse Oximetry 96 94 Oxygen Delivery Method Room Air Room Air BMI result Body Mass Index 29.0 Vital signs did reveal a slightly low blood pressure of 99/57, elevated pulse of 123 otherwise unremarkable. Exam: General: Patient appears to be anxious and in distress secondary to his body pain, he is awake and alert answers all questions appropriately Head: Normocephalic, atraumatic EENT: PERRL, Lids normal, sclera normal, conjunctiva normal, nose normal , ears normal, throat without erythema or exudates Neck: Supple, no adenopathy, trachea midline and nontender Lung: breath sounds symmetric, no wheezing, rales or rhonchi Chest: symmetric movement, nontender Heart: regular rate and rhythm, normal S1, S2 no murmurs or rubs Abdomen: soft, moderate right upper quadrant and epigastric tenderness, mild diffuse tenderness, no rebound, no voluntary or involuntary guarding, normoactive bowel sounds Rectal: Normal external appearance, normal rectal tone, no rectal masses on digital exam, patient's stool was loose, brown , strongly Hemoccult positive Back: no vertebral tenderness, no CVAT Extremities: no deformities, moves all extremities symmetrically Skin: no rashes, no lesion, normal color and warmth Neuro: Awake, alert, oriented, normal speech, cranial nerves intact, moves all extremities symmetrically Psych: Pleasant, cooperative Medications Administered Discontinued Medications Generic Name Dose Route Start Last Admin Trade Name Tiffany PRN Reason Stop Dose Admin Sodium Chloride 1,000 mls @ 999 mls/hr 03/14/23 08:26 03/14/23 10:42 Ns IV 03/14/23 09:26 Infused .Q1H1M STA Infusion Sodium Chloride 2,229 mls @ 2,229 mls/hr 03/14/23 11:23 03/14/23 11:59 Ns 30 ml/kg infuse over 1 hr (2229 ml) 03/14/23 12:22 2,229 mls/hr IV Administration .Q1H STA Piperacillin Sod/Tazobactam 100 mls @ 200 mls/hr 03/14/23 11:23 03/14/23 11:59 Sod 4.5 gm/ Sodium Chloride IV 03/14/23 11:52 200 mls/hr ONCE ONE Administration Morphine Sulfate 4 mg 03/14/23 08:26 03/14/23 08:46 Morphine Sulfate 4 Mg/Ml Cartridge IVPUSH 03/14/23 08:27 4 mg ONCE STA Administration Protocol Ondansetron HCl 4 mg 03/14/23 08:26 03/14/23 08:46 Ondansetron Hcl 4 Mg/2 Ml Vial IVPUSH 03/14/23 08:27 4 mg ONCE ONE Administration Medical Decision Making Medical Decision Making [facility] Narrative: 67-year-old male past medical history significant for sciatica, anxiety, hyperkalemia, hypertension, high cholesterol, COPD, pancreatitis, alcohol use disorder, who presents emergency department for evaluation of whole body pain x3 days, subjective fevers, nausea and vomiting x2 last night, 1 episode of dark black stools last night, weakness, fatigue, left shoulder. Patient was seen in the emergency department 03/12/2023 (2 days prior) for similar symptoms-she was taking Tylenol and ibuprofen for his pain, he was diagnosed with left shoulder and started on prednisone 40 mg daily, cyclobenzaprine 5 mg 3 times a day and lidocaine patches. Patient had no improvement of symptoms. Patient's vital signs did reveal low blood pressure and elevated pulse otherwise were unremarkable. Patient did appear to be very uncomfortable secondary to his body pain. Abdominal exam did reveal epigastric and right upper quadrant tenderness as well as diffuse abdominal tenderness. Stool was strongly Hemoccult positive. I ordered the following evaluation on the patient: CBC, BMP, liver panel, lactic acid, lipase, PT/INR, PTT, troponin, urinalysis, COVID-19, type and screen, chest x-ray one view, CT abdomen pelvis with IV contrast. Patient was treated with morphine 4 mg IV, Zofran 4 mg IV, normal saline x1 L. 1159: Start sepsis alert Patient's laboratory evaluation revealed normal white blood cell count but a significant bandemia. Patient also has new thrombocytopenia. Patient's BUN creatinine are elevated-this could be secondary to volume depletion versus acute upper GI bleed secondary to NSAIDs and prednisone. I do not think that this is caused by acute kidney injury secondary to hypoperfusion/sepsis. Patient is anemic but does not meet criteria for transfusion at this point. Chest x-ray is concerning for possible right upper lobe infiltrate. CT scan of the abdomen pelvis without IV contrast is consistent with duodenitis versus pancreatitis. I did order more fluid IV completed 30 cc/kilogram fluid bolus. Patient is not hypotensive. I did order Zosyn 4.5 mg IV. I will discuss admission with GI and with the covering hospitalist. 1237: I did discuss the patient's presentation over tiger text with the gastrologist, Dr. Jimenez She recommended keeping the patient on a clear liquid diet. He also recommended PPI b.i.d. IV therefore I ordered Protonix 80 mg IV now. I also discuss the patient's presentation with the covering hospitalist, physician payroll and benefits assistant Maranda Munroe the patient will be admitted to the hospital service for further management Differential Diagnosis 1159 Differential diagnosis includes but is not limited to acute upper GI bleed, viral syndrome, colitis, diverticulitis, pneumonia, electrolyte abnormalities, anemia Admission/Observation Consideration of admission/observation: Escalation of care including admission/observation considered Consult Healthcare Provider Management of the patient was discussed with: Hospitalist (Physician payroll and benefits assistant Maranda Munroe) and And Rescue Fire Fighter [employer] (Correctional Guard, Dr. Jimenez) Lab Data MDM Lab Attestation statement: I reviewed the patient's lab results. My interpretation patient's laboratory evaluation as follows: Normal WBC 8500 however left shift with 23% bands. Normocytic anemia with an H&H of 12.5 and 35.9. New thrombocytopenia 84,000. Elevated BUN and creatinine of 76 and 2.07-this could be caused by an upper GI bleed verses acute kidney injury. Glucose elevated 198. PT/INR, PTT were normal. Sodium low 130, bicarb low 21, lactic acid elevated 2.8. Bilirubin normal. Lipase normal. Occult stool was positive. COVID-19 was negative. CK was normal. 03/14/23 08:28 03/14/23 08:28 Labs: Lab Results 03/14/23 03/14/23 03/14/23 Range/Units 08:28 08:31 09:42 WBC 8.5 (4.8-10.8) X10*3/uL RBC 3.89 L (4.60-5.80) X10*6/uL Hgb 12.5 L (14.0-18.0) g/dl Hct 35.9 L D (42.0-52.0) % MCV 92.3 (80.0-98.0) fL MCH 32.1 (27.0-33.0) pg MCHC 34.8 (31.0-36.0) g/dl RDW 13.7 (11.0-16.0) % Plt Count 84 L D (160-400) X10*3/uL MPV Not Reportable Immature Gran % (Auto) Cancelled Neut % (Auto) Cancelled Lymph % (Auto) Cancelled [place] % (Auto) Cancelled Eos % (Auto) Cancelled Baso % (Auto) Cancelled Lymph # (Auto) Cancelled [place] # (Auto) Cancelled Eos # (Auto) Cancelled Baso # (Auto) Cancelled Abs Immat Gran (auto) Cancelled Absolute Neuts (auto) Cancelled Absolute Nucleated RBC 0.000 (0.0-0.012) X10*3/uL Nucleated RBC % (auto) 0.0 (0.0-0.2) /100WBC Neutrophils % (Manual) 70 (45-73) % Band Neutrophils % 23 H (3-5) % Lymphocytes % (Manual) 2 L (20-40) % Monocytes % (Manual) 5 (2-11) % Abs Neuts (Manual) 7.9 (2.0-8.3) X10*3/uL Lymphocytes # (Manual) 0.2 L (1.2-4.9) X10*3/uL Monocytes # (Manual) 0.4 (0.1-1.2) X10*3/uL Platelet Estimate DECREASED (NORMAL) Large Platelets PRESENT Plt Morphology Comment NOTED RBC Morphology NOTED [place] Cells 2+ (3-5) /OIF PT 11.5 (11.1-13.3) SEC INR 0.9 (0.9-1.1) APTT 28.5 (26.0-36.4) SEC Sodium 130 L (135-145) mmol/L Potassium 4.7 (3.3-5.1) mmol/L Chloride 99 (96-108) mmol/L Carbon Dioxide 21 L (22-29) mmol/L Anion Gap 15 (12-20) BUN 76 H (9-16) mg/dL Creatinine 2.07 H (0.5-1.4) mg/dL Estim Creat Clear Calc 31.7 Estimated GFR 32 Random Glucose 198 H (60-115) mg/dL Lactic Acid 2.8 H* (0.5-2.0) mmol/L Calcium 8.6 D (8.4-10.2) mg/dL Total Bilirubin 0.5 (0.0-1.0) mg/dL Direct Bilirubin 0.3 (0.0-0.5) mg/dL AST 49 H (5-37) U/L ALT 37 (0-40) U/L Alkaline Phosphatase 47 (39-117) U/L Troponin I High Sens 40.5 H (<3.5-35.0) ng/L Total Protein 5.9 L (6.5-8.0) g/dL Albumin 3.2 L (3.5-5.0) g/dL Lipase 47 (8-78) U/L Stool Occult Blood POSITIVE (NEGATIVE) COVID-19 (JASSON) Negative (Negative) COVID-19 Clin Com See Note Blood Type A Positive Antibody Screen NEGATIVE Radiology Impression Discussion of test interpretation with radiology: I have reviewed the radiologist's reading. Radiologist Impression: CT abdomen pelvis wo IV con IMPRESSION: This exam is abnormal. There is thickening in the first second and third portion of the duodenum with some surrounding soft tissue stranding. Findings may also include the duodenal bulb and antrum. This would be most consistent with duodenitis. No free air is seen. There are some prominent nodes in the region and these may be reactive. These however appear similar in appearance to previous study. Differential would include pancreatic head abnormality or inflammatory change in the adjacent pancreas but this would seem less likely on the imaging Of course underlying tumor cannot be excluded and follow-up is necessary There is also a low-density lesion which is not present previously in the right lobe of liver. This cannot be said to be a simple cyst on this study. Recommendation is ultrasound or MR to further evaluate Other findings are as described above Fleischner guidelines were followed. Dictated By: Janes Delacruz MD XR chest 1V IMPRESSION: Mild right upper lung opacity could be a small area of infiltrate. Follow-up films recommended after treatment to assess for resolution and establish baseline Dictated By: Janes Delacruz MD Critical Care Time Critical Care Time Critical Care Time: Yes Total Critical Care Time: 45 Attestation: Critical Care: The patient was critically ill with a high probability of imminent or life threatening deterioration. I spent greater than 30 minutes of discontinuous time evaluating the patient,delivering critical care at the bedside, discussing and evaluating pertinent data with consultants. Critical care time does not include time spent performing separately billable procedures or teaching. Total time spent performing critical care was 45 minutes. Discharge Plan Discharge Clinical Impression: Duodenitis, Acute GI bleeding, Thrombocytopenia Patient Disposition: Admitted As Inpatient
[2023-03-14 08:43] LABS: OBS Int Ctl Valid YES; OBS1 POSITIVE (NEGATIVE)
[2023-03-14] MEDS: Morphine Sulfate 4 MG/ML CARTRIDGE IVPUSH ×2 (08:46→13:44)
[2023-03-14] MEDS: ondansetron HCL 4 MG/2 ML VIAL IVPUSH (08:46)
[2023-03-14] MEDS: 0.9 % Sodium Chloride 1,000 ML 999 ML IV (08:46)
[2023-03-14 08:52] LABS: INTERNATIONAL NORM RATIO 0.9 (0.9-1.1); Prothrombin Time 11.5 SEC (11.1-13.3)
[2023-03-14 08:55] LABS: Partial Thromboplastin Time 28.5 SEC (26.0-36.4)
[2023-03-14 08:56] LABS: Hematocrit 35.9 % (42.0-52.0); Hemoglobin 12.5 g/dl (14.0-18.0); Mean Corpuscular HGB Conc 34.8 g/dl (31.0-36.0); Mean Corpuscular Hemoglobin 32.1 pg (27.0-33.0); Mean Corpuscular Volume 92.3 fL (80.0-98.0); Red Blood Count 3.89 X10*6/uL (4.60-5.80); Red Cell Distribution Width 13.7 % (11.0-16.0); White Blood Count 8.5 X10*3/uL (4.8-10.8)
[2023-03-14 08:58] LABS: Anion Gap 15 (12-20); Blood Urea Nitrogen 76 mg/dL (9-16); Calcium 8.6 mg/dL (8.4-10.2); Carbon Dioxide 21 mmol/L (22-29); Chloride 99 mmol/L (96-108); Creatinine Clr Calc Pharmacy 31.7; Estimated Glomerular Filt Rate 32; Glucose Random 198 mg/dL (60-115); Potassium 4.7 mmol/L (3.3-5.1); Sodium 130 mmol/L (135-145)
--- NOTE | 2023-03-14 09:05 | PC.NURSE ---
pt reports having an episode of black colored vomit and diarrhea yesterday. pt denies n/v/d/cp/sob at this time. pt denies upper resp. sx at this time. MD to bedside for rectal exam/stool occult. iv established. labs drawn. type and screen completed; blood bank wristband on pt. sinus tachy on monitor 112 bpm. + bs x4.
[2023-03-14 09:07] LABS: Troponin-I High Sensitivity 40.5 ng/L (<3.5-35.0)
[2023-03-14 09:15] LABS: Neutrophils Percent Manual 70 % (45-73)
[2023-03-14 09:16] LABS: Band Neutrophils Percent 23 % (3-5); Lymphocytes Absolute Manual 0.2 X10*3/uL (1.2-4.9); Lymphocytes Percent Manual 2 % (20-40); Monocytes Absolute Manual 0.4 X10*3/uL (0.1-1.2); Monocytes Percent Manual 5 % (2-11); Neutrophils Absolute Manual 7.9 X10*3/uL (2.0-8.3)
[2023-03-14 09:17] LABS: Large Platelet PRESENT; Platelet Estimate DECREASED (NORMAL); Platelet Morphology Comment NOTED
[2023-03-14 09:18] LABS: Burr Cells 2+ (3-5) /OIF; RBC Morphology NOTED
[2023-03-14 09:22] LABS: COVID-19 Test Negative (Negative); IDNOW Serial# 9DB6401D
[2023-03-14 10:05] LABS: Alanine Aminotransferase 37 U/L (0-40); Albumin Level 3.2 g/dL (3.5-5.0); Alkaline Phosphatase 47 U/L (39-117); Aspartate Amino Transferase 49 U/L (5-37); Bilirubin Direct 0.3 mg/dL (0.0-0.5); Bilirubin Total 0.5 mg/dL (0.0-1.0); Lipase 47 U/L (8-78); Total Protein 5.9 g/dL (6.5-8.0)
[2023-03-14 10:11] LABS: Platelet Count 84 X10*3/uL (160-400)
[2023-03-14 10:39] LABS: Lactic Acid 2.8 mmol/L (0.5-2.0)
[2023-03-14 11:46] LABS: Reflex Lactate? Lactic Acid Added
[2023-03-14] MEDS: Piperacillin Sodium/Tazobactam 4.5 GM in 0.9 % Sodium Chloride 100 ML IV ×2 (11:59→21:32)
[2023-03-14] MEDS: SODIUM CHLORIDE 2229 ML IV (11:59)
--- NOTE | 2023-03-14 11:59 | PC.NURSE ---
1159 sepsis protocol initiated. ivf and abx infusing. low grade fever 99.9F. sinus tachy on monitor 125 bpm. vss. at bedside. call bates within reach.
[2023-03-14 12:56] LABS: Appearance Urine Clear; Color Urine Yellow; Glucose Urine UA Negative (Negative); Leukocyte Esterase Urine Negative (Negative); Nitrite Urine Negative (Negative); PH 5.5 (5.0-9.0); UMIC TRIGGER UACC YES; Urine Blood Negative (Negative); Urine Ketones Negative (Negative); Urine Protein 30 (1+) mg/dL (Neg-Trace)
[2023-03-14 12:58] LABS: Bacteria Urine None Seen (None Seen); RBC Urine 0-2 /HPF (0-2); Squamous Epithelial Cell Urine 0-2 /HPF (0-2); WBC Urine 0-5 /HPF (0-5)
--- NOTE | 2023-03-14 13:02 | PC.NURSE ---
communicated with Dr. Herman; would like 1st liter pt received to count towards order of 30mL/kg.
[2023-03-14] MEDS: Pantoprazole Sodium 40 MG/10 ML VIAL 80 MG IVPUSH (13:04)
[2023-03-14 13:27] LABS: ~Lactic Acid-LAB USE ONLY 3.2 mmol/L (0.5-2.0)
--- NOTE | 2023-03-14 13:34 | P.HPHOSP_ITS ---
History of Present Illness Date of Service: 03/14/23 Attending physician on admission: [facility] Chief Complaint: Generalized weakness, myalgias, melena Pt is a 67-year-old male with a PMH significant for? who presents to the ED with? Platelets 84 In the ED patient was febrile to 102.4, tachycardic up to 133, tachypneic up to 25, with soft BP as low as 98/59. Labs were significant for H&H of 12.5/35.9, platelets 84, sodium 130, BUN 76, creatinine 2.07, lactic acid 2.8 with repeat 3.2, AST 49. UA negative for UTI. Stool positive for occult blood. CXR showed mild right upper lung opacity that could be a small area of infiltrate. CT?of abdomen and pelvis found an abnormal exam: Thickening in the 1st, 2nd, and 3rd portion of the duodenum with some surrounding soft tissue stranding that may also include the duodenal bulb and antrum, findings most consistent with duodenitis. Also found several prominent nodes in the region that may be reactive, though have similar appearance to previous study. Differential for these would include pancreatic head abnormality or, less likely, inflammatory change in the changed sent pancreas. Also found low-density lesion not present on previous study in right lobe of liver. Recommend ultrasound or MR high for further evaluation as it cannot be determined to be a simple cyst on this study. EKG demonstrated sinus tachycardia of [address] abnormalities. Pt was treated with IVF, ondansetron, morphine, Zosyn, pantoprazole, and acetaminophen. Pt will be admitted to the hospital [facility] Medical History Murmur, cardiac Arm pain, left Hyperkalemia Pulmonary nodule COPD (chronic obstructive pulmonary disease) COPD exacerbation Emphysema/COPD Bronchitis Lab test negative for COVID-19 virus Elevated cholesterol COVID-19 vaccine series completed Obesity (BMI 30-39.9) Pancreatitis Alcohol abuse Overweight (BMI 25.0-29.9) Tobacco abuse Erectile dysfunction Vitamin D deficiency Hypogonadism Macrocytosis without anemia Osteoarthritis Hypercholesterolemia Hypertension Bipolar disorder Amputation finger Right arm fracture Family History Father No problems noted. Mother No problems noted. Sister No problems noted. Sister No problems noted. Son No problems noted. Daughter No problems noted. Daughter No problems noted. Surgical History History of surgery on arm Finger amputation, no complication Social History Housing: Apartment Are you a primary health careers instructor to a significant other at home: No Do you presently have visiting nurse or other home services: No Alcohol intake: never Patient Tobacco Use Status: Current everyday Tobacco user Tobacco use type: Cigarette Cigarettes Per Day: 2 Years Smoked: 35 Smoked in Last 30 Days: Yes e-Cigarette/Vaping Use: Never Used Second Hand Smoke Exposure: No Use of substances other than those prescribed or required for medical reasons: No Advance Directives: Yes Advance Directives Information Provided: Yes Advance Directives on File: No service: No Current occupational status: employed 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 Cognitive needs: No Hearing needs: No Vision needs: Yes Meds Allergies Allergy/AdvReac Type Severity Reaction Status Date / Time bupropion [From Wellbutrin] AdvReac Severe Anxiety Verified 03/12/23 07:43 Physical Exam 2 Vital Signs and Narrative: Vital Signs: Last Vital Signs Temp 102.4 F H 03/14/23 13:08 Pulse 133 H 03/14/23 13:08 Resp 25 H 03/14/23 12:37 BP 107/56 L 03/14/23 13:08 Pulse Ox 94 03/14/23 12:37 O2 Del Method Room Air 03/14/23 12:37 BMI result Body Mass Index 29.0 Results Labs 03/14/23 08:28 03/14/23 08:28 Labs: Laboratory Results - last 24 hr 03/14/23 03/14/23 03/14/23 08:28 08:31 09:42 MCV 92.3 MCH 32.1 MCHC 34.8 RDW 13.7 Plt Count 84 L D MPV Not Reportable Immature Gran % (Auto) Cancelled Neut % (Auto) Cancelled Lymph % (Auto) Cancelled [place] % (Auto) Cancelled Eos % (Auto) Cancelled Baso % (Auto) Cancelled Lymph # (Auto) Cancelled [place] # (Auto) Cancelled Eos # (Auto) Cancelled Baso # (Auto) Cancelled Abs Immat Gran (auto) Cancelled Absolute Neuts (auto) Cancelled Absolute Nucleated RBC 0.000 Nucleated RBC % (auto) 0.0 Neutrophils % (Manual) 70 Band Neutrophils % 23 H Lymphocytes % (Manual) 2 L Monocytes % (Manual) 5 Abs Neuts (Manual) 7.9 Lymphocytes # (Manual) 0.2 L Monocytes # (Manual) 0.4 Platelet Estimate DECREASED Large Platelets PRESENT Plt Morphology Comment NOTED RBC Morphology NOTED [place] Cells 2+ (3-5) PT 11.5 INR 0.9 APTT 28.5 Anion Gap 15 Estim Creat Clear Calc 31.7 Estimated GFR 32 Random Glucose 198 H Lactic Acid 2.8 H* Lactic Acid F/U @ 2Hr Calcium 8.6 D Total Bilirubin 0.5 Direct Bilirubin 0.3 AST 49 H ALT 37 Alkaline Phosphatase 47 Total Creatine Kinase 134 Total Protein 5.9 L Albumin 3.2 L Lipase 47 Urine Color Urine Appearance Urine pH Ur Specific [place] Urine Protein Urine Glucose (UA) Urine Ketones Urine Blood Urine Nitrite Ur Leukocyte Esterase Urine RBC Urine WBC Ur Squamous Epith Cells Urine Bacteria Hyaline Casts Stool Occult Blood POSITIVE COVID-19 ([facility]ASSON) Negative COVID-19 Clin Com See Note Blood Type A Positive Antibody Screen NEGATIVE 03/14/23 12:48 MCV MCH MCHC RDW Plt Count MPV Immature Gran % (Auto) Neut % (Auto) Lymph % (Auto) [place] % (Auto) Eos % (Auto) Baso % (Auto) Lymph # (Auto) [place] # (Auto) Eos # (Auto) Baso # (Auto) Abs Immat Gran (auto) Absolute Neuts (auto) Absolute Nucleated RBC Nucleated RBC % (auto) Neutrophils % (Manual) Band Neutrophils % Lymphocytes % (Manual) Monocytes % (Manual) Abs Neuts (Manual) Lymphocytes # (Manual) Monocytes # (Manual) Platelet Estimate Large Platelets Plt Morphology Comment RBC Morphology [place] Cells PT INR APTT Anion Gap Estim Creat Clear Calc Estimated GFR Random Glucose Lactic Acid Lactic Acid F/U @ 2Hr 3.2 H* Calcium Total Bilirubin Direct Bilirubin AST ALT Alkaline Phosphatase Total Creatine Kinase Total Protein Albumin Lipase Urine Color Yellow Urine Appearance Clear Urine pH 5.5 Ur Specific [place] 1.020 Urine Protein 30 (1+) H Urine Glucose (UA) Negative Urine Ketones Negative Urine Blood Negative Urine Nitrite Negative Ur Leukocyte Esterase Negative Urine RBC 0-2 Urine WBC 0-5 Ur Squamous Epith Cells 0-2 Urine Bacteria None Seen Hyaline Casts 3-5 Stool Occult Blood COVID-19 (JASSON) COVID-19 Clin Com Blood Type Antibody Screen Imaging Radiologist's Impressions: Impressions Chest X-Ray 03/14/23 08:44 IMPRESSION: Mild right upper lung opacity could be a small area of infiltrate. Follow-up films recommended after treatment to assess for resolution and establish baseline Abdomen/Pelvis CT 03/14/23 09:18 IMPRESSION: This exam is abnormal. There is thickening in the first second and third portion of the duodenum with some surrounding soft tissue stranding. Findings may also include the duodenal bulb and antrum. This would be most consistent with duodenitis. No free air is seen. There are some prominent nodes in the region and these may be reactive. These however appear similar in appearance to previous study. Differential would include pancreatic head abnormality or inflammatory change in the adjacent pancreas but this would seem less likely on the imaging Of course underlying tumor cannot be excluded and follow-up is necessary There is also a low-density lesion which is not present previously in the right lobe of liver. This cannot be said to be a simple cyst on this study. Recommendation is ultrasound or MR to further evaluate Other findings are as described above Fleischner guidelines were followed. Assessment and Plan Time Spent With Patient Time: Total time managing care of this patient today ____ minutes.
[2023-03-14] MEDS: Acetaminophen 325 MG TABLET 975 MG PO (13:44)
--- NOTE | 2023-03-14 14:26 | PC.NURSE ---
rectal temp 104.5F, [address] Ortiz notified; ice packs placed on pt per request. no further orders at this time.
--- NOTE | 2023-03-14 14:44 | PC.NURSE ---
Dr. Ortiz to bedside. BP low 95/44. Dr. herrera order LR. ice packs placed on pt.
[2023-03-14] MEDS: Lactated Ringers 1,000 ML 999 ML IV (14:51)
[2023-03-14 14:53] LABS: Reflex Lactate? 2 Y
--- NOTE | 2023-03-14 15:15 | PC.NURSE ---
pt axox4, vitals as documented, lung sounds cta, no edema noted in extremities. temp 103.1F rectally; sinus tachy on monitor 122 bpm.
--- NOTE | 2023-03-14 15:34 | P.HPCC_ITS ---
History of Present Illness Date of Service: 03/14/23 Attending physician on admission: Dawson Ortiz Chief Complaint: febrile to 104 with diffuse myalgias 67-year-old smoker hypertensive and hyperlipidemic probable underlying COPD yesterday noticed an episode of diarrhea and a small amount of emesis but nothing since then without dyspnea without coughing apparently is being treated with 40 of prednisone for left shoulder tendinitis and also took ibuprofen noticed black tarry stool last night and he is guaiac positive on rectal exam apparently has an alcoholic history but he has not had a drink for years and thus far on the serologies he is COVID negative other notable star thrombocytopenia and a marked left shift on his white count with relative lymphocyte a P knee a but no apparent skin rash Review of Systems 2 Review of Systems: Yes all other systems are reviewed and are negative [facility] Past Medical History Medical History Murmur, cardiac Arm pain, left Hyperkalemia Pulmonary nodule COPD (chronic obstructive pulmonary disease) COPD exacerbation Emphysema/COPD Bronchitis Lab test negative for COVID-19 virus Elevated cholesterol COVID-19 vaccine series completed Obesity (BMI 30-39.9) Pancreatitis Alcohol abuse Overweight (BMI 25.0-29.9) Tobacco abuse Erectile dysfunction Vitamin D deficiency Hypogonadism Macrocytosis without anemia Osteoarthritis Hypercholesterolemia Hypertension Bipolar disorder Amputation finger Right arm fracture Family History Family History Father No problems noted. Mother No problems noted. Sister No problems noted. Sister No problems noted. Son No problems noted. Daughter No problems noted. Daughter No problems noted. Surgical History Surgical History History of surgery on arm Finger amputation, no complication Social History Social History Housing: Apartment Are you a primary resident care manager rn to a significant other at home: No Do you presently have visiting nurse or other home services: No Alcohol intake: never Patient Tobacco Use Status: Current everyday Tobacco user Tobacco use type: Cigarette Cigarettes Per Day: 2 Years Smoked: 35 Smoked in Last 30 Days: Yes e-Cigarette/Vaping Use: Never Used Second Hand Smoke Exposure: No Use of substances other than those prescribed or required for medical reasons: No Advance Directives: Yes Advance Directives Information Provided: Yes Advance Directives on File: No service: No Current occupational status: employed 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 Cognitive needs: No Hearing needs: No Vision needs: Yes Meds Allergies Allergy/AdvReac Type Severity Reaction Status Date / Time bupropion [From Wellbutrin] AdvReac Severe Anxiety Verified 03/12/23 07:43 Active Medications: Current Medications Lactated Ringer's (Lr) 1,000 mls @ 999 mls/hr IV .Q1H1M CATHIE Stop: 03/14/23 15:45 Last Admin: 03/14/23 14:51 Dose: 999 mls/hr Physical Exam 2 Vital Signs: Vital Signs: Last Vital Signs Temp 103.1 F H 03/14/23 15:14 Pulse 120 H 03/14/23 15:05 Resp 27 H 03/14/23 15:16 BP 94/52 L 03/14/23 15:14 Pulse Ox 98 03/14/23 15:16 O2 Del Method Room Air 03/14/23 15:16 BMI result Body Mass Index 29.0 awake alert with good cognitive function and nonfocal neurologically bedside echo with class 1 LV and RV function just mild aortic valvular sclerosis and inferior vena cava is flat chest clear without adventitious sounds good bilateral carotid upstrokes good peripheral pulses with no neck vein distension abdomen soft and nontender with no organomegaly Results Labs 03/14/23 08:28 03/14/23 08:28 Labs: Laboratory Results - last 24 hr 03/14/23 03/14/23 03/14/23 08:28 08:31 09:42 MCV 92.3 MCH 32.1 MCHC 34.8 RDW 13.7 Plt Count 84 L D MPV Not Reportable Immature Gran % (Auto) Cancelled Neut % (Auto) Cancelled Lymph % (Auto) Cancelled [place] % (Auto) Cancelled Eos % (Auto) Cancelled Baso % (Auto) Cancelled Lymph # (Auto) Cancelled [place] # (Auto) Cancelled Eos # (Auto) Cancelled Baso # (Auto) Cancelled Abs Immat Gran (auto) Cancelled Absolute Neuts (auto) Cancelled Absolute Nucleated RBC 0.000 Nucleated RBC % (auto) 0.0 Neutrophils % (Manual) 70 Band Neutrophils % 23 H Lymphocytes % (Manual) 2 L Monocytes % (Manual) 5 Abs Neuts (Manual) 7.9 Lymphocytes # (Manual) 0.2 L Monocytes # (Manual) 0.4 Platelet Estimate DECREASED Large Platelets PRESENT Plt Morphology Comment NOTED RBC Morphology NOTED [place] Cells 2+ (3-5) PT 11.5 INR 0.9 APTT 28.5 Anion Gap 15 Estim Creat Clear Calc 31.7 Estimated GFR 32 Random Glucose 198 H Lactic Acid 2.8 H* Lactic Acid F/U @ 2Hr Calcium 8.6 D Total Bilirubin 0.5 Direct Bilirubin 0.3 AST 49 H ALT 37 Alkaline Phosphatase 47 Total Creatine Kinase 134 Total Protein 5.9 L Albumin 3.2 L Lipase 47 Urine Color Urine Appearance Urine pH Ur Specific [place] Urine Protein Urine Glucose (UA) Urine Ketones Urine Blood Urine Nitrite Ur Leukocyte Esterase Urine RBC Urine WBC Ur Squamous [place]ith Cells Urine Bacteria Hyaline Casts Stool Occult Blood POSITIVE COVID-19 (JASSON) Negative COVID-19 Clin Com See Note Blood Type A Positive Antibody Screen NEGATIVE 03/14/23 12:48 MCV MCH MCHC RDW Plt Count MPV Immature Gran % (Auto) Neut % (Auto) Lymph % (Auto) [place] % (Auto) Eos % (Auto) Baso % (Auto) Lymph # (Auto) [place] # (Auto) Eos # (Auto) Baso # (Auto) Abs Immat Gran (auto) Absolute Neuts (auto) Absolute Nucleated RBC Nucleated RBC % (auto) Neutrophils % (Manual) Band Neutrophils % Lymphocytes % (Manual) Monocytes % (Manual) Abs Neuts (Manual) Lymphocytes # (Manual) Monocytes # (Manual) Platelet Estimate Large Platelets Plt Morphology Comment RBC Morphology [place] Cells PT INR APTT Anion Gap Estim Creat Clear Calc Estimated GFR Random Glucose Lactic Acid Lactic Acid F/U @ 2Hr 3.2 H* Calcium Total Bilirubin Direct Bilirubin AST ALT Alkaline Phosphatase Total Creatine Kinase Total Protein Albumin Lipase Urine Color Yellow Urine Appearance Clear Urine pH 5.5 Ur Specific [place] 1.020 Urine Protein 30 (1+) H Urine Glucose (UA) Negative Urine Ketones Negative Urine Blood Negative Urine Nitrite Negative Ur Leukocyte Esterase Negative Urine RBC 0-2 Urine WBC 0-5 Ur Squamous Epith Cells 0-2 Urine Bacteria None Seen Hyaline Casts 3-5 Stool Occult Blood COVID-19 (JASSON) COVID-19 Clin Com Blood Type Antibody Screen Imaging Radiologist's Impressions: Impressions Chest X-Ray 03/14/23 08:44 IMPRESSION: Mild right upper lung opacity could be a small area of infiltrate. Follow-up films recommended after treatment to assess for resolution and establish baseline Abdomen/Pelvis CT 03/14/23 09:18 IMPRESSION: This exam is abnormal. There is thickening in the first second and third portion of the duodenum with some surrounding soft tissue stranding. Findings may also include the duodenal bulb and antrum. This would be most consistent with duodenitis. No free air is seen. There are some prominent nodes in the region and these may be reactive. These however appear similar in appearance to previous study. Differential would include pancreatic head abnormality or inflammatory change in the adjacent pancreas but this would seem less likely on the imaging Of course underlying tumor cannot be excluded and follow-up is necessary There is also a low-density lesion which is not present previously in the right lobe of liver. This cannot be said to be a simple cyst on this study. Recommendation is ultrasound or MR to further evaluate Other findings are as described above Fleischner guidelines were followed. Assessment and Plan (1) Acute kidney injury: Status: Acute (2) Severe sepsis: Status: Acute (3) Thrombocytopenia: Status: Acute (4) Acute GI bleeding: Status: Acute (5) Duodenitis: Status: Acute (6) Hypertension: Status: Acute (7) Fatty liver: Status: Acute (8) Vitamin B 12 deficiency: Status: Acute (9) Hypercholesterolemia: Status: Acute (10) Erectile dysfunction: Status: Acute (11) BPH (benign prostatic hyperplasia): Status: Acute (12) COPD (chronic obstructive pulmonary disease): Qualifiers: COPD type: chronic bronchitis Chronic bronchitis type: mixed simple and mucopurulent Qualified Code(s): J41.8 - Mixed simple and mucopurulent chronic bronchitis Status: Acute Plan impression is that he has SIRS with fever myalgias guaiac-positive stool that may be based on the combined nonsteroidal anti-inflammatory and the prednisone and he has associated significant bandemia as well as borderline blood pressure after 30 cc/kilos of IV fluids might need pressor support but without a skin rash disc combination of issues certainly could represent a tick or mosquito borne disease so will cover with doxycycline mother panel is pending check a sed rate to make sure were not missing autoimmune issues have a [place] placed clearly to in a to be sure that we have adequate circulation Time Spent With Patient Time: Total time managing care of this patient today 45____ minutes.
--- NOTE | 2023-03-14 15:37 | P.CNGI_ITS ---
History of Present Illness Data of Consult Service Date: 03/14/23 Requesting physician: Dawson Ortiz Primary Care Provider: Latesha Ackerman MD [facility] Reason for consult: GI bleed, abrnormal CT scan This is a 67-year-old gentleman with past medical history of hypertension, hyperlipidemia, COPD, alcohol use disorder, who presented to the hospital for diffuse body aches and fevers and is found to have severe sepsis. Gastroenterology has been consulted for question of GI bleeding. Patient presented to the emergency room 2 days ago as well for similar symptoms and and that time, was diagnosed with possible left shoulder tendinitis for which he has been taking ibuprofen and was then started on prednisone as well. Number, after discharge from the emergency my continued to feel unwell. Episodes of emesis as well which were bloody per his report. Although, does report 1 episode of black stool. On bedside evaluation, patient is somnolent but wakes to verbal cues. Able to provide most of the history. Does not report any abdominal pain but does report loss of appetite, has not had much PO over the last 2 days. Vitals are significant for high grade fever, tachy to 130s and MAP of 60s. Work up so far shows elevated white count with bandemia, low platelets, rising lactate. CT Abd/pel without contrast shows significant wall thickening of duodenum with surrounding fatty stranding. Review of Systems 2 Review of Systems: Yes all other systems are reviewed and are negative [facility] Past Medical History Medical History Murmur, cardiac Arm pain, left Hyperkalemia Pulmonary nodule COPD (chronic obstructive pulmonary disease) COPD exacerbation Emphysema/COPD Bronchitis Lab test negative for COVID-19 virus Elevated cholesterol COVID-19 vaccine series completed Obesity (BMI 30-39.9) Pancreatitis Alcohol abuse Overweight (BMI 25.0-29.9) Tobacco abuse Erectile dysfunction Vitamin D deficiency Hypogonadism Macrocytosis without anemia Osteoarthritis Hypercholesterolemia Hypertension Bipolar disorder Amputation finger Right arm fracture Family History Family History Father No problems noted. Mother No problems noted. Sister No problems noted. Sister No problems noted. Son No problems noted. Daughter No problems noted. Daughter No problems noted. Surgical History Surgical History History of surgery on arm Finger amputation, no complication Social History Social History Housing: Apartment Are you a primary date night caregiver to a significant other at home: No Do you presently have visiting nurse or other home services: No Alcohol intake: never Patient Tobacco Use Status: Current everyday Tobacco user Tobacco use type: Cigarette Cigarettes Per Day: 2 Years Smoked: 35 Smoked in Last 30 Days: Yes e-Cigarette/Vaping Use: Never Used Second Hand Smoke Exposure: No Use of substances other than those prescribed or required for medical reasons: No Advance Directives: Yes Advance Directives Information Provided: Yes Advance Directives on File: No service: No Current occupational status: employed 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 Cognitive needs: No Hearing needs: No Vision needs: Yes Meds Allergies Allergy/AdvReac Type Severity Reaction Status Date / Time bupropion [From Wellbutrin] AdvReac Severe Anxiety Verified 03/12/23 07:43 Active Medications: Current Medications Lactated Ringer's (Lr) 1,000 mls @ 999 mls/hr IV .Q1H1M CATHIE Stop: 03/14/23 15:45 Last Admin: 03/14/23 14:51 Dose: 999 mls/hr Physical Exam 2 Vital Signs: Vital Signs: Last Vital Signs Temp 103.1 F H 03/14/23 15:14 Pulse 120 H 03/14/23 15:05 Resp 27 H 03/14/23 15:16 BP 94/52 L 03/14/23 15:14 Pulse Ox 98 03/14/23 15:16 O2 Del Method Room Air 03/14/23 15:16 BMI result Body Mass Index 29.0 Gen appear: Ill appearing, clammy HEENT: nonicteric, no cervical lymphadenopathy Chest: Tachypneac CVS: Rapid S1/S2 Abd: Firm, nontender, mildly distended Ext: no peripheral edema Neuro: Somnolent but awakes to verbal cues Results Labs 03/14/23 08:28 03/14/23 08:28 Labs: Short CBC 03/14/23 Range/Units 08:28 WBC 8.5 (4.8-10.8) X10*3/uL Hgb 12.5 L (14.0-18.0) g/dl Hct 35.9 L D (42.0-52.0) % Plt Count 84 L D (160-400) X10*3/uL BMP 03/14/23 08:28 Sodium 130 L Potassium 4.7 Chloride 99 Carbon Dioxide 21 L BUN 76 H Creatinine 2.07 H Calcium 8.6 D Cardiac Enzymes 03/14/23 Range/Units 09:42 Total Creatine Kinase 134 (38-174) U/L Liver Function 03/14/23 Range/Units 09:42 Total Bilirubin 0.5 (0.0-1.0) mg/dL Direct Bilirubin 0.3 (0.0-0.5) mg/dL AST 49 H (5-37) U/L ALT 37 (0-40) U/L Alkaline Phosphatase 47 (39-117) U/L Albumin 3.2 L (3.5-5.0) g/dL Urine 03/14/23 Range/Units 12:48 Urine Color Yellow Urine Appearance Clear Urine pH 5.5 (5.0-9.0) Ur Specific [place] 1.020 (1.005-1.025) Urine Protein 30 (1+) H (Neg-Trace) mg/dL Urine Glucose (UA) Negative (Negative) mg/dL Assessment and Plan (1) Severe sepsis: Status: Acute (2) Acute kidney injury: Status: Acute (3) Altered mental status: Status: Acute (4) Thrombocytopenia: Status: Acute (5) Acute GI bleeding: Status: Acute (6) Duodenitis: Status: Acute Plan Current presentation worrisome for severe sepsis heading towards septic shock given low MAP despite 30cc/kg fluid bolus and rising lactate. Will need prompt resuscitation and management for this. Given CT findings and recent NSAID use with abd pain and tarry stools, DDx include PUD with concern for microperf. Recommendations: - Hemodynamic resuscitation as per primary team - Consider broadening Abx coverage until source of sepsis identified - Consider ICU consultation - Gastrograffin series to r/o perforation - Keep pt NPO - IV PPI BID - EGD to be considered after pt stabilised from sepsis standpoint and no perforation noted on UGIS Findings and recommendations were discussed with Hospitalist Emil FUCHS at bedside. Time Spent With Patient Time: Total time managing care of this patient today ____ minutes. Procedures Date of Service Date of Service: 03/14/23
--- NOTE | 2023-03-14 15:51 | PC.NURSE ---
bp 98/49. Dr. evangelista and Dr. adamson aware. Dr. Adamson at bedside with U/s.
--- NOTE | 2023-03-14 16:44 | PHA.MEDREC ---
Pharmacy Consult ? Medication Reconciliation Pharmacy has completed the medication reconciliation.
[2023-03-14 17:02] LABS: ~Lactic Acid-LAB USE ONLY 2.1 mmol/L (0.5-2.0)
[2023-03-14 17:05] LABS: Ethanol < 10 mg/dL
[2023-03-14 17:13] LABS: Hematocrit 30.3 % (42.0-52.0)
[2023-03-14 17:14] LABS: Hemoglobin 10.6 g/dl (14.0-18.0); Mean Corpuscular Hemoglobin 32.3 pg (27.0-33.0); Mean Corpuscular Volume 92.4 fL (80.0-98.0); Mean Platelet Volume 14.3 fL (9.4-12.4); Red Blood Count 3.28 X10*6/uL (4.60-5.80); Red Cell Distribution Width 13.8 % (11.0-16.0)
[2023-03-14 17:15] LABS: PLT ABN DIST 1; Platelet Count 58 X10*3/uL (160-400); WBC ABN SCTR FOR CBC 1
[2023-03-14 17:16] LABS: White Blood Count 4.4 X10*3/uL (4.8-10.8)
[2023-03-14] MEDS: Doxycycline Hyclate 100 MG in 0.9 % Sodium Chloride 250 ML 166.67 MG IV (17:17)
--- NOTE | 2023-03-14 17:23 | PC.NURSE ---
Addendum entered by Deirdre Roldan 03/14/23 18:16: lung sounds cta. no peripheral edema noted. Original Note: abx infusing. vss. sinus tachy on monitor 106 bpm. temperature decreased to 100.9F rectally. respirations even and unlabored. pt sleeping in stretcher. call bates within reach.
--- NOTE | 2023-03-14 17:25 | PC.NURSE ---
Ayah ALVARES at bedside to attempt for 2nd IV.
[2023-03-14] MEDS: Lactated Ringers 1,000 ML 150 ML IVCONT (18:14)
[2023-03-14 18:28] LABS: Erythrocyte Sedimentation Rate 55 MM/HR (0-15)
--- NOTE | 2023-03-14 18:33 | PC.NURSE ---
orta inserted per order. pt tolerated well. 400mL yellow clear urine drained.
[2023-03-14 18:45] LABS: Band Neutrophils Percent 29 % (3-5); Lymphocytes Absolute Manual 0.2 X10*3/uL (1.2-4.9); Lymphocytes Percent Manual 4 % (20-40); Metamyelocytes Percent 1 %; Monocytes Absolute Manual 0.3 X10*3/uL (0.1-1.2); Monocytes Percent Manual 6 % (2-11); Neutrophils Absolute Manual 3.9 X10*3/uL (2.0-8.3); Neutrophils Percent Manual 60 % (45-73)
[2023-03-14 18:46] LABS: Dohle Bodies PRESENT; Platelet Estimate DECREASED (NORMAL); Toxic Vacuolation PRESENT
[2023-03-14 18:47] LABS: Burr Cells 1+ (0-2) /OIF; Large Platelet PRESENT; Platelet Morphology Comment NOTED; RBC Morphology NOTED
--- NOTE | 2023-03-14 19:17 | PC.NURSE ---
report given to curriculum coach Doris.
[2023-03-14 21:24] LABS: Amylase 54 U/L (28-100)
[2023-03-14] MEDS: Famotidine/PF 20 MG/2 ML VIAL IVPUSH (21:32)
[2023-03-14 21:41] LABS: Amphetamine Screen Urine Not Detected (Not Detect); Barbiturates, Urine Not Detected (Not Detect); Benzodiazepines Screen Urine Not Detected (Not Detect); Cannabinoid Screen Urine Not Detected (Not Detect); Cocaine Screen Urine Not Detected (Not Detect); Fentanyl, urine Not Detected (Not Detect); Opiate Screen Urine POSITIVE (Not Detect); Phencyclidine Screen Urine Not Detected (Not Detect)
[2023-03-14] MEDS: Morphine Sulfate 2 MG/ML CARTRIDGE IVPUSH (21:43)
[2023-03-14] MEDS: vancomycin HCL 1,000 MG, vancomycin HCL 750 MG in 0.9 % Sodium Chloride 500 ML 267.5 MG IV (22:25)
[2023-03-15] VITALS (28 sets, daily range): BP systolic 91–117; BP diastolic 46–64; PULSE 92–119; RESP 18–37; TEMP 37.2–38.8; O2SAT 90–95; BMI 28.9; BMI 30.9
[2023-03-15] MEDS: Morphine Sulfate 2 MG/ML CARTRIDGE IVPUSH ×6 (01:38→23:01)
[2023-03-15] MEDS: Lactated Ringers 1,000 ML 150 ML IVCONT ×2 (01:57→06:34)
[2023-03-15] MEDS: Piperacillin Sodium/Tazobactam 4.5 GM in 0.9 % Sodium Chloride 100 ML IV ×2 (03:27→09:02)
[2023-03-15] MEDS: Doxycycline Hyclate 100 MG in 0.9 % Sodium Chloride 250 ML 166.67 MG IV ×2 (05:00→17:29)
[2023-03-15 05:19] LABS: VBG Base Excess -5.2 mmol/L; VBG HCO3 18 mmol/L (22-26); VBG pCO2 28 mmHg; VBG pH 7.41 (7.32-7.43); VBG pO2 73 mmHg
[2023-03-15 05:23] LABS: Venous Blood Gas Refer to POC result
[2023-03-15 05:25] LABS: Hemoglobin 10.1 g/dl (14.0-18.0); Mean Corpuscular HGB Conc 34.8 g/dl (31.0-36.0); Mean Corpuscular Hemoglobin 32.3 pg (27.0-33.0); Mean Corpuscular Volume 92.7 fL (80.0-98.0); Mean Platelet Volume 13.8 fL (9.4-12.4); Red Blood Count 3.13 X10*6/uL (4.60-5.80); Red Cell Distribution Width 14.1 % (11.0-16.0); White Blood Count 7.5 X10*3/uL (4.8-10.8)
[2023-03-15 05:29] LABS: INTERNATIONAL NORM RATIO 0.9 (0.9-1.1); Prothrombin Time 11.1 SEC (11.1-13.3)
[2023-03-15 05:32] LABS: PLT ABN DIST 1; Platelet Count 52 X10*3/uL (160-400)
[2023-03-15 05:41] LABS: Alanine Aminotransferase 31 U/L (0-40); Albumin Level 2.5 g/dL (3.5-5.0); Alkaline Phosphatase 44 U/L (39-117); Anion Gap 13 (12-20); Aspartate Amino Transferase 51 U/L (5-37); Blood Urea Nitrogen 71 mg/dL (9-16); Calcium 7.9 mg/dL (8.4-10.2); Carbon Dioxide 19 mmol/L (22-29); Chloride 109 mmol/L (96-108); Creatinine Clr Calc Pharmacy 40.7; Estimated Glomerular Filt Rate 43; Glucose Random 125 mg/dL (60-115); Magnesium 1.9 mg/dL (1.6-2.6); Phosphorus 3.2 mg/dL (2.7-4.5); Potassium 4.2 mmol/L (3.3-5.1); Sodium 137 mmol/L (135-145); Total Protein 5.2 g/dL (6.5-8.0)
[2023-03-15 05:44] LABS: Band Neutrophils Percent 12 % (3-5); Lymphocytes Absolute Manual 0.6 X10*3/uL (1.2-4.9); Lymphocytes Percent Manual 8 % (20-40); Monocytes Absolute Manual 0.1 X10*3/uL (0.1-1.2); Monocytes Percent Manual 1 % (2-11); Neutrophils Absolute Manual 6.8 X10*3/uL (2.0-8.3); Neutrophils Percent Manual 79 % (45-73); RBC Morphology NOTED
[2023-03-15 05:46] LABS: Burr Cells 1+ (0-2) /OIF; Toxic Granulation PRESENT; Toxic Vacuolation PRESENT
[2023-03-15 05:47] LABS: Dohle Bodies PRESENT; Large Platelet PRESENT; Platelet Estimate DECREASED (NORMAL); Platelet Morphology Comment NOTED
[2023-03-15] MEDS: Albumin Human 25 % 100 ML IV ×3 (08:20→19:13)
[2023-03-15] MEDS: Famotidine/PF 20 MG/2 ML VIAL IVPUSH ×2 (08:38→21:08)
--- NOTE | 2023-03-15 12:09 | PM.GIPN ---
Subjective Subjective Date of Service: 03/15/23 Interval History: Transferred to ICU for septic shock. Cont to report no abd pain. Reports severe lower back pain and shoulder pain. Critical Care Time (minutes): 0 Physical Exam Vital Signs: Vital Signs: Last Vital Signs Temp 100.7 F H 03/15/23 08:00 Pulse 118 H 03/15/23 12:00 Resp 26 H 03/15/23 12:00 BP 110/53 L 03/15/23 12:00 Pulse Ox 92 03/15/23 12:00 O2 Del Method Room Air 03/15/23 12:00 BMI result Body Mass Index 28.9 Gen appear: ill appearing HEENT: nonicteric Abd: firm, nontender Objective Data Labs 03/15/23 05:10 03/15/23 05:10 Labs: Laboratory Results - last 24 hr 03/14/23 03/14/23 03/14/23 09:42 12:48 16:37 WBC 4.4 L RBC 3.28 L Hgb 10.6 L Hct 30.3 L MCV 92.4 MCH 32.3 MCHC 35.0 RDW 13.8 Plt Count 58 L D MPV 14.3 H Immature Gran % (Auto) Cancelled Neut % (Auto) Cancelled Lymph % (Auto) Cancelled [place] % (Auto) Cancelled Eos % (Auto) Cancelled Baso % (Auto) Cancelled Lymph # (Auto) Cancelled [place] # (Auto) Cancelled Eos # (Auto) Cancelled Baso # (Auto) Cancelled Abs Immat Gran (auto) Cancelled Absolute Neuts (auto) Cancelled Absolute Nucleated RBC 0.000 Nucleated RBC % (auto) 0.0 Neutrophils % (Manual) 60 Band Neutrophils % 29 H Lymphocytes % (Manual) 4 L Monocytes % (Manual) 6 Metamyelocytes % 1 Abs Neuts (Manual) 3.9 Lymphocytes # (Manual) 0.2 L Monocytes # (Manual) 0.3 Toxic Granulation Toxic Vacuolation PRESENT Dohle Bodies PRESENT Platelet Estimate DECREASED Large Platelets PRESENT Plt Morphology Comment NOTED RBC Morphology NOTED [place] Cells 1+ (0-2) ESR 55 H PT INR VBG pH VBG pCO2 VBG pO2 VBG HCO3 VBG O2 Saturation VBG Base Excess Sodium Potassium Chloride Carbon Dioxide Anion Gap BUN Creatinine Estim Creat Clear Calc Estimated GFR Random Glucose Lactic Acid F/U @ 2Hr 3.2 H* Lactic Acid F/U @ 4Hr 2.1 H* Calcium Phosphorus Magnesium Total Bilirubin AST ALT Alkaline Phosphatase Total Creatine Kinase 134 Total Protein Albumin Amylase 54 Urine Color Yellow Urine Appearance Clear Urine pH 5.5 Ur Specific [place] 1.020 Urine Protein 30 (1+) H Urine Glucose (UA) Negative Urine Ketones Negative Urine Blood Negative Urine Nitrite Negative Ur Leukocyte Esterase Negative Urine RBC 0-2 Urine WBC 0-5 Ur Squamous Epith Cells 0-2 Urine Bacteria None Seen Hyaline Casts 3-5 Urine Opiates Screen POSITIVE H Urine Fentanyl Screen Not Detected Ur Barbiturates Screen Not Detected Ur Phencyclidine Scrn Not Detected Ur Amphetamines Screen Not Detected U Benzodiazepines Scrn Not Detected Urine Cocaine Screen Not Detected U Marijuana (THC) Screen Not Detected Ethyl Alcohol < 10 03/15/23 03/15/23 05:10 05:14 WBC 7.5 RBC 3.13 L Hgb 10.1 L Hct 29.0 L MCV 92.7 MCH 32.3 MCHC 34.8 RDW 14.1 Plt Count 52 L MPV 13.8 H Immature Gran % (Auto) Cancelled Neut % (Auto) Cancelled Lymph % (Auto) Cancelled [place] % (Auto) Cancelled Eos % (Auto) Cancelled Baso % (Auto) Cancelled Lymph # (Auto) Cancelled [place] # (Auto) Cancelled Eos # (Auto) Cancelled Baso # (Auto) Cancelled Abs Immat Gran (auto) Cancelled Absolute Neuts (auto) Cancelled Absolute Nucleated RBC 0.000 Nucleated RBC % (auto) 0.0 Neutrophils % (Manual) 79 H Band Neutrophils % 12 H Lymphocytes % (Manual) 8 L Monocytes % (Manual) 1 L Metamyelocytes % Abs Neuts (Manual) 6.8 Lymphocytes # (Manual) 0.6 L Monocytes # (Manual) 0.1 Toxic Granulation PRESENT Toxic Vacuolation PRESENT Dohle Bodies PRESENT Platelet Estimate DECREASED Large Platelets PRESENT Plt Morphology Comment NOTED RBC Morphology NOTED [place] Cells 1+ (0-2) ESR PT 11.1 INR 0.9 VBG pH 7.41 VBG pCO2 28 VBG pO2 73 VBG HCO3 18 L VBG O2 Saturation 94.0 VBG Base Excess -5.2 Sodium 137 Potassium 4.2 Chloride 109 H Carbon Dioxide 19 L Anion Gap 13 BUN 71 H Creatinine 1.61 H Estim Creat Clear Calc 40.7 Estimated GFR 43 Random Glucose 125 H Lactic Acid F/U @ 2Hr Lactic Acid F/U @ 4Hr Calcium 7.9 L D Phosphorus 3.2 Magnesium 1.9 Total Bilirubin 1.0 AST 51 H ALT 31 Alkaline Phosphatase 44 Total Creatine Kinase Total Protein 5.2 L Albumin 2.5 L Amylase Urine Color Urine Appearance Urine pH Ur Specific [place] Urine Protein Urine Glucose (UA) Urine Ketones Urine Blood Urine Nitrite Ur Leukocyte Esterase Urine RBC Urine WBC Ur Squamous Epith Cells Urine Bacteria Hyaline Casts Urine Opiates Screen Urine Fentanyl Screen Ur Barbiturates Screen Ur Phencyclidine Scrn Ur Amphetamines Screen U Benzodiazepines Scrn Urine Cocaine Screen U Marijuana (THC) Screen Ethyl Alcohol Microbiology Microbiology Results: Microbiology 03/14/23 09:42 Blood - Venous Blood Culture - Preliminary Staphylococcus aureus 03/14/23 08:53 Blood - Venous Blood Culture - Preliminary Staphylococcus aureus Procedures Date of Service Date of Service: 03/15/23 Progress Note: A&P Assessment and plan (1) Severe sepsis: Status: Acute (2) Acute kidney injury: Status: Acute (3) Duodenitis: Status: Acute Plan Abd exam reassuring. However given ongoing sepsis with unclear cause so far and report of severe back pain, would still recommend gastrograffin study to r/o retroperitoneal perforation/abscess from a duo ulcer. Pls keep NPO until this has been ruled out. Time Spent With Patient Time: Total time managing care of this patient today ____ minutes. Quality Stroke Does the patient have a stroke diagnosis?: No VTE Prior VTE?: No VTE Risk Level:: Medical - moderate - high VTE Device Contraindication: N/A - Device Ordered VTE Drug Contraindication: N/A - Med Ordered
[2023-03-15 12:17] LABS: MRSA Nasal PCR NEGATIVE (Negative); SA Nasal PCR POSITIVE (Negative)
--- NOTE | 2023-03-15 14:20 | PM.CCPN ---
Subjective Subjective Date of Service: 03/15/23 Interval History: 67-year-old male came in with complaining of 1 episode of nausea vomiting and diarrhea the day before presented with diffuse myalgias and just feeling poorly bodily and a temperature spike to 104 and cultured and both sets of blood cultures growing Staph aureus and MRSA screen is negative and the only other finding on abdominal exam which is nontender and fairly benign is fat stranding surrounding the duodenum no free air pancreas appears to be intact gallbladder is intact He is a hypertensive was a former drinker has not had anything in the years he is edentulous just wears dentures so there is no oral infection no neck adenopathy No no recent skin bites no skin wounds no evidence of cellulitis he is missing 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 but no active area of infection Presented with considerable leukocytosis with left shift and as well as thrombocytopenia relative lymphocytopenia making me immediately suspicious for possible tick bite and tick-borne disease until he grew the Staph aureus At 1st I just treated with Zosyn but I added 1 dose of vancomycin which I wanted to maintain Critical Care Time (minutes): 35 Physical Exam Vital Signs: Vital Signs: Last Vital Signs Temp 101.9 F H 03/15/23 14:00 Pulse 119 H 03/15/23 14:00 Resp 25 H 03/15/23 14:00 BP 111/53 L 03/15/23 14:00 Pulse Ox 93 03/15/23 14:00 O2 Del Method Room Air 03/15/23 14:00 BMI result Body Mass Index 30.9 Good cognitive function with nonfocal neurologic Abdomen in with feels a little bit tight but he is absolutely nontender has good bowel sounds no rebound no organomegaly Chest again no complaints no adventitious sounds clear to exam Bedside echo no evidence of vegetation no primary valve or pericardial disease normal LV function Skin is intact Objective Data Labs 03/15/23 05:10 03/15/23 05:10 Labs: Laboratory Results - last 24 hr 03/14/23 03/14/23 03/14/23 12:48 16:37 21:35 WBC 4.4 L RBC 3.28 L Hgb 10.6 L Hct 30.3 L MCV 92.4 MCH 32.3 MCHC 35.0 RDW 13.8 Plt Count 58 L D MPV 14.3 H Immature Gran % (Auto) Cancelled Neut % (Auto) Cancelled Lymph % (Auto) Cancelled [place] % (Auto) Cancelled Eos % (Auto) Cancelled Baso % (Auto) Cancelled Lymph # (Auto) Cancelled [place] # (Auto) Cancelled Eos # (Auto) Cancelled Baso # (Auto) Cancelled Abs Immat Gran (auto) Cancelled Absolute Neuts (auto) Cancelled Absolute Nucleated RBC 0.000 Nucleated RBC % (auto) 0.0 Neutrophils % (Manual) 60 Band Neutrophils % 29 H Lymphocytes % (Manual) 4 L Monocytes % (Manual) 6 Metamyelocytes % 1 Abs Neuts (Manual) 3.9 Lymphocytes # (Manual) 0.2 L Monocytes # (Manual) 0.3 Toxic Granulation Toxic Vacuolation PRESENT Dohle Bodies PRESENT Platelet Estimate DECREASED Large Platelets PRESENT Plt Morphology Comment NOTED RBC Morphology NOTED [place] Cells 1+ (0-2) ESR 55 H PT INR VBG pH VBG pCO2 VBG pO2 VBG HCO3 VBG O2 Saturation VBG Base Excess Sodium Potassium Chloride Carbon Dioxide Anion Gap BUN Creatinine Estim Creat Clear Calc Estimated GFR Random Glucose Lactic Acid F/U @ 4Hr 2.1 H* Calcium Phosphorus Magnesium Total Bilirubin AST ALT Alkaline Phosphatase Total Protein Albumin Amylase 54 Nasal Screen MRSA (PCR) NEGATIVE Nasal S. aureus Screen POSITIVE A Nasal MRSA/S.aureus Interp SEE NOTE Urine Opiates Screen POSITIVE H Urine Fentanyl Screen Not Detected Ur Barbiturates Screen Not Detected Ur Phencyclidine Scrn Not Detected Ur Amphetamines Screen Not Detected U Benzodiazepines Scrn Not Detected Urine Cocaine Screen Not Detected U Marijuana (THC) Screen Not Detected Ethyl Alcohol < 10 03/15/23 03/15/23 05:10 05:14 WBC 7.5 RBC 3.13 L Hgb 10.1 L Hct 29.0 L MCV 92.7 MCH 32.3 MCHC 34.8 RDW 14.1 Plt Count 52 L MPV 13.8 H Immature Gran % (Auto) Cancelled Neut % (Auto) Cancelled Lymph % (Auto) Cancelled [place] % (Auto) Cancelled Eos % (Auto) Cancelled Baso % (Auto) Cancelled Lymph # (Auto) Cancelled [place] # (Auto) Cancelled Eos # (Auto) Cancelled Baso # (Auto) Cancelled Abs Immat Gran (auto) Cancelled Absolute Neuts (auto) Cancelled Absolute Nucleated RBC 0.000 Nucleated RBC % (auto) 0.0 Neutrophils % (Manual) 79 H Band Neutrophils % 12 H Lymphocytes % (Manual) 8 L Monocytes % (Manual) 1 L Metamyelocytes % Abs Neuts (Manual) 6.8 Lymphocytes # (Manual) 0.6 L Monocytes # (Manual) 0.1 Toxic Granulation PRESENT Toxic Vacuolation PRESENT Dohle Bodies PRESENT Platelet Estimate DECREASED Large Platelets PRESENT Plt Morphology Comment NOTED RBC Morphology NOTED [place] Cells 1+ (0-2) ESR PT 11.1 INR 0.9 VBG pH 7.41 VBG pCO2 28 VBG pO2 73 VBG HCO3 18 L VBG O2 Saturation 94.0 VBG Base Excess -5.2 Sodium 137 Potassium 4.2 Chloride 109 H Carbon Dioxide 19 L Anion Gap 13 BUN 71 H Creatinine 1.61 H Estim Creat Clear Calc 40.7 Estimated GFR 43 Random Glucose 125 H Lactic Acid F/U @ 4Hr Calcium 7.9 L D Phosphorus 3.2 Magnesium 1.9 Total Bilirubin 1.0 AST 51 H ALT 31 Alkaline Phosphatase 44 Total Protein 5.2 L Albumin 2.5 L Amylase Nasal Screen MRSA (PCR) Nasal S. aureus Screen Nasal MRSA/S.aureus Interp Urine Opiates Screen Urine Fentanyl Screen Ur Barbiturates Screen Ur Phencyclidine Scrn Ur Amphetamines Screen U Benzodiazepines Scrn Urine Cocaine Screen U Marijuana (THC) Screen Ethyl Alcohol Microbiology Microbiology Results: Microbiology 03/14/23 09:42 Blood - Venous Blood Culture - Preliminary Staphylococcus aureus 03/14/23 08:53 Blood - Venous Blood Culture - Preliminary Staphylococcus aureus Progress Note: A&P Assessment and plan (1) Altered mental status: Status: Acute (2) Acute kidney injury: Status: Acute (3) Severe sepsis: Status: Acute (4) Thrombocytopenia: Status: Acute (5) Acute GI bleeding: Status: Acute (6) Duodenitis: Status: Acute (7) Hypertension: Status: Acute (8) Fatty liver: Status: Acute (9) BPH (benign prostatic hyperplasia): Status: Acute (10) Frequency of micturition: Status: Acute (11) COPD (chronic obstructive pulmonary disease): Status: Acute (12) Primary osteoarthritis of knee: Status: Acute Plan So we have an unknown source for a Staph aureus bacteremia no skin portal of entry no upper or lower respiratory portal of entry so somewhat perplexing that we have another finding which which I can not relate which is the potential for duodenitis verses a pancreatitis only the abdominal exam is benign and he is asymptomatic and his lipase is negative and GI because the guaiac-positive stool and the and the stranding surrounding the duodenum wants to do a Gastrografin study to rule out a potential retroperitoneal perforation so this is been ordered Quality Stroke Does the patient have a stroke diagnosis?: No VTE Prior VTE?: No VTE Risk Level:: Medical - moderate - high VTE Device Contraindication: N/A - Device Ordered VTE Drug Contraindication: N/A - Med Ordered
[2023-03-15] MEDS: Linezolid/D5W 600 MG/300 ML PIGGYBACK 300 MG IV (14:32)
[2023-03-15] MEDS: Lactated Ringers 1,000 ML 80 ML IVCONT (17:28)
[2023-03-15] MEDS: dexmedeTOMIDidine HCL/NS 400 MCG/100 ML INFUS..BTL 19.78 MCG IVCONT (17:50)
[2023-03-15] MEDS: vancomycin HCL 1,000 MG in 0.9 % Sodium Chloride 250 ML 270 MG IV (21:08)
[2023-03-16] VITALS (26 sets, daily range): BP systolic 97–145; BP diastolic 47–89; PULSE 89–116; RESP 16–30; TEMP 36.8–37.8; O2SAT 90–98; BMI 34.2; BMI 35.8
[2023-03-16] MEDS: Albumin Human 25 % 100 ML IV (02:38)
[2023-03-16] MEDS: Doxycycline Hyclate 100 MG in 0.9 % Sodium Chloride 250 ML 166.67 MG IV ×2 (04:54→17:22)
[2023-03-16] MEDS: Morphine Sulfate 2 MG/ML CARTRIDGE IVPUSH ×4 (04:55→17:58)
[2023-03-16 05:17] LABS: VBG Base Excess -2.6 mmol/L; VBG HCO3 21 mmol/L (22-26); VBG pCO2 31 mmHg; VBG pH 7.42 (7.32-7.43); VBG pO2 65 mmHg
[2023-03-16 05:26] LABS: PLT ABN DIST 1
[2023-03-16 05:28] LABS: Hematocrit 23.5 % (42.0-52.0); Mean Corpuscular Hemoglobin 31.3 pg (27.0-33.0); Mean Corpuscular Volume 91.8 fL (80.0-98.0); Red Blood Count 2.56 X10*6/uL (4.60-5.80); Red Cell Distribution Width 14.5 % (11.0-16.0); White Blood Count 8.1 X10*3/uL (4.8-10.8)
[2023-03-16 05:29] LABS: Platelet Count 45 X10*3/uL (160-400)
[2023-03-16 05:38] LABS: Venous Blood Gas Refer to POC result
[2023-03-16 05:45] LABS: Alanine Aminotransferase 23 U/L (0-40); Albumin Level 3.3 g/dL (3.5-5.0); Alkaline Phosphatase 45 U/L (39-117); Anion Gap 12 (12-20); Aspartate Amino Transferase 37 U/L (5-37); Bilirubin Total 1.2 mg/dL (0.0-1.0); Blood Urea Nitrogen 61 mg/dL (9-16); Calcium 8.3 mg/dL (8.4-10.2); Carbon Dioxide 20 mmol/L (22-29); Chloride 113 mmol/L (96-108); Creatinine Clr Calc Pharmacy 45.9; Estimated Glomerular Filt Rate 48; Glucose Random 124 mg/dL (60-115); Magnesium 2.6 mg/dL (1.6-2.6); Phosphorus 2.5 mg/dL (2.7-4.5); Potassium 4.1 mmol/L (3.3-5.1); Sodium 141 mmol/L (135-145); Total Protein 5.6 g/dL (6.5-8.0)
[2023-03-16 05:47] LABS: Atypical Lymph Absolute Manual 0.1 x10*3/uL; Atypical Lymphs Percent Manual 1 % (0-6); Band Neutrophils Percent 5 % (3-5); Eosinophils Absolute Manual 0.1 X10*3/uL (0.0-0.4); Eosinophils Percent Manual 1 % (0-4); Lymphocytes Percent Manual 12 % (20-40); Monocytes Absolute Manual 0.6 X10*3/uL (0.1-1.2); Monocytes Percent Manual 7 % (2-11); Neutrophils Absolute Manual 6.4 X10*3/uL (2.0-8.3); Neutrophils Percent Manual 74 % (45-73)
[2023-03-16 05:48] LABS: Dohle Bodies PRESENT; Hypochromasia 1+ (5-14) /OIF; Large Platelet PRESENT; Platelet Estimate DECREASED (NORMAL); Platelet Morphology Comment NOTED; RBC Morphology NOTED; Target Cells 1+ (5-14) /OIF; Toxic Granulation PRESENT; Toxic Vacuolation PRESENT
[2023-03-16 07:07] LABS: Adenovirus PCR Not Detected (Not Detect.); Bordetella parapertussis PCR Not Detected (Not Detect.); Bordetella pertussis PCR Not Detected (Not Detect.); Chlamydia pneumoniae PCR Not Detected (Not Detect.); Coronavirus 229E PCR Not Detected (Not Detect.); Coronavirus HKU1 PCR Not Detected (Not Detect.)
[2023-03-16 07:08] LABS: Coronavirus NL63 PCR Not Detected (Not Detect.); Coronavirus OC43 PCR Not Detected (Not Detect.); Human metapneumovirus PCR Not Detected (Not Detect.); Influenza A PCR Not Detected (Not Detect.); Influenza B PCR Not Detected (Not Detect.); Mycoplasma pneumoniae PCR Not Detected (Not Detect.); Parainfluenza 1 PCR Not Detected (Not Detect.); Parainfluenza 2 PCR Not Detected (Not Detect.); Parainfluenza 3 PCR Not Detected (Not Detect.); Parainfluenza 4 PCR Not Detected (Not Detect.); RSV PCR Not Detected (Not Detect.); Rhino/Enterovirus PCR Not Detected (Not Detect.); SARS-CoV-2 PCR Not Detected (Not Detect.)
[2023-03-16] MEDS: Famotidine/PF 20 MG/2 ML VIAL IVPUSH (08:31)
[2023-03-16 10:09] LABS: OBS Int Ctl Valid YES; OBS1 POSITIVE (NEGATIVE)
[2023-03-16] MEDS: Furosemide 20 MG/2 ML VIAL IVPUSH (11:52)
[2023-03-16] MEDS: Spironolactone 25 MG TABLET PO (12:20)
--- NOTE | 2023-03-16 13:11 | PM.CCPN ---
Subjective Subjective Date of Service: 03/16/23 Interval History: 67-year-old male who is a former alcoholic presented following 1 or 2 episodes of nausea vomiting and diarrhea and then the day of presentation severe diffuse total body aches mostly myalgias in his in his legs but apparently also had some left shoulder discomfort and there is a question that he might have actually had it injected and now it is X exquisitely tender to touch and felt warm but I ordered imaging by with a dry CT scan which showed nothing not anything in the joint space nothing in the soft tissue representing a collection Imaging of his abdomen initially showed what could be duodenitis with some thickening of the bowel in that area with stranding and then that disappeared the following day and and the following day was done with oral contrast In the hospital today he had a melanotic bowel movement which was clearly guaiac-positive as he was on presentation and he does have a drop in his hemoglobin objectively but he has continuing drop in his platelet count so he is thrombocytopenic as well as increasingly anemic But we have methicillin sensitive Staph aureus bacteremia 2/2 culture bottles positive in with today being about 48 hours of vancomycin some of this agitated confusion is seems to be clearing not completely but cognitive functions improving level of fevers improving and of course signs of septic hemodynamics also diminishing because blood pressures are now 130-145 systolic and because he started to develop an increasing cough we noted over 48 hours that he was about 6 L positive on his intake so we gave him 1 dose of Lasix 20 mg and he is right now somewhere between 500 cc and a L of diuresis and the cough seems to be diminishing Critical Care Time (minutes): 40 Physical Exam Vital Signs: Vital Signs: Last Vital Signs Temp 99 F 03/16/23 11:00 Pulse 113 H 03/16/23 13:00 Resp 29 H 03/16/23 13:00 BP 145/89 H 03/16/23 13:00 Pulse Ox 94 03/16/23 13:00 O2 Del Method Nasal Cannula 03/16/23 13:00 O2 Flow Rate 2 03/16/23 13:00 BMI result Body Mass Index 35.8 It seems his left upper extremity movement at the shoulder level is a little bit improved His temperature max is diminishing and his cognitive function is improving and he is nonfocal neurologically A repeat bedside echo by me today shows no evidence of valvular vegetation and he has got globally normal systolic wall motion of both left and right ventricle with no pericardial disease Lung estes on chest x-ray could be a little bit plus Thorek no effusions Abdomen still looks distended but it is soft nontender no organomegaly Skin is intact no evidence of cellulitis no evidence of any bites Objective Data Labs 03/16/23 05:05 03/16/23 05:05 Labs: Laboratory Results - last 24 hr 03/14/23 03/14/23 03/14/23 21:35 21:35 21:35 WBC RBC Hgb Hct MCV MCH MCHC RDW Plt Count MPV Immature Gran % (Auto) Neut % (Auto) Lymph % (Auto) [place] % (Auto) Eos % (Auto) Baso % (Auto) Lymph # (Auto) [place] # (Auto) Eos # (Auto) Baso # (Auto) Abs Immat Gran (auto) Absolute Neuts (auto) Absolute Nucleated RBC Nucleated RBC % (auto) Neutrophils % (Manual) Band Neutrophils % Lymphocytes % (Manual) Atypical Lymphs % (Man) Monocytes % (Manual) Eosinophils % (Manual) Abs Neuts (Manual) Lymphocytes # (Manual) Atyp Lymphs # (Manual) Monocytes # (Manual) Eosinophils # (Manual) Toxic Granulation Toxic Vacuolation Dohle Bodies Platelet Estimate Large Platelets Plt Morphology Comment RBC Morphology Hypochromasia Target Cells VBG pH VBG pCO2 VBG pO2 VBG HCO3 VBG O2 Saturation VBG Base Excess Sodium Potassium Chloride Carbon Dioxide Anion Gap BUN Creatinine Estim Creat Clear Calc Estimated GFR Random Glucose Calcium Phosphorus Magnesium Total Bilirubin AST ALT Alkaline Phosphatase Total Protein Albumin Stool Occult Blood Respiratory Panel Goss See Note Cancelled Adenovirus (Rapid PCR) Not Detected Cancelled B.pert (TEM-PCR) Not Detected B.parapertussis DNA PCR C. pneumoniae DNA (PCR) Coronavirus OC43 (PCR) Coronavirus HKU1 (PCR) Coronavirus 229E (PCR) Coronavirus NL63 (PCR) Human Metapneumovir PCR Influenza A (RT-PCR) Influenza B (RT-PCR) M. pneumoniae (PCR) Parainfluenza 1 (PCR) Parainfluenza 2 (PCR) Parainfluenza 3 (PCR) Parainfluenza 4 (PCR) RSV (PCR) Entero/Rhino (PCR) SARS-CoV-2 RNA (RT-PCR) 03/14/23 03/14/23 03/14/23 21:35 21:35 21:35 WBC RBC Hgb Hct MCV MCH MCHC RDW Plt Count MPV Immature Gran % (Auto) Neut % (Auto) Lymph % (Auto) [place] % (Auto) Eos % (Auto) Baso % (Auto) Lymph # (Auto) [place] # (Auto) Eos # (Auto) Baso # (Auto) Abs Immat Gran (auto) Absolute Neuts (auto) Absolute Nucleated RBC Nucleated RBC % (auto) Neutrophils % (Manual) Band Neutrophils % Lymphocytes % (Manual) Atypical Lymphs % (Man) Monocytes % (Manual) Eosinophils % (Manual) Abs Neuts (Manual) Lymphocytes # (Manual) Atyp Lymphs # (Manual) Monocytes # (Manual) Eosinophils # (Manual) Toxic Granulation Toxic Vacuolation Dohle Bodies Platelet Estimate Large Platelets Plt Morphology Comment RBC Morphology Hypochromasia Target Cells VBG pH VBG pCO2 VBG pO2 VBG HCO3 VBG O2 Saturation VBG Base Excess Sodium Potassium Chloride Carbon Dioxide Anion Gap BUN Creatinine Estim Creat Clear Calc Estimated GFR Random Glucose Calcium Phosphorus Magnesium Total Bilirubin AST ALT Alkaline Phosphatase Total Protein Albumin Stool Occult Blood Respiratory Panel Goss Adenovirus (Rapid PCR) B.pert (TEM-PCR) Cancelled B.parapertussis DNA PCR Not Detected Cancelled C. pneumoniae DNA (PCR) Not Detected Cancelled Coronavirus OC43 (PCR) Not Detected Coronavirus HKU1 (PCR) Coronavirus 229E (PCR) Coronavirus NL63 (PCR) Human Metapneumovir PCR Influenza A (RT-PCR) Influenza B (RT-PCR) M. pneumoniae (PCR) Parainfluenza 1 (PCR) Parainfluenza 2 (PCR) Parainfluenza 3 (PCR) Parainfluenza 4 (PCR) RSV (PCR) Entero/Rhino (PCR) SARS-CoV-2 RNA (RT-PCR) 03/14/23 03/14/23 03/14/23 21:35 21:35 21:35 WBC RBC Hgb Hct MCV MCH MCHC RDW Plt Count MPV Immature Gran % (Auto) Neut % (Auto) Lymph % (Auto) [place] % (Auto) Eos % (Auto) Baso % (Auto) Lymph # (Auto) [place] # (Auto) Eos # (Auto) Baso # (Auto) Abs Immat Gran (auto) Absolute Neuts (auto) Absolute Nucleated RBC Nucleated RBC % (auto) Neutrophils % (Manual) Band Neutrophils % Lymphocytes % (Manual) Atypical Lymphs % (Man) Monocytes % (Manual) Eosinophils % (Manual) Abs Neuts (Manual) Lymphocytes # (Manual) Atyp Lymphs # (Manual) Monocytes # (Manual) Eosinophils # (Manual) Toxic Granulation Toxic Vacuolation Dohle Bodies Platelet Estimate Large Platelets Plt Morphology Comment RBC Morphology Hypochromasia Target Cells VBG pH VBG pCO2 VBG pO2 VBG HCO3 VBG O2 Saturation VBG Base Excess Sodium Potassium Chloride Carbon Dioxide Anion Gap BUN Creatinine Estim Creat Clear Calc Estimated GFR Random Glucose Calcium Phosphorus Magnesium Total Bilirubin AST ALT Alkaline Phosphatase Total Protein Albumin Stool Occult Blood Respiratory Panel Goss Adenovirus (Rapid PCR) B.pert (TEM-PCR) B.parapertussis DNA PCR C. pneumoniae DNA (PCR) Coronavirus OC43 (PCR) Cancelled Coronavirus HKU1 (PCR) Not Detected Cancelled Coronavirus 229E (PCR) Not Detected Cancelled Coronavirus NL63 (PCR) Not Detected Human Metapneumovir PCR Influenza A (RT-PCR) Influenza B (RT-PCR) M. pneumoniae (PCR) Parainfluenza 1 (PCR) Parainfluenza 2 (PCR) Parainfluenza 3 (PCR) Parainfluenza 4 (PCR) RSV (PCR) Entero/Rhino (PCR) SARS-CoV-2 RNA (RT-PCR) 03/14/23 03/14/23 03/14/23 21:35 21:35 21:35 WBC RBC Hgb Hct MCV MCH MCHC RDW Plt Count MPV Immature Gran % (Auto) Neut % (Auto) Lymph % (Auto) [place] % (Auto) Eos % (Auto) Baso % (Auto) Lymph # (Auto) [place] # (Auto) Eos # (Auto) Baso # (Auto) Abs Immat Gran (auto) Absolute Neuts (auto) Absolute Nucleated RBC Nucleated RBC % (auto) Neutrophils % (Manual) Band Neutrophils % Lymphocytes % (Manual) Atypical Lymphs % (Man) Monocytes % (Manual) Eosinophils % (Manual) Abs Neuts (Manual) Lymphocytes # (Manual) Atyp Lymphs # (Manual) Monocytes # (Manual) Eosinophils # (Manual) Toxic Granulation Toxic Vacuolation Dohle Bodies Platelet Estimate Large Platelets Plt Morphology Comment RBC Morphology Hypochromasia Target Cells VBG pH VBG pCO2 VBG pO2 VBG HCO3 VBG O2 Saturation VBG Base Excess Sodium Potassium Chloride Carbon Dioxide Anion Gap BUN Creatinine Estim Creat Clear Calc Estimated GFR Random Glucose Calcium Phosphorus Magnesium Total Bilirubin AST ALT Alkaline Phosphatase Total Protein Albumin Stool Occult Blood Respiratory Panel Goss Adenovirus (Rapid PCR) B.pert (TEM-PCR) B.parapertussis DNA PCR C. pneumoniae DNA (PCR) Coronavirus OC43 (PCR) Coronavirus HKU1 (PCR) Coronavirus 229E (PCR) Coronavirus NL63 (PCR) Cancelled Human Metapneumovir PCR Not Detected Cancelled Influenza A (RT-PCR) Not Detected Cancelled Influenza B (RT-PCR) Not Detected M. pneumoniae (PCR) Parainfluenza 1 (PCR) Parainfluenza 2 (PCR) Parainfluenza 3 (PCR) Parainfluenza 4 (PCR) RSV (PCR) Entero/Rhino (PCR) SARS-CoV-2 RNA (RT-PCR) 03/14/23 03/14/23 03/14/23 21:35 21:35 21:35 WBC RBC Hgb Hct MCV MCH MCHC RDW Plt Count MPV Immature Gran % (Auto) Neut % (Auto) Lymph % (Auto) [place] % (Auto) Eos % (Auto) Baso % (Auto) Lymph # (Auto) [place] # (Auto) Eos # (Auto) Baso # (Auto) Abs Immat Gran (auto) Absolute Neuts (auto) Absolute Nucleated RBC Nucleated RBC % (auto) Neutrophils % (Manual) Band Neutrophils % Lymphocytes % (Manual) Atypical Lymphs % (Man) Monocytes % (Manual) Eosinophils % (Manual) Abs Neuts (Manual) Lymphocytes # (Manual) Atyp Lymphs # (Manual) Monocytes # (Manual) Eosinophils # (Manual) Toxic Granulation Toxic Vacuolation Dohle Bodies Platelet Estimate Large Platelets Plt Morphology Comment RBC Morphology Hypochromasia Target Cells VBG pH VBG pCO2 VBG pO2 VBG HCO3 VBG O2 Saturation VBG Base Excess Sodium Potassium Chloride Carbon Dioxide Anion Gap BUN Creatinine Estim Creat Clear Calc Estimated GFR Random Glucose Calcium Phosphorus Magnesium Total Bilirubin AST ALT Alkaline Phosphatase Total Protein Albumin Stool Occult Blood Respiratory Panel Goss Adenovirus (Rapid PCR) B.pert (TEM-PCR) B.parapertussis DNA PCR C. pneumoniae DNA (PCR) Coronavirus OC43 (PCR) Coronavirus HKU1 (PCR) Coronavirus 229E (PCR) Coronavirus NL63 (PCR) Human Metapneumovir PCR Influenza A (RT-PCR) Influenza B (RT-PCR) Cancelled M. pneumoniae (PCR) Not Detected Cancelled Parainfluenza 1 (PCR) Not Detected Cancelled Parainfluenza 2 (PCR) Not Detected Parainfluenza 3 (PCR) Parainfluenza 4 (PCR) RSV (PCR) Entero/Rhino (PCR) SARS-CoV-2 RNA (RT-PCR) 03/14/23 03/14/23 03/14/23 21:35 21:35 21:35 WBC RBC Hgb Hct MCV MCH MCHC RDW Plt Count MPV Immature Gran % (Auto) Neut % (Auto) Lymph % (Auto) [place] % (Auto) Eos % (Auto) Baso % (Auto) Lymph # (Auto) [place] # (Auto) Eos # (Auto) Baso # (Auto) Abs Immat Gran (auto) Absolute Neuts (auto) Absolute Nucleated RBC Nucleated RBC % (auto) Neutrophils % (Manual) Band Neutrophils % Lymphocytes % (Manual) Atypical Lymphs % (Man) Monocytes % (Manual) Eosinophils % (Manual) Abs Neuts (Manual) Lymphocytes # (Manual) Atyp Lymphs # (Manual) Monocytes # (Manual) Eosinophils # (Manual) Toxic Granulation Toxic Vacuolation Dohle Bodies Platelet Estimate Large Platelets Plt Morphology Comment RBC Morphology Hypochromasia Target Cells VBG pH VBG pCO2 VBG pO2 VBG HCO3 VBG O2 Saturation VBG Base Excess Sodium Potassium Chloride Carbon Dioxide Anion Gap BUN Creatinine Estim Creat Clear Calc Estimated GFR Random Glucose Calcium Phosphorus Magnesium Total Bilirubin AST ALT Alkaline Phosphatase Total Protein Albumin Stool Occult Blood Respiratory Panel Goss Adenovirus (Rapid PCR) B.pert (TEM-PCR) B.parapertussis DNA PCR C. pneumoniae DNA (PCR) Coronavirus OC43 (PCR) Coronavirus HKU1 (PCR) Coronavirus 229E (PCR) Coronavirus NL63 (PCR) Human Metapneumovir PCR Influenza A (RT-PCR) Influenza B (RT-PCR) M. pneumoniae (PCR) Parainfluenza 1 (PCR) Parainfluenza 2 (PCR) Cancelled Parainfluenza 3 (PCR) Not Detected Cancelled Parainfluenza 4 (PCR) Not Detected Cancelled RSV (PCR) Not Detected Entero/Rhino (PCR) SARS-CoV-2 RNA (RT-PCR) 03/14/23 03/14/23 03/14/23 21:35 21:35 21:35 WBC RBC Hgb Hct MCV MCH MCHC RDW Plt Count MPV Immature Gran % (Auto) Neut % (Auto) Lymph % (Auto) [place] % (Auto) Eos % (Auto) Baso % (Auto) Lymph # (Auto) [place] # (Auto) Eos # (Auto) Baso # (Auto) Abs Immat Gran (auto) Absolute Neuts (auto) Absolute Nucleated RBC Nucleated RBC % (auto) Neutrophils % (Manual) Band Neutrophils % Lymphocytes % (Manual) Atypical Lymphs % (Man) Monocytes % (Manual) Eosinophils % (Manual) Abs Neuts (Manual) Lymphocytes # (Manual) Atyp Lymphs # (Manual) Monocytes # (Manual) Eosinophils # (Manual) Toxic Granulation Toxic Vacuolation Dohle Bodies Platelet Estimate Large Platelets Plt Morphology Comment RBC Morphology Hypochromasia Target Cells VBG pH VBG pCO2 VBG pO2 VBG HCO3 VBG O2 Saturation VBG Base Excess Sodium Potassium Chloride Carbon Dioxide Anion Gap BUN Creatinine Estim Creat Clear Calc Estimated GFR Random Glucose Calcium Phosphorus Magnesium Total Bilirubin AST ALT Alkaline Phosphatase Total Protein Albumin Stool Occult Blood Respiratory Panel Goss Adenovirus (Rapid PCR) B.pert (TEM-PCR) B.parapertussis DNA PCR C. pneumoniae DNA (PCR) Coronavirus OC43 (PCR) Coronavirus HKU1 (PCR) Coronavirus 229E (PCR) Coronavirus NL63 (PCR) Human Metapneumovir PCR Influenza A (RT-PCR) Influenza B (RT-PCR) M. pneumoniae (PCR) Parainfluenza 1 (PCR) Parainfluenza 2 (PCR) Parainfluenza 3 (PCR) Parainfluenza 4 (PCR) RSV (PCR) Cancelled Entero/Rhino (PCR) Not Detected Cancelled SARS-CoV-2 RNA (RT-PCR) Not Detected Cancelled 03/16/23 03/16/23 03/16/23 05:05 05:13 10:00 WBC 8.1 RBC 2.56 L Hgb 8.0 L D Hct 23.5 L MCV 91.8 MCH 31.3 MCHC 34.0 RDW 14.5 Plt Count 45 L MPV Not Reportable Immature Gran % (Auto) Cancelled Neut % (Auto) Cancelled Lymph % (Auto) Cancelled [place] % (Auto) Cancelled Eos % (Auto) Cancelled Baso % (Auto) Cancelled Lymph # (Auto) Cancelled [place] # (Auto) Cancelled Eos # (Auto) Cancelled Baso # (Auto) Cancelled Abs Immat Gran (auto) Cancelled Absolute Neuts (auto) Cancelled Absolute Nucleated RBC 0.000 Nucleated RBC % (auto) 0.0 Neutrophils % (Manual) 74 H Band Neutrophils % 5 Lymphocytes % (Manual) 12 L Atypical Lymphs % (Man) 1 Monocytes % (Manual) 7 Eosinophils % (Manual) 1 Abs Neuts (Manual) 6.4 Lymphocytes # (Manual) 1.0 L Atyp Lymphs # (Manual) 0.1 Monocytes # (Manual) 0.6 Eosinophils # (Manual) 0.1 Toxic Granulation PRESENT Toxic Vacuolation PRESENT Dohle Bodies PRESENT Platelet Estimate DECREASED Large Platelets PRESENT Plt Morphology Comment NOTED RBC Morphology NOTED Hypochromasia 1+ (5-14) Target Cells 1+ (5-14) VBG pH 7.42 VBG pCO2 31 VBG pO2 65 VBG HCO3 21 L VBG O2 Saturation 91.0 VBG Base Excess -2.6 Sodium 141 Potassium 4.1 Chloride 113 H Carbon Dioxide 20 L Anion Gap 12 BUN 61 H Creatinine 1.47 H Estim Creat Clear Calc 45.9 Estimated GFR 48 Random Glucose 124 H Calcium 8.3 L Phosphorus 2.5 L Magnesium 2.6 Total Bilirubin 1.2 H AST 37 ALT 23 Alkaline Phosphatase 45 Total Protein 5.6 L Albumin 3.3 L Stool Occult Blood POSITIVE Respiratory Panel Goss Adenovirus (Rapid PCR) B.pert (TEM-PCR) B.parapertussis DNA PCR C. pneumoniae DNA (PCR) Coronavirus OC43 (PCR) Coronavirus HKU1 (PCR) Coronavirus 229E (PCR) Coronavirus NL63 (PCR) Human Metapneumovir PCR Influenza A (RT-PCR) Influenza B (RT-PCR) M. pneumoniae (PCR) Parainfluenza 1 (PCR) Parainfluenza 2 (PCR) Parainfluenza 3 (PCR) Parainfluenza 4 (PCR) RSV (PCR) Entero/Rhino (PCR) SARS-CoV-2 RNA (RT-PCR) Microbiology Microbiology Results: Microbiology 03/14/23 09:42 Blood - Venous Blood Culture - Final Staphylococcus aureus 03/14/23 08:53 Blood - Venous Blood Culture - Final Staphylococcus aureus Progress Note: A&P Assessment and plan (1) Altered mental status: Status: Acute (2) Acute kidney injury: Status: Acute (3) Severe sepsis: Status: Acute (4) Thrombocytopenia: Status: Acute (5) Acute GI bleeding: Status: Acute (6) Duodenitis: Status: Acute (7) Hyperkalemia: Status: Acute (8) Hypertension: Status: Acute (9) Fatty liver: Status: Acute (10) Vitamin B 12 deficiency: Status: Acute (11) Hypercholesterolemia: Status: Acute (12) COPD (chronic obstructive pulmonary disease): Status: Acute (13) Renal insufficiency: Status: Acute (14) Bacteremia due to methicillin susceptible Staphylococcus aureus (MSSA): Status: Acute Plan So all told he seem to present with duodenitis which within 24 hours had resolved at least on CT scan along with what appeared to be GI bleed but he also had a marked left shift on his white count with progressively worsening thrombocytopenia and 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 and the question is whether not that left shoulder if it had been injected could be a source of the Staph bacteremia and most concerned because of the monoarticular arthritis that this is septic arthritis and I am going to order a nuclear medicine white cell scan to see if it demonstrates anything in the shoulder but he needs to have a formal echo proxy and maybe even a transesophageal echo to rule out endocarditis if the shoulder is a metastatic infection With this waxing waning duodenitis and GI bleed GI is following him in is a question that he might need at least upper endoscopy at this point I might be an area that needs to be biopsied here Both the his presenting hypotension as well as acute renal insufficiency all resolving but I think there is an element of iatrogenic fluid overload as he recoup his 3rd space fluid so he is being diuresed today and is beginning to look like he is a candidate for downgrade to the floor Quality Stroke Does the patient have a stroke diagnosis?: No VTE Prior VTE?: No VTE Risk Level:: Medical - moderate - high VTE Device Contraindication: N/A - Device Ordered VTE Drug Contraindication: N/A - Med Ordered
--- NOTE | 2023-03-16 13:56 | MHC.CM.PN ---
Addendum entered by Mima Lagunas 03/16/23 14:31: Per RN patient continues with encephalopathy. He can not name a HCP at this time. A new HCP will be documented once the patient has cleared. The current HCP has been placed on the chart with a note. The RN is aware that the HCP lists a former GF. Addendum entered by Mima Lagunas 03/16/23 14:06: ADMITTING DX SEPSIS. He has ss of a GIB. He also shoulder pain. Work up in progress. Original Note: IMM 03/15/23 Spoke with patients 1st contact Tomasa, his dtr. She states that the patient lives with his significant other. He has a HCP on file. Anna Edwards, is a prior girlfriend per Tomasa. Patient will need a new HCP documented when appropriate. He was independent with all functional mobility prior to admission. DP home with [facility] if needed. A family member will assist with transport at discharge.
[2023-03-16 15:33] LABS: MANUAL DIFF FLAG NO
[2023-03-16 15:34] LABS: Basophils Percent Auto 0.2 % (0-2); Mean Corpuscular Volume 90.8 fL (80.0-98.0); Red Cell Distribution Width 14.7 % (11.0-16.0); SCAN SMEAR FLAG 1
[2023-03-16 15:36] LABS: Eosinophils Percent Auto 0.3 % (0-4); Hematocrit 24.7 % (42.0-52.0); Hemoglobin 8.7 g/dl (14.0-18.0); Lymphocytes Absolute Auto 0.8 X10*3/uL (1.2-4.9); Lymphocytes Percent Auto 7.6 % (20-40); Mean Corpuscular HGB Conc 35.2 g/dl (31.0-36.0); Monocytes Absolute Auto 0.7 X10*3/uL (0.1-1.2); Monocytes Percent Auto 6.6 % (2-11); Neutrophils Absolute Auto 8.6 x10*3/uL (2.0-8.3); Neutrophils Percent Auto 84.3 % (45-73); Platelet Count 60 X10*3/uL (160-400); Red Blood Count 2.72 X10*6/uL (4.60-5.80); White Blood Count 10.3 X10*3/uL (4.8-10.8)
[2023-03-16 15:37] LABS: PLT ABN DIST 1
[2023-03-16 15:59] LABS: Alanine Aminotransferase 24 U/L (0-40); Albumin Level 3.2 g/dL (3.5-5.0); Alkaline Phosphatase 110 U/L (39-117); Anion Gap 11 (12-20); Aspartate Amino Transferase 42 U/L (5-37); Bilirubin Total 1.4 mg/dL (0.0-1.0); Blood Urea Nitrogen 48 mg/dL (9-16); C Reactive Protein 27.34 mg/dL (< or = 0.50); Calcium 8.7 mg/dL (8.4-10.2); Carbon Dioxide 23 mmol/L (22-29); Chloride 108 mmol/L (96-108); Creatinine Clr Calc Pharmacy 56.8; Estimated Glomerular Filt Rate 56; Glucose Random 158 mg/dL (60-115); Potassium 3.8 mmol/L (3.3-5.1); Sodium 138 mmol/L (135-145); Total Protein 5.8 g/dL (6.5-8.0)
[2023-03-16 16:10] LABS: Erythrocyte Sedimentation Rate 96 MM/HR (0-15); Rheumatoid Factor < 13.0 IU/mL (<15.0)
[2023-03-16] MEDS: Pantoprazole Sodium 40 MG/10 ML VIAL IVPUSH (17:22)
[2023-03-16] MEDS: LORazepam 2 MG/ML VIAL 0.5 MG IVPUSH (20:17)
[2023-03-16 21:01] LABS: Vancomycin Random 5.7 mcg/mL (15-20)
--- NOTE | 2023-03-16 21:12 | HE.PHANOTE ---
VANCOMYCIN LEVEL OF 5.8.OF NOTE, PT WEIGHT HAS INCREASED FROM 74 TO 85 TO 91 KG OVER 3 DAYS. iNCREASED DOSE TO 1500 MG Q24H, MONTIOR CRCL AND MAY NEED TO CHANGE TO Q12H DOSING IF KEEPS INMPROVING
[2023-03-16] MEDS: vancomycin HCL 1,500 MG in 0.9 % Sodium Chloride 500 ML 333.33 MG IV (22:19)
[2023-03-17] VITALS (21 sets, daily range): BP systolic 89–143; BP diastolic 44–85; PULSE 70–110; RESP 17–27; TEMP 36.8–37.9; O2SAT 90–98; BMI 34.8
[2023-03-17] MEDS: traZODone HCL 25 MG HALFTAB PO (00:07)
[2023-03-17] MEDS: dexmedeTOMIDidine HCL/NS 400 MCG/100 ML INFUS..BTL 22.93 MCG IVCONT (02:54)
[2023-03-17] MEDS: Albuterol Sulfate (0.083%) 2.5 MG/3 ML VIAL.NEB INHALE ×2 (03:07→12:53)
[2023-03-17] MEDS: Albumin Human 25 % 100 ML IV ×5 (04:24→20:49)
[2023-03-17 04:44] LABS: VBG Base Excess -0.5 mmol/L; VBG HCO3 22 mmol/L (22-26); VBG pCO2 31 mmHg; VBG pH 7.46 (7.32-7.43); VBG pO2 72 mmHg
[2023-03-17 05:14] LABS: Basophils Percent Auto 0.2 % (0-2); SCAN SMEAR FLAG 1
[2023-03-17 05:15] LABS: Venous Blood Gas Refer to POC result
[2023-03-17 05:17] LABS: Eosinophils Absolute Auto 0.1 X10*3/uL (0.0-0.4); Eosinophils Percent Auto 0.5 % (0-4); Hematocrit 22.1 % (42.0-52.0); Hemoglobin 7.6 g/dl (14.0-18.0); Imm Gran Abs Auto 0.08 X10*3/uL (0.00-0.03); Imm Gran Pct Auto 0.8 % (0.0-0.4); Lymphocytes Absolute Auto 1.1 X10*3/uL (1.2-4.9); Lymphocytes Percent Auto 10.7 % (20-40); MANUAL DIFF FLAG SCAN; Mean Corpuscular HGB Conc 34.4 g/dl (31.0-36.0); Mean Corpuscular Hemoglobin 31.3 pg (27.0-33.0); Mean Corpuscular Volume 90.9 fL (80.0-98.0); Mean Platelet Volume 15.3 fL (9.4-12.4); Monocytes Absolute Auto 0.8 X10*3/uL (0.1-1.2); Monocytes Percent Auto 8.3 % (2-11); Neutrophils Percent Auto 79.5 % (45-73); Red Blood Count 2.43 X10*6/uL (4.60-5.80); Red Cell Distribution Width 14.6 % (11.0-16.0); White Blood Count 10.1 X10*3/uL (4.8-10.8)
[2023-03-17 05:23] LABS: PLT ABN DIST 1; Platelet Count 59 X10*3/uL (160-400)
[2023-03-17] MEDS: Doxycycline Hyclate 100 MG in 0.9 % Sodium Chloride 250 ML 166.67 MG IV (05:27)
[2023-03-17 05:31] LABS: Alanine Aminotransferase 26 U/L (0-40); Albumin Level 2.9 g/dL (3.5-5.0); Alkaline Phosphatase 53 U/L (39-117); Anion Gap 11 (12-20); Aspartate Amino Transferase 40 U/L (5-37); Bilirubin Total 1.7 mg/dL (0.0-1.0); Blood Urea Nitrogen 45 mg/dL (9-16); Calcium 8.3 mg/dL (8.4-10.2); Carbon Dioxide 22 mmol/L (22-29); Chloride 109 mmol/L (96-108); Creatinine Clr Calc Pharmacy 55.9; Estimated Glomerular Filt Rate 55; Glucose Random 146 mg/dL (60-115); Magnesium 2.4 mg/dL (1.6-2.6); Phosphorus 2.7 mg/dL (2.7-4.5); Potassium 4.1 mmol/L (3.3-5.1); Sodium 138 mmol/L (135-145); Total Protein 5.3 g/dL (6.5-8.0)
[2023-03-17 05:40] LABS: SLIDE REVIEW VERIFIED
[2023-03-17] MEDS: Pantoprazole Sodium 40 MG/10 ML VIAL IVPUSH ×2 (06:23→17:56)
--- NOTE | 2023-03-17 07:00 | CA_ITS ---
Transthoracic Echocardiogram Patient (Last, First, Middle): Kris Hunter A Gender: Male Date of : 1955 Age: 67 Procedure Date: 03/17/2023 Procedure Type: Transthoracic Echocardiogram Location: ICU Height: 160.02 cm Weight: 88.91 kg BSA: 1.92 m2 Heart Rate: bpm BP: 112 / 60 mmHg [employer] Supervisor: Referring MD: Israel Adamson MD Symptoms: staph bacteremia Study Quality: Good ECG Rhythm: Sinus Conclusions: - Normal left ventricular size and systolic function. There is mildly increased left ventricular wall thickness. The visually estimated ejection fraction is between 55-60%. - Normal right ventricular cavity size and systolic function. - The left atrium is mildly dilated. - There is mild dilatation of the ascending aorta measuring 3.50 cm. - There is mild aortic valve stenosis. Findings Left Ventricle Normal left ventricular size and systolic function. There is mildly increased left ventricular wall thickness. The visually estimated ejection fraction is between 55-60%. There is no evidence of regional wall motion abnormalities. Diastolic function is normal for age. Right Ventricle Normal right ventricular cavity size and systolic function. Atria The left atrium is mildly dilated. Aortic Valve The aortic valve was not well visualized. There is mild aortic valve stenosis. There is no aortic valve regurgitation. Mitral Valve The mitral valve appears normal. There is trace mitral valve regurgitation. There is no mitral valve stenosis. Pulmonic Valve The pulmonic valve was not well visualized. Tricuspid Valve Normal tricuspid valve structure. There is no tricuspid valve regurgitation. The right ventricular systolic pressure is 28 mmHg. Significantly elevated right atrial pressure. There is no evidence of pulmonary hypertension. Great Vessels There is mild dilatation of the ascending aorta measuring 3.50 cm. Venous The inferior vena cava is dilated and does not collapse with inspiration. Pericardium/Pleural There is no evidence of pericardial effusion. Prior Study Comparison No significant change compared to prior study dated: 05/16/2022. Measurements 2D Linear Measurements IVSd: 1.24 0.6-0.9/0.6-1.0 cm LVIDd: 3.91 3.9-5.3/4.2-5.9 cm LVIDd Index: 2.04 2.4-3.2/2.2-3.1 cm/m2 LVIDs: 2.81 2.0-3.6 cm LVPWd: 1.24 0.7-1.1 cm Ao Root: 3.50 2.1-3.5 cm LA Diam: 3.70 2.7-3.8/3.0-4.0 cm LAIDs Index: 1.93 1.5-2.3 cm/m2 LV Mass: 209.19 67-162/88-224 g LV Mass Index: 108.95 43-95/49-115 g/m2 LVOT Diam: 2.20 3.0+(-)1.3 cm Mitral Valve MV Pk E: 1.01 MV PK A: 0.79 MV Decel Time: 101.00 E/A: 1.30 E'Lateral: 9.14 E'Medial: 7.51 E/E' Med: 13.40 E/E' Lat: 11.10 PHT: 30.00 MVA PHT: 7.33 Decel [place]: 10.03 Aortic Valve AoV Pk [place]: 2.31 AoV Mn [place]: 1.54 AoV VTI: 0.47 AoV Pk Grad: 21.00 Aov Mn Grad: 11.00 JESUS Cont.VTI: 1.71 LVOT LVOT Pk [place]: 1.02 LVOT Mn [place]: 0.66 LVOT VTI: 0.21 LVOT Pk Grad: 4.00 LVOT Mn Grad: 2.00 LVOT Diam: 2.20 LVOT Area: 3.80 Diastolic Function MV Pk E: 1.01 MV Pk A: 0.79 E/A: 1.30 E'Medial: 7.51 E/E' Med: 13.40 E' Laterial: 9.14 E/E' Lat: 11.10 Right Ventricle TAPSE (mm): 29.00 Tricuspid Valve TR Pk [place]: 2.51 TR Pk Grad: 25.00 RA Press: 3.00 RVSP: 28.00 Great Vessels Aorta Ao Root-2D: 3.50 2.0-3.7 cm Ao Asc: 3.50 2.1-3.4 cm Pulmonary Valve PV Pk [place]: 0.60 Peak PV Grad: 1.00 Updated in Other Vendor System with Status of Final Shay Maharaj MD electronically signed on 03/17/2023 3:38:31 PM with status of Final
[2023-03-17] MEDS: cefTRIAXone sodium 1 GM in 0.9 % Sodium Chloride 50 ML IV (09:16)
[2023-03-17] MEDS: dexmedeTOMIDidine HCL/NS 400 MCG/100 ML INFUS..BTL 9.17 MCG IVCONT (09:44)
--- NOTE | 2023-03-17 11:04 | PM.CCPN ---
Subjective Subjective Date of Service: 03/17/23 Interval History: 67-year-old gentleman with underlying history of COPD, alcohol abuse, hypertension, bipolar disorder admitted on 03/14/2023 with melena. Hospital course significant for MSSA bacteremia with unclear source and continuation of low level GI bleed. at this time patient is planned for EGD and bleeding scan. No events overnight. Critical Care Time (minutes): 0 Physical Exam Vital Signs: Vital Signs: Last Vital Signs Temp 98.3 F 03/17/23 08:00 Pulse 77 03/17/23 11:00 Resp 22 H 03/17/23 11:00 BP 124/64 03/17/23 11:00 Pulse Ox 97 03/17/23 11:00 O2 Del Method Nasal Cannula 03/17/23 11:00 O2 Flow Rate 3 03/17/23 11:00 BMI result Body Mass Index 34.8 Const: General: no acute distress and lethargic ( [place]) Orientation/consciousness: lethargic ( [place]able) Eyes: Sclerae: sclerae normal EOM: EOMs intact bilaterally Neck: Neck: Yes no lymphadenopathy, Yes trachea midline and Yes supple Resp: Effort & Inspection: normal respiratory effort and no respiratory distress Auscultation: clear to auscultation bilaterally Cardio: Rate: regular rate Rhythm: regular rhythm Heart sounds: no gallops, no murmurs and no rubs GI: Palpation (GI): Soft to palpation and Other GI palpation findings present ( Nontender) Auscultation: normal bowel sounds Extrem: General: Yes no pedal edema, No clubbing and No cyanosis Objective Data Labs 03/17/23 04:39 03/17/23 04:39 Labs: Laboratory Results - last 24 hr 03/16/23 03/16/23 03/17/23 15:01 20:06 04:39 WBC 10.3 10.1 RBC 2.72 L 2.43 L Hgb 8.7 L 7.6 L Hct 24.7 L 22.1 L MCV 90.8 90.9 MCH 32.0 31.3 MCHC 35.2 34.4 RDW 14.7 14.6 Plt Count 60 L D 59 L MPV Not Reportable 15.3 H Immature Gran % (Auto) 1.0 H 0.8 H Neut % (Auto) 84.3 H 79.5 H Lymph % (Auto) 7.6 L 10.7 L [place] % (Auto) 6.6 8.3 Eos % (Auto) 0.3 0.5 Baso % (Auto) 0.2 0.2 Lymph # (Auto) 0.8 L 1.1 L [place] # (Auto) 0.7 0.8 Eos # (Auto) 0.0 0.1 Baso # (Auto) 0.0 0.0 Abs Immat Gran (auto) 0.10 H 0.08 H Absolute Neuts (auto) 8.6 H 8.0 Absolute Nucleated RBC 0.000 0.000 Nucleated RBC % (auto) 0.0 0.0 Smear Tech's Comments VERIFIED ESR 96 H VBG pH 7.46 H VBG pCO2 31 VBG pO2 72 VBG HCO3 22 VBG O2 Saturation 94.0 VBG Base Excess -0.5 Sodium 138 138 Potassium 3.8 4.1 Chloride 108 109 H Carbon Dioxide 23 22 Anion Gap 11 L 11 L BUN 48 H 45 H Creatinine 1.28 1.30 Estim Creat Clear Calc 56.8 55.9 Estimated GFR 56 55 Random Glucose 158 H 146 H Calcium 8.7 8.3 L Phosphorus 2.7 Magnesium 2.4 Total Bilirubin 1.4 H 1.7 H AST 42 H 40 H ALT 24 26 Alkaline Phosphatase 110 53 Total Creatine Kinase 76 C-Reactive Protein 27.34 H Total Protein 5.8 L 5.3 L Albumin 3.2 L 2.9 L Random Vancomycin 5.7 L Rheumatoid Factor < 13.0 Microbiology Microbiology Results: Microbiology 03/16/23 05:05 Blood - Venous Blood Culture - Preliminary Prelim: GPC Gram Stain only 03/16/23 05:05 Blood - Venous Blood Culture - Preliminary Prelim: GPC Gram Stain only 03/14/23 09:42 Blood - Venous Blood Culture - Final Staphylococcus aureus 03/14/23 08:53 Blood - Venous Blood Culture - Final Staphylococcus aureus Progress Note: A&P Assessment and plan (1) Bacteremia due to methicillin susceptible Staphylococcus aureus (MSSA): Status: Acute (2) Acute GI bleeding: Status: Acute (3) COPD (chronic obstructive pulmonary disease): Status: Acute Plan Assessment: 67-year-old gentleman admitted with GI bleed with unclear source, further complicated by MSSA bacteremia Plan: Neuro: No acute issues. Cardiac: No acute issues. Pulmonary: No acute issues. Renal: No acute issues. Endo: No acute issues. GI: GI bleed so far with unclear source. Gastroenterology service appreciated. Planned for EGD and bleeding scan. ID: MSSA bacteremia with unclear source. Vancomycin and doxycycline switched to ceftriaxone. 2D echo is pending. Heme/Onc: No acute issues. Psych: No acute issues. Miscellaneous: No acute issues. Prophylaxis: Pneumatic compression Diet: NPO Quality Stroke Does the patient have a stroke diagnosis?: No VTE Prior VTE?: No VTE Risk Level:: Medical - moderate - high VTE Device Contraindication: N/A - Device Ordered VTE Drug Contraindication: N/A - Med Ordered
--- NOTE | 2023-03-17 12:12 | MHC.SHP ---
Pre-Procedural Eval Section A Date of Service: 03/17/23 The patient is an INPATIENT: Yes The History & Physical has been completed within 30 days and I have reviewed it.: Yes Section B Chief Complaint: Sepsis Allergies: Allergies Allergy/AdvReac Type Severity Reaction Status Date / Time bupropion [From Wellbutrin] AdvReac Severe Anxiety Verified 03/12/23 07:43 Plan Diagnosis/Plan: Unchanged I have reviewed the history and physical and performed a pertinent physical examination on my patient. No changes have occurred unless specified. Time Spent With Patient Time: Total time managing care of this patient today ____ minutes.
[2023-03-17] MEDS: Morphine Sulfate 2 MG/ML CARTRIDGE IVPUSH (12:33)
--- NOTE | 2023-03-17 12:42 | PM.GIPN ---
Subjective Subjective Date of Service: 03/17/23 Interval History: Patient seen in ICU, confused, not orientated, O2 sats 89-90% on nasal cannula coughing and wheezy per r/N no further melena overnight S aureus on BC Critical Care Time (minutes): 0 Physical Exam Vital Signs: Vital Signs: Last Vital Signs Temp 98.5 F 03/17/23 12:00 Pulse 93 03/17/23 12:00 Resp 22 H 03/17/23 12:00 BP 142/73 H 03/17/23 12:00 Pulse Ox 93 03/17/23 12:00 O2 Del Method Nasal Cannula 03/17/23 12:00 O2 Flow Rate 3 03/17/23 12:00 BMI result Body Mass Index 34.8 EXAM: GENERAL: The patient is confused, tachypneic VITAL SIGNS:see workflow HEENT: Nonicteric sclerae, PERRLA, EOMI. Oropharynx clear. Moist mucous membranes. Conjunctivae appear slightyl pale . No thyroid mass. CHEST: Chest wall is nontender. HEART: Regular rate PSM at sternal edge LUNGS: wheeze and bronchial breathing right side ABDOMEN: Soft, positive bowel sounds, nontender, no organomegaly.no flank tenderness RECTAL: blackish stool-dry, not tarry SKIN: No rash, no excessive bruising, petechiae, or purpura. NEUROLOGIC: Cranial nerves II-XII intact without motor/sensory deficit. pscyh-confused Objective Data Labs 03/17/23 04:39 03/17/23 04:39 Labs: Laboratory Results - last 24 hr 03/16/23 03/16/23 03/17/23 15:01 20:06 04:39 WBC 10.3 10.1 RBC 2.72 L 2.43 L Hgb 8.7 L 7.6 L Hct 24.7 L 22.1 L MCV 90.8 90.9 MCH 32.0 31.3 MCHC 35.2 34.4 RDW 14.7 14.6 Plt Count 60 L D 59 L MPV Not Reportable 15.3 H Immature Gran % (Auto) 1.0 H 0.8 H Neut % (Auto) 84.3 H 79.5 H Lymph % (Auto) 7.6 L 10.7 L [place] % (Auto) 6.6 8.3 Eos % (Auto) 0.3 0.5 Baso % (Auto) 0.2 0.2 Lymph # (Auto) 0.8 L 1.1 L [place] # (Auto) 0.7 0.8 Eos # (Auto) 0.0 0.1 Baso # (Auto) 0.0 0.0 Abs Immat Gran (auto) 0.10 H 0.08 H Absolute Neuts (auto) 8.6 H 8.0 Absolute Nucleated RBC 0.000 0.000 Nucleated RBC % (auto) 0.0 0.0 Smear Tech's Comments VERIFIED ESR 96 H VBG pH 7.46 H VBG pCO2 31 VBG pO2 72 VBG HCO3 22 VBG O2 Saturation 94.0 VBG Base Excess -0.5 Sodium 138 138 Potassium 3.8 4.1 Chloride 108 109 H Carbon Dioxide 23 22 Anion Gap 11 L 11 L BUN 48 H 45 H Creatinine 1.28 1.30 Estim Creat Clear Calc 56.8 55.9 Estimated GFR 56 55 Random Glucose 158 H 146 H Calcium 8.7 8.3 L Phosphorus 2.7 Magnesium 2.4 Total Bilirubin 1.4 H 1.7 H AST 42 H 40 H ALT 24 26 Alkaline Phosphatase 110 53 Total Creatine Kinase 76 C-Reactive Protein 27.34 H Total Protein 5.8 L 5.3 L Albumin 3.2 L 2.9 L Random Vancomycin 5.7 L Rheumatoid Factor < 13.[address] scan - abdomen: Attestation: I personally reviewed and interpreted this imaging study as follows: (mild stranding and thickening duodenum, atherosclerosis ) Microbiology Microbiology Results: Microbiology 03/16/23 05:05 Blood - Venous Blood Culture - Preliminary Staphylococcus aureus 03/16/23 05:05 Blood - Venous Blood Culture - Preliminary Staphylococcus aureus 03/14/23 09:42 Blood - Venous Blood Culture - Final Staphylococcus aureus 03/14/23 08:53 Blood - Venous Blood Culture - Final Staphylococcus aureus Echocardiogram Echocardiogram Results: aortic stenosis, mild, no vegetations seen Procedures Date of Service Date of Service: 03/17/23 Progress Note: A&P Assessment and plan (1) Duodenitis: Status: Acute (2) Severe sepsis: Status: Acute (3) Bacteremia due to methicillin susceptible Staphylococcus aureus (MSSA): Status: Acute Plan 1/ Acute blood loss anemia on background of sepsis with pos BC for staph. Seems to have worsening resp status despite O2, aslo low plts ?developing DIc vs drug effect, does not appear to be actively bleeding at this time with recent Ct showing improvement in stranding around duodenum which maybe from PUd or duodenitis PLAN: 1/ Hold on EGD for the moment given the above 2/ cont with high dose PPI 3/ cosndier checking DIC panel 4/ If clinical evidence of further active bleeding then can re evaluate need for endoscopy, I called daughter and explained above, Time Spent With Patient Time: Total time managing care of this patient today ____ minutes. Quality Stroke Does the patient have a stroke diagnosis?: No VTE Prior VTE?: No VTE Risk Level:: Medical - moderate - high VTE Device Contraindication: N/A - Device Ordered VTE Drug Contraindication: N/A - Med Ordered
[2023-03-17] MEDS: Furosemide 20 MG/2 ML VIAL IVPUSH (14:12)
[2023-03-17] MEDS: Acetaminophen 325 MG TABLET 650 MG PO (18:31)
[2023-03-17 22:42] LABS: A. Phagocytphilium DNA,RT-PCR NOT DETECTED (NOT DETECTED); Babesia Microti DNA, RT-PCR NOT DETECTED (NOT DETECTED); Borrelia Miyamotoi,DNA RT-PCR NOT DETECTED (NOT DETECTED); E.Chaffeensis DNA RT-PCR NOT DETECTED (NOT DETECTED); Lyme(Borrelia ssp)DNA RT-PCR NOT DETECTED (NOT DETECTED)
[2023-03-18] VITALS (9 sets, daily range): BP systolic 112–156; BP diastolic 54–72; PULSE 84–98; RESP 12–22; TEMP 36.9–38.5; O2SAT 94–99
[2023-03-18] MEDS: Acetaminophen 325 MG TABLET 650 MG PO ×3 (00:45→19:56)
[2023-03-18] MEDS: Albumin Human 25 % 100 ML IV (01:40)
[2023-03-18] MEDS: Morphine Sulfate 2 MG/ML CARTRIDGE IVPUSH ×2 (02:16→11:03)
[2023-03-18] MEDS: Pantoprazole Sodium 40 MG/10 ML VIAL IVPUSH ×2 (06:22→18:48)
[2023-03-18 08:06] LABS: MANUAL DIFF FLAG NO
[2023-03-18 08:18] LABS: Basophils Percent Auto 0.1 % (0-2); Eosinophils Absolute Auto 0.1 X10*3/uL (0.0-0.4); Hematocrit 21.4 % (42.0-52.0); Hemoglobin 7.5 g/dl (14.0-18.0); Imm Gran Abs Auto 0.27 X10*3/uL (0.00-0.03); Imm Gran Pct Auto 1.9 % (0.0-0.4); Lymphocytes Absolute Auto 1.2 X10*3/uL (1.2-4.9); Lymphocytes Percent Auto 8.3 % (20-40); Mean Corpuscular Hemoglobin 31.4 pg (27.0-33.0); Mean Corpuscular Volume 89.5 fL (80.0-98.0); Mean Platelet Volume 14.8 fL (9.4-12.4); Monocytes Absolute Auto 1.3 X10*3/uL (0.1-1.2); Monocytes Percent Auto 8.8 % (2-11); Neutrophils Absolute Auto 11.4 x10*3/uL (2.0-8.3); Neutrophils Percent Auto 79.9 % (45-73); Platelet Count 105 X10*3/uL (160-400); Red Blood Count 2.39 X10*6/uL (4.60-5.80); Red Cell Distribution Width 14.7 % (11.0-16.0); White Blood Count 14.3 X10*3/uL (4.8-10.8)
[2023-03-18 08:43] LABS: Albumin Level 3.6 g/dL (3.5-5.0); Anion Gap 14 (12-20); Blood Urea Nitrogen 44 mg/dL (9-16); Calcium 8.7 mg/dL (8.4-10.2); Carbon Dioxide 22 mmol/L (22-29); Chloride 107 mmol/L (96-108); Creatinine Clr Calc Pharmacy 63.5; Estimated Glomerular Filt Rate > 60; Glucose Random 117 mg/dL (60-115); Magnesium 2.4 mg/dL (1.6-2.6); Phosphorus 2.9 mg/dL (2.7-4.5); Potassium 3.8 mmol/L (3.3-5.1); Sodium 139 mmol/L (135-145)
[2023-03-18 08:50] LABS: Venous Blood Gas Refer to POC result
[2023-03-18 08:51] LABS: VBG Base Excess 1.1 mmol/L; VBG HCO3 23 mmol/L (22-26); VBG pCO2 29 mmHg; VBG pO2 194 mmHg
[2023-03-18] MEDS: Lidocaine 4 % Patch ADH..PATCH 1 PATCH TRANSDERMA (11:04)
[2023-03-18] MEDS: cefTRIAXone sodium 2 GM in 0.9 % Sodium Chloride 50 ML IV (11:04)
--- NOTE | 2023-03-18 12:57 | PC.NURSE ---
bilateral 20g wrist ivs flushed and patnent.
--- NOTE | 2023-03-18 13:33 | MHC.SHP ---
Pre-Procedural Eval Section A Date of Service: 03/18/23 The patient is an INPATIENT: Yes The History & Physical has been completed within 30 days and I have reviewed it.: Yes Section B Chief Complaint: Sepsis Allergies: Allergies Allergy/AdvReac Type Severity Reaction Status Date / Time bupropion [From Wellbutrin] AdvReac Severe Anxiety Verified 03/12/23 07:43 Plan Diagnosis/Plan: Unchanged I have reviewed the history and physical and performed a pertinent physical examination on my patient. No changes have occurred unless specified. Patient improved from yesterday, plan is for EGD today. HGB stable Time Spent With Patient Time: Total time managing care of this patient today ____ minutes.
--- NOTE | 2023-03-18 13:34 | W.PM.OPN ---
Operative Note Operative Note Date of Service: 03/18/23 Narrative: Procedure Description: EGD Indication: anemia Anesthesia: MAC FLEXIBLE TRANSORAL UPPER GASTROINTESTINAL ENDOSCOPY UPPER ENDOSCOPY Consent: Indications for the procedure and potential complications of bleeding, perforation, reaction to medications and missed diagnosis were discussed with the patient and informed consent was obtained. Instrument: Olympus GIF H 190 J mid size upper endoscope Monitoring: Vital signs and clinical assessment, continuous EKG monitoring, Pulse oximetry, Carbon Dioxide monitoring and blood pressure monitoring were done throughout the procedure. Procedure: The patient was placed in the left lateral decubitis position and pre-procedure medications were administered and a bite block was placed. The endoscope was inserted into the mouth and advanced under direct vision to the third part of duodenum. A careful inspection was made as the upper endoscope was withdrawn including a retroflexed examination of the proximal stomach; Findings and interventions are described below. Findings: Larynx:normal Esophagus: GE junction at 36 cm, diaphragm hiatus at 38 cm, consistent with 2 cm sliding hiatal hernia, no varices seen but there were streaky erosions with slough (LA grade D esophagitis) and bogginess around the GEJ Stomach: Patchy gastric erythema with large pre antral ulcer about 18-20 mm in diameter (Maximiliano grade III) which was not bleeding. Biopsies were obtained from random stomach to r/o H pylori and also from around the edges of the ulcer to r/o neoplasia. Grade 2 flap valve on retroflexed examination of the cardia. Duodenum: Erosive duodenitis was also noted Intervention: Biopsies as noted above Impression/Findings: erosive duodenitis erosive esophagitis gastric ulcer hiatal hernia PLAN: High dose PPI for 3 months then can titrate down e.g pantoprazole 40 mg bID If h pylori pos then treat repeat EGD in 3 months to make sure ulcer healed, avoid nsaids
--- NOTE | 2023-03-18 13:41 | PC.NURSE ---
called lab to redraw an type and screen
--- NOTE | 2023-03-18 14:23 | P.PNIM_ITS ---
Subjective Subjective Date of Service: 03/18/23 Interval History: Bacteremia ,GIB Review of Systems has fevers denies any new bleed has myalgia Physical Exam 2 Vital Signs: Vital Signs: Last Vital Signs Temp 100.6 F H 03/18/23 12:48 Pulse 95 03/18/23 12:48 Resp 22 H 03/18/23 12:48 BP 126/54 L 03/18/23 12:48 Pulse Ox 99 03/18/23 12:48 O2 Del Method Nasal Cannula 03/18/23 12:48 O2 Flow Rate 2 03/18/23 12:48 BMI result Body Mass Index 34.8 Appearance: metal status seems improving-knows his name ,hospital name ,daytime and year? has myalgia .? cvs: rrr, [id number]. res: clear to auscultation ,no rhonchii or wheezing abd: no rebound or guarding ,nt, bs present. ext pulses present , no cyanosis. neuro: axo3 , nonfocal. Objective Data Active Medications Acetaminophen (Acetaminophen 325 Mg Tablet) 650 mg PO Q6H PRN PRN Reason: Pain, Mild (Pain Scale 1-3) Last Admin: 03/18/23 11:16 Dose: 650 mg Documented By: REENA Albuterol Sulfate (Albuterol Sulfate (0.083%) 2.5 Mg/3 Ml Vial.Neb) 2.5 mg INHALE Q4H PRN PRN Reason: Wheezing Last Admin: 03/17/23 12:53 Dose: 2.5 mg Documented By: DANILO Ceftriaxone Sodium 2 gm/ (Sodium Chloride) 50 mls @ 100 mls/hr IV Q24H [facility] Last Admin: 03/18/23 11:04 Dose: 100 mls/hr Documented By: REENA Lidocaine (Lidocaine 4 % Patch Adh..Patch) 1 patch TRANSDERMA DAILY [facility]; Protocol Last Admin: 03/18/23 11:04 Dose: 1 patch Documented By: REENA Pantoprazole Sodium (Pantoprazole Sodium 40 Mg/10 Ml Vial) 40 mg IVPUSH BID@0630,1630 [facility] Last Admin: 03/18/23 06:22 Dose: 40 mg Documented By: RENY Labs 03/18/23 07:22 09/19/23 07:22 Labs: Laboratory Results - last 24 hr 03/14/23 03/17/23 03/18/23 17:31 20:10 07:22 MCV 89.5 MCH 31.4 MCHC 35.0 RDW 14.7 Plt Count 105 L D MPV 14.8 H Immature Gran % (Auto) 1.9 H Neut % (Auto) 79.9 H Lymph % (Auto) 8.[address] [place] % (Auto) 8.8 Eos % (Auto) 1.0 Baso % (Auto) 0.1 Lymph # (Auto) 1.2 [place] # (Auto) 1.3 H Eos # (Auto) 0.1 Baso # (Auto) 0.0 Abs Immat Gran (auto) 0.27 H Absolute Neuts (auto) 11.4 H Absolute Nucleated RBC 0.000 Nucleated RBC % (auto) 0.0 VBG pH VBG pCO2 VBG pO2 VBG HCO3 VBG O2 Saturation VBG Base Excess Anion Gap 14 Estim Creat Clear Calc 63.5 Estimated GFR > 60 Random Glucose 117 H Calcium 8.7 Phosphorus 2.9 Magnesium 2.4 Albumin 3.6 Random Vancomycin 10.0 L A.phagocytophil DNA PCR NOT DETECTED Babesia microti DNA PCR NOT DETECTED Borrelia sp DNA (PCR) NOT DETECTED Borrelia miyamotoi (PCR) NOT DETECTED E.chaffeensis DNA (PCR) NOT DETECTED Tick-borne Disease PCR SEE NOTE Blood Type 03/18/23 03/18/23 08:46 13:58 MCV MCH MCHC RDW Plt Count MPV Immature Gran % (Auto) Neut % (Auto) Lymph % (Auto) [place] % (Auto) Eos % (Auto) Baso % (Auto) Lymph # (Auto) [place] # (Auto) Eos # (Auto) Baso # (Auto) Abs Immat Gran (auto) Absolute Neuts (auto) Absolute Nucleated RBC Nucleated RBC % (auto) VBG pH 7.50 H VBG pCO2 29 VBG pO2 194 VBG HCO3 23 VBG O2 Saturation 99.0 VBG Base Excess 1.1 Anion Gap Estim Creat Clear Calc Estimated GFR Random Glucose Calcium Phosphorus Magnesium Albumin Random Vancomycin A.phagocytophil DNA PCR Babesia microti DNA PCR Borrelia sp DNA (PCR) Borrelia miyamotoi (PCR) E.chaffeensis DNA (PCR) Tick-borne Disease PCR Blood Type A Positive Microbiology Microbiology Results: Microbiology 03/16/23 05:05 Blood Culture - Final Blood - Venous Staphylococcus aureus 03/16/23 05:05 Blood Culture - Final Blood - Venous Staphylococcus aureus 03/17/23 12:01 Blood Culture - Preliminary Blood - Venous Prelim: GPC Gram Stain only 03/17/23 11:23 Blood Culture - Preliminary Blood - Venous Prelim: GPC Gram Stain only Assessment and Plan (1) Bacteremia due to methicillin susceptible Staphylococcus aureus (MSSA): Status: Acute Plan 67y/o M with hx of copd ,htn ,hlp,obesity, admitted with GI bleed with unclear source, further complicated by MSSA bacteremia . 1. Bactermia mssa : chest ct, wbc scan-neg ct abd duodenal stranding has fever tachypnea blood cultures x4 possitive mssa ,blood culture x2 gram positive cocci in clusters added another blood cultures continue ceftriaxone 2 gm daily,tylenol for fevers. 2.GIB: moniter h/h egd: mild gasritis biopsies sent by gi. continue ppi 3.copd excerebation-continue albuterol prn 4. htn: stable without meds 5. hlp: continue home meds (atorvaststain/fenofibrate). 6. Morbid obesity: Encouraged to lose weight, cut down calories. Inpatient need: Persistent bacteremia-need IV antibiotics, repeat blood culture pending. Time Spent With Patient Time: Total time managing care of this patient today ____ minutes. Quality Stroke Does the patient have a stroke diagnosis?: No VTE Prior VTE?: No VTE Risk Level:: Medical - moderate - high VTE Device Contraindication: N/A - Device Ordered VTE Drug Contraindication: N/A - Med Ordered
--- NOTE | 2023-03-18 15:19 | P.CONAN_ITS ---
HPI - Anesthesia Eval Consult details Narrative: 67M here for egd for gib PMFSH Active Problems Active Problems: All Active Problems (Updated 03/16/23 @ 13:19 by Israel Adamson MD) Bacteremia due to methicillin susceptible Staphylococcus aureus (MSSA) (Acute) Altered mental status (Acute) Acute kidney injury (Acute) Severe sepsis (Acute) Thrombocytopenia (Acute) Acute GI bleeding (Acute) Duodenitis (Acute) Sciatic nerve injury (Acute) Generalized anxiety disorder (Acute) Hyperkalemia (Acute) Hypertension (Acute) Colon cancer screening (Acute) Coronary artery disease (Acute) Fatty liver (Acute) Vitamin B 12 deficiency (Acute) Hypercholesterolemia (Acute) Erectile dysfunction (Acute) BPH (benign prostatic hyperplasia) (Acute) Obesity (BMI 30.0-34.9) (Acute) Frequency of micturition (Acute) Vision changes (Acute) Pulmonary nodule (Acute) COPD (chronic obstructive pulmonary disease) (Acute) Impaired glucose tolerance (Acute) Renal insufficiency (Acute) Primary osteoarthritis of knee (Acute) Preop exam for internal medicine (Acute) Past Medical History Medical History Murmur, cardiac Arm pain, left Hyperkalemia Pulmonary nodule COPD (chronic obstructive pulmonary disease) COPD exacerbation Emphysema/COPD Bronchitis Lab test negative for COVID-19 virus Elevated cholesterol COVID-19 vaccine series completed Obesity (BMI 30-39.9) Pancreatitis Alcohol abuse Overweight (BMI 25.0-29.9) Tobacco abuse Erectile dysfunction Vitamin D deficiency Hypogonadism Macrocytosis without anemia Osteoarthritis Hypercholesterolemia Hypertension Bipolar disorder Amputation finger Right arm fracture Family History Family History Father No problems noted. Mother No problems noted. Sister No problems noted. Sister No problems noted. Son No problems noted. Daughter No problems noted. Daughter No problems noted. Family history of problems with anesthesia: No Surgical History Surgical History History of surgery on arm Finger amputation, no complication History of Problems with Anesthesia: No Social History Social History Household Members: Significant Other Housing: House Are you a primary small animal caretaker to a significant other at home: No Do you presently have visiting nurse or other home services: No Alcohol intake: never Patient Tobacco Use Status: Current someday Tobacco user Tobacco use type: Cigarette Cigarettes Per Day: 2 Years Smoked: 35 Smoked in Last 30 Days: Yes e-Cigarette/Vaping Use: Never Used Patient Interested in Nicotine Replacement: No Patient Given Instructions on How to Stop Smoking: No Second Hand Smoke Exposure: No Use of substances other than those prescribed or required for medical reasons: No Currently Displaying Signs/Symptoms of Drug Intoxication Withdrawal: No Have you been hit, kicked, punched, or otherwise hurt by someone within the past year? If so, by whom?: No Do you feel safe in your current relationship?: Yes Is there a partner from a previous relationship who is making you feel unsafe now?: No Are you made to feel afraid or neglected: No Are you DNR?: No Advance Directives: Yes Advance Directives Information Provided: Yes Advance Directives on File: No Advance Directives Date on File: 03/14/23 Do you have thoughts of harming others: None Do you have a plan to hurt others: No Plan Recently lost weight without trying: Unsure Eating poorly because of decreased appetite: No Nutrition Risks: No Nutritional Risk Poor oral hygiene: No service: No Current occupational status: employed 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 Cognitive needs: No Hearing needs: No Vision needs: Yes Meds Allergies Allergy/AdvReac Type Severity Reaction Status Date / Time bupropion [From Wellbutrin] AdvReac Severe Anxiety Verified 03/12/23 07:43 Active Medications: Current Medications Acetaminophen (Acetaminophen 325 Mg Tablet) 650 mg PO Q6H PRN PRN Reason: Pain, Mild (Pain Scale 1-3) Last Admin: 03/18/23 11:16 Dose: 650 mg Albuterol Sulfate (Albuterol Sulfate (0.083%) 2.5 Mg/3 Ml Vial.Neb) 2.5 mg INHALE Q4H PRN PRN Reason: Wheezing Last Admin: 03/17/23 12:53 Dose: 2.5 mg Atorvastatin Calcium (Atorvastatin Calcium 20 Mg Tablet) 20 mg PO DAILY [facility]ATHIE Buspirone HCl (Buspirone Hcl 5 Mg Tablet) 5 mg PO BID [facility]ATHIE Cyclobenzaprine HCl (Cyclobenzaprine Hcl 5 Mg Tablet) 5 mg PO TID PRN PRN Reason: muscle spasm Fenofibrate (Fenofibrate 160 Mg Tablet) 160 mg PO DAILY [facility] Cefazolin Sodium 2 gm/ Sodium (Chloride) 50 mls @ 100 mls/hr IV Q8H [facility] Lidocaine (Lidocaine 4 % Patch Adh..Patch) 1 patch TRANSDERMA DAILY CATHIE; Protoc ol Last Admin: 03/18/23 11:04 Dose: 1 patch Pantoprazole Sodium (Pantoprazole Sodium 40 Mg/10 Ml Vial) 40 mg IVPUSH BID@0630,1630 CATHIE Last Admin: 03/18/23 06:22 Dose: 40 mg Exam Exam Date and Time: March 18, 2023 1519 Height,Weight and Vital Signs: Height 5 ft 3 in Weight 196 lb 10.437 oz Last Vital Signs Temp 100.6 F H 03/18/23 12:48 Pulse 95 03/18/23 12:48 Resp 22 H 03/18/23 12:48 BP 126/54 L 03/18/23 12:48 Pulse Ox 99 03/18/23 12:48 O2 Del Method Nasal Cannula 03/18/23 12:48 O2 Flow Rate 2 03/18/23 12:48 Pertinent Lab Results Pertinent Lab Results: Laboratory Tests 03/14/23 03/14/23 03/14/23 08:28 08:31 09:42 WBC 8.5 RBC 3.89 L Hgb 12.5 L Hct 35.9 L D MCV 92.3 MCH 32.1 MCHC 34.8 RDW 13.7 Plt Count 84 L D MPV Not Reportable Immature Gran % (Auto) Cancelled Neut % (Auto) Cancelled Lymph % (Auto) Cancelled [place] % (Auto) Cancelled Eos % (Auto) Cancelled Baso % (Auto) Cancelled Lymph # (Auto) Cancelled [place] # (Auto) Cancelled Eos # (Auto) Cancelled Baso # (Auto) Cancelled Abs Immat Gran (auto) Cancelled Absolute Neuts (auto) Cancelled Absolute Nucleated RBC 0.000 Nucleated RBC % (auto) 0.0 Neutrophils % (Manual) 70 Band Neutrophils % 23 H Lymphocytes % (Manual) 2 L Atypical Lymphs % (Man) Monocytes % (Manual) 5 Eosinophils % (Manual) Metamyelocytes % Abs Neuts (Manual) 7.9 Lymphocytes # (Manual) 0.2 L Atyp Lymphs # (Manual) Monocytes # (Manual) 0.4 Eosinophils # (Manual) Toxic Granulation Toxic Vacuolation Dohle Bodies Platelet Estimate DECREASED Large Platelets PRESENT Plt Morphology Comment NOTED RBC Morphology NOTED Hypochromasia Target Cells Wilner Cells 2+ (3-5) Smear Tech's Comments ESR PT 11.5 INR 0.9 APTT 28.5 VBG pH VBG pCO2 VBG pO2 VBG HCO3 VBG O2 Saturation VBG Base Excess Sodium 130 L Potassium 4.7 Chloride 99 Carbon Dioxide 21 L Anion Gap 15 BUN 76 H Creatinine 2.07 H Estim Creat Clear Calc 31.7 Estimated GFR 32 Random Glucose 198 H Lactic Acid 2.8 H* Lactic Acid F/U @ 2Hr Lactic Acid F/U @ 4Hr Calcium 8.6 D Phosphorus Magnesium Total Bilirubin 0.5 Direct Bilirubin 0.3 AST 49 H ALT 37 Alkaline Phosphatase 47 Total Creatine Kinase 134 Troponin I High Sens 40.5 H C-Reactive Protein Total Protein 5.9 L Albumin 3.2 L Amylase Lipase 47 Urine Color Urine Appearance Urine pH Ur Specific [place] Urine Protein Urine Glucose (UA) Urine Ketones Urine Blood Urine Nitrite Ur Leukocyte Esterase Urine RBC Urine WBC Ur Squamous Epith Cells Urine Bacteria Hyaline Casts Nasal Screen MRSA (PCR) Nasal S. aureus Screen Nasal MRSA/S.aureus Interp Stool Occult Blood POSITIVE Stool H. pylori Ag Random Vancomycin Urine Opiates Screen Urine Fentanyl Screen Ur Barbiturates Screen Ur Phencyclidine Scrn Ur Amphetamines Screen U Benzodiazepines Scrn Urine Cocaine Screen U Marijuana (THC) Screen Ethyl Alcohol Rheumatoid Factor Respiratory Panel Goss Adenovirus (Rapid PCR) A.phagocytophil DNA PCR Babesia microti DNA PCR B.pert (TEM-PCR) B.parapertussis DNA PCR Borrelia sp DNA (PCR) Borrelia miyamotoi (PCR) C. pneumoniae DNA (PCR) Coronavirus OC43 (PCR) Coronavirus HKU1 (PCR) Coronavirus 229E (PCR) COVID-19 ([facility]ON) Negative COVID-19 Clin Com See Note Coronavirus NL63 (PCR) E.chaffeensis DNA (PCR) Human Metapneumovir PCR Influenza A (RT-PCR) Influenza B (RT-PCR) M. pneumoniae (PCR) Parainfluenza 1 (PCR) Parainfluenza 2 (PCR) Parainfluenza 3 (PCR) Parainfluenza 4 (PCR) RSV (PCR) Entero/Rhino (PCR) SARS-CoV-2 RNA (RT-PCR) Tick-borne Disease PCR Blood Type A Positive Antibody Screen NEGATIVE 03/14/23 03/14/23 03/14/23 12:48 16:37 17:31 WBC 4.4 L RBC 3.28 L Hgb 10.6 L Hct 30.3 L MCV 92.4 MCH 32.3 MCHC 35.0 RDW 13.8 Plt Count 58 L D MPV 14.3 H Immature Gran % (Auto) Cancelled Neut % (Auto) Cancelled Lymph % (Auto) Cancelled [place] % (Auto) Cancelled Eos % (Auto) Cancelled Baso % (Auto) Cancelled Lymph # (Auto) Cancelled [place] # (Auto) Cancelled Eos # (Auto) Cancelled Baso # (Auto) Cancelled Abs Immat Gran (auto) Cancelled Absolute Neuts (auto) Cancelled Absolute Nucleated RBC 0.000 Nucleated RBC % (auto) 0.0 Neutrophils % (Manual) 60 Band Neutrophils % 29 H Lymphocytes % (Manual) 4 L Atypical Lymphs % (Man) Monocytes % (Manual) 6 Eosinophils % (Manual) Metamyelocytes % 1 Abs Neuts (Manual) 3.9 Lymphocytes # (Manual) 0.2 L Atyp Lymphs # (Manual) Monocytes # (Manual) 0.3 Eosinophils # (Manual) Toxic Granulation Toxic Vacuolation PRESENT Dohle Bodies PRESENT Platelet Estimate DECREASED Large Platelets PRESENT Plt Morphology Comment NOTED RBC Morphology NOTED Hypochromasia Target Cells [place] Cells 1+ (0-2) Smear Tech's Comments ESR 55 H PT INR APTT VBG pH VBG pCO2 VBG pO2 VBG HCO3 VBG O2 Saturation VBG Base Excess Sodium Potassium Chloride Carbon Dioxide Anion Gap BUN Creatinine Estim Creat Clear Calc Estimated GFR Random Glucose Lactic Acid Lactic Acid F/U @ 2Hr 3.2 H* Lactic Acid F/U @ 4Hr 2.1 H* Calcium Phosphorus Magnesium Total Bilirubin Direct Bilirubin AST ALT Alkaline Phosphatase Total Creatine Kinase Troponin I High Sens C-Reactive Protein Total Protein Albumin Amylase 54 Lipase Urine Color Yellow Urine Appearance Clear Urine pH 5.5 Ur Specific [place] 1.020 Urine Protein 30 (1+) H Urine Glucose (UA) Negative Urine Ketones Negative Urine Blood Negative Urine Nitrite Negative Ur Leukocyte Esterase Negative Urine RBC 0-2 Urine WBC 0-5 Ur Squamous Epith Cells 0-2 Urine Bacteria None Seen Hyaline Casts 3-5 Nasal Screen MRSA (PCR) Nasal S. aureus Screen Nasal MRSA/S.aureus Interp Stool Occult Blood Stool H. pylori Ag Random Vancomycin Urine Opiates Screen POSITIVE H Urine Fentanyl Screen Not Detected Ur Barbiturates Screen Not Detected Ur Phencyclidine Scrn Not Detected Ur Amphetamines Screen Not Detected U Benzodiazepines Scrn Not Detected Urine Cocaine Screen Not Detected U Marijuana (THC) Screen Not Detected Ethyl Alcohol < 10 Rheumatoid Factor Respiratory Panel Goss Adenovirus (Rapid PCR) A.phagocytophil DNA PCR NOT DETECTED Babesia microti DNA PCR NOT DETECTED B.pert (TEM-PCR) B.parapertussis DNA PCR Borrelia sp DNA (PCR) NOT DETECTED Borrelia miyamotoi (PCR) NOT DETECTED C. pneumoniae DNA (PCR) Coronavirus OC43 (PCR) Coronavirus HKU1 (PCR) Coronavirus 229E (PCR) COVID-19 ([facility]ON) COVID-19 Clin Com Coronavirus NL63 (PCR) E.chaffeensis DNA (PCR) NOT DETECTED Human Metapneumovir PCR Influenza A (RT-PCR) Influenza B (RT-PCR) M. pneumoniae (PCR) Parainfluenza 1 (PCR) Parainfluenza 2 (PCR) Parainfluenza 3 (PCR) Parainfluenza 4 (PCR) RSV (PCR) Entero/Rhino (PCR) SARS-CoV-2 RNA (RT-PCR) Tick-borne Disease PCR SEE NOTE Blood Type Antibody Screen 03/14/23 03/14/23 03/14/23 21:35 21:35 21:35 WBC RBC Hgb Hct MCV MCH MCHC RDW Plt Count MPV Immature Gran % (Auto) Neut % (Auto) Lymph % (Auto) [place] % (Auto) Eos % (Auto) Baso % (Auto) Lymph # (Auto) [place] # (Auto) Eos # (Auto) Baso # (Auto) Abs Immat Gran (auto) Absolute Neuts (auto) Absolute Nucleated RBC Nucleated RBC % (auto) Neutrophils % (Manual) Band Neutrophils % Lymphocytes % (Manual) Atypical Lymphs % (Man) Monocytes % (Manual) Eosinophils % (Manual) Metamyelocytes % Abs Neuts (Manual) Lymphocytes # (Manual) Atyp Lymphs # (Manual) Monocytes # (Manual) Eosinophils # (Manual) Toxic Granulation Toxic Vacuolation Dohle Bodies Platelet Estimate Large Platelets Plt Morphology Comment RBC Morphology Hypochromasia Target Cells [place] Cells Smear Tech's Comments ESR PT INR APTT VBG pH VBG pCO2 VBG pO2 VBG HCO3 VBG O2 Saturation VBG Base Excess Sodium Potassium Chloride Carbon Dioxide Anion Gap BUN Creatinine Estim Creat Clear Calc Estimated GFR Random Glucose Lactic Acid Lactic Acid F/U @ 2Hr Lactic Acid F/U @ 4Hr Calcium Phosphorus Magnesium Total Bilirubin Direct Bilirubin AST ALT Alkaline Phosphatase Total Creatine Kinase Troponin I High Sens C-Reactive Protein Total Protein Albumin Amylase Lipase Urine Color Urine Appearance Urine pH Ur Specific [place] Urine Protein Urine Glucose (UA) Urine Ketones Urine Blood Urine Nitrite Ur Leukocyte Esterase Urine RBC Urine WBC Ur Squamous Epith Cells Urine Bacteria Hyaline Casts Nasal Screen MRSA (PCR) NEGATIVE Nasal S. aureus Screen POSITIVE A Nasal MRSA/S.aureus Interp SEE NOTE Stool Occult Blood Stool H. pylori Ag Random Vancomycin Urine Opiates Screen Urine Fentanyl Screen Ur Barbiturates Screen Ur Phencyclidine Scrn Ur Amphetamines Screen U Benzodiazepines Scrn Urine Cocaine Screen U Marijuana (THC) Screen Ethyl Alcohol Rheumatoid Factor Respiratory Panel Goss See Note Cancelled Adenovirus (Rapid PCR) Not Detected Cancelled A.phagocytophil DNA PCR Babesia microti DNA PCR B.pert (TEM-PCR) Not Detected B.parapertussis DNA PCR Borrelia sp DNA (PCR) Borrelia miyamotoi (PCR) C. pneumoniae DNA (PCR) Coronavirus OC43 (PCR) Coronavirus HKU1 (PCR) Coronavirus 229E (PCR) COVID-19 ([facility]ON) COVID-19 Clin Com Coronavirus NL63 (PCR) E.chaffeensis DNA (PCR) Human Metapneumovir PCR Influenza A (RT-PCR) Influenza B (RT-PCR) M. pneumoniae (PCR) Parainfluenza 1 (PCR) Parainfluenza 2 (PCR) Parainfluenza 3 (PCR) Parainfluenza 4 (PCR) RSV (PCR) Entero/Rhino (PCR) SARS-CoV-2 RNA (RT-PCR) Tick-borne Disease PCR Blood Type Antibody Screen 03/14/23 03/14/23 03/14/23 21:35 21:35 21:35 WBC RBC Hgb Hct MCV MCH MCHC RDW Plt Count MPV Immature Gran % (Auto) Neut % (Auto) Lymph % (Auto) [place] % (Auto) Eos % (Auto) Baso % (Auto) Lymph # (Auto) [place] # (Auto) Eos # (Auto) Baso # (Auto) Abs Immat Gran (auto) Absolute Neuts (auto) Absolute Nucleated RBC Nucleated RBC % (auto) Neutrophils % (Manual) Band Neutrophils % Lymphocytes % (Manual) Atypical Lymphs % (Man) Monocytes % (Manual) Eosinophils % (Manual) Metamyelocytes % Abs Neuts (Manual) Lymphocytes # (Manual) Atyp Lymphs # (Manual) Monocytes # (Manual) Eosinophils # (Manual) Toxic Granulation Toxic Vacuolation Dohle Bodies Platelet Estimate Large Platelets Plt Morphology Comment RBC Morphology Hypochromasia Target Cells Wilner Cells Smear Tech's Comments ESR PT INR APTT VBG pH VBG pCO2 VBG pO2 VBG HCO3 VBG O2 Saturation VBG Base Excess Sodium Potassium Chloride Carbon Dioxide Anion Gap BUN Creatinine Estim Creat Clear Calc Estimated GFR Random Glucose Lactic Acid Lactic Acid F/U @ 2Hr Lactic Acid F/U @ 4Hr Calcium Phosphorus Magnesium Total Bilirubin Direct Bilirubin AST ALT Alkaline Phosphatase Total Creatine Kinase Troponin I High Sens C-Reactive Protein Total Protein Albumin Amylase Lipase Urine Color Urine Appearance Urine pH Ur Specific [place] Urine Protein Urine Glucose (UA) Urine Ketones Urine Blood Urine Nitrite Ur Leukocyte Esterase Urine RBC Urine WBC Ur Squamous Epith Cells Urine Bacteria Hyaline Casts Nasal Screen MRSA (PCR) Nasal S. aureus Screen Nasal MRSA/S.aureus Interp Stool Occult Blood Stool H. pylori Ag Random Vancomycin Urine Opiates Screen Urine Fentanyl Screen Ur Barbiturates Screen Ur Phencyclidine Scrn Ur Amphetamines Screen U Benzodiazepines Scrn Urine Cocaine Screen U Marijuana (THC) Screen Ethyl Alcohol Rheumatoid Factor Respiratory Panel Goss Adenovirus (Rapid PCR) A.phagocytophil DNA PCR Babesia microti DNA PCR B.pert (TEM-PCR) Cancelled B.parapertussis DNA PCR Not Detected Cancelled Borrelia sp DNA (PCR) Borrelia miyamotoi (PCR) C. pneumoniae DNA (PCR) Not Detected Cancelled Coronavirus OC43 (PCR) Not Detected Coronavirus HKU1 (PCR) Coronavirus 229E (PCR) COVID-19 ([facility]) COVID-19 Clin Com Coronavirus NL63 (PCR) E.chaffeensis DNA (PCR) Human Metapneumovir PCR Influenza A (RT-PCR) Influenza B (RT-PCR) M. pneumoniae (PCR) Parainfluenza 1 (PCR) Parainfluenza 2 (PCR) Parainfluenza 3 (PCR) Parainfluenza 4 (PCR) RSV (PCR) Entero/Rhino (PCR) SARS-CoV-2 RNA (RT-PCR) Tick-borne Disease PCR Blood Type Antibody Screen 03/14/23 03/14/23 03/14/23 21:35 21:35 21:35 WBC RBC Hgb Hct MCV MCH MCHC RDW Plt Count MPV Immature Gran % (Auto) Neut % (Auto) Lymph % (Auto) [place] % (Auto) Eos % (Auto) Baso % (Auto) Lymph # (Auto) [place] # (Auto) Eos # (Auto) Baso # (Auto) Abs Immat Gran (auto) Absolute Neuts (auto) Absolute Nucleated RBC Nucleated RBC % (auto) Neutrophils % (Manual) Band Neutrophils % Lymphocytes % (Manual) Atypical Lymphs % (Man) Monocytes % (Manual) Eosinophils % (Manual) Metamyelocytes % Abs Neuts (Manual) Lymphocytes # (Manual) Atyp Lymphs # (Manual) Monocytes # (Manual) Eosinophils # (Manual) Toxic Granulation Toxic Vacuolation Dohle Bodies Platelet Estimate Large Platelets Plt Morphology Comment RBC Morphology Hypochromasia Target Cells Wilner Cells Smear Tech's Comments ESR PT INR APTT VBG pH VBG pCO2 VBG pO2 VBG HCO3 VBG O2 Saturation VBG Base Excess Sodium Potassium Chloride Carbon Dioxide Anion Gap BUN Creatinine Estim Creat Clear Calc Estimated GFR Random Glucose Lactic Acid Lactic Acid F/U @ 2Hr Lactic Acid F/U @ 4Hr Calcium Phosphorus Magnesium Total Bilirubin Direct Bilirubin AST ALT Alkaline Phosphatase Total Creatine Kinase Troponin I High Sens C-Reactive Protein Total Protein Albumin Amylase Lipase Urine Color Urine Appearance Urine pH Ur Specific [place] Urine Protein Urine Glucose (UA) Urine Ketones Urine Blood Urine Nitrite Ur Leukocyte Esterase Urine RBC Urine WBC Ur Squamous Epith Cells Urine Bacteria Hyaline Casts Nasal Screen MRSA (PCR) Nasal S. aureus Screen Nasal MRSA/S.aureus Interp Stool Occult Blood Stool H. pylori Ag Random Vancomycin Urine Opiates Screen Urine Fentanyl Screen Ur Barbiturates Screen Ur Phencyclidine Scrn Ur Amphetamines Screen U Benzodiazepines Scrn Urine Cocaine Screen U Marijuana (THC) Screen Ethyl Alcohol Rheumatoid Factor Respiratory Panel Goss Adenovirus (Rapid PCR) A.phagocytophil DNA PCR Babesia microti DNA PCR B.pert (TEM-PCR) B.parapertussis DNA PCR Borrelia sp DNA (PCR) Borrelia miyamotoi (PCR) C. pneumoniae DNA (PCR) Coronavirus OC43 (PCR) Cancelled Coronavirus HKU1 (PCR) Not Detected Cancelled Coronavirus 229E (PCR) Not Detected Cancelled COVID-19 ([facility]) COVID-19 Clin Com Coronavirus NL63 (PCR) Not Detected E.chaffeensis DNA (PCR) Human Metapneumovir PCR Influenza A (RT-PCR) Influenza B (RT-PCR) M. pneumoniae (PCR) Parainfluenza 1 (PCR) Parainfluenza 2 (PCR) Parainfluenza 3 (PCR) Parainfluenza 4 (PCR) RSV (PCR) Entero/Rhino (PCR) SARS-CoV-2 RNA (RT-PCR) Tick-borne Disease PCR Blood Type Antibody Screen 03/14/23 03/14/23 03/14/23 21:35 21:35 21:35 WBC RBC Hgb Hct MCV MCH MCHC RDW Plt Count MPV Immature Gran % (Auto) Neut % (Auto) Lymph % (Auto) [place] % (Auto) Eos % (Auto) Baso % (Auto) Lymph # (Auto) [place] # (Auto) Eos # (Auto) Baso # (Auto) Abs Immat Gran (auto) Absolute Neuts (auto) Absolute Nucleated RBC Nucleated RBC % (auto) Neutrophils % (Manual) Band Neutrophils % Lymphocytes % (Manual) Atypical Lymphs % (Man) Monocytes % (Manual) Eosinophils % (Manual) Metamyelocytes % Abs Neuts (Manual) Lymphocytes # (Manual) Atyp Lymphs # (Manual) Monocytes # (Manual) Eosinophils # (Manual) Toxic Granulation Toxic Vacuolation Dohle Bodies Platelet Estimate Large Platelets Plt Morphology Comment RBC Morphology Hypochromasia Target Cells [place] Cells Smear Tech's Comments ESR PT INR APTT VBG pH VBG pCO2 VBG pO2 VBG HCO3 VBG O2 Saturation VBG Base Excess Sodium Potassium Chloride Carbon Dioxide Anion Gap BUN Creatinine Estim Creat Clear Calc Estimated GFR Random Glucose Lactic Acid Lactic Acid F/U @ 2Hr Lactic Acid F/U @ 4Hr Calcium Phosphorus Magnesium Total Bilirubin Direct Bilirubin AST ALT Alkaline Phosphatase Total Creatine Kinase Troponin I High Sens C-Reactive Protein Total Protein Albumin Amylase Lipase Urine Color Urine Appearance Urine pH Ur Specific [place] Urine Protein Urine Glucose (UA) Urine Ketones Urine Blood Urine Nitrite Ur Leukocyte Esterase Urine RBC Urine WBC Ur Squamous Epith Cells Urine Bacteria Hyaline Casts Nasal Screen MRSA (PCR) Nasal S. aureus Screen Nasal MRSA/S.aureus Interp Stool Occult Blood Stool H. pylori Ag Random Vancomycin Urine Opiates Screen Urine Fentanyl Screen Ur Barbiturates Screen Ur Phencyclidine Scrn Ur Amphetamines Screen U Benzodiazepines Scrn Urine Cocaine Screen U Marijuana (THC) Screen Ethyl Alcohol Rheumatoid Factor Respiratory Panel Goss Adenovirus (Rapid PCR) A.phagocytophil DNA PCR Babesia microti DNA PCR B.pert (TEM-PCR) B.parapertussis DNA PCR Borrelia sp DNA (PCR) Borrelia miyamotoi (PCR) C. pneumoniae DNA (PCR) Coronavirus OC43 (PCR) Coronavirus HKU1 (PCR) Coronavirus 229E (PCR) COVID-19 ([facility]) COVID-19 Clin Com Coronavirus NL63 (PCR) Cancelled E.chaffeensis DNA (PCR) Human Metapneumovir PCR Not Detected Cancelled Influenza A (RT-PCR) Not Detected Cancelled Influenza B (RT-PCR) Not Detected M. pneumoniae (PCR) Parainfluenza 1 (PCR) Parainfluenza 2 (PCR) Parainfluenza 3 (PCR) Parainfluenza 4 (PCR) RSV (PCR) Entero/Rhino (PCR) SARS-CoV-2 RNA (RT-PCR) Tick-borne Disease PCR Blood Type Antibody Screen 03/14/23 03/14/23 03/14/23 21:35 21:35 21:35 WBC RBC Hgb Hct MCV MCH MCHC RDW Plt Count MPV Immature Gran % (Auto) Neut % (Auto) Lymph % (Auto) [place] % (Auto) Eos % (Auto) Baso % (Auto) Lymph # (Auto) [place] # (Auto) Eos # (Auto) Baso # (Auto) Abs Immat Gran (auto) Absolute Neuts (auto) Absolute Nucleated RBC Nucleated RBC % (auto) Neutrophils % (Manual) Band Neutrophils % Lymphocytes % (Manual) Atypical Lymphs % (Man) Monocytes % (Manual) Eosinophils % (Manual) Metamyelocytes % Abs Neuts (Manual) Lymphocytes # (Manual) Atyp Lymphs # (Manual) Monocytes # (Manual) Eosinophils # (Manual) Toxic Granulation Toxic Vacuolation Dohle Bodies Platelet Estimate Large Platelets Plt Morphology Comment RBC Morphology Hypochromasia Target Cells [place] Cells Smear Tech's Comments ESR PT INR APTT VBG pH VBG pCO2 VBG pO2 VBG HCO3 VBG O2 Saturation VBG Base Excess Sodium Potassium Chloride Carbon Dioxide Anion Gap BUN Creatinine Estim Creat Clear Calc Estimated GFR Random Glucose Lactic Acid Lactic Acid F/U @ 2Hr Lactic Acid F/U @ 4Hr Calcium Phosphorus Magnesium Total Bilirubin Direct Bilirubin AST ALT Alkaline Phosphatase Total Creatine Kinase Troponin I High Sens C-Reactive Protein Total Protein Albumin Amylase Lipase Urine Color Urine Appearance Urine pH Ur Specific [place] Urine Protein Urine Glucose (UA) Urine Ketones Urine Blood Urine Nitrite Ur Leukocyte Esterase Urine RBC Urine WBC Ur Squamous Epith Cells Urine Bacteria Hyaline Casts Nasal Screen MRSA (PCR) Nasal S. aureus Screen Nasal MRSA/S.aureus Interp Stool Occult Blood Stool H. pylori Ag Random Vancomycin Urine Opiates Screen Urine Fentanyl Screen Ur Barbiturates Screen Ur Phencyclidine Scrn Ur Amphetamines Screen U Benzodiazepines Scrn Urine Cocaine Screen U Marijuana (THC) Screen Ethyl Alcohol Rheumatoid Factor Respiratory Panel Goss Adenovirus (Rapid PCR) A.phagocytophil DNA PCR Babesia microti DNA PCR B.pert (TEM-PCR) B.parapertussis DNA PCR Borrelia sp DNA (PCR) Borrelia miyamotoi (PCR) C. pneumoniae DNA (PCR) Coronavirus OC43 (PCR) Coronavirus HKU1 (PCR) Coronavirus 229E (PCR) COVID-19 ([facility]) COVID-19 Clin Com Coronavirus NL63 (PCR) E.chaffeensis DNA (PCR) Human Metapneumovir PCR Influenza A (RT-PCR) Influenza B (RT-PCR) Cancelled M. pneumoniae (PCR) Not Detected Cancelled Parainfluenza 1 (PCR) Not Detected Cancelled Parainfluenza 2 (PCR) Not Detected Parainfluenza 3 (PCR) Parainfluenza 4 (PCR) RSV (PCR) Entero/Rhino (PCR) SARS-CoV-2 RNA (RT-PCR) Tick-borne Disease PCR Blood Type Antibody Screen 03/14/23 03/14/23 03/14/23 21:35 21:35 21:35 WBC RBC Hgb Hct MCV MCH MCHC RDW Plt Count MPV Immature Gran % (Auto) Neut % (Auto) Lymph % (Auto) [place] % (Auto) Eos % (Auto) Baso % (Auto) Lymph # (Auto) [place] # (Auto) Eos # (Auto) Baso # (Auto) Abs Immat Gran (auto) Absolute Neuts (auto) Absolute Nucleated RBC Nucleated RBC % (auto) Neutrophils % (Manual) Band Neutrophils % Lymphocytes % (Manual) Atypical Lymphs % (Man) Monocytes % (Manual) Eosinophils % (Manual) Metamyelocytes % Abs Neuts (Manual) Lymphocytes # (Manual) Atyp Lymphs # (Manual) Monocytes # (Manual) Eosinophils # (Manual) Toxic Granulation Toxic Vacuolation Dohle Bodies Platelet Estimate Large Platelets Plt Morphology Comment RBC Morphology Hypochromasia Target Cells [place] Cells Smear Tech's Comments ESR PT INR APTT VBG pH VBG pCO2 VBG pO2 VBG HCO3 VBG O2 Saturation VBG Base Excess Sodium Potassium Chloride Carbon Dioxide Anion Gap BUN Creatinine Estim Creat Clear Calc Estimated GFR Random Glucose Lactic Acid Lactic Acid F/U @ 2Hr Lactic Acid F/U @ 4Hr Calcium Phosphorus Magnesium Total Bilirubin Direct Bilirubin AST ALT Alkaline Phosphatase Total Creatine Kinase Troponin I High Sens C-Reactive Protein Total Protein Albumin Amylase Lipase Urine Color Urine Appearance Urine pH Ur Specific [place] Urine Protein Urine Glucose (UA) Urine Ketones Urine Blood Urine Nitrite Ur Leukocyte Esterase Urine RBC Urine WBC Ur Squamous Epith Cells Urine Bacteria Hyaline Casts Nasal Screen MRSA (PCR) Nasal S. aureus Screen Nasal MRSA/S.aureus Interp Stool Occult Blood Stool H. pylori Ag Random Vancomycin Urine Opiates Screen Urine Fentanyl Screen Ur Barbiturates Screen Ur Phencyclidine Scrn Ur Amphetamines Screen U Benzodiazepines Scrn Urine Cocaine Screen U Marijuana (THC) Screen Ethyl Alcohol Rheumatoid Factor Respiratory Panel Goss Adenovirus (Rapid PCR) A.phagocytophil DNA PCR Babesia microti DNA PCR B.pert (TEM-PCR) B.parapertussis DNA PCR Borrelia sp DNA (PCR) Borrelia miyamotoi (PCR) C. pneumoniae DNA (PCR) Coronavirus OC43 (PCR) Coronavirus HKU1 (PCR) Coronavirus 229E (PCR) COVID-19 ([facility]) COVID-19 Clin Com Coronavirus NL63 (PCR) E.chaffeensis DNA (PCR) Human Metapneumovir PCR Influenza A (RT-PCR) Influenza B (RT-PCR) M. pneumoniae (PCR) Parainfluenza 1 (PCR) Parainfluenza 2 (PCR) Cancelled Parainfluenza 3 (PCR) Not Detected Cancelled Parainfluenza 4 (PCR) Not Detected Cancelled RSV (PCR) Not Detected Entero/Rhino (PCR) SARS-CoV-2 RNA (RT-PCR) Tick-borne Disease PCR Blood Type Antibody Screen 03/14/23 03/14/23 03/14/23 21:35 21:35 21:35 WBC RBC Hgb Hct MCV MCH MCHC RDW Plt Count MPV Immature Gran % (Auto) Neut % (Auto) Lymph % (Auto) [place] % (Auto) Eos % (Auto) Baso % (Auto) Lymph # (Auto) [place] # (Auto) Eos # (Auto) Baso # (Auto) Abs Immat Gran (auto) Absolute Neuts (auto) Absolute Nucleated RBC Nucleated RBC % (auto) Neutrophils % (Manual) Band Neutrophils % Lymphocytes % (Manual) Atypical Lymphs % (Man) Monocytes % (Manual) Eosinophils % (Manual) Metamyelocytes % Abs Neuts (Manual) Lymphocytes # (Manual) Atyp Lymphs # (Manual) Monocytes # (Manual) Eosinophils # (Manual) Toxic Granulation Toxic Vacuolation Dohle Bodies Platelet Estimate Large Platelets Plt Morphology Comment RBC Morphology Hypochromasia Target Cells [place] Cells Smear Tech's Comments ESR PT INR APTT VBG pH VBG pCO2 VBG pO2 VBG HCO3 VBG O2 Saturation VBG Base Excess Sodium Potassium Chloride Carbon Dioxide Anion Gap BUN Creatinine Estim Creat Clear Calc Estimated GFR Random Glucose Lactic Acid Lactic Acid F/U @ 2Hr Lactic Acid F/U @ 4Hr Calcium Phosphorus Magnesium Total Bilirubin Direct Bilirubin AST ALT Alkaline Phosphatase Total Creatine Kinase Troponin I High Sens C-Reactive Protein Total Protein Albumin Amylase Lipase Urine Color Urine Appearance Urine pH Ur Specific [place] Urine Protein Urine Glucose (UA) Urine Ketones Urine Blood Urine Nitrite Ur Leukocyte Esterase Urine RBC Urine WBC Ur Squamous Epith Cells Urine Bacteria Hyaline Casts Nasal Screen MRSA (PCR) Nasal S. aureus Screen Nasal MRSA/S.aureus Interp Stool Occult Blood Stool H. pylori Ag Random Vancomycin Urine Opiates Screen Urine Fentanyl Screen Ur Barbiturates Screen Ur Phencyclidine Scrn Ur Amphetamines Screen U Benzodiazepines Scrn Urine Cocaine Screen U Marijuana (THC) Screen Ethyl Alcohol Rheumatoid Factor Respiratory Panel Goss Adenovirus (Rapid PCR) A.phagocytophil DNA PCR Babesia microti DNA PCR B.pert (TEM-PCR) B.parapertussis DNA PCR Borrelia sp DNA (PCR) Borrelia miyamotoi (PCR) C. pneumoniae DNA (PCR) Coronavirus OC43 (PCR) Coronavirus HKU1 (PCR) Coronavirus 229E (PCR) COVID-19 ([facility]) COVID-19 Clin Com Coronavirus NL63 (PCR) E.chaffeensis DNA (PCR) Human Metapneumovir PCR Influenza A (RT-PCR) Influenza B (RT-PCR) M. pneumoniae (PCR) Parainfluenza 1 (PCR) Parainfluenza 2 (PCR) Parainfluenza 3 (PCR) Parainfluenza 4 (PCR) RSV (PCR) Cancelled Entero/Rhino (PCR) Not Detected Cancelled SARS-CoV-2 RNA (RT-PCR) Not Detected Cancelled Tick-borne Disease PCR Blood Type Antibody Screen 03/15/23 03/15/23 03/16/23 05:10 05:14 05:05 WBC 7.5 8.1 RBC 3.13 L 2.56 L Hgb 10.1 L 8.0 L D Hct 29.0 L 23.5 L MCV 92.7 91.8 MCH 32.3 31.3 MCHC 34.8 34.0 RDW 14.1 14.5 Plt Count 52 L 45 L MPV 13.8 H Not Reportable Immature Gran % (Auto) Cancelled Cancelled Neut % (Auto) Cancelled Cancelled Lymph % (Auto) Cancelled Cancelled [place] % (Auto) Cancelled Cancelled Eos % (Auto) Cancelled Cancelled Baso % (Auto) Cancelled Cancelled Lymph # (Auto) Cancelled Cancelled [place] # (Auto) Cancelled Cancelled Eos # (Auto) Cancelled Cancelled Baso # (Auto) Cancelled Cancelled Abs Immat Gran (auto) Cancelled Cancelled Absolute Neuts (auto) Cancelled Cancelled Absolute Nucleated RBC 0.000 0.000 Nucleated RBC % (auto) 0.0 0.0 Neutrophils % (Manual) 79 H 74 H Band Neutrophils % 12 H 5 Lymphocytes % (Manual) 8 L 12 L Atypical Lymphs % (Man) 1 Monocytes % (Manual) 1 L 7 Eosinophils % (Manual) 1 Metamyelocytes % Abs Neuts (Manual) 6.8 6.4 Lymphocytes # (Manual) 0.6 L 1.0 L Atyp Lymphs # (Manual) 0.1 Monocytes # (Manual) 0.1 0.6 Eosinophils # (Manual) 0.1 Toxic Granulation PRESENT PRESENT Toxic Vacuolation PRESENT PRESENT Dohle Bodies PRESENT PRESENT Platelet Estimate DECREASED DECREASED Large Platelets PRESENT PRESENT Plt Morphology Comment NOTED NOTED RBC Morphology NOTED NOTED Hypochromasia 1+ (5-14) Target Cells 1+ (5-14) Wil[place] Cells 1+ (0-2) Smear Tech's Comments ESR PT 11.1 INR 0.9 APTT VBG pH 7.41 VBG pCO2 28 VBG pO2 73 VBG HCO3 18 L VBG O2 Saturation 94.0 VBG Base Excess -5.2 Sodium 137 141 Potassium 4.2 4.1 Chloride 109 H 113 H Carbon Dioxide 19 L 20 L Anion Gap 13 12 BUN 71 H 61 H Creatinine 1.61 H 1.47 H Estim Creat Clear Calc 40.7 45.9 Estimated GFR 43 48 Random Glucose 125 H 124 H Lactic Acid Lactic Acid F/U @ 2Hr Lactic Acid F/U @ 4Hr Calcium 7.9 L D 8.3 L Phosphorus 3.2 2.5 L Magnesium 1.9 2.6 Total Bilirubin 1.0 1.2 H Direct Bilirubin AST 51 H 37 ALT 31 23 Alkaline Phosphatase 44 45 Total Creatine Kinase Troponin I High Sens C-Reactive Protein Total Protein 5.2 L 5.6 L Albumin 2.5 L 3.3 L Amylase Lipase Urine Color Urine Appearance Urine pH Ur Specific [place] Urine Protein Urine Glucose (UA) Urine Ketones Urine Blood Urine Nitrite Ur Leukocyte Esterase Urine RBC Urine WBC Ur Squamous Epith Cells Urine Bacteria Hyaline Casts Nasal Screen MRSA (PCR) Nasal S. aureus Screen Nasal MRSA/S.aureus Interp Stool Occult Blood Stool H. pylori Ag Random Vancomycin Urine Opiates Screen Urine Fentanyl Screen Ur Barbiturates Screen Ur Phencyclidine Scrn Ur Amphetamines Screen U Benzodiazepines Scrn Urine Cocaine Screen U Marijuana (THC) Screen Ethyl Alcohol Rheumatoid Factor Respiratory Panel [place]oss Adenovirus (Rapid PCR) A.phagocytophil DNA PCR Babesia microti DNA PCR B.pert (TEM-PCR) B.parapertussis DNA PCR Borrelia sp DNA (PCR) Borrelia miyamotoi (PCR) C. pneumoniae DNA (PCR) Coronavirus OC43 (PCR) Coronavirus HKU1 (PCR) Coronavirus 229E (PCR) COVID-19 ([facility]) COVID-19 Clin Com Coronavirus NL63 (PCR) E.chaffeensis DNA (PCR) Human Metapneumovir PCR Influenza A (RT-PCR) Influenza B (RT-PCR) M. pneumoniae (PCR) Parainfluenza 1 (PCR) Parainfluenza 2 (PCR) Parainfluenza 3 (PCR) Parainfluenza 4 (PCR) RSV (PCR) Entero/Rhino (PCR) SARS-CoV-2 RNA (RT-PCR) Tick-borne Disease PCR Blood Type Antibody Screen 03/16/23 03/16/23 03/16/23 05:13 10:00 15:01 WBC 10.3 RBC 2.72 L Hgb 8.7 L Hct 24.7 L MCV 90.8 MCH 32.0 MCHC 35.2 RDW 14.7 Plt Count 60 L D MPV Not Reportable Immature Gran % (Auto) 1.0 H Neut % (Auto) 84.3 H Lymph % (Auto) 7.6 L [place] % (Auto) 6.6 Eos % (Auto) 0.3 Baso % (Auto) 0.2 Lymph # (Auto) 0.8 L [place] # (Auto) 0.7 Eos # (Auto) 0.0 Baso # (Auto) 0.0 Abs Immat Gran (auto) 0.10 H Absolute Neuts (auto) 8.6 H Absolute Nucleated RBC 0.000 Nucleated RBC % (auto) 0.0 Neutrophils % (Manual) Band Neutrophils % Lymphocytes % (Manual) Atypical Lymphs % (Man) Monocytes % (Manual) Eosinophils % (Manual) Metamyelocytes % Abs Neuts (Manual) Lymphocytes # (Manual) Atyp Lymphs # (Manual) Monocytes # (Manual) Eosinophils # (Manual) Toxic Granulation Toxic Vacuolation Dohle Bodies Platelet Estimate Large Platelets Plt Morphology Comment RBC Morphology Hypochromasia Target Cells [place] Cells Smear Tech's Comments ESR 96 H PT INR APTT VBG pH 7.42 VBG pCO2 31 VBG pO2 65 VBG HCO3 21 L VBG O2 Saturation 91.0 VBG Base Excess -2.6 Sodium 138 Potassium 3.8 Chloride 108 Carbon Dioxide 23 Anion Gap 11 L BUN 48 H Creatinine 1.28 Estim Creat Clear Calc 56.8 Estimated GFR 56 Random Glucose 158 H Lactic Acid Lactic Acid F/U @ 2Hr Lactic Acid F/U @ 4Hr Calcium 8.7 Phosphorus Magnesium Total Bilirubin 1.4 H Direct Bilirubin AST 42 H ALT 24 Alkaline Phosphatase 110 Total Creatine Kinase 76 Troponin I High Sens C-Reactive Protein 27.34 H Total Protein 5.8 L Albumin 3.2 L Amylase Lipase Urine Color Urine Appearance Urine pH Ur Specific [place] Urine Protein Urine Glucose (UA) Urine Ketones Urine Blood Urine Nitrite Ur Leukocyte Esterase Urine RBC Urine WBC Ur Squamous Epith Cells Urine Bacteria Hyaline Casts Nasal Screen MRSA (PCR) Nasal S. aureus Screen Nasal MRSA/S.aureus Interp Stool Occult Blood POSITIVE Stool H. pylori Ag SEE NOTE Random Vancomycin Urine Opiates Screen Urine Fentanyl Screen Ur Barbiturates Screen Ur Phencyclidine Scrn Ur Amphetamines Screen U Benzodiazepines Scrn Urine Cocaine Screen U Marijuana (THC) Screen Ethyl Alcohol Rheumatoid Factor < 13.0 Respiratory Panel [place]oss Adenovirus (Rapid PCR) A.phagocytophil DNA PCR Babesia microti DNA PCR B.pert (TEM-PCR) B.parapertussis DNA PCR Borrelia sp DNA (PCR) Borrelia miyamotoi (PCR) C. pneumoniae DNA (PCR) Coronavirus OC43 (PCR) Coronavirus HKU1 (PCR) Coronavirus 229E (PCR) COVID-19 ([facility]) COVID-19 Clin Com Coronavirus NL63 (PCR) E.chaffeensis DNA (PCR) Human Metapneumovir PCR Influenza A (RT-PCR) Influenza B (RT-PCR) M. pneumoniae (PCR) Parainfluenza 1 (PCR) Parainfluenza 2 (PCR) Parainfluenza 3 (PCR) Parainfluenza 4 (PCR) RSV (PCR) Entero/Rhino (PCR) SARS-CoV-2 RNA (RT-PCR) Tick-borne Disease PCR Blood Type Antibody Screen 03/16/23 03/17/23 03/17/23 20:06 04:39 20:10 WBC 10.1 RBC 2.43 L Hgb 7.6 L Hct 22.1 L MCV 90.9 MCH 31.3 MCHC 34.4 RDW 14.6 Plt Count 59 L MPV 15.3 H Immature Gran % (Auto) 0.8 H Neut % (Auto) 79.5 H Lymph % (Auto) 10.7 L [place] % (Auto) 8.3 Eos % (Auto) 0.5 Baso % (Auto) 0.2 Lymph # (Auto) 1.1 L [place] # (Auto) 0.8 Eos # (Auto) 0.1 Baso # (Auto) 0.0 Abs Immat Gran (auto) 0.08 H Absolute Neuts (auto) 8.0 Absolute Nucleated RBC 0.000 Nucleated RBC % (auto) 0.0 Neutrophils % (Manual) Band Neutrophils % Lymphocytes % (Manual) Atypical Lymphs % (Man) Monocytes % (Manual) Eosinophils % (Manual) Metamyelocytes % Abs Neuts (Manual) Lymphocytes # (Manual) Atyp Lymphs # (Manual) Monocytes # (Manual) Eosinophils # (Manual) Toxic Granulation Toxic Vacuolation Dohle Bodies Platelet Estimate Large Platelets Plt Morphology Comment RBC Morphology Hypochromasia Target Cells [place] Cells Smear Tech's Comments VERIFIED ESR PT INR APTT VBG pH 7.46 H VBG pCO2 31 VBG pO2 72 VBG HCO3 22 VBG O2 Saturation 94.0 VBG Base Excess -0.5 Sodium 138 Potassium 4.1 Chloride 109 H Carbon Dioxide 22 Anion Gap 11 L BUN 45 H Creatinine 1.30 Estim Creat Clear Calc 55.9 Estimated GFR 55 Random Glucose 146 H Lactic Acid Lactic Acid F/U @ 2Hr Lactic Acid F/U @ 4Hr Calcium 8.3 L Phosphorus 2.7 Magnesium 2.4 Total Bilirubin 1.7 H Direct Bilirubin AST 40 H ALT 26 Alkaline Phosphatase 53 Total Creatine Kinase Troponin I High Sens C-Reactive Protein Total Protein 5.3 L Albumin 2.9 L Amylase Lipase Urine Color Urine Appearance Urine pH Ur Specific [place] Urine Protein Urine Glucose (UA) Urine Ketones Urine Blood Urine Nitrite Ur Leukocyte Esterase Urine RBC Urine WBC Ur Squamous Epith Cells Urine Bacteria Hyaline Casts Nasal Screen MRSA (PCR) Nasal S. aureus Screen Nasal MRSA/S.aureus Interp Stool Occult Blood Stool H. pylori Ag Random Vancomycin 5.7 L 10.0 L Urine Opiates Screen Urine Fentanyl Screen Ur Barbiturates Screen Ur Phencyclidine Scrn Ur Amphetamines Screen U Benzodiazepines Scrn Urine Cocaine Screen U Marijuana (THC) Screen Ethyl Alcohol Rheumatoid Factor Respiratory Panel [place]oss Adenovirus (Rapid PCR) A.phagocytophil DNA PCR Babesia microti DNA PCR B.pert (TEM-PCR) B.parapertussis DNA PCR Borrelia sp DNA (PCR) Borrelia miyamotoi (PCR) C. pneumoniae DNA (PCR) Coronavirus OC43 (PCR) Coronavirus HKU1 (PCR) Coronavirus 229E (PCR) COVID-19 ([facility]) COVID-19 Clin Com Coronavirus NL63 (PCR) E.chaffeensis DNA (PCR) Human Metapneumovir PCR Influenza A (RT-PCR) Influenza B (RT-PCR) M. pneumoniae (PCR) Parainfluenza 1 (PCR) Parainfluenza 2 (PCR) Parainfluenza 3 (PCR) Parainfluenza 4 (PCR) RSV (PCR) Entero/Rhino (PCR) SARS-CoV-2 RNA (RT-PCR) Tick-borne Disease PCR Blood Type Antibody Screen 03/18/23 03/18/23 03/18/23 07:22 08:46 13:58 WBC 14.3 H RBC 2.39 L Hgb 7.5 L Hct 21.4 L MCV 89.5 MCH 31.4 MCHC 35.0 RDW 14.7 Plt Count 105 L D MPV 14.8 H Immature Gran % (Auto) 1.9 H Neut % (Auto) 79.9 H Lymph % (Auto) 8.3 L [place] % (Auto) 8.8 Eos % (Auto) 1.0 Baso % (Auto) 0.1 Lymph # (Auto) 1.2 [place] # (Auto) 1.3 H Eos # (Auto) 0.1 Baso # (Auto) 0.0 Abs Immat Gran (auto) 0.27 H Absolute Neuts (auto) 11.4 H Absolute Nucleated RBC 0.000 Nucleated RBC % (auto) 0.0 Neutrophils % (Manual) Band Neutrophils % Lymphocytes % (Manual) Atypical Lymphs % (Man) Monocytes % (Manual) Eosinophils % (Manual) Metamyelocytes % Abs Neuts (Manual) Lymphocytes # (Manual) Atyp Lymphs # (Manual) Monocytes # (Manual) Eosinophils # (Manual) Toxic Granulation Toxic Vacuolation Dohle Bodies Platelet Estimate Large Platelets Plt Morphology Comment RBC Morphology Hypochromasia Target Cells [place] Cells Smear Tech's Comments ESR PT INR APTT VBG pH 7.50 H VBG pCO2 29 VBG pO2 194 VBG HCO3 23 VBG O2 Saturation 99.0 VBG Base Excess 1.1 Sodium 139 Potassium 3.8 Chloride 107 Carbon Dioxide 22 Anion Gap 14 BUN 44 H Creatinine 1.13 Estim Creat Clear Calc 63.5 Estimated GFR > 60 Random Glucose 117 H Lactic Acid Lactic Acid F/U @ 2Hr Lactic Acid F/U @ 4Hr Calcium 8.7 Phosphorus 2.9 Magnesium 2.4 Total Bilirubin Direct Bilirubin AST ALT Alkaline Phosphatase Total Creatine Kinase Troponin I High Sens C-Reactive Protein Total Protein Albumin 3.6 Amylase Lipase Urine Color Urine Appearance Urine pH Ur Specific [place] Urine Protein Urine Glucose (UA) Urine Ketones Urine Blood Urine Nitrite Ur Leukocyte Esterase Urine RBC Urine WBC Ur Squamous Epith Cells Urine Bacteria Hyaline Casts Nasal Screen MRSA (PCR) Nasal S. aureus Screen Nasal MRSA/S.aureus Interp Stool Occult Blood Stool H. pylori Ag Random Vancomycin Urine Opiates Screen Urine Fentanyl Screen Ur Barbiturates Screen Ur Phencyclidine Scrn Ur Amphetamines Screen U Benzodiazepines Scrn Urine Cocaine Screen U Marijuana (THC) Screen Ethyl Alcohol Rheumatoid Factor Respiratory Panel [place]oss Adenovirus (Rapid PCR) A.phagocytophil DNA PCR Babesia microti DNA PCR B.pert (TEM-PCR) B.parapertussis DNA PCR Borrelia sp DNA (PCR) Borrelia miyamotoi (PCR) C. pneumoniae DNA (PCR) Coronavirus OC43 (PCR) Coronavirus HKU1 (PCR) Coronavirus 229E (PCR) COVID-19 ([facility]) COVID-19 Clin Com Coronavirus NL63 (PCR) E.chaffeensis DNA (PCR) Human Metapneumovir PCR Influenza A (RT-PCR) Influenza B (RT-PCR) M. pneumoniae (PCR) Parainfluenza 1 (PCR) Parainfluenza 2 (PCR) Parainfluenza 3 (PCR) Parainfluenza 4 (PCR) RSV (PCR) Entero/Rhino (PCR) SARS-CoV-2 RNA (RT-PCR) Tick-borne Disease PCR Blood Type A Positive Antibody Screen NEGATIVE Airway Mallampati Class: III TM Dist: >3cm Denture: Upper and Lower Loose/Missing/Broken Teeth: Yes Assessment and Plan Assessment Anesthesia Assessment: Anesthesia Plan Discussed and Chart Reviewed Final Anesthetic Review Family History of Problems with Anesthesia: No History of Problems with Anesthesia: No NPO: Yes ASA Class: IV Final Preanesthetic Review: No Changes in Pt Med Stat, Meds/Allgs Chart Rev iewed, Consent Obtained/Reviewed and Anes Risks/Benef Reviewed Patient Risk: High Procedure Risk: Low Anesthetic Plan Anesthetic Plan: MAC: Disposition: Standard PACU
[2023-03-18] MEDS: busPIRone HCl 5 MG TABLET PO (19:57)
[2023-03-18] MEDS: Cyclobenzaprine HCl 5 MG TABLET PO (20:14)
[2023-03-18] MEDS: ceFAZolin Sodium/Dextrose,Iso 2 GM/50 ML PIGGYBACK IV (20:15)
[2023-03-19] VITALS: BP 127/60; PULSE 78; RESP 16; TEMP 37.4; O2SAT 98
[2023-03-19 04:00] VITALS: BP 147/70; PULSE 92; RESP 16; TEMP 37.1; O2SAT 99
[2023-03-19] MEDS: Acetaminophen 325 MG TABLET 650 MG PO (04:13)
[2023-03-19] MEDS: ceFAZolin Sodium/Dextrose,Iso 2 GM/50 ML PIGGYBACK IV ×3 (04:15→20:35)
[2023-03-19] MEDS: Pantoprazole Sodium 40 MG/10 ML VIAL IVPUSH (05:46)
[2023-03-19 07:33] VITALS: BP 125/58; PULSE 76; RESP 20; TEMP 37.3; O2SAT 100
[2023-03-19] MEDS: Fenofibrate 160 MG TABLET PO (07:48)
[2023-03-19] MEDS: Lidocaine 4 % Patch ADH..PATCH 1 PATCH TRANSDERMA (07:48)
[2023-03-19] MEDS: busPIRone HCl 5 MG TABLET PO ×2 (07:48→20:29)
[2023-03-19] MEDS: Atorvastatin Calcium 20 MG TABLET PO (07:48)
[2023-03-19 08:00] LABS: Creatinine Clr Calc Pharmacy 68.9; Estimated Glomerular Filt Rate > 60
--- NOTE | 2023-03-19 09:53 | P.CDIM_ITS ---
PROVIDER RESPONSE TEXT: To clarify, the appropriate diagnosis supported by the clinical indicators: Acute kidney injury QUERY TEXT: PHYSICIAN'S DOCUMENTATION REQUEST Date of Query: 03/19/2023 08:02 AM EDT Patient Name: Kris Hunter Admit Date: 03/14/2023 Dear Jason Daniels, A review of the medical record indicates additional documentation may be needed. Please review below and update the documentation accordingly. Clinical Indicators: PN 03/14 & 03/15 - Acute kidney injury PN: 03/16 - Acute renal insufficiency BUN 76 H CR 2.07 H GFR 51 32 >60 Please clarify which of the following accurately represents the patient's renal status: Consistency a nd clarity of documentation within the medical record: Acute kidney injury Acute kidney insufficiency Other (explain)Clinically unable to determine (explain)Thank you, Maral Rooney, CCS, CDIS Use of terms such as suspected, likely, concern for, or probable (associated with a specific diagnosi s that is being evaluated, monitored, or treated as if it exists) are acceptable and can be coded in the inpatient se tting, when documented at the time of discharge. Please use your independent medical judgment in providing your response. THIS QUERY IS PART OF THE PERMANENT MEDICAL RECORD
--- NOTE | 2023-03-19 09:53 | P.CDIM_ITS ---
PROVIDER RESPONSE TEXT: To clarify, the appropriate diagnosis supported by the clinical indicators: Acute gastric ulcer QUERY TEXT: PHYSICIAN'S DOCUMENTATION REQUEST Date of Query: 03/19/2023 08:11 AM EDT Patient Name: Kris Hunter Admit Date: 03/14/2023 Dear Jason Daniels, A review of the medical record indicates additional documentation may be needed. Please review below and update the documentation accordingly. Clinical Indicators: GI EGD note 03/18 - Findings: Stomach - patchy gastric erythema with large pre antral ulcer about 18-2 0 mm in diameter which was not bleeding. IMPRESSION: Gastric ulcer Erosive duodenitis Hiatal hernia Clarify which of the following accurately represents the acuity of the Gastric ulcer: Possible options might include: Acute gastric ulcer Acute on chronic gastric ulcer Other please specify Other (explain)Clinically unable to determine (explain)Thank you, Maral Rooney, CCS, CDIS Use of terms such as suspected, likely, concern for, or probable (associated with a specific diagnosi s that is being evaluated, monitored, or treated as if it exists) are acceptable and can be coded in the inpatient se tting, when documented at the time of discharge. Please use your independent medical judgment in providing your response. THIS QUERY IS PART OF THE PERMANENT MEDICAL RECORD
[2023-03-19] MEDS: oxyCODONE HCl Immed Release 5 MG TABLET PO ×2 (10:37→20:30)
[2023-03-19] MEDS: Omeprazole 40 MG CAPSULE.DR PO ×2 (10:37→17:43)
[2023-03-19 11:06] VITALS: BP 134/61; PULSE 114; RESP 20; TEMP 36.9; O2SAT 100
[2023-03-19 11:11] LABS: Glucose, Whole Blood 145 mg/dL (60-115)
--- NOTE | 2023-03-19 13:05 | P.CDIM_ITS ---
PROVIDER RESPONSE TEXT: To clarify, the appropriate diagnosis supported by the clinical indicators: Sepsis QUERY TEXT: PHYSICIAN'S DOCUMENTATION REQUEST Date of Query: 03/19/2023 11:58 AM EDT Patient Name: Kris Hunter Admit Date: 03/14/2023 Dear Jason Daniels, A review of the medical record indicates additional documentation may be needed. Please review below and update the documentation accordingly. Clinical indicators: ICU H AND P 03/15 - SIRS with fever, malaise, guaiac positive stool. Zosyn and Vancomyin Temp 104 HR 1 23 RR 27 ICU PN 03/15 - Spiked a fever to 104 HR 119 RR25 BP 111/53 Hypotensive/ Assessment and plan: Severe se psis GI PN 03/15 - Transferred to ICU for Septic shock with Temp 100.7 HR 118 RR 26 BP 110/53 L GI PN 03/17 - Acute blood loss anemia in background of Sepsis with positive blood culture for staph. ICU PN 03/17 - Bacteremia due to MSSA PN 03/18 - Bacteremia MSSA, fever and tachypnea, wbc 14.3 b/x positive x 4 Based on the above information and the recognized standard for sepsis, could you please clarify if th is diagnoses is still accurate and reflective of the patient's condition to ensure quality of the medical record. Consisten cy and clarity of the documented Sepsis/Septic shock/Sirs/Bacteremia: Sepsis Severe sepsis with shock Other (explain)Clinically unable to determine (explain)Thank you, Maral Rooney, CCS, CDIS Use of terms such as suspected, likely, concern for, or probable (associated with a specific diagnosi s that is being evaluated, monitored, or treated as if it exists) are acceptable and can be coded in the inpatient se tting, when documented at the time of discharge. Please use your independent medical judgment in providing your response. THIS QUERY IS PART OF THE PERMANENT MEDICAL RECORD
--- NOTE | 2023-03-19 14:55 | HO.POSTANES ---
Post Anesthesia Evaluation Post Anesthesia Evaluation Date of Service: 03/19/23 Vital Signs: Vital Signs Temp Pulse Resp BP Pulse Ox O2 Del Method O2 Flow Rate 03/19/23 11:06 98.5 F 114 H 20 134/61 100 Nasal Cannula 3 03/19/23 07:33 99.2 F 76 20 125/58 L 100 Nasal Cannula 3 03/19/23 04:00 98.7 F 92 16 147/70 H 99 Nasal Cannula 3 Anesthesia: Monitored Mental Status: Awake Pain Control: Satisfactory Nausea/Vomiting: None Hydration: Adequate Anesthesia-Related Issues: No Anes. Related Issues
[2023-03-19 15:45] VITALS: BP 125/60; PULSE 98; RESP 18; TEMP 36.5; O2SAT 98
--- NOTE | 2023-03-19 15:54 | MHC.CM.PN ---
EMR reviewed and per MD rounds, pt is not medically cleared for D/C today due to pending BC's. New HCP filled out with pt and now on file. CM will continue to follow.
--- NOTE | 2023-03-19 16:00 | P.CNID_ITS ---
History of Present Illness Data of Consult Service Date: 03/19/23 Requesting physician: Jason Daniels Primary Care Provider: Latesha Ackerman MD HPI Reason for consult: MSSA bacteremia He presents on 03/14 with feeling unwell for three days and then nausea and vomiting night before. He has GI bleed with dark stool. He initially had some RUL infiltrate and then saw negative CT chest next day. He had MSSA bacteremia,still persistent. Nares positive MSSA. He was started on Ceftriaxone. Review of Systems 2 Review of Systems: Yes all other systems are reviewed and are negative [facility] Past Medical History Medical History Murmur, cardiac Arm pain, left Hyperkalemia Pulmonary nodule COPD (chronic obstructive pulmonary disease) COPD exacerbation Emphysema/COPD Bronchitis Lab test negative for COVID-19 virus Elevated cholesterol COVID-19 vaccine series completed Obesity (BMI 30-39.9) Pancreatitis Alcohol abuse Overweight (BMI 25.0-29.9) Tobacco abuse Erectile dysfunction Vitamin D deficiency Hypogonadism Macrocytosis without anemia Osteoarthritis Hypercholesterolemia Hypertension Bipolar disorder Amputation finger Right arm fracture Family History Family History Father No problems noted. Mother No problems noted. Sister No problems noted. Sister No problems noted. Son No problems noted. Daughter No problems noted. Daughter No problems noted. Family history: reviewed and not pertinent Surgical History Surgical History History of surgery on arm Finger amputation, no complication Social History Social History Household Members: Significant Other Housing: House Are you a primary health and social care teacher to a significant other at home: No Do you presently have visiting nurse or other home services: No Alcohol intake: never Patient Tobacco Use Status: Current someday Tobacco user Tobacco use type: Cigarette Cigarettes Per Day: 2 Years Smoked: 35 Smoked in Last 30 Days: Yes e-Cigarette/Vaping Use: Never Used Patient Interested in Nicotine Replacement: No Patient Given Instructions on How to Stop Smoking: No Second Hand Smoke Exposure: No Use of substances other than those prescribed or required for medical reasons: No Currently Displaying Signs/Symptoms of Drug Intoxication Withdrawal: No Have you been hit, kicked, punched, or otherwise hurt by someone within the past year? If so, by whom?: No Do you feel safe in your current relationship?: Yes Is there a partner from a previous relationship who is making you feel unsafe now?: No Are you made to feel afraid or neglected: No Are you DNR?: No Advance Directives: Yes Advance Directives Information Provided: Yes Advance Directives on File: No Advance Directives Date on File: 03/14/23 Do you have thoughts of harming others: None Do you have a plan to hurt others: No Plan Recently lost weight without trying: Unsure Eating poorly because of decreased appetite: No Nutrition Risks: No Nutritional Risk Poor oral hygiene: No service: No Current occupational status: employed 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 Cognitive needs: No Hearing needs: No Vision needs: Yes Meds Allergies Allergy/AdvReac Type Severity Reaction Status Date / Time bupropion [From Wellbutrin] AdvReac Severe Anxiety Verified 03/12/23 07:43 Active Medications: Current Medications Acetaminophen (Acetaminophen 325 Mg Tablet) 650 mg PO Q6H PRN PRN Reason: Pain, Mild (Pain Scale 1-3) Last Admin: 03/19/23 04:13 Dose: 650 mg Albuterol Sulfate (Albuterol Sulfate (0.083%) 2.5 Mg/3 Ml Vial.Neb) 2.5 mg INHALE Q4H PRN PRN Reason: Wheezing Last Admin: 03/17/23 12:53 Dose: 2.5 mg Atorvastatin Calcium (Atorvastatin Calcium 20 Mg Tablet) 20 mg PO DAILY ON LICENSE OF [facility] Last Admin: 03/19/23 07:48 Dose: 20 mg Buspirone HCl (Buspirone Hcl 5 Mg Tablet) 5 mg PO BID ON LICENSE OF [facility] Last Admin: 03/19/23 07:48 Dose: 5 mg Cyclobenzaprine HCl (Cyclobenzaprine Hcl 5 Mg Tablet) 5 mg PO TID PRN PRN Reason: muscle spasm Last Admin: 03/18/23 20:14 Dose: 5 mg Fenofibrate (Fenofibrate 160 Mg Tablet) 160 mg PO DAILY ON [facility] OF [facility] Last Admin: 03/19/23 07:48 Dose: 160 mg Cefazolin Sodium/Dextrose (Ancef) 2 gm in 50 mls @ 100 mls/hr IV Q8H ON LICENSE OF [facility] Last Infusion: 03/19/23 12:44 Dose: Infused Lidocaine (Lidocaine 4 % Patch Adh..Patch) 1 patch TRANSDERMA DAILY ON LICENSE OF [facility]; Protocol Last Admin: 03/19/23 07:48 Dose: 1 patch Omeprazole (Omeprazole 40 Mg Capsule.Dr) 40 mg PO BID@0630,1630 ON LICENSE OF [facility] Last Admin: 03/19/23 10:37 Dose: 40 mg Oxycodone HCl (Oxycodone Hcl Immed Release 5 Mg Tablet) 5 mg PO Q4H PRN PRN Reason: Pain, Mild (Pain Scale 1-3) Last Admin: 03/19/23 10:37 Dose: 5 mg Physical Exam 2 Vital Signs: Vital Signs: Last Vital Signs Temp 97.7 F 03/19/23 15:45 Pulse 98 03/19/23 15:45 Resp 18 03/19/23 15:45 BP 125/60 03/19/23 15:45 Pulse Ox 98 03/19/23 15:45 O2 Del Method Nasal Cannula 03/19/23 15:45 O2 Flow Rate 3 03/19/23 15:45 BMI result Body Mass Index 34.8 Const: General: cooperative HEENT: Head: Yes normal to inspection Face and sinus: Yes normal facial exam Mouth: Normal oral and palatal mucosa present Teeth and gingiva: d entition normal Eyes: General: appearance normal, both eyes and all related structures P upils: Equal, round and reactive pupils present Resp: Effort & Inspection: normal respiratory effort Cardio: Rate: regular rate Rhythm: regular rhythm GI: Palpation (GI): Soft to palpation and nontender : General: Yes no CVA tenderness Back/Spine/Pelvis: Back: no CVA tenderness Skin: General skin exam: no rashes or lesions noted Neuro: General: moves all extremities Cranial nerves: Yes Equal, round and reactive pupils present Extrem: General: Yes normal to inspection Psych: Appearance: grossly normal Results Labs 03/18/23 07:22 03/19/23 07:23 Labs: BMP 03/19/23 07:23 Creatinine 1.04 Microbiology Microbiology Results: Microbiology 03/17/23 12:01 Blood - Venous Blood Culture - Preliminary Staphylococcus aureus 03/17/23 11:23 Blood - Venous Blood Culture - Preliminary Staphylococcus aureus 03/16/23 05:05 Blood - Venous Blood Culture - Final Staphylococcus aureus 03/16/23 05:05 Blood - Venous Blood Culture - Final Staphylococcus aureus 03/14/23 09:42 Blood - Venous Blood Culture - Final Staphylococcus aureus 03/14/23 08:53 Blood - Venous Blood Culture - Final Staphylococcus aureus Assessment and Plan (1) Bacteremia due to methicillin susceptible Staphylococcus aureus (MSSA): Status: Acute He has persistent bacteremia likely due to aspiration nares which are positive for MRSA. He has unremarkable TTE and CT scans chest/abdomen /pelvis. (2) Altered mental status: Status: Acute (3) Severe sepsis: Status: Acute Plan Switch to Kefzol 2g every 8 hours Recheck blood culture 48 hours. JULIANNE if still positive blood cultures. Time Spent With Patient Time: Total time managing care of this patient today ____ minutes.
--- NOTE | 2023-03-19 16:32 | MHC.SLORD ---
Speech Language Pathology Order Status: RESEARCH NUTRITIONIST consult received. Per MD, RESEARCH NUTRITIONIST swallow evaluation can be deferred until tomorrow. RESEARCH NUTRITIONIST to evaluate tomorrow morning.
--- NOTE | 2023-03-19 16:59 | HO.PM.IMPN ---
Subjective Subjective Date of Service: 03/19/23 Interval History: Bacteremia ,GIB Review of Systems has fevers denies any new bleed has myalgia Physical Exam Vital Signs: Vital Signs: Last Vital Signs Temp 97.7 F 03/19/23 15:45 Pulse 98 03/19/23 15:45 Resp 18 03/19/23 15:45 BP 125/60 03/19/23 15:45 Pulse Ox 98 03/19/23 15:45 O2 Del Method Nasal Cannula 03/19/23 15:45 O2 Flow Rate 3 03/19/23 15:45 BMI result Body Mass Index 34.8 Appearance: metal status seems improving-knows his name ,hospital name ,daytime and year? has myalgia .? cvs: rrr, [id number]. res: clear to auscultation ,no rhonchii or wheezing abd: no rebound or guarding ,nt, bs present. ext pulses present , no cyanosis. neuro: axo3 , nonfocal. Objective Data Active Medications Acetaminophen (Acetaminophen 325 Mg Tablet) 650 mg PO Q6H PRN PRN Reason: Pain, Mild (Pain Scale 1-3) Last Admin: 03/19/23 04:13 Dose: 650 mg Documented By: HENRIQUE Albuterol Sulfate (Albuterol Sulfate (0.083%) 2.5 Mg/3 Ml Vial.Neb) 2.5 mg INHALE Q4H PRN PRN Reason: Wheezing Last Admin: 03/17/23 12:53 Dose: 2.5 mg Documented By: DANILO Atorvastatin Calcium (Atorvastatin Calcium 20 Mg Tablet) 20 mg PO DAILY [facility] Last Admin: 03/19/23 07:48 Dose: 20 mg Documented By: NIURKA Buspirone HCl (Buspirone Hcl 5 Mg Tablet) 5 mg PO BID [facility] Last Admin: 03/19/23 07:48 Dose: 5 mg Documented By: NIURKA Cyclobenzaprine HCl (Cyclobenzaprine Hcl 5 Mg Tablet) 5 mg PO TID PRN PRN Reason: muscle spasm Last Admin: 03/18/23 20:14 Dose: 5 mg Documented By: HENRIQUE Fenofibrate (Fenofibrate 160 Mg Tablet) 160 mg PO DAILY [facility] Last Admin: 03/19/23 07:48 Dose: 160 mg Documented By: NIURKA Cefazolin Sodium/Dextrose (Ancef) 2 gm in 50 mls @ 100 mls/hr IV Q8H [facility] Last Infusion: 03/19/23 12:44 Dose: Infused Documented By: ARNOLDO Lidocaine (Lidocaine 4 % Patch Adh..Patch) 1 patch TRANSDERMA DAILY [facility]; Protocol Last Admin: 03/19/23 07:48 Dose: 1 patch Documented By: NIURKA Omeprazole (Omeprazole 40 Mg Capsule.) 40 mg PO BID@0630,1630 [facility] Last Admin: 03/19/23 10:37 Dose: 40 mg Documented By: ARNOLDO Oxycodone HCl (Oxycodone Hcl Immed Release 5 Mg Tablet) 5 mg PO Q4H PRN PRN Reason: Pain, Mild (Pain Scale 1-3) Last Admin: 03/19/23 10:37 Dose: 5 mg Documented By: ARNOLDO Labs 03/18/23 07:22 03/19/23 07:23 Labs: Laboratory Results - last 24 hr 03/19/23 03/19/23 07:23 11:07 Estim Creat Clear Calc 68.9 Estimated GFR > 60 POC Glucose 145 H Microbiology Microbiology Results: Microbiology 03/18/23 13:58 Blood Culture - Preliminary Blood - Venous No growth after 24 hours. 03/18/23 13:58 Blood Culture - Preliminary Blood - Venous No growth after 24 hours. 03/17/23 12:01 Blood Culture - Preliminary Blood - Venous Staphylococcus aureus 03/17/23 11:23 Blood Culture - Preliminary Blood - Venous Staphylococcus aureus Assessment and Plan (1) Bacteremia due to methicillin susceptible Staphylococcus aureus (MSSA): Status: Acute Plan 67y/o M with hx of copd ,htn ,hlp,obesity, admitted with GI bleed with unclear source, further complicated by MSSA bacteremia . 1. sepsis(POA) with Bactermia mssa : chest ct, wbc scan-neg ct abd duodenal stranding has fever tachypnea blood cultures x4 possitive mssa ,blood culture x2 gram positive cocci in clusters added another blood cultures continue ceftriaxone 2 gm daily,tylenol for fevers. 2.GIB:possible sec to mild gasritis/gastric ulcer moniter h/h egd: mild gasritis/gastric ulcer biopsies sent by gi. continue ppi 3.copd excerebation-continue albuterol prn 4. htn: stable without meds 5. hlp: continue home meds (atorvaststain/fenofibrate). 6. Morbid obesity: Encouraged to lose weight, cut down calories. 7. possible has ckd 3 : his crcl is mostly 50's moniter bmp 8: Toxic metabolic encephalopathy(poa): Possible secondary to 1&2. Seems to be improving Inpatient need: Persistent bacteremia-need IV antibiotics, repeat blood culture pending. Time Spent With Patient Time: Total time managing care of this patient today ____ minutes. Quality Stroke Does the patient have a stroke diagnosis?: No VTE Prior VTE?: No VTE Risk Level:: Medical - moderate - high VTE Device Contraindication: N/A - Device Ordered VTE Drug Contraindication: N/A - Med Ordered
[2023-03-19 18:13] LABS: Heparin Induced Plt Ab Negative (Negative)
[2023-03-19 19:40] VITALS: BP 123/60; PULSE 89; RESP 17; TEMP 38; O2SAT 96
[2023-03-20] VITALS (8 sets, daily range): BP systolic 106–155; BP diastolic 49–66; PULSE 82–94; RESP 16–20; TEMP 36.1–37.9; O2SAT 93–100
--- NOTE | 2023-03-20 | ECG_ITS ---
Test Reason : 9 Blood Pressure : / mmHG Vent. Rate : 081 BPM Atrial Rate : 081 BPM P-R Int : 174 ms QRS Dur : 080 ms QT Int : 374 ms P-R-T Axes : 047 056 055 degrees QTc Int : 434 ms Normal sinus rhythm Nonspecific ST abnormality Abnormal ECG When compared with ECG of 14-MAR-2023 08:26, Heart rate has decreased Referred By: Jason Daniels Electronically Signed By:JONATAN LOPEZ
[2023-03-20] MEDS: oxyCODONE HCl Immed Release 5 MG TABLET PO ×4 (02:45→20:45)
[2023-03-20] MEDS: ceFAZolin Sodium/Dextrose,Iso 2 GM/50 ML PIGGYBACK IV ×2 (04:33→11:59)
[2023-03-20] MEDS: Omeprazole 40 MG CAPSULE.DR PO (06:53)
--- NOTE | 2023-03-20 07:25 | PC.NURSE ---
Assumed care at 23:00. patient A&Ox3. Patient with complaint of left-sided chest pain, nonradiating, worse on inspiration, sharp character, 9/10, associated difficulty with inspiration and inspiratory wheezes to auscultation, SpO2 91% on 3 LPM. Patient making frequent grunting/moaning noises. MD notified, paitent given PRN oxycodone and albuterol per MD with effect, f/u asssessment pain free. Patient IS was 1250 ccs.
[2023-03-20 07:28] LABS: Creatinine Clr Calc Pharmacy 35.3; Estimated Glomerular Filt Rate 33
[2023-03-20] MEDS: busPIRone HCl 5 MG TABLET PO ×2 (09:02→20:45)
[2023-03-20] MEDS: Atorvastatin Calcium 20 MG TABLET PO (09:02)
[2023-03-20] MEDS: Fenofibrate 160 MG TABLET PO (09:02)
[2023-03-20] MEDS: Lidocaine 4 % Patch ADH..PATCH 1 PATCH TRANSDERMA (09:05)
[2023-03-20] MEDS: Lactated Ringers 1,000 ML 100 ML IVCONT (09:06)
[2023-03-20] MEDS: Morphine Sulfate 2 MG/ML CARTRIDGE IVPUSH (09:39)
[2023-03-20 09:59] LABS: Hematocrit 21.6 % (42.0-52.0); Hemoglobin 7.4 g/dl (14.0-18.0)
[2023-03-20 10:00] LABS: Hematocrit 21.4 % (42.0-52.0); Hemoglobin 7.4 g/dl (14.0-18.0); Mean Corpuscular HGB Conc 34.6 g/dl (31.0-36.0); Mean Corpuscular Hemoglobin 31.6 pg (27.0-33.0); Mean Corpuscular Volume 91.5 fL (80.0-98.0); PLT CLUMP 1; Red Blood Count 2.34 X10*6/uL (4.60-5.80); Red Cell Distribution Width 15.2 % (11.0-16.0); White Blood Count 14.3 X10*3/uL (4.8-10.8)
[2023-03-20 10:15] LABS: Alanine Aminotransferase 24 U/L (0-40); Albumin Level 2.9 g/dL (3.5-5.0); Alkaline Phosphatase 61 U/L (39-117); Anion Gap 14 (12-20); Aspartate Amino Transferase 43 U/L (5-37); Bilirubin Total 1.1 mg/dL (0.0-1.0); Blood Urea Nitrogen 67 mg/dL (9-16); Calcium 8.2 mg/dL (8.4-10.2); Carbon Dioxide 21 mmol/L (22-29); Chloride 104 mmol/L (96-108); Creatinine Clr Calc Pharmacy 32.3; Estimated Glomerular Filt Rate 30; Glucose Random 147 mg/dL (60-115); Potassium 4.1 mmol/L (3.3-5.1); Sodium 135 mmol/L (135-145); Total Protein 5.8 g/dL (6.5-8.0)
[2023-03-20 10:23] LABS: Platelet Count 172 X10*3/uL (160-400)
[2023-03-20 10:26] LABS: Lipase 402 U/L (8-78)
--- NOTE | 2023-03-20 10:37 | P.CONNP_ITS ---
History of Present Illness Reason for Consult Consult date: 03/20/23 Chief Complaint Chief complaint: Sepsis History of Present Illness Narrative: 67-year-old smoker hypertensive and hyperlipidemic probable underlying COPD noticed an episode of diarrhea and a small amount of emesis but nothing since then without dyspnea without coughing apparently is being treated with 40 of prednisone for left shoulder tendinitis and also took ibuprofen noticed black tarry stool and he was guaiac positive on rectal exam alcoholic history but he has not had a drink for years and thus far on the serologies he is COVID negative other notable star thrombocytopenia and a marked left shift on his white count with relative lymphocyte a P knee a but no apparent skin rash He was found to have GI bleed. Underwent EGD which showed erosive duodenitis and erosive gastritis along with the gastric ulcer. He also has MSSA bacteremia and currently on antibiotic coverage. No documented hypotension. Did not receive any IV contrast. Serum creatinine has bumped up to 2.01. At the time of admission he had thrombocyt[place] [address] which is significantly improved to [id number] as of today. Review of Systems Review of Systems No headache. No nausea vomiting. No abdominal pain. No shortness of breath. No cough. No dysuria urgency or hematuria. No edema. [facility] Past Medical History Medical History Murmur, cardiac Arm pain, left Hyperkalemia Pulmonary nodule COPD (chronic obstructive pulmonary disease) COPD exacerbation Emphysema/COPD Bronchitis Lab test negative for COVID-19 virus Elevated cholesterol COVID-19 vaccine series completed Obesity (BMI 30-39.9) Pancreatitis Alcohol abuse Overweight (BMI 25.0-29.9) Tobacco abuse Erectile dysfunction Vitamin D deficiency Hypogonadism Macrocytosis without anemia Osteoarthritis Hypercholesterolemia Hypertension Bipolar disorder Amputation finger Right arm fracture Family History Family History Father No problems noted. Mother No problems noted. Sister No problems noted. Sister No problems noted. Son No problems noted. Daughter No problems noted. Daughter No problems noted. Family history: reviewed and not pertinent Surgical History Surgical History History of surgery on arm Finger amputation, no complication Social History Social History Household Members: Significant Other Housing: House Are you a primary home health care provider to a significant other at home: No Do you presently have visiting nurse or other home services: No Alcohol intake: never Patient Tobacco Use Status: Current someday Tobacco user Tobacco use type: Cigarette Cigarettes Per Day: 2 Years Smoked: 35 Smoked in Last 30 Days: Yes e-Cigarette/Vaping Use: Never Used Patient Interested in Nicotine Replacement: No Patient Given Instructions on How to Stop Smoking: No Second Hand Smoke Exposure: No Use of substances other than those prescribed or required for medical reasons: No Currently Displaying Signs/Symptoms of Drug Intoxication Withdrawal: No Have you been hit, kicked, punched, or otherwise hurt by someone within the past year? If so, by whom?: No Do you feel safe in your current relationship?: Yes Is there a partner from a previous relationship who is making you feel unsafe now?: No Are you made to feel afraid or neglected: No Are you DNR?: No Advance Directives: Yes Advance Directives Information Provided: Yes Advance Directives on File: No Advance Directives Date on File: 03/14/23 Do you have thoughts of harming others: None Do you have a plan to hurt others: No Plan Recently lost weight without trying: Unsure Eating poorly because of decreased appetite: No Nutrition Risks: No Nutritional Risk Poor oral hygiene: No service: No Current occupational status: employed 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 Cognitive needs: No Hearing needs: No Vision needs: Yes Meds Allergies Allergy/AdvReac Type Severity Reaction Status Date / Time bupropion [From Wellbutrin] AdvReac Severe Anxiety Verified 03/12/23 07:43 Active Medications: Current Medications Acetaminophen (Acetaminophen 325 Mg Tablet) 650 mg PO Q6H PRN PRN Reason: Pain, Mild (Pain Scale 1-3) Last Admin: 03/19/23 04:13 Dose: 650 mg Albuterol Sulfate (Albuterol Sulfate (0.083%) 2.5 Mg/3 Ml Vial.Neb) 2.5 mg INHALE Q4H PRN PRN Reason: Wheezing Last Admin: 03/17/23 12:53 Dose: 2.5 mg Atorvastatin Calcium (Atorvastatin Calcium 20 Mg Tablet) 20 mg PO DAILY [facility] Last Admin: 03/20/23 09:02 Dose: 20 mg Buspirone HCl (Buspirone Hcl 5 Mg Tablet) 5 mg PO BID [facility] Last Admin: 03/20/23 09:02 Dose: 5 mg Cyclobenzaprine HCl (Cyclobenzaprine Hcl 5 Mg Tablet) 5 mg PO TID PRN PRN Reason: muscle spasm Last Admin: 03/18/23 20:14 Dose: 5 mg Fenofibrate (Fenofibrate 160 Mg Tablet) 160 mg PO DAILY [facility] Last Admin: 03/20/23 09:02 Dose: 160 mg Cefazolin Sodium/Dextrose (Ancef) 2 gm in 50 mls @ 100 mls/hr IV Q8H [facility] Last Infusion: 03/20/23 06:21 Dose: Infused Lactated Ringer's (Lr) 1,000 mls @ 100 mls/hr IVCONT .Q10H [facility] Last Admin: 03/20/23 09:06 Dose: 100 mls/hr Lidocaine (Lidocaine 4 % Patch Adh..Patch) 1 patch TRANSDERMA DAILY [facility]; Protocol Last Admin: 03/20/23 09:05 Dose: 1 patch Omeprazole (Omeprazole 40 Mg Capsule.Dr) 40 mg PO BID@0630,1630 [facility] Last Admin: 03/20/23 06:53 Dose: 40 mg Oxycodone HCl (Oxycodone Hcl Immed Release 5 Mg Tablet) 5 mg PO Q4H PRN PRN Reason: Pain, Mild (Pain Scale 1-3) Last Admin: 03/20/23 09:02 Dose: 5 mg Physical Exam Vital Signs: Last Vital Signs Temp 99.6 F 03/20/23 07:23 Pulse 90 03/20/23 07:23 Resp 20 03/20/23 07:23 BP 121/66 03/20/23 07:23 Pulse Ox 100 03/20/23 07:23 O2 Del Method Nasal Cannula 03/20/23 07:23 O2 Flow Rate 3 03/20/23 07:23 BMI result Body Mass Index 34.8 Comfortable Neck is supple Lung: Air entry equal Heart: S1,S2, normal. No rub Abd: Soft. BS + NS : Alert.No asterexis Ext: No edema Results Lab Results 03/20/23 09:46 03/20/23 09:46 Lab results: Chemistry 03/18/23 03/19/23 03/20/23 07:22 07:23 06:15 Sodium 139 Potassium 3.8 Carbon Dioxide 22 BUN 44 H Creatinine 1.13 1.04 2.03 H Calcium 8.7 Phosphorus 2.9 03/20/23 09:46 Sodium 135 Potassium 4.1 Carbon Dioxide 21 L BUN 67 H Creatinine 2.22 H Calcium 8.2 L Phosphorus Hematology 03/18/23 03/20/23 03/20/23 07:22 09:46 09:46 WBC 14.3 H 14.3 H Hgb 7.5 L 7.4 L 7.4 L Plt Count 105 L D 172 D Assessment and Plan (1) Acute kidney injury: Status: Acute Plan 67-year-old man with MAIRA in the setting of sepsis. Efra had essentially normal renal function at baseline creatinine 1.04. Urine sediments were benign few days ago therefore glomerular nephritis or interstitial disease seems unlikely. Imaging did not show any significant obstruction. Probably has tubular injury in the setting of bacteremia Recommendations Repeat urinalysis. Check urine for sodium creatinine protein. Given the history of thrombocytopenia we will order further serological workup. Continue to avoid hypotension. Avoid nephrotoxic agents. Monitor urine output and watch for urinary retention. Agree with cautious hydration with normal saline to keep intake more than output. Further workup will be based on the, of the outcome baseline investigations. She will follow along with the team Time Spent With Patient Time: Total time managing care of this patient today ____ minutes. Procedures Date of Service Date of Service: 03/20/23
--- NOTE | 2023-03-20 11:25 | MHC.SL.SWA ---
Speech Pathologist Impression: Risk of Aspiration Due to: Medically Fragile Dysphasia Diet Status: Mild oral phase dysphagia secondary to edentulous state. Liquid Consistency and Strategies for Safe Swallow: Liquid Intake Recommendation: Thin Liquid Intake Strategies: Solid Food Consistency: Dietary Recommendations: Regular Additional Modifications to Solid Foods: Patient is missing right index finger, but evidenced ability to feed self without difficulty. Patient would benefit from having larger pieced of food cut up smaller for ease of eating. Patient is encouraged to select softer foods from regular menu. Oral Medication Intake: Whole with Liquid Please contact the pharmacy regarding appropriate crushable or liquid drug formulations that are available whenever modified delivery is recommended. Compensatory Strategies and Precautions to be Taken for Safe Swallow: Sitting Upright (90 deg) Liquids from Cup Small Bites and Sips Alternate Liquids/Solids Supervision While Eating and Drinking for Safe Swallow: None Needed Foods to Avoid: Tough, difficult to chew solids Swallowing Recommended Treatments: Recommendation for Speech: NA:Typical Evaluation Comment: Patient presents will most aspects of swallow and oral motor function WFL. Patient is edentulous, has only upper dentures with him in hospital, but manages regular textures well with single denture, and reports that he ate everything, did not need to avoid certain foods prior to this admission, and has no history of swallowing difficulty. Patient is missing R index finger, but was observed as capable of independently feeding self without difficulty. Patient is currently on full liquid diet. When medically cleared/appropriate, Recommend UPGRADE to Regular diet with Thin Liquids, pills whole in puree. FREDERICK BARCLAY notified of recommendation by secure text, RN in person. As all aspects of swallow is WFL and patient has no prior history of dysphagia, recommend DC speech at this time. Please re-consult if additional concerns arise. Frequency/Duration: Date Range for Service Req: Timeline to reassess: Hydro Sprayer Operator Clinican/Clinical Fellow: No Supervisory Statement: I have reviewed and agree with the student/clinical fellow's documentation: N/A Speech Language Pathologist: Moraima Hodge M.A., CCC-INSTRUMENTATION MANAGER
[2023-03-20 11:29] LABS: Anti Nuclear Antibody Screen POSITIVE (NEGATIVE)
[2023-03-20 11:33] LABS: Anti Nuclear Antibody Pattern Nuclear, Homogeneous; Anti Nuclear Antibody Titer 1:40 titer
[2023-03-20 12:11] LABS: Troponin-I High Sensitivity 11.7 ng/L (<3.5-35.0)
[2023-03-20 12:38] LABS: Appearance Urine Cloudy; Color Urine Dark Yellow; Glucose Urine UA Negative (Negative); Leukocyte Esterase Urine Small (1+) (Negative); Nitrite Urine Positive (Negative); UMIC TRIGGER UA YES; Urine Blood Negative (Negative); Urine Ketones Trace mg/dL (Negative); Urine Protein Negative (Neg-Trace)
[2023-03-20 13:01] LABS: Bacteria Urine 1+ (None Seen); RBC Urine 0-2 /HPF (0-2)
[2023-03-20 13:06] LABS: Potassium Urine Random 49.6 mmol/L; Sodium Urine Random < 20.0 mmol/L
[2023-03-20 13:13] LABS: Creatinine Urine 213.06 mg/dL; Total Protein Urine Random 17 mg/dL (<12)
[2023-03-20 13:38] LABS: JO 1 Antibody <1.0 NEG AI (<1.0 NEG)
[2023-03-20] MEDS: Albumin Human 25 % 100 ML IV ×2 (14:11→15:48)
--- NOTE | 2023-03-20 15:04 | HO.PM.IMPN ---
Subjective Subjective Date of Service: 03/20/23 Interval History: patient complaining of on and off epigastric pain Review of Systems Denies any chest pain or sob or nausea vomiting or diarrhea or fevers has low po intake says constipated but passing gases Physical Exam Vital Signs: Vital Signs: Last Vital Signs Temp 98.2 F 03/20/23 13:23 Pulse 90 03/20/23 13:23 Resp 18 03/20/23 13:23 BP 136/57 L 03/20/23 13:23 Pulse Ox 99 03/20/23 11:08 O2 Del Method Nasal Cannula 03/20/23 11:08 O2 Flow Rate 3 03/20/23 11:08 BMI result Body Mass Index 34.8 Appearance: metal status seems improving-knows his name ,hospital name ,daytime and year? [facility]: [facility], [id number]. res: clear to auscultation ,no rhonchii or wheezing abd: no rebound or guarding ,epigastric discomfort, bs present. ext pulses present , no cyanosis. neuro: axo3 , nonfocal. Objective Data Active Medications Acetaminophen (Acetaminophen 325 Mg Tablet) 650 mg PO Q6H PRN PRN Reason: Pain, Mild (Pain Scale 1-3) Last Admin: 03/19/23 04:13 Dose: 650 mg Documented By: HENRIQUE Albuterol Sulfate (Albuterol Sulfate (0.083%) 2.5 Mg/3 Ml Vial.Neb) 2.5 mg INHALE Q4H PRN PRN Reason: Wheezing Last Admin: 03/17/23 12:53 Dose: 2.5 mg Documented By: DANILO Atorvastatin Calcium (Atorvastatin Calcium 20 Mg Tablet) 20 mg PO DAILY COUNTS INCLUDE 234 BEDS AT THE [facility] Last Admin: 03/20/23 09:02 Dose: 20 mg Documented By: NIURKA Buspirone HCl (Buspirone Hcl 5 Mg Tablet) 5 mg PO BID COUNTS INCLUDE 234 BEDS AT THE [facility] Last Admin: 03/20/23 09:02 Dose: 5 mg Documented By: NIURKA Cyclobenzaprine HCl (Cyclobenzaprine Hcl 5 Mg Tablet) 5 mg PO TID PRN PRN Reason: muscle spasm Last Admin: 03/18/23 20:14 Dose: 5 mg Documented By: HENRIQUE Fenofibrate (Fenofibrate 160 Mg Tablet) 160 mg PO DAILY COUNTS INCLUDE 234 BEDS AT THE [facility] Last Admin: 03/20/23 09:02 Dose: 160 mg Documented By: NIURKA Cefazolin Sodium/Dextrose (Ancef) 2 gm in 50 mls @ 100 mls/hr IV Q8H COUNTS INCLUDE 234 BEDS AT THE [facility] Last Infusion: 03/20/23 12:35 Dose: Infused Documented By: ARNOLDO Lactated Ringer's (Lr) 1,000 mls @ 100 mls/hr IVCONT .Q10H COUNTS INCLUDE 234 BEDS AT THE [facility] Last Infusion: 03/20/23 12:04 Dose: 0 mls/hr Documented By: ARNOLDO Albumin Human (Kedbumin 25 %) 100 mls @ 100 mls/hr IV Q1H COUNTS INCLUDE 234 BEDS AT THE [facility] Stop: 03/20/23 15:44 Last Admin: 03/20/23 14:11 Dose: 100 mls/hr Documented By: NIURKA Lidocaine (Lidocaine 4 % Patch Adh..Patch) 1 patch TRANSDERMA DAILY COUNTS INCLUDE 234 BEDS AT THE [facility]; Protocol Last Admin: 03/20/23 09:05 Dose: 1 patch Documented By: NIURKA Oxycodone HCl (Oxycodone Hcl Immed Release 5 Mg Tablet) 5 mg PO Q4H PRN PRN Reason: Pain, Mild (Pain Scale 1-3) Last Admin: 03/20/23 13:12 Dose: 5 mg Documented By: NIURKA Pantoprazole Sodium (Pantoprazole Sodium 40 Mg/10 Ml Vial) 40 mg IVPUSH BID@0630,1630 COUNTS INCLUDE 234 BEDS AT THE [facility] Labs 03/20/23 09:46 03/20/23 09:46 Labs: Laboratory Results - last 24 hr 03/16/23 03/16/23 03/18/23 06:03 15:01 13:58 MCV MCH MCHC RDW Plt Count MPV Absolute Nucleated RBC Nucleated RBC % (auto) Hep-Ind Thrombocytop Com TNP Anion Gap Estim Creat Clear Calc Estimated GFR Random Glucose Calcium Total Bilirubin AST ALT Alkaline Phosphatase Total Protein Albumin Lipase Urine Color Urine Appearance Urine pH Ur Specific [place] Urine Protein Urine Glucose (UA) Urine Ketones Urine Blood Urine Nitrite Ur Leukocyte Esterase Urine RBC Urine WBC Ur Squamous Epith Cells Urine Bacteria Hyaline Casts U Random Total Protein Ur Random Sodium Ur Random Potassium Urine Creatinine SIDRA Screen POSITIVE A SIDRA Titer 1:40 H SIDRA Titer 2 TNP SIDRA Titer 3 TNP SIDRA Pattern Nuclear, Homogeneous A SIDRA Pattern 2 TNP SIDRA Pattern 3 TNP Heparin Dep Plt Ab OD 0.180 Hep-Induced Plt Ab Taylor Negative Blood Type A Positive Antibody Screen NEGATIVE Crossmatch See Detail 03/20/23 03/20/23 03/20/23 06:15 09:46 12:12 MCV 91.5 MCH 31.6 MCHC 34.6 RDW 15.2 Plt Count 172 D MPV Not Reportable Absolute Nucleated RBC 0.000 Nucleated RBC % (auto) 0.0 Hep-Ind Thrombocytop Com Anion Gap 14 Estim Creat Clear Calc 35.3 32.3 Estimated GFR 33 30 Random Glucose 147 H Calcium 8.2 L Total Bilirubin 1.1 H AST 43 H ALT 24 Alkaline Phosphatase 61 Total Protein 5.8 L Albumin 2.9 L Lipase 402 H Urine Color Dark Yellow Urine Appearance Cloudy Urine pH 5.0 Ur Specific [place] 1.020 Urine Protein Negative Urine Glucose (UA) Negative Urine Ketones Trace Urine Blood Negative Urine Nitrite Positive H Ur Leukocyte Esterase Small (1+) H Urine RBC 0-2 Urine WBC 6-10 H Ur Squamous Epith Cells 3-5 Urine Bacteria 1+ Hyaline Casts 3-5 U Random Total Protein 17 H Ur Random Sodium < 20.0 Ur Random Potassium Urine Creatinine SIDRA Screen SIDRA Titer SIDRA Titer 2 SIDRA Titer 3 SIDRA Pattern SIDRA Pattern 2 SIDRA Pattern 3 Heparin Dep Plt Ab OD Hep-Induced Plt Ab Taylor Blood Type Antibody Screen Crossmatch 03/20/23 12:12 MCV MCH MCHC RDW Plt Count MPV Absolute Nucleated RBC Nucleated RBC % (auto) Hep-Ind Thrombocytop Com Anion Gap Estim Creat Clear Calc Estimated GFR Random Glucose Calcium Total Bilirubin AST ALT Alkaline Phosphatase Total Protein Albumin Lipase Urine Color Urine Appearance Urine pH Ur Specific [place] Urine Protein Urine Glucose (UA) Urine Ketones Urine Blood Urine Nitrite Ur Leukocyte Esterase Urine RBC Urine WBC Ur Squamous Epith Cells Urine Bacteria Hyaline Casts U Random Total Protein Ur Random Sodium Cancelled Ur Random Potassium 49.6 Urine Creatinine 213.06 SIDRA Screen SIDRA Titer SIDRA Titer 2 SIDRA Titer 3 SIDRA Pattern SIDRA Pattern 2 SIDRA Pattern 3 Heparin Dep Plt Ab OD Hep-Induced Plt Ab Taylor Blood Type Antibody Screen Crossmatch Microbiology Microbiology Results: Microbiology 03/17/23 11:23 Blood Culture - Final Blood - Venous Staphylococcus aureus 03/18/23 13:58 Blood Culture - Preliminary Blood - Venous Prelim: GPC Gram Stain only 03/18/23 13:58 Blood Culture - Preliminary Blood - Venous Prelim: GPC Gram Stain only 03/17/23 12:01 Blood Culture - Final Blood - Venous Staphylococcus aureus Assessment and Plan (1) Bacteremia due to methicillin susceptible Staphylococcus aureus (MSSA): Status: Acute (2) Acute kidney injury: Status: Acute Plan 67y/o M with hx of copd ,htn ,hlp,obesity, admitted with GI bleed with unclear source, further complicated by MSSA bacteremia . 1. sepsis(POA) with Bactermia mssa : chest ct, wbc scan-neg ct abd duodenal stranding has fever tachypnea blood cultures x6 possitive mssa ,blood culture x2 gram positive cocci in clusters added another blood cultures on cefzolin 2 gm q8hr ,tylenol for fevers. added cardiology eval for JULIANNE for persistent blood culture positive. 2.anemia of acute blood loss sec GIB:possible sec to mild gasritis/gastric ulcer has epigastric pain h/h slightlylower 7.[address] abd with po contrast,cxr . ekg seems similar ,trops neg added type and cross ,added prbc. also has egd on 03/18: mild gasritis/gastric ulcer ,biopsies sent by gi. Gi follow up 3.copd excerebation-continue albuterol prn 4. htn: stable without meds 5. hlp: continue home meds (atorvaststain/fenofibrate). 6. Morbid obesity: Encouraged to lose weight, cut down calories. 7. triston on possible ckd 3 : his crcl is mostly 50's possible multifactorial-dec po intake , sepsis ,flactuating bp added ua and serolgies added ivf , also will get prbc, continue antibiotics added nephrology eval. 8: Toxic metabolic encephalopathy(poa): Possible secondary to 1&2. Seems to be improving Inpatient need: Persistent bacteremia-need IV antibiotics, repeat blood culture persistent positive mssa -need cardiology eval for JULIANNE,triston- need hydration and workup. Time Spent With Patient Time: Total time managing care of this patient today ____ minutes. Quality Stroke Does the patient have a stroke diagnosis?: No VTE Prior VTE?: No VTE Risk Level:: Medical - moderate - high VTE Device Contraindication: N/A - Device Ordered VTE Drug Contraindication: N/A - Med Ordered
[2023-03-20 15:08] LABS: Aldolase 7.8 U/L (<=8.1)
[2023-03-20] MEDS: Diatrizoate Meglumine, Sodium 120 ML SOLUTION PO (15:36)
[2023-03-20] MEDS: Pantoprazole Sodium 40 MG/10 ML VIAL IVPUSH (15:49)
[2023-03-20 17:59] LABS: Chloride Urine Random < 20.0 mmol/L
[2023-03-20] MEDS: SODIUM CHLORIDE 0.9% IV (19:02)
[2023-03-20] MEDS: DAPTOMYCIN IV (19:02)
[2023-03-20 19:21] LABS: Erythrocyte Sedimentation Rate 54 MM/HR (0-15)
--- NOTE | 2023-03-20 21:12 | PM.GIPN ---
Subjective Subjective Date of Service: 03/20/23 Interval History: No longer confused breathing improving no chest or abdo pain no melena awaiting JULIANNE Critical Care Time (minutes): 0 Physical Exam Vital Signs: Vital Signs: Last Vital Signs Temp 100.3 F 03/20/23 19:35 Pulse 94 03/20/23 19:35 Resp 18 03/20/23 19:35 BP 155/62 H 03/20/23 19:35 Pulse Ox 93 03/20/23 19:35 O2 Del Method Nasal Cannula 03/20/23 19:35 O2 Flow Rate 3 03/20/23 19:35 BMI result Body Mass Index 34.8 EXAM: GENERAL: The patient is well developed and nontoxic. ROscea noted VITAL SIGNS:see workflow HEENT: Nonicteric sclerae, PERRLA, EOMI. Oropharynx clear. Moist mucous membranes. Conjunctivae appear well perfused. No thyroid mass. CHEST: Chest wall is nontender. HEART: Regular rate and rhythm --PSM at sternal edge LUNGS: Clear to auscultation bilaterally. ABDOMEN: Soft, positive bowel sounds, nontender, no organomegaly.no flank tenderness SKIN: No rash, no excessive bruising, petechiae, or purpura. NEUROLOGIC: Cranial nerves II-XII intact without motor/sensory deficit. psych -nml Objective Data Labs 03/20/23 09:46 03/20/23 09:46 Labs: Laboratory Results - last 24 hr 03/16/23 03/16/23 03/18/23 06:03 15:01 13:58 WBC RBC Hgb Hct MCV MCH MCHC RDW Plt Count MPV Absolute Nucleated RBC Nucleated RBC % (auto) ESR Hep-Ind Thrombocytop Com TNP Sodium Potassium Chloride Carbon Dioxide Anion Gap BUN Creatinine Estim Creat Clear Calc Estimated GFR Random Glucose Calcium Total Bilirubin AST ALT Alkaline Phosphatase Total Creatine Kinase Troponin I High Sens Total Protein Albumin Lipase Aldolase 7.8 Urine Color Urine Appearance Urine pH Ur Specific [place] Urine Protein Urine Glucose (UA) Urine Ketones Urine Blood Urine Nitrite Ur Leukocyte Esterase Urine RBC Urine WBC Ur Squamous Epith Cells Urine Bacteria Hyaline Casts U Random Total Protein Ur Random Sodium Ur Random Potassium Ur Random Chloride Urine Creatinine SIDRA Screen POSITIVE A SIDRA Titer 1:40 H SIDRA Titer 2 TNP SIDRA Titer 3 TNP SIDRA Pattern Nuclear, Homogeneous A SIDRA Pattern 2 TNP SIDRA Pattern 3 TNP Blood Type A Positive Antibody Screen NEGATIVE Crossmatch See Detail 03/20/23 03/20/23 03/20/23 06:15 09:46 09:46 WBC 14.3 H RBC 2.34 L Hgb 7.4 L 7.4 L Hct 21.6 L MCV MCH MCHC RDW Plt Count MPV Absolute Nucleated RBC Nucleated RBC % (auto) ESR Hep-Ind Thrombocytop Com Sodium Potassium Chloride Carbon Dioxide Anion Gap BUN Creatinine 2.03 H Estim Creat Clear Calc 35.3 Estimated GFR 33 Random Glucose Calcium Total Bilirubin AST ALT Alkaline Phosphatase Total Creatine Kinase Troponin I High Sens Total Protein Albumin Lipase Aldolase Urine Color Urine Appearance Urine pH Ur Specific [place] Urine Protein Urine Glucose (UA) Urine Ketones Urine Blood Urine Nitrite Ur Leukocyte Esterase Urine RBC Urine WBC Ur Squamous Epith Cells Urine Bacteria Hyaline Casts U Random Total Protein Ur Random Sodium Ur Random Potassium Ur Random Chloride Urine Creatinine SIDRA Screen SIDRA Titer SIDRA Titer 2 SIDRA Titer 3 SIDRA Pattern SIDRA Pattern 2 SIDRA Pattern 3 Blood Type Antibody Screen Crossmatch 03/20/23 03/20/23 03/20/23 09:46 11:36 12:12 WBC RBC Hgb Hct 21.4 L MCV 91.5 MCH 31.6 MCHC 34.6 RDW 15.2 Plt Count 172 D MPV Not Reportable Absolute Nucleated RBC 0.000 Nucleated RBC % (auto) 0.0 ESR Hep-Ind Thrombocytop Com Sodium 135 Potassium 4.1 Chloride 104 Carbon Dioxide 21 L Anion Gap 14 BUN 67 H Creatinine 2.22 H Estim Creat Clear Calc 32.3 Estimated GFR 30 Random Glucose 147 H Calcium 8.2 L Total Bilirubin 1.1 H AST 43 H ALT 24 Alkaline Phosphatase 61 Total Creatine Kinase Troponin I High Sens 11.7 D Total Protein 5.8 L Albumin 2.9 L Lipase 402 H Aldolase Urine Color Dark Yellow Urine Appearance Cloudy Urine pH 5.0 Ur Specific [place] 1.020 Urine Protein Negative Urine Glucose (UA) Negative Urine Ketones Trace Urine Blood Negative Urine Nitrite Positive H Ur Leukocyte Esterase Small (1+) H Urine RBC 0-2 Urine WBC 6-10 H Ur Squamous Epith Cells 3-5 Urine Bacteria 1+ Hyaline Casts 3-5 U Random Total Protein 17 H Ur Random Sodium < 20.0 Ur Random Potassium Ur Random Chloride Urine Creatinine SIDRA Screen SIDRA Titer SIDRA Titer 2 SIDRA Titer 3 SIDRA Pattern SIDRA Pattern 2 SIDRA Pattern 3 Blood Type Antibody Screen Crossmatch 03/20/23 03/20/23 12:12 18:31 WBC RBC Hgb Hct MCV MCH MCHC RDW Plt Count MPV Absolute Nucleated RBC Nucleated RBC % (auto) ESR 54 H Hep-Ind Thrombocytop Com Sodium Potassium Chloride Carbon Dioxide Anion Gap BUN Creatinine Estim Creat Clear Calc Estimated GFR Random Glucose Calcium Total Bilirubin AST ALT Alkaline Phosphatase Total Creatine Kinase 52 Troponin I High Sens Total Protein Albumin Lipase Aldolase Urine Color Urine Appearance Urine pH Ur Specific [place] Urine Protein Urine Glucose (UA) Urine Ketones Urine Blood Urine Nitrite Ur Leukocyte Esterase Urine RBC Urine WBC Ur Squamous Epith Cells Urine Bacteria Hyaline Casts U Random Total Protein Ur Random Sodium Cancelled Ur Random Potassium 49.6 Ur Random Chloride < 20.0 Urine Creatinine 213.06 SIDRA Screen SIDRA Titer SIDRA Titer 2 SIDRA Titer 3 SIDRA Pattern SIDRA Pattern 2 SIDRA Pattern 3 Blood Type Antibody Screen Crossmatch Microbiology Microbiology Results: Microbiology 03/17/23 11:23 Blood - Venous Blood Culture - Final Staphylococcus aureus 03/18/23 13:58 Blood - Venous Blood Culture - Preliminary Prelim: GPC Gram Stain only 03/18/23 13:58 Blood - Venous Blood Culture - Preliminary Prelim: GPC Gram Stain only 03/17/23 12:01 Blood - Venous Blood Culture - Final Staphylococcus aureus 03/16/23 05:05 Blood - Venous Blood Culture - Final Staphylococcus aureus 03/16/23 05:05 Blood - Venous Blood Culture - Final Staphylococcus aureus 03/14/23 09:42 Blood - Venous Blood Culture - Final Staphylococcus aureus 03/14/23 08:53 Blood - Venous Blood Culture - Final Staphylococcus aureus Procedures Date of Service Date of Service: 03/20/23 Progress Note: A&P Assessment and plan (1) Acute GI bleeding: Status: Acute (2) Gastric ulcer: Status: Acute Plan 1/ Acute GI bleed in setting of MSSA bacteremia, slowly improving PLAN: 1/ cont with high dose PPI, an add carafate BID 2/ ok to have JULIANNE from [facility]--can have PO diet thereafter Time Spent With Patient Time: Total time managing care of this patient today ____ minutes. Quality Stroke Does the patient have a stroke diagnosis?: No VTE Prior VTE?: No VTE Risk Level:: Medical - moderate - high VTE Device Contraindication: N/A - Device Ordered VTE Drug Contraindication: N/A - Med Ordered
[2023-03-21] VITALS (11 sets, daily range): BP systolic 105–138; BP diastolic 45–65; PULSE 79–101; RESP 16–20; TEMP 36.3–37.9; O2SAT 96–100
[2023-03-21] MEDS: Pantoprazole Sodium 40 MG/10 ML VIAL IVPUSH ×2 (06:01→15:43)
--- NOTE | 2023-03-21 07:00 | CA_ITS ---
Transesophageal Echocardiogram Amended Patient (Last, First, Middle): Kris Hunter A Gender: Male Date of : 1955 Age: 67 Procedure Date: 03/21/2023 Procedure Type: Transesophageal Echocardiogram [place] [facility] [place] Height: 160.02 cm Weight: 88.91 kg BSA: 1.92 m2 Heart Rate: 82 bpm BP: 133 / 65 mmHg [employer]: HUNG Raymond MD: Shay Maharaj MD Symptoms: MSSA bacteremia Appeals Court Associate Justice: Shay Maharaj MD Conclusion: ??? Normal left ventricular size and systolic function. The visually estimated ejection fraction is between 55-60%. ??? There is mild mitral valve regurgitation. There is no mitral valve stenosis. Small vegetation vs torn chordae of mitral valve posterior leaflet. ??? Cannot rule out bicuspid valve, obvious vegetation noted on the valve which is small is size but aortic valve appears quite abnormal with clear prolapse of one of the cusps (difficult to understand anatomy as the valve appears very abnormal and there is prolapse of cusp) with mild to moderate eccentric aortic regurgitation. Cannot rule out a small aortic root abscess anteriorly. Findings Procedure Information Consent was obtained prior to the procedure. The adult 3D probe was passed with minimal difficulty. Left Ventricle Normal left ventricular size and systolic function. The visually estimated ejection fraction is between 55-60%. Right Ventricle Normal right ventricular cavity size and systolic function. Atria There is no evidence of a thrombus in the left atrial appendage. Aortic Valve Cannot rule out bicuspid valve, obvious vegetation noted on the valve which is small is size but aortic valve appears quite abnormal with clear prolapse of one of the cusps (difficult to understand anatomy as the valve appears very abnormal and there is prolapse of cusp) with mild to moderate eccentric aortic regurgitation. Cannot rule out a small aortic root abscess anteriorly. Mitral Valve There is mild mitral valve regurgitation. There is no mitral valve stenosis. Small vegetation vs torn chordae of mitral valve posterior leaflet. Pulmonic Valve The pulmonic valve is normal. No obvious vegetation noted. Tricuspid Valve Normal tricuspid valve structure. No obvious vegetation noted. Pericardium/Pleural There is no evidence of pericardial effusion. Updated by Shay Maharaj on 01:06 PM with Status of Final Shay Maharaj MD electronically signed on 03/23/2023 1:06:10 PM with status of Final
[2023-03-21 07:25] LABS: Hematocrit 23.4 % (42.0-52.0); Hemoglobin 7.9 g/dl (14.0-18.0); Mean Corpuscular HGB Conc 33.8 g/dl (31.0-36.0); Mean Corpuscular Hemoglobin 31.2 pg (27.0-33.0); Mean Corpuscular Volume 92.5 fL (80.0-98.0); Mean Platelet Volume 13.3 fL (9.4-12.4); Platelet Count 168 X10*3/uL (160-400); Red Blood Count 2.53 X10*6/uL (4.60-5.80); Red Cell Distribution Width 15.2 % (11.0-16.0)
[2023-03-21 07:46] LABS: Anion Gap 15 (12-20); Blood Urea Nitrogen 94 mg/dL (9-16); Carbon Dioxide 20 mmol/L (22-29); Chloride 105 mmol/L (96-108); Creatinine Clr Calc Pharmacy 25.5; Estimated Glomerular Filt Rate 23; Glucose Random 112 mg/dL (60-115); Potassium 4.1 mmol/L (3.3-5.1); Sodium 136 mmol/L (135-145)
[2023-03-21] MEDS: Lactated Ringers 1,000 ML 80 ML IVCONT (08:26)
[2023-03-21] MEDS: Lidocaine 4 % Patch ADH..PATCH 1 PATCH TRANSDERMA (08:26)
[2023-03-21] MEDS: busPIRone HCl 5 MG TABLET PO ×2 (08:26→19:56)
[2023-03-21 08:36] LABS: Alanine Aminotransferase 7 U/L (0-40); Albumin Level 2.9 g/dL (3.5-5.0); Alkaline Phosphatase 59 U/L (39-117); Aspartate Amino Transferase 28 U/L (5-37); Bilirubin Direct 0.7 mg/dL (0.0-0.5); Total Protein 5.9 g/dL (6.5-8.0)
--- NOTE | 2023-03-21 10:13 | MHC.CM.PN ---
Per ROUNDS discussion, Patient is not yet medically cleared for dc (IV Dapto, IV Protonix); PT recommends STR and CM will continue to follow.
[2023-03-21] MEDS: Albumin Human 25 % 100 ML 133.33 ML IV ×2 (10:46→14:04)
--- NOTE | 2023-03-21 11:43 | P.CONAN_ITS ---
[facility] Active Problems Active Problems: All Active Problems (Updated 03/20/23 @ 21:14 by Romulo Ward MD) Gastric ulcer (Acute) Bacteremia due to methicillin susceptible Staphylococcus aureus (MSSA) (Acute) Altered mental status (Acute) Acute kidney injury (Acute) Severe sepsis (Acute) Thrombocytopenia (Acute) Acute GI bleeding (Acute) Duodenitis (Acute) Sciatic nerve injury (Acute) Generalized anxiety disorder (Acute) Hyperkalemia (Acute) Hypertension (Acute) Colon cancer screening (Acute) Coronary artery disease (Acute) Fatty liver (Acute) Vitamin B 12 deficiency (Acute) Hypercholesterolemia (Acute) Erectile dysfunction (Acute) BPH (benign prostatic hyperplasia) (Acute) Obesity (BMI 30.0-34.9) (Acute) Frequency of micturition (Acute) Vision changes (Acute) Pulmonary nodule (Acute) COPD (chronic obstructive pulmonary disease) (Acute) Impaired glucose tolerance (Acute) Renal insufficiency (Acute) Primary osteoarthritis of knee (Acute) Preop exam for internal medicine (Acute) Past Medical History Medical History Murmur, cardiac Arm pain, left Hyperkalemia Pulmonary nodule COPD (chronic obstructive pulmonary disease) COPD exacerbation Emphysema/COPD Bronchitis Lab test negative for COVID-19 virus Elevated cholesterol COVID-19 vaccine series completed Obesity (BMI 30-39.9) Pancreatitis Alcohol abuse Overweight (BMI 25.0-29.9) Tobacco abuse Erectile dysfunction Vitamin D deficiency Hypogonadism Macrocytosis without anemia Osteoarthritis Hypercholesterolemia Hypertension Bipolar disorder Amputation finger Right arm fracture Family History Family History Father No problems noted. Mother No problems noted. Sister No problems noted. Sister No problems noted. Son No problems noted. Daughter No problems noted. Daughter No problems noted. Family history of problems with anesthesia: No Surgical History Surgical History History of surgery on arm Finger amputation, no complication History of Problems with Anesthesia: No Social History Social History Household Members: Significant Other Housing: House Are you a primary vision care associate to a significant other at home: No Do you presently have visiting nurse or other home services: No Alcohol intake: never Patient Tobacco Use Status: Current everyday Tobacco user Tobacco use type: Cigarette Cigarettes Per Day: 2 Years Smoked: 35 Smoked in Last 30 Days: Yes e-Cigarette/Vaping Use: Never Used Patient Interested in Nicotine Replacement: No Patient Given Instructions on How to Stop Smoking: No Second Hand Smoke Exposure: No Use of substances other than those prescribed or required for medical reasons: No Currently Displaying Signs/Symptoms of Drug Intoxication Withdrawal: No Have you been hit, kicked, punched, or otherwise hurt by someone within the past year? If so, by whom?: No Do you feel safe in your current relationship?: Yes Is there a partner from a previous relationship who is making you feel unsafe now?: No Are you made to feel afraid or neglected: No Are you DNR?: No Advance Directives: Yes Advance Directives Information Provided: Yes Advance Directives on File: No Advance Directives Date on File: 03/14/23 Do you have thoughts of harming others: None Do you have a plan to hurt others: No Plan Recently lost weight without trying: Unsure Eating poorly because of decreased appetite: No Nutrition Risks: No Nutritional Risk Poor oral hygiene: No service: No Current occupational status: employed 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 Cognitive needs: No Hearing needs: No Vision needs: Yes Meds Allergies Allergy/AdvReac Type Severity Reaction Status Date / Time bupropion [From Wellbutrin] AdvReac Severe Anxiety Verified 03/12/23 07:43 Active Medications: Current Medications Acetaminophen (Acetaminophen 325 Mg Tablet) 650 mg PO Q6H PRN PRN Reason: Pain, Mild (Pain Scale 1-3) Last Admin: 03/19/23 04:13 Dose: 650 mg Albuterol Sulfate (Albuterol Sulfate (0.083%) 2.5 Mg/3 Ml Vial.Neb) 2.5 mg INHALE Q4H PRN PRN Reason: Wheezing Last Admin: 03/17/23 12:53 Dose: 2.5 mg Atorvastatin Calcium (Atorvastatin Calcium 20 Mg Tablet) 20 mg PO DAILY [facility] Last Admin: 03/21/23 08:27 Dose: Not Given Buspirone HCl (Buspirone Hcl 5 Mg Tablet) 5 mg PO BID [facility] Last Admin: 03/21/23 08:26 Dose: 5 mg Cyclobenzaprine HCl (Cyclobenzaprine Hcl 5 Mg Tablet) 5 mg PO TID PRN PRN Reason: muscle spasm Last Admin: 03/18/23 20:14 Dose: 5 mg Lactated Ringer's (Lr) 1,000 mls @ 80 mls/hr IVCONT .[id number] [facility] Last Admin: 03/21/23 08:26 Dose: 80 mls/hr Daptomycin 420 mg/ Sodium (Chloride) 58.4 mls @ 116.8 mls/hr IV Q48H [facility] Albumin Human (Kedbumin 25 %) 100 mls @ 133.333 mls/hr IV Q1H [facility] Stop: 03/21/23 12:29 Last Admin: 03/21/23 10:46 Dose: 133.33 mls/hr Lidocaine (Lidocaine 4 % Patch Adh..Patch) 1 patch TRANSDERMA DAILY [facility]; Protocol Last Admin: 03/21/23 08:26 Dose: 1 patch Oxycodone HCl (Oxycodone Hcl Immed Release 5 Mg Tablet) 5 mg PO Q4H PRN PRN Reason: Pain, Mild (Pain Scale 1-3) Last Admin: 03/20/23 20:45 Dose: 5 mg Pantoprazole Sodium (Pantoprazole Sodium 40 Mg/10 Ml Vial) 40 mg IVPUSH BID@0630,1630 [facility] Last Admin: 03/21/23 06:01 Dose: 40 mg Sucralfate (Sucralfate 1 Gm Tablet) 1 gm PO BIDAC [facility] Exam Exam Date and Time: March 21, 2023 1143 Height,Weight and Vital Signs: Height 5 ft 3 in Weight 89.2 kg Last Vital Signs Temp 99.2 F 03/21/23 11:30 Pulse 84 03/21/23 11:30 Resp 18 03/21/23 11:30 BP 130/51 L 03/21/23 11:30 Pulse Ox 99 03/21/23 11:30 O2 Del Method Nasal Cannula 03/21/23 11:30 O2 Flow Rate 3 03/21/23 11:30 Pertinent Lab Results Pertinent Lab Results: Laboratory Tests 03/14/23 03/14/23 03/14/23 08:28 08:31 09:42 WBC 8.5 RBC 3.89 L Hgb 12.5 L Hct 35.9 L D MCV 92.3 MCH 32.1 MCHC 34.8 RDW 13.7 Plt Count 84 L D MPV Not Reportable Immature Gran % (Auto) Cancelled Neut % (Auto) Cancelled Lymph % (Auto) Cancelled Taylor % (Auto) Cancelled Eos % (Auto) Cancelled Baso % (Auto) Cancelled Lymph # (Auto) Cancelled Taylor # (Auto) Cancelled Eos # (Auto) Cancelled Baso # (Auto) Cancelled Abs Immat Gran (auto) Cancelled Absolute Neuts (auto) Cancelled Absolute Nucleated RBC 0.000 Nucleated RBC % (auto) 0.0 Neutrophils % (Manual) 70 Band Neutrophils % 23 H Lymphocytes % (Manual) 2 L Atypical Lymphs % (Man) Monocytes % (Manual) 5 Eosinophils % (Manual) Metamyelocytes % Abs Neuts (Manual) 7.9 Lymphocytes # (Manual) 0.2 L Atyp Lymphs # (Manual) Monocytes # (Manual) 0.4 Eosinophils # (Manual) Toxic Granulation Toxic Vacuolation Dohle Bodies Platelet Estimate DECREASED Large Platelets PRESENT Plt Morphology Comment NOTED RBC Morphology NOTED Hypochromasia Target Cells [place] Cells 2+ (3-5) Smear Tech's Comments ESR PT 11.5 INR 0.9 APTT 28.5 Hep-Ind Thrombocytop Com VBG pH VBG pCO2 VBG pO2 VBG HCO3 VBG O2 Saturation VBG Base Excess Sodium 130 L Potassium 4.7 Chloride 99 Carbon Dioxide 21 L Anion Gap 15 BUN 76 H Creatinine 2.07 H Estim Creat Clear Calc 31.7 Estimated GFR 32 POC Glucose Random Glucose 198 H Lactic Acid 2.8 H* Lactic Acid F/U @ 2Hr Lactic Acid F/U @ 4Hr Calcium 8.6 D Phosphorus Magnesium Total Bilirubin 0.5 Direct Bilirubin 0.3 AST 49 H ALT 37 Alkaline Phosphatase 47 Total Creatine Kinase 134 Troponin I High Sens 40.5 H C-Reactive Protein Total Protein 5.9 L Albumin 3.2 L Amylase Lipase 47 Aldolase Urine Color Urine Appearance Urine pH Ur Specific [place] Urine Protein Urine Glucose (UA) Urine Ketones Urine Blood Urine Nitrite Ur Leukocyte Esterase Urine RBC Urine WBC Ur Squamous Epith Cells Urine Bacteria Hyaline Casts U Random Total Protein Ur Random Sodium Ur Random Potassium Ur Random Chloride Urine Creatinine Nasal Screen MRSA (PCR) Nasal S. aureus Screen Nasal MRSA/S.aureus Interp Stool Occult Blood POSITIVE Stool H. pylori Ag Random Vancomycin Urine Opiates Screen Urine Fentanyl Screen Ur Barbiturates Screen Ur Phencyclidine Scrn Ur Amphetamines Screen U Benzodiazepines Scrn Urine Cocaine Screen U Marijuana (THC) Screen Ethyl Alcohol Rheumatoid Factor SIDRA Screen SIDRA Titer SIDRA Titer 2 SIDRA Titer 3 SIDRA Pattern SIDRA Pattern 2 SIDRA Pattern 3 Heparin Dep Plt Ab OD Hep-Induced Plt Ab Taylor Respiratory Panel Goss Adenovirus (Rapid PCR) A.phagocytophil DNA PCR Babesia microti DNA PCR B.pert (TEM-PCR) B.parapertussis DNA PCR Borrelia sp DNA (PCR) Borrelia miyamotoi (PCR) C. pneumoniae DNA (PCR) Coronavirus OC43 (PCR) Coronavirus HKU1 (PCR) Coronavirus 229E (PCR) COVID-19 (JASSON) Negative COVID-19 Clin Com See Note Coronavirus NL63 (PCR) E.chaffeensis DNA (PCR) Human Metapneumovir PCR Influenza A (RT-PCR) Influenza B (RT-PCR) M. pneumoniae (PCR) Parainfluenza 1 (PCR) Parainfluenza 2 (PCR) Parainfluenza 3 (PCR) Parainfluenza 4 (PCR) RSV (PCR) Entero/Rhino (PCR) SARS-CoV-2 RNA (RT-PCR) Tick-borne Disease PCR Blood Type A Positive Antibody Screen NEGATIVE Crossmatch 03/14/23 03/14/23 03/14/23 12:48 16:37 17:31 WBC 4.4 L RBC 3.28 L Hgb 10.6 L Hct 30.3 L MCV 92.4 MCH 32.3 MCHC 35.0 RDW 13.8 Plt Count 58 L D MPV 14.3 H Immature Gran % (Auto) Cancelled Neut % (Auto) Cancelled Lymph % (Auto) Cancelled Taylor % (Auto) Cancelled Eos % (Auto) Cancelled Baso % (Auto) Cancelled Lymph # (Auto) Cancelled Taylor # (Auto) Cancelled Eos # (Auto) Cancelled Baso # (Auto) Cancelled Abs Immat Gran (auto) Cancelled Absolute Neuts (auto) Cancelled Absolute Nucleated RBC 0.000 Nucleated RBC % (auto) 0.0 Neutrophils % (Manual) 60 Band Neutrophils % 29 H Lymphocytes % (Manual) 4 L Atypical Lymphs % (Man) Monocytes % (Manual) 6 Eosinophils % (Manual) Metamyelocytes % 1 Abs Neuts (Manual) 3.9 Lymphocytes # (Manual) 0.2 L Atyp Lymphs # (Manual) Monocytes # (Manual) 0.3 Eosinophils # (Manual) Toxic Granulation Toxic Vacuolation PRESENT Dohle Bodies PRESENT Platelet Estimate DECREASED Large Platelets PRESENT Plt Morphology Comment NOTED RBC Morphology NOTED Hypochromasia Target Cells [place] Cells 1+ (0-2) Smear Tech's Comments ESR 55 H PT INR APTT Hep-Ind Thrombocytop Com VBG pH VBG pCO2 VBG pO2 VBG HCO3 VBG O2 Saturation VBG Base Excess Sodium Potassium Chloride Carbon Dioxide Anion Gap BUN Creatinine Estim Creat Clear Calc Estimated GFR POC Glucose Random Glucose Lactic Acid Lactic Acid F/U @ 2Hr 3.2 H* Lactic Acid F/U @ 4Hr 2.1 H* Calcium Phosphorus Magnesium Total Bilirubin Direct Bilirubin AST ALT Alkaline Phosphatase Total Creatine Kinase Troponin I High Sens C-Reactive Protein Total Protein Albumin Amylase 54 Lipase Aldolase Urine Color Yellow Urine Appearance Clear Urine pH 5.5 Ur Specific [place] 1.020 Urine Protein 30 (1+) H Urine Glucose (UA) Negative Urine Ketones Negative Urine Blood Negative Urine Nitrite Negative Ur Leukocyte Esterase Negative Urine RBC 0-2 Urine WBC 0-5 Ur Squamous Epith Cells 0-2 Urine Bacteria None Seen Hyaline Casts 3-5 U Random Total Protein Ur Random Sodium Ur Random Potassium Ur Random Chloride Urine Creatinine Nasal Screen MRSA (PCR) Nasal S. aureus Screen Nasal MRSA/S.aureus Interp Stool Occult Blood Stool H. pylori Ag Random Vancomycin Urine Opiates Screen POSITIVE H Urine Fentanyl Screen Not Detected Ur Barbiturates Screen Not Detected Ur Phencyclidine Scrn Not Detected Ur Amphetamines Screen Not Detected U Benzodiazepines Scrn Not Detected Urine Cocaine Screen Not Detected U Marijuana (THC) Screen Not Detected Ethyl Alcohol < 10 Rheumatoid Factor SIDRA Screen SIDRA Titer SIDRA Titer 2 SIDRA Titer 3 SIDRA Pattern SIDRA Pattern 2 SIDRA Pattern 3 Heparin Dep Plt Ab OD Hep-Induced Plt Ab Taylor Respiratory Panel Goss Adenovirus (Rapid PCR) A.phagocytophil DNA PCR NOT DETECTED Babesia microti DNA PCR NOT DETECTED B.pert (TEM-PCR) B.parapertussis DNA PCR Borrelia sp DNA (PCR) NOT DETECTED Borrelia miyamotoi (PCR) NOT DETECTED C. pneumoniae DNA (PCR) Coronavirus OC43 (PCR) Coronavirus HKU1 (PCR) Coronavirus 229E (PCR) COVID-19 ([facility]) COVID-19 Clin Com Coronavirus NL63 (PCR) E.chaffeensis DNA (PCR) NOT DETECTED Human Metapneumovir PCR Influenza A (RT-PCR) Influenza B (RT-PCR) M. pneumoniae (PCR) Parainfluenza 1 (PCR) Parainfluenza 2 (PCR) Parainfluenza 3 (PCR) Parainfluenza 4 (PCR) RSV (PCR) Entero/Rhino (PCR) SARS-CoV-2 RNA (RT-PCR) Tick-borne Disease PCR SEE NOTE Blood Type Antibody Screen Crossmatch 03/14/23 03/14/23 03/14/23 21:35 21:35 21:35 WBC RBC Hgb Hct MCV MCH MCHC RDW Plt Count MPV Immature Gran % (Auto) Neut % (Auto) Lymph % (Auto) Taylor % (Auto) Eos % (Auto) Baso % (Auto) Lymph # (Auto) [place] # (Auto) Eos # (Auto) Baso # (Auto) Abs Immat Gran (auto) Absolute Neuts (auto) Absolute Nucleated RBC Nucleated RBC % (auto) Neutrophils % (Manual) Band Neutrophils % Lymphocytes % (Manual) Atypical Lymphs % (Man) Monocytes % (Manual) Eosinophils % (Manual) Metamyelocytes % Abs Neuts (Manual) Lymphocytes # (Manual) Atyp Lymphs # (Manual) Monocytes # (Manual) Eosinophils # (Manual) Toxic Granulation Toxic Vacuolation Dohle Bodies Platelet Estimate Large Platelets Plt Morphology Comment RBC Morphology Hypochromasia Target Cells [place] Cells Smear Tech's Comments ESR PT INR APTT Hep-Ind Thrombocytop Com VBG pH VBG pCO2 VBG pO2 VBG HCO3 VBG O2 Saturation VBG Base Excess Sodium Potassium Chloride Carbon Dioxide Anion Gap BUN Creatinine Estim Creat Clear Calc Estimated GFR POC Glucose Random Glucose Lactic Acid Lactic Acid F/U @ 2Hr Lactic Acid F/U @ 4Hr Calcium Phosphorus Magnesium Total Bilirubin Direct Bilirubin AST ALT Alkaline Phosphatase Total Creatine Kinase Troponin I High Sens C-Reactive Protein Total Protein Albumin Amylase Lipase Aldolase Urine Color Urine Appearance Urine pH Ur Specific [place] Urine Protein Urine Glucose (UA) Urine Ketones Urine Blood Urine Nitrite Ur Leukocyte Esterase Urine RBC Urine WBC Ur Squamous Epith Cells Urine Bacteria Hyaline Casts U Random Total Protein Ur Random Sodium Ur Random Potassium Ur Random Chloride Urine Creatinine Nasal Screen MRSA (PCR) NEGATIVE Nasal S. aureus Screen POSITIVE A Nasal MRSA/S.aureus Interp SEE NOTE Stool Occult Blood Stool H. pylori Ag Random Vancomycin Urine Opiates Screen Urine Fentanyl Screen Ur Barbiturates Screen Ur Phencyclidine Scrn Ur Amphetamines Screen U Benzodiazepines Scrn Urine Cocaine Screen U Marijuana (THC) Screen Ethyl Alcohol Rheumatoid Factor SIDRA Screen SIDRA Titer SIDRA Titer 2 SIDRA Titer 3 SIDRA Pattern SIDRA Pattern 2 SIDRA Pattern 3 Heparin Dep Plt Ab OD Hep-Induced Plt Ab Taylor Respiratory Panel Goss See Note Cancelled Adenovirus (Rapid PCR) Not Detected Cancelled A.phagocytophil DNA PCR Babesia microti DNA PCR B.pert (TEM-PCR) Not Detected B.parapertussis DNA PCR Borrelia sp DNA (PCR) Borrelia miyamotoi (PCR) C. pneumoniae DNA (PCR) Coronavirus OC43 (PCR) Coronavirus HKU1 (PCR) Coronavirus 229E (PCR) COVID-19 (JASSON) COVID-19 Clin Com Coronavirus NL63 (PCR) E.chaffeensis DNA (PCR) Human Metapneumovir PCR Influenza A (RT-PCR) Influenza B (RT-PCR) M. pneumoniae (PCR) Parainfluenza 1 (PCR) Parainfluenza 2 (PCR) Parainfluenza 3 (PCR) Parainfluenza 4 (PCR) RSV (PCR) Entero/Rhino (PCR) SARS-CoV-2 RNA (RT-PCR) Tick-borne Disease PCR Blood Type Antibody Screen Crossmatch 03/14/23 03/14/23 03/14/23 21:35 21:35 21:35 WBC RBC Hgb Hct MCV MCH MCHC RDW Plt Count MPV Immature Gran % (Auto) Neut % (Auto) Lymph % (Auto) [place] % (Auto) Eos % (Auto) Baso % (Auto) Lymph # (Auto) [place] # (Auto) Eos # (Auto) Baso # (Auto) Abs Immat Gran (auto) Absolute Neuts (auto) Absolute Nucleated RBC Nucleated RBC % (auto) Neutrophils % (Manual) Band Neutrophils % Lymphocytes % (Manual) Atypical Lymphs % (Man) Monocytes % (Manual) Eosinophils % (Manual) Metamyelocytes % Abs Neuts (Manual) Lymphocytes # (Manual) Atyp Lymphs # (Manual) Monocytes # (Manual) Eosinophils # (Manual) Toxic Granulation Toxic Vacuolation Dohle Bodies Platelet Estimate Large Platelets Plt Morphology Comment RBC Morphology Hypochromasia Target Cells [place] Cells Smear Tech's Comments ESR PT INR APTT Hep-Ind Thrombocytop Com VBG pH VBG pCO2 VBG pO2 VBG HCO3 VBG O2 Saturation VBG Base Excess Sodium Potassium Chloride Carbon Dioxide Anion Gap BUN Creatinine Estim Creat Clear Calc Estimated GFR POC Glucose Random Glucose Lactic Acid Lactic Acid F/U @ 2Hr Lactic Acid F/U @ 4Hr Calcium Phosphorus Magnesium Total Bilirubin Direct Bilirubin AST ALT Alkaline Phosphatase Total Creatine Kinase Troponin I High Sens C-Reactive Protein Total Protein Albumin Amylase Lipase Aldolase Urine Color Urine Appearance Urine pH Ur Specific [place] Urine Protein Urine Glucose (UA) Urine Ketones Urine Blood Urine Nitrite Ur Leukocyte Esterase Urine RBC Urine WBC Ur Squamous Epith Cells Urine Bacteria Hyaline Casts U Random Total Protein Ur Random Sodium Ur Random Potassium Ur Random Chloride Urine Creatinine Nasal Screen MRSA (PCR) Nasal S. aureus Screen Nasal MRSA/S.aureus Interp Stool Occult Blood Stool H. pylori Ag Random Vancomycin Urine Opiates Screen Urine Fentanyl Screen Ur Barbiturates Screen Ur Phencyclidine Scrn Ur Amphetamines Screen U Benzodiazepines Scrn Urine Cocaine Screen U Marijuana (THC) Screen Ethyl Alcohol Rheumatoid Factor SIDRA Screen SIDRA Titer SIDRA Titer 2 SIDRA Titer 3 SIDRA Pattern SIDRA Pattern 2 SIDRA Pattern 3 Heparin Dep Plt Ab OD Hep-Induced Plt Ab Taylor Respiratory Panel Goss Adenovirus (Rapid PCR) A.phagocytophil DNA PCR Babesia microti DNA PCR B.pert (TEM-PCR) Cancelled B.parapertussis DNA PCR Not Detected Cancelled Borrelia sp DNA (PCR) Borrelia miyamotoi (PCR) C. pneumoniae DNA (PCR) Not Detected Cancelled Coronavirus OC43 (PCR) Not Detected Coronavirus HKU1 (PCR) Coronavirus 229E (PCR) COVID-19 ([facility]ON) COVID-19 Clin Com Coronavirus NL63 (PCR) E.chaffeensis DNA (PCR) Human Metapneumovir PCR Influenza A (RT-PCR) Influenza B (RT-PCR) M. pneumoniae (PCR) Parainfluenza 1 (PCR) Parainfluenza 2 (PCR) Parainfluenza 3 (PCR) Parainfluenza 4 (PCR) RSV (PCR) Entero/Rhino (PCR) SARS-CoV-2 RNA (RT-PCR) Tick-borne Disease PCR Blood Type Antibody Screen Crossmatch 03/14/23 03/14/23 03/14/23 21:35 21:35 21:35 WBC RBC Hgb Hct MCV MCH MCHC RDW Plt Count MPV Immature Gran % (Auto) Neut % (Auto) Lymph % (Auto) [place] % (Auto) Eos % (Auto) Baso % (Auto) Lymph # (Auto) [place] # (Auto) Eos # (Auto) Baso # (Auto) Abs Immat Gran (auto) Absolute Neuts (auto) Absolute Nucleated RBC Nucleated RBC % (auto) Neutrophils % (Manual) Band Neutrophils % Lymphocytes % (Manual) Atypical Lymphs % (Man) Monocytes % (Manual) Eosinophils % (Manual) Metamyelocytes % Abs Neuts (Manual) Lymphocytes # (Manual) Atyp Lymphs # (Manual) Monocytes # (Manual) Eosinophils # (Manual) Toxic Granulation Toxic Vacuolation Dohle Bodies Platelet Estimate Large Platelets Plt Morphology Comment RBC Morphology Hypochromasia Target Cells [place] Cells Smear Tech's Comments ESR PT INR APTT Hep-Ind Thrombocytop Com VBG pH VBG pCO2 VBG pO2 VBG HCO3 VBG O2 Saturation VBG Base Excess Sodium Potassium Chloride Carbon Dioxide Anion Gap BUN Creatinine Estim Creat Clear Calc Estimated GFR POC Glucose Random Glucose Lactic Acid Lactic Acid F/U @ 2Hr Lactic Acid F/U @ 4Hr Calcium Phosphorus Magnesium Total Bilirubin Direct Bilirubin AST ALT Alkaline Phosphatase Total Creatine Kinase Troponin I High Sens C-Reactive Protein Total Protein Albumin Amylase Lipase Aldolase Urine Color Urine Appearance Urine pH Ur Specific [place] Urine Protein Urine Glucose (UA) Urine Ketones Urine Blood Urine Nitrite Ur Leukocyte Esterase Urine RBC Urine WBC Ur Squamous Epith Cells Urine Bacteria Hyaline Casts U Random Total Protein Ur Random Sodium Ur Random Potassium Ur Random Chloride Urine Creatinine Nasal Screen MRSA (PCR) Nasal S. aureus Screen Nasal MRSA/S.aureus Interp Stool Occult Blood Stool H. pylori Ag Random Vancomycin Urine Opiates Screen Urine Fentanyl Screen Ur Barbiturates Screen Ur Phencyclidine Scrn Ur Amphetamines Screen U Benzodiazepines Scrn Urine Cocaine Screen U Marijuana (THC) Screen Ethyl Alcohol Rheumatoid Factor SIDRA Screen SIDRA Titer SIDRA Titer 2 SIDRA Titer 3 SIDRA Pattern SIDRA Pattern 2 SIDRA Pattern 3 Heparin Dep Plt Ab OD Hep-Induced Plt Ab Taylor Respiratory Panel Goss Adenovirus (Rapid PCR) A.phagocytophil DNA PCR Babesia microti DNA PCR B.pert (TEM-PCR) B.parapertussis DNA PCR Borrelia sp DNA (PCR) Borrelia miyamotoi (PCR) C. pneumoniae DNA (PCR) Coronavirus OC43 (PCR) Cancelled Coronavirus HKU1 (PCR) Not Detected Cancelled Coronavirus 229E (PCR) Not Detected Cancelled COVID-19 ([facility]ON) COVID-19 Clin Com Coronavirus NL63 (PCR) Not Detected E.chaffeensis DNA (PCR) Human Metapneumovir PCR Influenza A (RT-PCR) Influenza B (RT-PCR) M. pneumoniae (PCR) Parainfluenza 1 (PCR) Parainfluenza 2 (PCR) Parainfluenza 3 (PCR) Parainfluenza 4 (PCR) RSV (PCR) Entero/Rhino (PCR) SARS-CoV-2 RNA (RT-PCR) Tick-borne Disease PCR Blood Type Antibody Screen Crossmatch 03/14/23 03/14/23 03/14/23 21:35 21:35 21:35 WBC RBC Hgb Hct MCV MCH MCHC RDW Plt Count MPV Immature Gran % (Auto) Neut % (Auto) Lymph % (Auto) [place] % (Auto) Eos % (Auto) Baso % (Auto) Lymph # (Auto) [place] # (Auto) Eos # (Auto) Baso # (Auto) Abs Immat Gran (auto) Absolute Neuts (auto) Absolute Nucleated RBC Nucleated RBC % (auto) Neutrophils % (Manual) Band Neutrophils % Lymphocytes % (Manual) Atypical Lymphs % (Man) Monocytes % (Manual) Eosinophils % (Manual) Metamyelocytes % Abs Neuts (Manual) Lymphocytes # (Manual) Atyp Lymphs # (Manual) Monocytes # (Manual) Eosinophils # (Manual) Toxic Granulation Toxic Vacuolation Dohle Bodies Platelet Estimate Large Platelets Plt Morphology Comment RBC Morphology Hypochromasia Target Cells [place] Cells Smear Tech's Comments ESR PT INR APTT Hep-Ind Thrombocytop Com VBG pH VBG pCO2 VBG pO2 VBG HCO3 VBG O2 Saturation VBG Base Excess Sodium Potassium Chloride Carbon Dioxide Anion Gap BUN Creatinine Estim Creat Clear Calc Estimated GFR POC Glucose Random Glucose Lactic Acid Lactic Acid F/U @ 2Hr Lactic Acid F/U @ 4Hr Calcium Phosphorus Magnesium Total Bilirubin Direct Bilirubin AST ALT Alkaline Phosphatase Total Creatine Kinase Troponin I High Sens C-Reactive Protein Total Protein Albumin Amylase Lipase Aldolase Urine Color Urine Appearance Urine pH Ur Specific [place] Urine Protein Urine Glucose (UA) Urine Ketones Urine Blood Urine Nitrite Ur Leukocyte Esterase Urine RBC Urine WBC Ur Squamous Epith Cells Urine Bacteria Hyaline Casts U Random Total Protein Ur Random Sodium Ur Random Potassium Ur Random Chloride Urine Creatinine Nasal Screen MRSA (PCR) Nasal S. aureus Screen Nasal MRSA/S.aureus Interp Stool Occult Blood Stool H. pylori Ag Random Vancomycin Urine Opiates Screen Urine Fentanyl Screen Ur Barbiturates Screen Ur Phencyclidine Scrn Ur Amphetamines Screen U Benzodiazepines Scrn Urine Cocaine Screen U Marijuana (THC) Screen Ethyl Alcohol Rheumatoid Factor SIDRA Screen SIDRA Titer SIDRA Titer 2 SIDRA Titer 3 SIDRA Pattern SIDRA Pattern 2 SIDRA Pattern 3 Heparin Dep Plt Ab OD Hep-Induced Plt Ab Taylor Respiratory Panel Goss Adenovirus (Rapid PCR) A.phagocytophil DNA PCR Babesia microti DNA PCR B.pert (TEM-PCR) B.parapertussis DNA PCR Borrelia sp DNA (PCR) Borrelia miyamotoi (PCR) C. pneumoniae DNA (PCR) Coronavirus OC43 (PCR) Coronavirus HKU1 (PCR) Coronavirus 229E (PCR) COVID-19 (JASSON) COVID-19 Clin Com Coronavirus NL63 (PCR) Cancelled E.chaffeensis DNA (PCR) Human Metapneumovir PCR Not Detected Cancelled Influenza A (RT-PCR) Not Detected Cancelled Influenza B (RT-PCR) Not Detected M. pneumoniae (PCR) Parainfluenza 1 (PCR) Parainfluenza 2 (PCR) Parainfluenza 3 (PCR) Parainfluenza 4 (PCR) RSV (PCR) Entero/Rhino (PCR) SARS-CoV-2 RNA (RT-PCR) Tick-borne Disease PCR Blood Type Antibody Screen Crossmatch 03/14/23 03/14/23 03/14/23 21:35 21:35 21:35 WBC RBC Hgb Hct MCV MCH MCHC RDW Plt Count MPV Immature Gran % (Auto) Neut % (Auto) Lymph % (Auto) [place] % (Auto) Eos % (Auto) Baso % (Auto) Lymph # (Auto) [place] # (Auto) Eos # (Auto) Baso # (Auto) Abs Immat Gran (auto) Absolute Neuts (auto) Absolute Nucleated RBC Nucleated RBC % (auto) Neutrophils % (Manual) Band Neutrophils % Lymphocytes % (Manual) Atypical Lymphs % (Man) Monocytes % (Manual) Eosinophils % (Manual) Metamyelocytes % Abs Neuts (Manual) Lymphocytes # (Manual) Atyp Lymphs # (Manual) Monocytes # (Manual) Eosinophils # (Manual) Toxic Granulation Toxic Vacuolation Dohle Bodies Platelet Estimate Large Platelets Plt Morphology Comment RBC Morphology Hypochromasia Target Cells [place] Cells Smear Tech's Comments ESR PT INR APTT Hep-Ind Thrombocytop Com VBG pH VBG pCO2 VBG pO2 VBG HCO3 VBG O2 Saturation VBG Base Excess Sodium Potassium Chloride Carbon Dioxide Anion Gap BUN Creatinine Estim Creat Clear Calc Estimated GFR POC Glucose Random Glucose Lactic Acid Lactic Acid F/U @ 2Hr Lactic Acid F/U @ 4Hr Calcium Phosphorus Magnesium Total Bilirubin Direct Bilirubin AST ALT Alkaline Phosphatase Total Creatine Kinase Troponin I High Sens C-Reactive Protein Total Protein Albumin Amylase Lipase Aldolase Urine Color Urine Appearance Urine pH Ur Specific [place] Urine Protein Urine Glucose (UA) Urine Ketones Urine Blood Urine Nitrite Ur Leukocyte Esterase Urine RBC Urine WBC Ur Squamous Epith Cells Urine Bacteria Hyaline Casts U Random Total Protein Ur Random Sodium Ur Random Potassium Ur Random Chloride Urine Creatinine Nasal Screen MRSA (PCR) Nasal S. aureus Screen Nasal MRSA/S.aureus Interp Stool Occult Blood Stool H. pylori Ag Random Vancomycin Urine Opiates Screen Urine Fentanyl Screen Ur Barbiturates Screen Ur Phencyclidine Scrn Ur Amphetamines Screen U Benzodiazepines Scrn Urine Cocaine Screen U Marijuana (THC) Screen Ethyl Alcohol Rheumatoid Factor SIDRA Screen SIDRA Titer SIDRA Titer 2 SIDRA Titer 3 SIDRA Pattern SIDRA Pattern 2 SIDRA Pattern 3 Heparin Dep Plt Ab OD Hep-Induced Plt Ab Taylor Respiratory Panel Goss Adenovirus (Rapid PCR) A.phagocytophil DNA PCR Babesia microti DNA PCR B.pert (TEM-PCR) B.parapertussis DNA PCR Borrelia sp DNA (PCR) Borrelia miyamotoi (PCR) C. pneumoniae DNA (PCR) Coronavirus OC43 (PCR) Coronavirus HKU1 (PCR) Coronavirus 229E (PCR) COVID-19 ([facility]) COVID-19 Clin Com Coronavirus NL63 (PCR) E.chaffeensis DNA (PCR) Human Metapneumovir PCR Influenza A (RT-PCR) Influenza B (RT-PCR) Cancelled M. pneumoniae (PCR) Not Detected Cancelled Parainfluenza 1 (PCR) Not Detected Cancelled Parainfluenza 2 (PCR) Not Detected Parainfluenza 3 (PCR) Parainfluenza 4 (PCR) RSV (PCR) Entero/Rhino (PCR) SARS-CoV-2 RNA (RT-PCR) Tick-borne Disease PCR Blood Type Antibody Screen Crossmatch 03/14/23 03/14/23 03/14/23 21:35 21:35 21:35 WBC RBC Hgb Hct MCV MCH MCHC RDW Plt Count MPV Immature Gran % (Auto) Neut % (Auto) Lymph % (Auto) Taylor % (Auto) Eos % (Auto) Baso % (Auto) Lymph # (Auto) Taylor # (Auto) Eos # (Auto) Baso # (Auto) Abs Immat Gran (auto) Absolute Neuts (auto) Absolute Nucleated RBC Nucleated RBC % (auto) Neutrophils % (Manual) Band Neutrophils % Lymphocytes % (Manual) Atypical Lymphs % (Man) Monocytes % (Manual) Eosinophils % (Manual) Metamyelocytes % Abs Neuts (Manual) Lymphocytes # (Manual) Atyp Lymphs # (Manual) Monocytes # (Manual) Eosinophils # (Manual) Toxic Granulation Toxic Vacuolation Dohle Bodies Platelet Estimate Large Platelets Plt Morphology Comment RBC Morphology Hypochromasia Target Cells [place] Cells Smear Tech's Comments ESR PT INR APTT Hep-Ind Thrombocytop Com VBG pH VBG pCO2 VBG pO2 VBG HCO3 VBG O2 Saturation VBG Base Excess Sodium Potassium Chloride Carbon Dioxide Anion Gap BUN Creatinine Estim Creat Clear Calc Estimated GFR POC Glucose Random Glucose Lactic Acid Lactic Acid F/U @ 2Hr Lactic Acid F/U @ 4Hr Calcium Phosphorus Magnesium Total Bilirubin Direct Bilirubin AST ALT Alkaline Phosphatase Total Creatine Kinase Troponin I High Sens C-Reactive Protein Total Protein Albumin Amylase Lipase Aldolase Urine Color Urine Appearance Urine pH Ur Specific [place] Urine Protein Urine Glucose (UA) Urine Ketones Urine Blood Urine Nitrite Ur Leukocyte Esterase Urine RBC Urine WBC Ur Squamous Epith Cells Urine Bacteria Hyaline Casts U Random Total Protein Ur Random Sodium Ur Random Potassium Ur Random Chloride Urine Creatinine Nasal Screen MRSA (PCR) Nasal S. aureus Screen Nasal MRSA/S.aureus Interp Stool Occult Blood Stool H. pylori Ag Random Vancomycin Urine Opiates Screen Urine Fentanyl Screen Ur Barbiturates Screen Ur Phencyclidine Scrn Ur Amphetamines Screen U Benzodiazepines Scrn Urine Cocaine Screen U Marijuana (THC) Screen Ethyl Alcohol Rheumatoid Factor SIDRA Screen SIDRA Titer SIDRA Titer 2 SIDRA Titer 3 SIDRA Pattern SIDRA Pattern 2 SIDRA Pattern 3 Heparin Dep Plt Ab OD Hep-Induced Plt Ab [place] Respiratory Panel Goss Adenovirus (Rapid PCR) A.phagocytophil DNA PCR Babesia microti DNA PCR B.pert (TEM-PCR) B.parapertussis DNA PCR Borrelia sp DNA (PCR) Borrelia miyamotoi (PCR) C. pneumoniae DNA (PCR) Coronavirus OC43 (PCR) Coronavirus HKU1 (PCR) Coronavirus 229E (PCR) COVID-19 ([facility]) COVID-19 Clin Com Coronavirus NL63 (PCR) E.chaffeensis DNA (PCR) Human Metapneumovir PCR Influenza A (RT-PCR) Influenza B (RT-PCR) M. pneumoniae (PCR) Parainfluenza 1 (PCR) Parainfluenza 2 (PCR) Cancelled Parainfluenza 3 (PCR) Not Detected Cancelled Parainfluenza 4 (PCR) Not Detected Cancelled RSV (PCR) Not Detected Entero/Rhino (PCR) SARS-CoV-2 RNA (RT-PCR) Tick-borne Disease PCR Blood Type Antibody Screen Crossmatch 03/14/23 03/14/23 03/14/23 21:35 21:35 21:35 WBC RBC Hgb Hct MCV MCH MCHC RDW Plt Count MPV Immature Gran % (Auto) Neut % (Auto) Lymph % (Auto) [place] % (Auto) Eos % (Auto) Baso % (Auto) Lymph # (Auto) [place] # (Auto) Eos # (Auto) Baso # (Auto) Abs Immat Gran (auto) Absolute Neuts (auto) Absolute Nucleated RBC Nucleated RBC % (auto) Neutrophils % (Manual) Band Neutrophils % Lymphocytes % (Manual) Atypical Lymphs % (Man) Monocytes % (Manual) Eosinophils % (Manual) Metamyelocytes % Abs Neuts (Manual) Lymphocytes # (Manual) Atyp Lymphs # (Manual) Monocytes # (Manual) Eosinophils # (Manual) Toxic Granulation Toxic Vacuolation Dohle Bodies Platelet Estimate Large Platelets Plt Morphology Comment RBC Morphology Hypochromasia Target Cells [place] Cells Smear Tech's Comments ESR PT INR APTT Hep-Ind Thrombocytop Com VBG pH VBG pCO2 VBG pO2 VBG HCO3 VBG O2 Saturation VBG Base Excess Sodium Potassium Chloride Carbon Dioxide Anion Gap BUN Creatinine Estim Creat Clear Calc Estimated GFR POC Glucose Random Glucose Lactic Acid Lactic Acid F/U @ 2Hr Lactic Acid F/U @ 4Hr Calcium Phosphorus Magnesium Total Bilirubin Direct Bilirubin AST ALT Alkaline Phosphatase Total Creatine Kinase Troponin I High Sens C-Reactive Protein Total Protein Albumin Amylase Lipase Aldolase Urine Color Urine Appearance Urine pH Ur Specific [place] Urine Protein Urine Glucose (UA) Urine Ketones Urine Blood Urine Nitrite Ur Leukocyte Esterase Urine RBC Urine WBC Ur Squamous Epith Cells Urine Bacteria Hyaline Casts U Random Total Protein Ur Random Sodium Ur Random Potassium Ur Random Chloride Urine Creatinine Nasal Screen MRSA (PCR) Nasal S. aureus Screen Nasal MRSA/S.aureus Interp Stool Occult Blood Stool H. pylori Ag Random Vancomycin Urine Opiates Screen Urine Fentanyl Screen Ur Barbiturates Screen Ur Phencyclidine Scrn Ur Amphetamines Screen U Benzodiazepines Scrn Urine Cocaine Screen U Marijuana (THC) Screen Ethyl Alcohol Rheumatoid Factor SIDRA Screen SIDRA Titer SIDRA Titer 2 SIDRA Titer 3 SIDRA Pattern SIDRA Pattern 2 SIDRA Pattern 3 Heparin Dep Plt Ab OD Hep-Induced Plt Ab [place] Respiratory Panel Goss Adenovirus (Rapid PCR) A.phagocytophil DNA PCR Babesia microti DNA PCR B.pert (TEM-PCR) B.parapertussis DNA PCR Borrelia sp DNA (PCR) Borrelia miyamotoi (PCR) C. pneumoniae DNA (PCR) Coronavirus OC43 (PCR) Coronavirus HKU1 (PCR) Coronavirus 229E (PCR) COVID-19 ([facility]) COVID-19 Clin Com Coronavirus NL63 (PCR) E.chaffeensis DNA (PCR) Human Metapneumovir PCR Influenza A (RT-PCR) Influenza B (RT-PCR) M. pneumoniae (PCR) Parainfluenza 1 (PCR) Parainfluenza 2 (PCR) Parainfluenza 3 (PCR) Parainfluenza 4 (PCR) RSV (PCR) Cancelled Entero/Rhino (PCR) Not Detected Cancelled SARS-CoV-2 RNA (RT-PCR) Not Detected Cancelled Tick-borne Disease PCR Blood Type Antibody Screen Crossmatch 03/15/23 03/15/23 03/16/23 05:10 05:14 05:05 WBC 7.5 8.1 RBC 3.13 L 2.56 L Hgb 10.1 L 8.0 L D Hct 29.0 L 23.5 L MCV 92.7 91.8 MCH 32.3 31.3 MCHC 34.8 34.0 RDW 14.1 14.5 Plt Count 52 L 45 L MPV 13.8 H Not Reportable Immature Gran % (Auto) Cancelled Cancelled Neut % (Auto) Cancelled Cancelled Lymph % (Auto) Cancelled Cancelled Taylor % (Auto) Cancelled Cancelled Eos % (Auto) Cancelled Cancelled Baso % (Auto) Cancelled Cancelled Lymph # (Auto) Cancelled Cancelled [place] # (Auto) Cancelled Cancelled Eos # (Auto) Cancelled Cancelled Baso # (Auto) Cancelled Cancelled Abs Immat Gran (auto) Cancelled Cancelled Absolute Neuts (auto) Cancelled Cancelled Absolute Nucleated RBC 0.000 0.000 Nucleated RBC % (auto) 0.0 0.0 Neutrophils % (Manual) 79 H 74 H Band Neutrophils % 12 H 5 Lymphocytes % (Manual) 8 L 12 L Atypical Lymphs % (Man) 1 Monocytes % (Manual) 1 L 7 Eosinophils % (Manual) 1 Metamyelocytes % Abs Neuts (Manual) 6.8 6.4 Lymphocytes # (Manual) 0.6 L 1.0 L Atyp Lymphs # (Manual) 0.1 Monocytes # (Manual) 0.1 0.6 Eosinophils # (Manual) 0.1 Toxic Granulation PRESENT PRESENT Toxic Vacuolation PRESENT PRESENT Dohle Bodies PRESENT PRESENT Platelet Estimate DECREASED DECREASED Large Platelets PRESENT PRESENT Plt Morphology Comment NOTED NOTED RBC Morphology NOTED NOTED Hypochromasia 1+ (5-14) Target Cells 1+ (5-14) Wilner Cells 1+ (0-2) Smear Tech's Comments ESR PT 11.1 INR 0.9 APTT Hep-Ind Thrombocytop Com VBG pH 7.41 VBG pCO2 28 VBG pO2 73 VBG HCO3 18 L VBG O2 Saturation 94.0 VBG Base Excess -5.2 Sodium 137 141 Potassium 4.2 4.1 Chloride 109 H 113 H Carbon Dioxide 19 L 20 L Anion Gap 13 12 BUN 71 H 61 H Creatinine 1.61 H 1.47 H Estim Creat Clear Calc 40.7 45.9 Estimated GFR 43 48 POC Glucose Random Glucose 125 H 124 H Lactic Acid Lactic Acid F/U @ 2Hr Lactic Acid F/U @ 4Hr Calcium 7.9 L D 8.3 L Phosphorus 3.2 2.5 L Magnesium 1.9 2.6 Total Bilirubin 1.0 1.2 H Direct Bilirubin AST 51 H 37 ALT 31 23 Alkaline Phosphatase 44 45 Total Creatine Kinase Troponin I High Sens C-Reactive Protein Total Protein 5.2 L 5.6 L Albumin 2.5 L 3.3 L Amylase Lipase Aldolase Urine Color Urine Appearance Urine pH Ur Specific [place] Urine Protein Urine Glucose (UA) Urine Ketones Urine Blood Urine Nitrite Ur Leukocyte Esterase Urine RBC Urine WBC Ur Squamous Epith Cells Urine Bacteria Hyaline Casts U Random Total Protein Ur Random Sodium Ur Random Potassium Ur Random Chloride Urine Creatinine Nasal Screen MRSA (PCR) Nasal S. aureus Screen Nasal MRSA/S.aureus Interp Stool Occult Blood Stool H. pylori Ag Random Vancomycin Urine Opiates Screen Urine Fentanyl Screen Ur Barbiturates Screen Ur Phencyclidine Scrn Ur Amphetamines Screen U Benzodiazepines Scrn Urine Cocaine Screen U Marijuana (THC) Screen Ethyl Alcohol Rheumatoid Factor SIDRA Screen SIDRA Titer SIDRA Titer 2 SIDRA Titer 3 SIDRA Pattern SIDRA Pattern 2 SIDRA Pattern 3 Heparin Dep Plt Ab OD Hep-Induced Plt Ab [place] Respiratory Panel Goss Adenovirus (Rapid PCR) A.phagocytophil DNA PCR Babesia microti DNA PCR B.pert (TEM-PCR) B.parapertussis DNA PCR Borrelia sp DNA (PCR) Borrelia miyamotoi (PCR) C. pneumoniae DNA (PCR) Coronavirus OC43 (PCR) Coronavirus HKU1 (PCR) Coronavirus 229E (PCR) COVID-19 ([facility]) COVID-19 Clin Com Coronavirus NL63 (PCR) E.chaffeensis DNA (PCR) Human Metapneumovir PCR Influenza A (RT-PCR) Influenza B (RT-PCR) M. pneumoniae (PCR) Parainfluenza 1 (PCR) Parainfluenza 2 (PCR) Parainfluenza 3 (PCR) Parainfluenza 4 (PCR) RSV (PCR) Entero/Rhino (PCR) SARS-CoV-2 RNA (RT-PCR) Tick-borne Disease PCR Blood Type Antibody Screen Crossmatch 03/16/23 03/16/23 03/16/23 05:13 06:03 10:00 WBC RBC Hgb Hct MCV MCH MCHC RDW Plt Count MPV Immature Gran % (Auto) Neut % (Auto) Lymph % (Auto) [place] % (Auto) Eos % (Auto) Baso % (Auto) Lymph # (Auto) [place] # (Auto) Eos # (Auto) Baso # (Auto) Abs Immat Gran (auto) Absolute Neuts (auto) Absolute Nucleated RBC Nucleated RBC % (auto) Neutrophils % (Manual) Band Neutrophils % Lymphocytes % (Manual) Atypical Lymphs % (Man) Monocytes % (Manual) Eosinophils % (Manual) Metamyelocytes % Abs Neuts (Manual) Lymphocytes # (Manual) Atyp Lymphs # (Manual) Monocytes # (Manual) Eosinophils # (Manual) Toxic Granulation Toxic Vacuolation Dohle Bodies Platelet Estimate Large Platelets Plt Morphology Comment RBC Morphology Hypochromasia Target Cells [place] Cells Smear Tech's Comments ESR PT INR APTT Hep-Ind Thrombocytop Com TNP VBG pH 7.42 VBG pCO2 31 VBG pO2 65 VBG HCO3 21 L VBG O2 Saturation 91.0 VBG Base Excess -2.6 Sodium Potassium Chloride Carbon Dioxide Anion Gap BUN Creatinine Estim Creat Clear Calc Estimated GFR POC Glucose Random Glucose Lactic Acid Lactic Acid F/U @ 2Hr Lactic Acid F/U @ 4Hr Calcium Phosphorus Magnesium Total Bilirubin Direct Bilirubin AST ALT Alkaline Phosphatase Total Creatine Kinase Troponin I High Sens C-Reactive Protein Total Protein Albumin Amylase Lipase Aldolase Urine Color Urine Appearance Urine pH Ur Specific [place] Urine Protein Urine Glucose (UA) Urine Ketones Urine Blood Urine Nitrite Ur Leukocyte Esterase Urine RBC Urine WBC Ur Squamous Epith Cells Urine Bacteria Hyaline Casts U Random Total Protein Ur Random Sodium Ur Random Potassium Ur Random Chloride Urine Creatinine Nasal Screen MRSA (PCR) Nasal S. aureus Screen Nasal MRSA/S.aureus Interp Stool Occult Blood POSITIVE Stool H. pylori Ag SEE NOTE Random Vancomycin Urine Opiates Screen Urine Fentanyl Screen Ur Barbiturates Screen Ur Phencyclidine Scrn Ur Amphetamines Screen U Benzodiazepines Scrn Urine Cocaine Screen U Marijuana (THC) Screen Ethyl Alcohol Rheumatoid Factor SIDRA Screen SIDRA Titer SIDRA Titer 2 SIDRA Titer 3 SIDRA Pattern SIDRA Pattern 2 SIDRA Pattern 3 Heparin Dep Plt Ab OD 0.180 Hep-Induced Plt Ab [place] Negative Respiratory Panel Goss Adenovirus (Rapid PCR) A.phagocytophil DNA PCR Babesia microti DNA PCR B.pert (TEM-PCR) B.parapertussis DNA PCR Borrelia sp DNA (PCR) Borrelia miyamotoi (PCR) C. pneumoniae DNA (PCR) Coronavirus OC43 (PCR) Coronavirus HKU1 (PCR) Coronavirus 229E (PCR) COVID-19 ([facility]) COVID-19 Clin Com Coronavirus NL63 (PCR) E.chaffeensis DNA (PCR) Human Metapneumovir PCR Influenza A (RT-PCR) Influenza B (RT-PCR) M. pneumoniae (PCR) Parainfluenza 1 (PCR) Parainfluenza 2 (PCR) Parainfluenza 3 (PCR) Parainfluenza 4 (PCR) RSV (PCR) Entero/Rhino (PCR) SARS-CoV-2 RNA (RT-PCR) Tick-borne Disease PCR Blood Type Antibody Screen Crossmatch 03/16/23 03/16/2303/17/23 15:01 20:06 04:39 WBC 10.3 10.1 RBC 2.72 L 2.43 L Hgb 8.7 L 7.6 L Hct 24.7 L 22.1 L MCV 90.8 90.9 MCH 32.0 31.3 MCHC 35.2 34.4 RDW 14.7 14.6 Plt Count 60 L D 59 L MPV Not Reportable 15.3 H Immature Gran % (Auto) 1.0 H 0.8 H Neut % (Auto) 84.3 H 79.5 H Lymph % (Auto) 7.6 L 10.7 L Taylor % (Auto) 6.6 8.3 Eos % (Auto) 0.3 0.5 Baso % (Auto) 0.2 0.2 Lymph # (Auto) 0.8 L 1.1 L Taylor # (Auto) 0.7 0.8 Eos # (Auto) 0.0 0.1 Baso # (Auto) 0.0 0.0 Abs Immat Gran (auto) 0.10 H 0.08 H Absolute Neuts (auto) 8.6 H 8.0 Absolute Nucleated RBC 0.000 0.000 Nucleated RBC % (auto) 0.0 0.0 Neutrophils % (Manual) Band Neutrophils % Lymphocytes % (Manual) Atypical Lymphs % (Man) Monocytes % (Manual) Eosinophils % (Manual) Metamyelocytes % Abs Neuts (Manual) Lymphocytes # (Manual) Atyp Lymphs # (Manual) Monocytes # (Manual) Eosinophils # (Manual) Toxic Granulation Toxic Vacuolation Dohle Bodies Platelet Estimate Large Platelets Plt Morphology Comment RBC Morphology Hypochromasia Target Cells [place] Cells Smear Tech's Comments VERIFIED ESR 96 H PT INR APTT Hep-Ind Thrombocytop Com VBG pH 7.46 H VBG pCO2 31 VBG pO2 72 VBG HCO3 22 VBG O2 Saturation 94.0 VBG Base Excess -0.5 Sodium 138 138 Potassium 3.8 4.1 Chloride 108 109 H Carbon Dioxide 23 22 Anion Gap 11 L 11 L BUN 48 H 45 H Creatinine 1.28 1.30 Estim Creat Clear Calc 56.8 55.9 Estimated GFR 56 55 POC Glucose Random Glucose 158 H 146 H Lactic Acid Lactic Acid F/U @ 2Hr Lactic Acid F/U @ 4Hr Calcium 8.7 8.3 L Phosphorus 2.7 Magnesium 2.4 Total Bilirubin 1.4 H 1.7 H Direct Bilirubin AST 42 H 40 H ALT 24 26 Alkaline Phosphatase 110 53 Total Creatine Kinase 76 Troponin I High Sens C-Reactive Protein 27.34 H Total Protein 5.8 L 5.3 L Albumin 3.2 L 2.9 L Amylase Lipase Aldolase 7.8 Urine Color Urine Appearance Urine pH Ur Specific [place] Urine Protein Urine Glucose (UA) Urine Ketones Urine Blood Urine Nitrite Ur Leukocyte Esterase Urine RBC Urine WBC Ur Squamous Epith Cells Urine Bacteria Hyaline Casts U Random Total Protein Ur Random Sodium Ur Random Potassium Ur Random Chloride Urine Creatinine Nasal Screen MRSA (PCR) Nasal S. aureus Screen Nasal MRSA/S.aureus Interp Stool Occult Blood Stool H. pylori Ag Random Vancomycin 5.7 L Urine Opiates Screen Urine Fentanyl Screen Ur Barbiturates Screen Ur Phencyclidine Scrn Ur Amphetamines Screen U Benzodiazepines Scrn Urine Cocaine Screen U Marijuana (THC) Screen Ethyl Alcohol Rheumatoid Factor < 13.0 SIDRA Screen POSITIVE A SIDRA Titer 1:40 H SIDRA Titer 2 TNP SIDRA Titer 3 TNP SIDRA Pattern Nuclear, Homogeneous A SIDRA Pattern 2 TNP SIDRA Pattern 3 TNP Heparin Dep Plt Ab OD Hep-Induced Plt Ab [place] Respiratory Panel Goss Adenovirus (Rapid PCR) A.phagocytophil DNA PCR Babesia microti DNA PCR B.pert (TEM-PCR) B.parapertussis DNA PCR Borrelia sp DNA (PCR) Borrelia miyamotoi (PCR) C. pneumoniae DNA (PCR) Coronavirus OC43 (PCR) Coronavirus HKU1 (PCR) Coronavirus 229E (PCR) COVID-19 ([facility]) COVID-19 Clin Com Coronavirus NL63 (PCR) E.chaffeensis DNA (PCR) Human Metapneumovir PCR Influenza A (RT-PCR) Influenza B (RT-PCR) M. pneumoniae (PCR) Parainfluenza 1 (PCR) Parainfluenza 2 (PCR) Parainfluenza 3 (PCR) Parainfluenza 4 (PCR) RSV (PCR) Entero/Rhino (PCR) SARS-CoV-2 RNA (RT-PCR) Tick-borne Disease PCR Blood Type Antibody Screen Crossmatch 03/17/23 03/18/23 03/18/23 20:10 07:22 08:46 WBC 14.3 H RBC 2.39 L Hgb 7.5 L Hct 21.4 L MCV 89.5 MCH 31.4 MCHC 35.0 RDW 14.7 Plt Count 105 L D MPV 14.8 H Immature Gran % (Auto) 1.9 H Neut % (Auto) 79.9 H Lymph % (Auto) 8.3 L Taylor % (Auto) 8.8 Eos % (Auto) 1.0 Baso % (Auto) 0.1 Lymph # (Auto) 1.2 Taylor # (Auto) 1.3 H Eos # (Auto) 0.1 Baso # (Auto) 0.0 Abs Immat Gran (auto) 0.27 H Absolute Neuts (auto) 11.4 H Absolute Nucleated RBC 0.000 Nucleated RBC % (auto) 0.0 Neutrophils % (Manual) Band Neutrophils % Lymphocytes % (Manual) Atypical Lymphs % (Man) Monocytes % (Manual) Eosinophils % (Manual) Metamyelocytes % Abs Neuts (Manual) Lymphocytes # (Manual) Atyp Lymphs # (Manual) Monocytes # (Manual) Eosinophils # (Manual) Toxic Granulation Toxic Vacuolation Dohle Bodies Platelet Estimate Large Platelets Plt Morphology Comment RBC Morphology Hypochromasia Target Cells [place] Cells Smear Tech's Comments ESR PT INR APTT Hep-Ind Thrombocytop Com VBG pH 7.50 H VBG pCO2 29 VBG pO2 194 VBG HCO3 23 VBG O2 Saturation 99.0 VBG Base Excess 1.1 Sodium 139 Potassium 3.8 Chloride 107 Carbon Dioxide 22 Anion Gap 14 BUN 44 H Creatinine 1.13 Estim Creat Clear Calc 63.5 Estimated GFR > 60 POC Glucose Random Glucose 117 H Lactic Acid Lactic Acid F/U @ 2Hr Lactic Acid F/U @ 4Hr Calcium 8.7 Phosphorus 2.9 Magnesium 2.4 Total Bilirubin Direct Bilirubin AST ALT Alkaline Phosphatase Total Creatine Kinase Troponin I High Sens C-Reactive Protein Total Protein Albumin 3.6 Amylase Lipase Aldolase Urine Color Urine Appearance Urine pH Ur Specific [place] Urine Protein Urine Glucose (UA) Urine Ketones Urine Blood Urine Nitrite Ur Leukocyte Esterase Urine RBC Urine WBC Ur Squamous Epith Cells Urine Bacteria Hyaline Casts U Random Total Protein Ur Random Sodium Ur Random Potassium Ur Random Chloride Urine Creatinine Nasal Screen MRSA (PCR) Nasal S. aureus Screen Nasal MRSA/S.aureus Interp Stool Occult Blood Stool H. pylori Ag Random Vancomycin 10.0 L Urine Opiates Screen Urine Fentanyl Screen Ur Barbiturates Screen Ur Phencyclidine Scrn Ur Amphetamines Screen U Benzodiazepines Scrn Urine Cocaine Screen U Marijuana (THC) Screen Ethyl Alcohol Rheumatoid Factor SIDRA Screen SIDRA Titer SIDRA Titer 2 SIDRA Titer 3 SIDRA Pattern SIDRA Pattern 2 SIDRA Pattern 3 Heparin Dep Plt Ab OD Hep-Induced Plt Ab [place] Respiratory Panel Goss Adenovirus (Rapid PCR) A.phagocytophil DNA PCR Babesia microti DNA PCR B.pert (TEM-PCR) B.parapertussis DNA PCR Borrelia sp DNA (PCR) Borrelia miyamotoi (PCR) C. pneumoniae DNA (PCR) Coronavirus OC43 (PCR) Coronavirus HKU1 (PCR) Coronavirus 229E (PCR) COVID-19 ([facility]) COVID-19 Clin Com Coronavirus NL63 (PCR) E.chaffeensis DNA (PCR) Human Metapneumovir PCR Influenza A (RT-PCR) Influenza B (RT-PCR) M. pneumoniae (PCR) Parainfluenza 1 (PCR) Parainfluenza 2 (PCR) Parainfluenza 3 (PCR) Parainfluenza 4 (PCR) RSV (PCR) Entero/Rhino (PCR) SARS-CoV-2 RNA (RT-PCR) Tick-borne Disease PCR Blood Type Antibody Screen Crossmatch 03/18/23 03/19/23 03/19/23 13:58 07:23 11:07 WBC RBC Hgb Hct MCV MCH MCHC RDW Plt Count MPV Immature Gran % (Auto) Neut % (Auto) Lymph % (Auto) [place] % (Auto) Eos % (Auto) Baso % (Auto) Lymph # (Auto) [place] # (Auto) Eos # (Auto) Baso # (Auto) Abs Immat Gran (auto) Absolute Neuts (auto) Absolute Nucleated RBC Nucleated RBC % (auto) Neutrophils % (Manual) Band Neutrophils % Lymphocytes % (Manual) Atypical Lymphs % (Man) Monocytes % (Manual) Eosinophils % (Manual) Metamyelocytes % Abs Neuts (Manual) Lymphocytes # (Manual) Atyp Lymphs # (Manual) Monocytes # (Manual) Eosinophils # (Manual) Toxic Granulation Toxic Vacuolation Dohle Bodies Platelet Estimate Large Platelets Plt Morphology Comment RBC Morphology Hypochromasia Target Cells [place] Cells Smear Tech's Comments ESR PT INR APTT Hep-Ind Thrombocytop Com VBG pH VBG pCO2 VBG pO2 VBG HCO3 VBG O2 Saturation VBG Base Excess Sodium Potassium Chloride Carbon Dioxide Anion Gap BUN Creatinine 1.04 Estim Creat Clear Calc 68.9 Estimated GFR > 60 POC Glucose 145 H Random Glucose Lactic Acid Lactic Acid F/U @ 2Hr Lactic Acid F/U @ 4Hr Calcium Phosphorus Magnesium Total Bilirubin Direct Bilirubin AST ALT Alkaline Phosphatase Total Creatine Kinase Troponin I High Sens C-Reactive Protein Total Protein Albumin Amylase Lipase Aldolase Urine Color Urine Appearance Urine pH Ur Specific [place] Urine Protein Urine Glucose (UA) Urine Ketones Urine Blood Urine Nitrite Ur Leukocyte Esterase Urine RBC Urine WBC Ur Squamous Epith Cells Urine Bacteria Hyaline Casts U Random Total Protein Ur Random Sodium Ur Random Potassium Ur Random Chloride Urine Creatinine Nasal Screen MRSA (PCR) Nasal S. aureus Screen Nasal MRSA/S.aureus Interp Stool Occult Blood Stool H. pylori Ag Random Vancomycin Urine Opiates Screen Urine Fentanyl Screen Ur Barbiturates Screen Ur Phencyclidine Scrn Ur Amphetamines Screen U Benzodiazepines Scrn Urine Cocaine Screen U Marijuana (THC) Screen Ethyl Alcohol Rheumatoid Factor SIDRA Screen SIDRA Titer SIDRA Titer 2 SIDRA Titer 3 SIDRA Pattern SIDRA Pattern 2 SIDRA Pattern 3 Heparin Dep Plt Ab OD Hep-Induced Plt Ab [place] Respiratory Panel Goss Adenovirus (Rapid PCR) A.phagocytophil DNA PCR Babesia microti DNA PCR B.pert (TEM-PCR) B.parapertussis DNA PCR Borrelia sp DNA (PCR) Borrelia miyamotoi (PCR) C. pneumoniae DNA (PCR) Coronavirus OC43 (PCR) Coronavirus HKU1 (PCR) Coronavirus 229E (PCR) COVID-19 ([facility]) COVID-19 Clin Com Coronavirus NL63 (PCR) E.chaffeensis DNA (PCR) Human Metapneumovir PCR Influenza A (RT-PCR) Influenza B (RT-PCR) M. pneumoniae (PCR) Parainfluenza 1 (PCR) Parainfluenza 2 (PCR) Parainfluenza 3 (PCR) Parainfluenza 4 (PCR) RSV (PCR) Entero/Rhino (PCR) SARS-CoV-2 RNA (RT-PCR) Tick-borne Disease PCR Blood Type A Positive Antibody Screen NEGATIVE Crossmatch See Detail 03/20/23 03/20/23 03/20/23 06:15 09:46 09:46 WBC 14.3 H RBC 2.34 L Hgb 7.4 L 7.4 L Hct 21.6 L MCV MCH MCHC RDW Plt Count MPV Immature Gran % (Auto) Neut % (Auto) Lymph % (Auto) [place] % (Auto) Eos % (Auto) Baso % (Auto) Lymph # (Auto) [place] # (Auto) Eos # (Auto) Baso # (Auto) Abs Immat Gran (auto) Absolute Neuts (auto) Absolute Nucleated RBC Nucleated RBC % (auto) Neutrophils % (Manual) Band Neutrophils % Lymphocytes % (Manual) Atypical Lymphs % (Man) Monocytes % (Manual) Eosinophils % (Manual) Metamyelocytes % Abs Neuts (Manual) Lymphocytes # (Manual) Atyp Lymphs # (Manual) Monocytes # (Manual) Eosinophils # (Manual) Toxic Granulation Toxic Vacuolation Dohle Bodies Platelet Estimate Large Platelets Plt Morphology Comment RBC Morphology Hypochromasia Target Cells [place] Cells Smear Tech's Comments ESR PT INR APTT Hep-Ind Thrombocytop Com VBG pH VBG pCO2 VBG pO2 VBG HCO3 VBG O2 Saturation VBG Base Excess Sodium Potassium Chloride Carbon Dioxide Anion Gap BUN Creatinine 2.03 H Estim Creat Clear Calc 35.3 Estimated GFR 33 POC Glucose Random Glucose Lactic Acid Lactic Acid F/U @ 2Hr Lactic Acid F/U @ 4Hr Calcium Phosphorus Magnesium Total Bilirubin Direct Bilirubin AST ALT Alkaline Phosphatase Total Creatine Kinase Troponin I High Sens C-Reactive Protein Total Protein Albumin Amylase Lipase Aldolase Urine Color Urine Appearance Urine pH Ur Specific [place] Urine Protein Urine Glucose (UA) Urine Ketones Urine Blood Urine Nitrite Ur Leukocyte Esterase Urine RBC Urine WBC Ur Squamous Epith Cells Urine Bacteria Hyaline Casts U Random Total Protein Ur Random Sodium Ur Random Potassium Ur Random Chloride Urine Creatinine Nasal Screen MRSA (PCR) Nasal S. aureus Screen Nasal MRSA/S.aureus Interp Stool Occult Blood Stool H. pylori Ag Random Vancomycin Urine Opiates Screen Urine Fentanyl Screen Ur Barbiturates Screen Ur Phencyclidine Scrn Ur Amphetamines Screen U Benzodiazepines Scrn Urine Cocaine Screen U Marijuana (THC) Screen Ethyl Alcohol Rheumatoid Factor SIDRA Screen SIDRA Titer SIDRA Titer 2 SIDRA Titer 3 SIDRA Pattern SIDRA Pattern 2 SIDRA Pattern 3 Heparin Dep Plt Ab OD Hep-Induced Plt Ab Taylor Respiratory Panel Goss Adenovirus (Rapid PCR) A.phagocytophil DNA PCR Babesia microti DNA PCR B.pert (TEM-PCR) B.parapertussis DNA PCR Borrelia sp DNA (PCR) Borrelia miyamotoi (PCR) C. pneumoniae DNA (PCR) Coronavirus OC43 (PCR) Coronavirus HKU1 (PCR) Coronavirus 229E (PCR) COVID-19 (JASSON) COVID-19 Clin Com Coronavirus NL63 (PCR) E.chaffeensis DNA (PCR) Human Metapneumovir PCR Influenza A (RT-PCR) Influenza B (RT-PCR) M. pneumoniae (PCR) Parainfluenza 1 (PCR) Parainfluenza 2 (PCR) Parainfluenza 3 (PCR) Parainfluenza 4 (PCR) RSV (PCR) Entero/Rhino (PCR) SARS-CoV-2 RNA (RT-PCR) Tick-borne Disease PCR Blood Type Antibody Screen Crossmatch 03/20/23 03/20/23 03/20/23 09:46 11:36 12:12 WBC RBC Hgb Hct 21.4 L MCV 91.5 MCH 31.6 MCHC 34.6 RDW 15.2 Plt Count 172 D MPV Not Reportable Immature Gran % (Auto) Neut % (Auto) Lymph % (Auto) Taylor % (Auto) Eos % (Auto) Baso % (Auto) Lymph # (Auto) [place] # (Auto) Eos # (Auto) Baso # (Auto) Abs Immat Gran (auto) Absolute Neuts (auto) Absolute Nucleated RBC 0.000 Nucleated RBC % (auto) 0.0 Neutrophils % (Manual) Band Neutrophils % Lymphocytes % (Manual) Atypical Lymphs % (Man) Monocytes % (Manual) Eosinophils % (Manual) Metamyelocytes % Abs Neuts (Manual) Lymphocytes # (Manual) Atyp Lymphs # (Manual) Monocytes # (Manual) Eosinophils # (Manual) Toxic Granulation Toxic Vacuolation Dohle Bodies Platelet Estimate Large Platelets Plt Morphology Comment RBC Morphology Hypochromasia Target Cells [place] Cells Smear Tech's Comments ESR PT INR APTT Hep-Ind Thrombocytop Com VBG pH VBG pCO2 VBG pO2 VBG HCO3 VBG O2 Saturation VBG Base Excess Sodium 135 Potassium 4.1 Chloride 104 Carbon Dioxide 21 L Anion Gap 14 BUN 67 H Creatinine 2.22 H Estim Creat Clear Calc 32.3 Estimated GFR 30 POC Glucose Random Glucose 147 H Lactic Acid Lactic Acid F/U @ 2Hr Lactic Acid F/U @ 4Hr Calcium 8.2 L Phosphorus Magnesium Total Bilirubin 1.1 H Direct Bilirubin AST 43 H ALT 24 Alkaline Phosphatase 61 Total Creatine Kinase Troponin I High Sens 11.7 D C-Reactive Protein Total Protein 5.8 L Albumin 2.9 L Amylase Lipase 402 H Aldolase Urine Color Dark Yellow Urine Appearance Cloudy Urine pH 5.0 Ur Specific [place] 1.020 Urine Protein Negative Urine Glucose (UA) Negative Urine Ketones Trace Urine Blood Negative Urine Nitrite Positive H Ur Leukocyte Esterase Small (1+) H Urine RBC 0-2 Urine WBC 6-10 H Ur Squamous Epith Cells 3-5 Urine Bacteria 1+ Hyaline Casts 3-5 U Random Total Protein 17 H Ur Random Sodium < 20.0 Ur Random Potassium Ur Random Chloride Urine Creatinine Nasal Screen MRSA (PCR) Nasal S. aureus Screen Nasal MRSA/S.aureus Interp Stool Occult Blood Stool H. pylori Ag Random Vancomycin Urine Opiates Screen Urine Fentanyl Screen Ur Barbiturates Screen Ur Phencyclidine Scrn Ur Amphetamines Screen U Benzodiazepines Scrn Urine Cocaine Screen U Marijuana (THC) Screen Ethyl Alcohol Rheumatoid Factor SIDRA Screen SIDRA Titer SIDRA Titer 2 SIDRA Titer 3 SIDRA Pattern SIDRA Pattern 2 SIDRA Pattern 3 Heparin Dep Plt Ab OD Hep-Induced Plt Ab [place] Respiratory Panel [place]oss Adenovirus (Rapid PCR) A.phagocytophil DNA PCR Babesia microti DNA PCR B.pert (TEM-PCR) B.parapertussis DNA PCR Borrelia sp DNA (PCR) Borrelia miyamotoi (PCR) C. pneumoniae DNA (PCR) Coronavirus OC43 (PCR) Coronavirus HKU1 (PCR) Coronavirus 229E (PCR) COVID-19 (JASSON) COVID-19 Clin Com Coronavirus NL63 (PCR) E.chaffeensis DNA (PCR) Human Metapneumovir PCR Influenza A (RT-PCR) Influenza B (RT-PCR) M. pneumoniae (PCR) Parainfluenza 1 (PCR) Parainfluenza 2 (PCR) Parainfluenza 3 (PCR) Parainfluenza 4 (PCR) RSV (PCR) Entero/Rhino (PCR) SARS-CoV-2 RNA (RT-PCR) Tick-borne Disease PCR Blood Type Antibody Screen Crossmatch 03/20/23 03/20/23 03/21/23 12:12 18:31 06:33 WBC 12.0 H RBC 2.53 L Hgb 7.9 L Hct 23.4 L MCV 92.5 MCH 31.2 MCHC 33.8 RDW 15.2 Plt Count 168 MPV 13.3 H Immature Gran % (Auto) Neut % (Auto) Lymph % (Auto) Taylor % (Auto) Eos % (Auto) Baso % (Auto) Lymph # (Auto) [place] # (Auto) Eos # (Auto) Baso # (Auto) Abs Immat Gran (auto) Absolute Neuts (auto) Absolute Nucleated RBC 0.000 Nucleated RBC % (auto) 0.0 Neutrophils % (Manual) Band Neutrophils % Lymphocytes % (Manual) Atypical Lymphs % (Man) Monocytes % (Manual) Eosinophils % (Manual) Metamyelocytes % Abs Neuts (Manual) Lymphocytes # (Manual) Atyp Lymphs # (Manual) Monocytes # (Manual) Eosinophils # (Manual) Toxic Granulation Toxic Vacuolation Dohle Bodies Platelet Estimate Large Platelets Plt Morphology Comment RBC Morphology Hypochromasia Target Cells [place] Cells Smear Tech's Comments ESR 54 H PT INR APTT Hep-Ind Thrombocytop Com VBG pH VBG pCO2 VBG pO2 VBG HCO3 VBG O2 Saturation VBG Base Excess Sodium 136 Potassium 4.1 Chloride 105 Carbon Dioxide 20 L Anion Gap 15 BUN 94 H Creatinine 2.81 H Estim Creat Clear Calc 25.5 Estimated GFR 23 POC Glucose Random Glucose 112 Lactic Acid Lactic Acid F/U @ 2Hr Lactic Acid F/U @ 4Hr Calcium 8.0 L Phosphorus Magnesium Total Bilirubin 1.0 Direct Bilirubin 0.7 H AST 28 ALT 7 Alkaline Phosphatase 59 Total Creatine Kinase 52 Troponin I High Sens C-Reactive Protein Total Protein 5.9 L Albumin 2.9 L Amylase Lipase Aldolase Urine Color Urine Appearance Urine pH Ur Specific [place] Urine Protein Urine Glucose (UA) Urine Ketones Urine Blood Urine Nitrite Ur Leukocyte Esterase Urine RBC Urine WBC Ur Squamous Epith Cells Urine Bacteria Hyaline Casts U Random Total Protein Ur Random Sodium Cancelled Ur Random Potassium 49.6 Ur Random Chloride < 20.0 Urine Creatinine 213.06 Nasal Screen MRSA (PCR) Nasal S. aureus Screen Nasal MRSA/S.aureus Interp Stool Occult Blood Stool H. pylori Ag Random Vancomycin Urine Opiates Screen Urine Fentanyl Screen Ur Barbiturates Screen Ur Phencyclidine Scrn Ur Amphetamines Screen U Benzodiazepines Scrn Urine Cocaine Screen U Marijuana (THC) Screen Ethyl Alcohol Rheumatoid Factor SIDRA Screen SIDRA Titer SIDRA Titer 2 SIDRA Titer 3 SIDRA Pattern SIDRA Pattern 2 SIDRA Pattern 3 Heparin Dep Plt Ab OD Hep-Induced Plt Ab [place] Respiratory Panel [place]oss Adenovirus (Rapid PCR) A.phagocytophil DNA PCR Babesia microti DNA PCR B.pert (TEM-PCR) B.parapertussis DNA PCR Borrelia sp DNA (PCR) Borrelia miyamotoi (PCR) C. pneumoniae DNA (PCR) Coronavirus OC43 (PCR) Coronavirus HKU1 (PCR) Coronavirus 229E (PCR) COVID-19 (JASSON) COVID-19 Clin Com Coronavirus NL63 (PCR) E.chaffeensis DNA (PCR) Human Metapneumovir PCR Influenza A (RT-PCR) Influenza B (RT-PCR) M. pneumoniae (PCR) Parainfluenza 1 (PCR) Parainfluenza 2 (PCR) Parainfluenza 3 (PCR) Parainfluenza 4 (PCR) RSV (PCR) Entero/Rhino (PCR) SARS-CoV-2 RNA (RT-PCR) Tick-borne Disease PCR Blood Type Antibody Screen Crossmatch Airway Mallampati Class: III TM Dist: >3cm Neck ROM: Full Assessment and Plan Assessment Anesthesia Assessment: Anesthesia Plan Discussed Final Anesthetic Review Family History of Problems with Anesthesia: No History of Problems with Anesthesia: No NPO: Yes ASA Class: III Final Preanesthetic Review: No Changes in Pt Med Stat, Meds/Allgs Chart Reviewed, Anes Risks/Benef Reviewed and DNR Form (If Appl.) Patient Risk: Intermediate Procedure Risk: Low Anesthetic Plan Anesthetic Plan: MAC: Disposition: Standard PACU
--- NOTE | 2023-03-21 11:46 | P.PNCA_ITS ---
Subjective Subjective Date of Service: 03/21/23 Interval history: Seen and examined at bedside. Full consult to follow. Persistent MSSA bacteremia For JULIANNE today. Physical Exam Vital Signs: Last Vital Signs Temp 97.4 F 03/21/23 11:45 Pulse 80 03/21/23 11:45 Resp 18 03/21/23 11:45 BP 123/57 L 03/21/23 11:45 Pulse Ox 97 03/21/23 11:45 O2 Del Method Nasal Cannula 03/21/23 11:45 O2 Flow Rate 3 03/21/23 11:45 BMI result Body Mass Index 34.8 Objective Labs and Meds 03/21/23 06:33 03/21/23 06:33 Lab results: Laboratory Results - last 24 hr 03/16/23 03/16/23 03/18/23 06:03 15:01 13:58 WBC RBC Hgb Hct MCV MCH MCHC RDW Plt Count MPV Absolute Nucleated RBC Nucleated RBC % (auto) ESR Hep-Ind Thrombocytop Com TNP Sodium Potassium Chloride Carbon Dioxide Anion Gap BUN Creatinine Estim Creat Clear Calc Estimated GFR Random Glucose Calcium Total Bilirubin Direct Bilirubin AST ALT Alkaline Phosphatase Total Creatine Kinase Troponin I High Sens Total Protein Albumin Aldolase 7.8 Urine Color Urine Appearance Urine pH Ur Specific [place] Urine Protein Urine Glucose (UA) Urine Ketones Urine Blood Urine Nitrite Ur Leukocyte Esterase Urine RBC Urine WBC Ur Squamous Epith Cells Urine Bacteria Hyaline Casts U Random Total Protein Ur Random Sodium Ur Random Potassium Ur Random Chloride Urine Creatinine SIDRA Titer 2 TNP SIDRA Titer 3 TNP SIDRA Pattern 2 TNP SIDRA Pattern 3 TNP Blood Type A Positive Antibody Screen NEGATIVE Crossmatch See Detail 03/20/23 03/20/23 03/20/23 11:36 12:12 12:12 WBC RBC Hgb Hct MCV MCH MCHC RDW Plt Count MPV Absolute Nucleated RBC Nucleated RBC % (auto) ESR Hep-Ind Thrombocytop Com Sodium Potassium Chloride Carbon Dioxide Anion Gap BUN Creatinine Estim Creat Clear Calc Estimated GFR Random Glucose Calcium Total Bilirubin Direct Bilirubin AST ALT Alkaline Phosphatase Total Creatine Kinase Troponin I High Sens 11.7 D Total Protein Albumin Aldolase Urine Color Dark Yellow Urine Appearance Cloudy Urine pH 5.0 Ur Specific [place] 1.020 Urine Protein Negative Urine Glucose (UA) Negative Urine Ketones Trace Urine Blood Negative Urine Nitrite Positive H Ur Leukocyte Esterase Small (1+) H Urine RBC 0-2 Urine WBC 6-10 H Ur Squamous Epith Cells 3-5 Urine Bacteria 1+ Hyaline Casts 3-5 U Random Total Protein 17 H Ur Random Sodium < 20.0 Cancelled Ur Random Potassium 49.6 Ur Random Chloride < 20.0 Urine Creatinine 213.06 SIDRA Titer 2 SIDRA Titer 3 SIDRA Pattern 2 SIDRA Pattern 3 Blood Type Antibody Screen Crossmatch 03/20/23 03/21/23 18:31 06:33 WBC 12.0 H RBC 2.53 L Hgb 7.9 L Hct 23.4 L MCV 92.5 MCH 31.2 MCHC 33.8 RDW 15.2 Plt Count 168 MPV 13.3 H Absolute Nucleated RBC 0.000 Nucleated RBC % (auto) 0.0 ESR 54 H Hep-Ind Thrombocytop Com Sodium 136 Potassium 4.1 Chloride 105 Carbon Dioxide 20 L Anion Gap 15 BUN 94 H Creatinine 2.81 H Estim Creat Clear Calc 25.5 Estimated GFR 23 Random Glucose 112 Calcium 8.0 L Total Bilirubin 1.0 Direct Bilirubin 0.7 H AST 28 ALT 7 Alkaline Phosphatase 59 Total Creatine Kinase 52 Troponin I High Sens Total Protein 5.9 L Albumin 2.9 L Aldolase Urine Color Urine Appearance Urine pH Ur Specific [place] Urine Protein Urine Glucose (UA) Urine Ketones Urine Blood Urine Nitrite Ur Leukocyte Esterase Urine RBC Urine WBC Ur Squamous Epith Cells Urine Bacteria Hyaline Casts U Random Total Protein Ur Random Sodium Ur Random Potassium Ur Random Chloride Urine Creatinine SIDRA Titer 2 SIDRA Titer 3 SIDRA Pattern 2 SIDRA Pattern 3 Blood Type Antibody Screen Crossmatch Imaging Radiologist's impression: Impressions Renal Ultrasound 03/20/23 11:20 IMPRESSION: Normal-appearing kidneys. Chest X-Ray 03/20/23 11:50 IMPRESSION: Unremarkable examination. Abdomen/Pelvis CT 03/20/23 15:33 IMPRESSION: Bilateral perinephric stranding. Worse on the right. Correlation should be made with urinalysis. Nondependent gas in the urinary bladder and anterior bladder wall thickening. Nonobstructing left renal calculi. Hepatic steatosis. Ill-defined 2.0 cm right hepatic hypodensity. Further characterization with MRI abdomen is recommended. Small bilateral pleural effusions and dependent atelectasis. Progress Note: A&P Time Spent With Patient Time: Total time managing care of this patient today ____ minutes. Progress Note: Quality Stroke Does the patient have a stroke diagnosis?: No Procedures Date of Service Date of Service: 03/21/23
--- NOTE | 2023-03-21 11:48 | PM.CNCAR ---
History of Present Illness History of Present Illness Date of Service: 03/21/23 Requesting physician: Jason Daniels Chief complaint: Sepsis, MSSA bacteremia Narrative: [age] year gentleman who has been admitted to [facility] with upper GI bleed with endoscopy showing gastric ulcer as well as persistent MSSA bacteremia. We have been asked to assess him for endocarditis. Patient apparently came with GI bleed and had some change in mental status at that time too. He had blood cultures drawn which grew MSSA. He had extensive workup since then with no obvious source found. He had transthoracic echocardiogram which was performed recently. He had a broken chordae attached to the anterior mitral valve leaflet. No obvious vegetation was seen. He continues to be bacteremic and we been asked to perform a JULIANNE on him. [facility] Past Medical History Medical History Murmur, cardiac Arm pain, left Hyperkalemia Pulmonary nodule COPD (chronic obstructive pulmonary disease) COPD exacerbation Emphysema/COPD Bronchitis Lab test negative for COVID-19 virus Elevated cholesterol COVID-19 vaccine series completed Obesity (BMI 30-39.9) Pancreatitis Alcohol abuse Overweight (BMI 25.0-29.9) Tobacco abuse Erectile dysfunction Vitamin D deficiency Hypogonadism Macrocytosis without anemia Osteoarthritis Hypercholesterolemia Hypertension Bipolar disorder Amputation finger Right arm fracture Family History Family History Father No problems noted. Mother No problems noted. Sister No problems noted. Sister No problems noted. Son No problems noted. Daughter No problems noted. Daughter No problems noted. Family history: reviewed and not pertinent Surgical History Surgical History History of surgery on arm Finger amputation, no complication Social History Social History Household Members: Significant Other Housing: House Are you a primary career placement services counselor to a significant other at home: No Do you presently have visiting nurse or other home services: No Alcohol intake: never Patient Tobacco Use Status: Current everyday Tobacco user Tobacco use type: Cigarette Cigarettes Per Day: 2 Years Smoked: 35 Smoked in Last 30 Days: Yes e-Cigarette/Vaping Use: Never Used Patient Interested in Nicotine Replacement: No Patient Given Instructions on How to Stop Smoking: No Second Hand Smoke Exposure: No Use of substances other than those prescribed or required for medical reasons: No Currently Displaying Signs/Symptoms of Drug Intoxication Withdrawal: No Have you been hit, kicked, punched, or otherwise hurt by someone within the past year? If so, by whom?: No Do you feel safe in your current relationship?: Yes Is there a partner from a previous relationship who is making you feel unsafe now?: No Are you made to feel afraid or neglected: No Are you DNR?: No Advance Directives: Yes Advance Directives Information Provided: Yes Advance Directives on File: No Advance Directives Date on File: 03/14/23 Do you have thoughts of harming others: None Do you have a plan to hurt others: No Plan Recently lost weight without trying: Unsure Eating poorly because of decreased appetite: No Nutrition Risks: No Nutritional Risk Poor oral hygiene: No service: No Current occupational status: employed 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 Cognitive needs: No Hearing needs: No Vision needs: Yes Meds Allergies Allergy/AdvReac Type Severity Reaction Status Date / Time bupropion [From Wellbutrin] AdvReac Severe Anxiety Verified 03/12/23 07:43 Active Medications: Current Medications Acetaminophen (Acetaminophen 325 Mg Tablet) 650 mg PO Q6H PRN PRN Reason: Pain, Mild (Pain Scale 1-3) Last Admin: 03/19/23 04:13 Dose: 650 mg Albuterol Sulfate (Albuterol Sulfate (0.083%) 2.5 Mg/3 Ml Vial.Neb) 2.5 mg INHALE Q4H PRN PRN Reason: Wheezing Last Admin: 03/17/23 12:53 Dose: 2.5 mg Atorvastatin Calcium (Atorvastatin Calcium 20 Mg Tablet) 20 mg PO DAILY PENDING SALE TO [facility] Last Admin: 03/21/23 08:27 Dose: Not Given Buspirone HCl (Buspirone Hcl 5 Mg Tablet) 5 mg PO BID PENDING SALE TO [facility] Last Admin: 03/21/23 08:26 Dose: 5 mg Cyclobenzaprine HCl (Cyclobenzaprine Hcl 5 Mg Tablet) 5 mg PO TID PRN PRN Reason: muscle spasm Last Admin: 03/18/23 20:14 Dose: 5 mg Lactated Ringer's (Lr) 1,000 mls @ 80 mls/hr IVCONT .[id number] PENDING SALE TO [facility] Last Admin: 03/21/23 08:26 Dose: 80 mls/hr Daptomycin 420 mg/ Sodium (Chloride) 58.4 mls @ 116.8 mls/hr IV Q48H PENDING SALE TO [facility] Albumin Human (Kedbumin 25 %) 100 mls @ 133.333 mls/hr IV Q1H PENDING SALE TO [facility] Stop: 03/21/23 12:29 Last Infusion: 03/21/23 11:47 Dose: Infused Lidocaine (Lidocaine 4 % Patch Adh..Patch) 1 patch TRANSDERMA DAILY PENDING SALE TO [facility]; Protocol Last Admin: 03/21/23 08:26 Dose: 1 patch Oxycodone HCl (Oxycodone Hcl Immed Release 5 Mg Tablet) 5 mg PO Q4H PRN PRN Reason: Pain, Mild (Pain Scale 1-3) Last Admin: 03/20/23 20:45 Dose: 5 mg Pantoprazole Sodium (Pantoprazole Sodium 40 Mg/10 Ml Vial) 40 mg IVPUSH BID@0630,1630 PENDING SALE TO [facility] Last Admin: 03/21/23 06:01 Dose: 40 mg Sucralfate (Sucralfate 1 Gm Tablet) 1 gm PO BIDAC PENDING SALE TO [facility] Physical Exam Vital Signs: Vital Signs: Last Vital Signs Temp 97.4 F 03/21/23 11:45 Pulse 80 03/21/23 11:45 Resp 18 03/21/23 11:45 BP 123/57 L 03/21/23 11:45 Pulse Ox 97 03/21/23 11:45 O2 Del Method Nasal Cannula 03/21/23 11:45 O2 Flow Rate 3 03/21/23 11:45 BMI result Body Mass Index 34.8 GENERAL APPEARANCE: in no acute distress. NECK: no carotid bruit, no jugular venous distention. SKIN: no suspicious lesions, warm and dry. HEART: systolic murmur, regular rate and rhythm. LUNGS: clear to auscultation bilaterally. ABDOMEN: soft, nontender. EXTREMITIES: no edema. PERIPHERAL PULSES: equal. NEUROLOGIC: No gross deficits, AAO X 3 Objective Labs and Meds 03/21/23 06:33 03/21/23 06:33 Lab results: Laboratory Results - last 24 hr 03/16/23 03/16/23 03/18/23 06:03 15:01 13:58 WBC RBC Hgb Hct MCV MCH MCHC RDW Plt Count MPV Absolute Nucleated RBC Nucleated RBC % (auto) ESR Hep-Ind Thrombocytop Com TNP Sodium Potassium Chloride Carbon Dioxide Anion Gap BUN Creatinine Estim Creat Clear Calc Estimated GFR Random Glucose Calcium Total Bilirubin Direct Bilirubin AST ALT Alkaline Phosphatase Total Creatine Kinase Troponin I High Sens Total Protein Albumin Aldolase 7.8 Urine Color Urine Appearance Urine pH Ur Specific [place] Urine Protein Urine Glucose (UA) Urine Ketones Urine Blood Urine Nitrite Ur Leukocyte Esterase Urine RBC Urine WBC Ur Squamous Epith Cells Urine Bacteria Hyaline Casts U Random Total Protein Ur Random Sodium Ur Random Potassium Ur Random Chloride Urine Creatinine SIDRA Titer 2 TNP SIDRA Titer 3 TNP SIDRA Pattern 2 TNP SIDRA Pattern 3 TNP Blood Type A Positive Antibody Screen NEGATIVE Crossmatch See Detail 03/20/23 03/20/23 03/20/23 11:36 12:12 12:12 WBC RBC Hgb Hct MCV MCH MCHC RDW Plt Count MPV Absolute Nucleated RBC Nucleated RBC % (auto) ESR Hep-Ind Thrombocytop Com Sodium Potassium Chloride Carbon Dioxide Anion Gap BUN Creatinine Estim Creat Clear Calc Estimated GFR Random Glucose Calcium Total Bilirubin Direct Bilirubin AST ALT Alkaline Phosphatase Total Creatine Kinase Troponin I High Sens 11.7 D Total Protein Albumin Aldolase Urine Color Dark Yellow Urine Appearance Cloudy Urine pH 5.0 Ur Specific [place] 1.020 Urine Protein Negative Urine Glucose (UA) Negative Urine Ketones Trace Urine Blood Negative Urine Nitrite Positive H Ur Leukocyte Esterase Small (1+) H Urine RBC 0-2 Urine WBC 6-10 H Ur Squamous Epith Cells 3-5 Urine Bacteria 1+ Hyaline Casts 3-5 U Random Total Protein 17 H Ur Random Sodium < 20.0 Cancelled Ur Random Potassium 49.6 Ur Random Chloride < 20.0 Urine Creatinine 213.06 SIDRA Titer 2 SIDRA Titer 3 SIDRA Pattern 2 SIDRA Pattern 3 Blood Type Antibody Screen Crossmatch 03/20/23 03/21/23 18:31 06:33 WBC 12.0 H RBC 2.53 L Hgb 7.9 L Hct 23.4 L MCV 92.5 MCH 31.2 MCHC 33.8 RDW 15.2 Plt Count 168 MPV 13.3 H Absolute Nucleated RBC 0.000 Nucleated RBC % (auto) 0.0 ESR 54 H Hep-Ind Thrombocytop Com Sodium 136 Potassium 4.1 Chloride 105 Carbon Dioxide 20 L Anion Gap 15 BUN 94 H Creatinine 2.81 H Estim Creat Clear Calc 25.5 Estimated GFR 23 Random Glucose 112 Calcium 8.0 L Total Bilirubin 1.0 Direct Bilirubin 0.7 H AST 28 ALT 7 Alkaline Phosphatase 59 Total Creatine Kinase 52 Troponin I High Sens Total Protein 5.9 L Albumin 2.9 L Aldolase Urine Color Urine Appearance Urine pH Ur Specific [place] Urine Protein Urine Glucose (UA) Urine Ketones Urine Blood Urine Nitrite Ur Leukocyte Esterase Urine RBC Urine WBC Ur Squamous Epith Cells Urine Bacteria Hyaline Casts U Random Total Protein Ur Random Sodium Ur Random Potassium Ur Random Chloride Urine Creatinine SIDRA Titer 2 SIDRA Titer 3 SIDRA Pattern 2 SIDRA Pattern 3 Blood Type Antibody Screen Crossmatch Imaging Radiologist's impression: Impressions Renal Ultrasound 03/20/23 11:20 IMPRESSION: Normal-appearing kidneys. Chest X-Ray 03/20/23 11:50 IMPRESSION: Unremarkable examination. Abdomen/Pelvis CT 03/20/23 15:33 IMPRESSION: Bilateral perinephric stranding. Worse on the right. Correlation should be made with urinalysis. Nondependent gas in the urinary bladder and anterior bladder wall thickening. Nonobstructing left renal calculi. Hepatic steatosis. Ill-defined 2.0 cm right hepatic hypodensity. Further characterization with MRI abdomen is recommended. Small bilateral pleural effusions and dependent atelectasis. Assessment and Plan (1) Severe sepsis: Status: Acute (2) Bacteremia due to methicillin susceptible Staphylococcus aureus (MSSA): Status: Acute (3) Endocarditis: Status: Acute Plan [age] year gentleman who presented to hospital with GI bleed and was found to have MSSA bacteremia he also diagnosed with gastric ulcer. We performed a JULIANNE on him today which is showing potential vegetation on mitral valve leaflet. This is small in size. There is also a small vegetation on the aortic valve but aortic valve leaflet which I think is the noncoronary cusp is prolapsing with mild to moderate aortic valve insufficiency. He has been on appropriate antibiotics with ongoing MSSA bacteremia at this stage. I had a detailed discussion with cardiothoracic surgery at [facility], Dr Negin Siu. I have shared the JULIANNE images with her and we have decided to transfer the patient to [facility] for further assessment. Currently not in congestive heart failure and overall stable. We will arrange transfer to [facility]. Thank you for allowing me to participate in the care of your patient. Please feel free to contact me if you have any questions. Time Spent With Patient Time: Total time managing care of this patient today ____ minutes. Procedures Date of Service Date of Service: 03/21/23
--- NOTE | 2023-03-21 12:20 | HO.PM.IMPN ---
Subjective Subjective Date of Service: 03/21/23 Interval History: c/o abd pain foot erythema /swellin Review of Systems denies any abd pain mental status improved no fevers Physical Exam Vital Signs: Vital Signs: Last Vital Signs Temp 97.4 F 03/21/23 11:45 Pulse 80 03/21/23 11:45 Resp 18 03/21/23 11:45 BP 123/57 L 03/21/23 11:45 Pulse Ox 97 03/21/23 11:45 O2 Del Method Nasal Cannula 03/21/23 11:45 O2 Flow Rate 3 03/21/23 11:45 BMI result Body Mass Index 34.8 Appearance: metal status seems improved. cvs: rrr, [id number]. res: clear to auscultation ,no rhonchii or wheezing abd: no rebound or guarding ,nt, bs present. ext pulses present , no cyanosis. neuro: axo3 , nonfoca Objective Data Active Medications Acetaminophen (Acetaminophen 325 Mg Tablet) 650 mg PO Q6H PRN PRN Reason: Pain, Mild (Pain Scale 1-3) Last Admin: 03/19/23 04:13 Dose: 650 mg Documented By: HENRIQUE Albuterol Sulfate (Albuterol Sulfate (0.083%) 2.5 Mg/3 Ml Vial.Neb) 2.5 mg INHALE Q4H PRN PRN Reason: Wheezing Last Admin: 03/17/23 12:53 Dose: 2.5 mg Documented By: DANILO Atorvastatin Calcium (Atorvastatin Calcium 20 Mg Tablet) 20 mg PO DAILY [facility] Last Admin: 03/21/23 08:27 Dose: Not Given Documented By: FRANKY Non-Admin Reason: NPO Buspirone HCl (Buspirone Hcl 5 Mg Tablet) 5 mg PO BID [facility] Last Admin: 03/21/23 08:26 Dose: 5 mg Documented By: FRANKY Cyclobenzaprine HCl (Cyclobenzaprine Hcl 5 Mg Tablet) 5 mg PO TID PRN PRN Reason: muscle spasm Last Admin: 03/18/23 20:14 Dose: 5 mg Documented By: HENRIQUE Lactated Ringer's (Lr) 1,000 mls @ 80 mls/hr IVCONT .[id number] [facility] Last Admin: 03/21/23 08:26 Dose: 80 mls/hr Documented By: FRANKY Daptomycin 420 mg/ Sodium (Chloride) 58.4 mls @ 116.8 mls/hr IV Q48H [facility] Albumin Human (Kedbumin 25 %) 100 mls @ 133.333 mls/hr IV Q1H [facility] Stop: 03/21/23 12:29 Last Infusion: 03/21/23 11:47 Dose: Infused Documented By: FRANKY Lidocaine (Lidocaine 4 % Patch Adh..Patch) 1 patch TRANSDERMA DAILY [facility]; Protocol Last Admin: 03/21/23 08:26 Dose: 1 patch Documented By: FRANKY Oxycodone HCl (Oxycodone Hcl Immed Release 5 Mg Tablet) 5 mg PO Q4H PRN PRN Reason: Pain, Mild (Pain Scale 1-3) Last Admin: 03/20/23 20:45 Dose: 5 mg Documented By: NENITA Pantoprazole Sodium (Pantoprazole Sodium 40 Mg/10 Ml Vial) 40 mg IVPUSH BID@0630,1630 [facility] Last Admin: 03/21/23 06:01 Dose: 40 mg Documented By: ALEX Sucralfate (Sucralfate 1 Gm Tablet) 1 gm PO BIDAC [facility] Labs 03/21/23 06:33 03/21/23 06:33 Labs: Laboratory Results - last 24 hr 03/16/23 03/16/23 03/18/23 06:03 15:01 13:58 MCV MCH MCHC RDW Plt Count MPV Absolute Nucleated RBC Nucleated RBC % (auto) ESR Hep-Ind Thrombocytop Com TNP Anion Gap Estim Creat Clear Calc Estimated GFR Random Glucose Calcium Total Bilirubin Direct Bilirubin AST ALT Alkaline Phosphatase Total Creatine Kinase Total Protein Albumin Aldolase 7.8 Urine Color Urine Appearance Urine pH Ur Specific [place] Urine Protein Urine Glucose (UA) Urine Ketones Urine Blood Urine Nitrite Ur Leukocyte Esterase Urine RBC Urine WBC Ur Squamous Epith Cells Urine Bacteria Hyaline Casts U Random Total Protein Ur Random Sodium Ur Random Potassium Ur Random Chloride Urine Creatinine SIDRA Titer 2 TNP SIDRA Titer 3 TNP SIDRA Pattern 2 TNP SIDRA Pattern 3 TNP Blood Type A Positive Antibody Screen NEGATIVE Crossmatch See Detail 03/20/23 03/20/23 03/20/23 12:12 12:12 18:31 MCV MCH MCHC RDW Plt Count MPV Absolute Nucleated RBC Nucleated RBC % (auto) ESR 54 H Hep-Ind Thrombocytop Com Anion Gap Estim Creat Clear Calc Estimated GFR Random Glucose Calcium Total Bilirubin Direct Bilirubin AST ALT Alkaline Phosphatase Total Creatine Kinase 52 Total Protein Albumin Aldolase Urine Color Dark Yellow Urine Appearance Cloudy Urine pH 5.0 Ur Specific [place] 1.020 Urine Protein Negative Urine Glucose (UA) Negative Urine Ketones Trace Urine Blood Negative Urine Nitrite Positive H Ur Leukocyte Esterase Small (1+) H Urine RBC 0-2 Urine WBC 6-10 H Ur Squamous Epith Cells 3-5 Urine Bacteria 1+ Hyaline Casts 3-5 U Random Total Protein 17 H Ur Random Sodium < 20.0 Cancelled Ur Random Potassium 49.6 Ur Random Chloride < 20.0 Urine Creatinine 213.06 SIDRA Titer 2 SIDRA Titer 3 SIDRA Pattern 2 SIDRA Pattern 3 Blood Type Antibody Screen Crossmatch 03/21/23 06:33 MCV 92.5 MCH 31.2 MCHC 33.8 RDW 15.2 Plt Count 168 MPV 13.3 H Absolute Nucleated RBC 0.000 Nucleated RBC % (auto) 0.0 ESR Hep-Ind Thrombocytop Com Anion Gap 15 Estim Creat Clear Calc 25.5 Estimated GFR 23 Random Glucose 112 Calcium 8.0 L Total Bilirubin 1.0 Direct Bilirubin 0.7 H AST 28 ALT 7 Alkaline Phosphatase 59 Total Creatine Kinase Total Protein 5.9 L Albumin 2.9 L Aldolase Urine Color Urine Appearance Urine pH Ur Specific [place] Urine Protein Urine Glucose (UA) Urine Ketones Urine Blood Urine Nitrite Ur Leukocyte Esterase Urine RBC Urine WBC Ur Squamous Epith Cells Urine Bacteria Hyaline Casts U Random Total Protein Ur Random Sodium Ur Random Potassium Ur Random Chloride Urine Creatinine SIDRA Titer 2 SIDRA Titer 3 SIDRA Pattern 2 SIDRA Pattern 3 Blood Type Antibody Screen Crossmatch Microbiology Microbiology Results: Microbiology 03/18/23 13:58 Blood Culture - Final Blood - Venous Staphylococcus aureus 03/18/23 13:58 Blood Culture - Final Blood - Venous Staphylococcus aureus 03/17/23 11:23 Blood Culture - Final Blood - Venous Staphylococcus aureus 03/17/23 12:01 Blood Culture - Final Blood - Venous Staphylococcus aureus Assessment and Plan (1) Gastric ulcer: Status: Acute (2) Bacteremia due to methicillin susceptible Staphylococcus aureus (MSSA): Status: Acute Assessment and Plan: 67y/o M with hx of copd ,htn ,hlp,obesity, admitted with GI bleed with unclear source, further complicated by MSSA bacteremia . sepsis(POA) with Bactermia mssa : chest ct, wbc scan-neg ct abd duodenal stranding has fever tachypnea blood cultures x6 possitive mssa ,blood culture x2 gram positive cocci in clusters added another blood cultures on dapto 03/20 adjusted as per renal function ,tylenol for fevers. cardiology eval for JULIANNE done-results pending anemia of acute blood loss sec GIB:possible sec to mild gasritis/gastric ulcer has epigastric pain egd on 03/18: mild gasritis/gastric ulcer ,biopsies pending h/himproving 7.9 after 1 prbc (03/20) (03/20)cxr-neg . (03/20)ct abd :Bilateral perinephric stranding. Worse on the right. Correlation should be made with urinalysis. Nondependent gas in the urinary bladder and anterior bladder wall thickening. Hepatic steatosis. Ill-defined 2.0 cm right hepatic hypodensity. plan: continue ppi/added carafate moniter h/h copd excerebation-continue albuterol prn htn: stable without meds hlp: continue home meds (atorvaststain/fenofibrate). Morbid obesity: Encouraged to lose weight, cut down calories. triston on possible ckd 3 : his crcl is mostly 50's possible multifactorial-dec po intake , sepsis ,flactuating bp continue ivf nephrology eval-noted ua and serolgies pending nephro follow up in am. Toxic metabolic encephalopathy(poa): Possible secondary to 1&2. Seems to be improved. Hypoalbuminemia : possible related to decreased po intake. added ensure Time Spent With Patient Time: Total time managing care of this patient today ____ minutes. Quality Stroke Does the patient have a stroke diagnosis?: No VTE Prior VTE?: No VTE Risk Level:: Medical - moderate - high VTE Device Contraindication: N/A - Device Ordered VTE Drug Contraindication: N/A - Med Ordered
[2023-03-21] MEDS: Sucralfate 1 GM TABLET PO (15:43)
[2023-03-21] MEDS: cefTRIAXone sodium 2 GM in 0.9 % Sodium Chloride 50 ML IV (16:18)
--- NOTE | 2023-03-21 17:19 | P.PNNP_ITS ---
Subjective Subjective Date of Service: 03/21/23 Interval history: no events Cr rise noted Physical Exam 2 Vital Signs: Vital Signs: Last Vital Signs Temp 98.0 F 03/21/23 15:43 Pulse 88 03/21/23 15:43 Resp 18 03/21/23 15:43 BP 135/54 L 03/21/23 15:43 Pulse Ox 99 03/21/23 15:43 O2 Del Method Nasal Cannula 03/21/23 15:43 O2 Flow Rate 2 03/21/23 15:43 BMI result Body Mass Index 34.8 Const: General: cooperative, no acute distress and lethargic ( [place]) Orientation/consciousness: lethargic ( [place]) Limitations: No language barrier Eyes: Pupils: Equal, round and reactive pupils present Resp: Effort & Inspection: normal respiratory effort and no respiratory distress Auscultation: clear to auscultation bilaterally Cardio: Rate: regular rate Rhythm: regular rhythm Heart sounds: no gallops, no murmurs and no rubs GI: Palpation (GI): Soft to palpation, nontender and Other GI palpation findings present ( Nontender) Auscultation: normal bowel sounds Neuro: General: moves all extremities Cranial nerves: Yes Equal, round and reactive pupils present Extrem: General: Yes normal to inspection, Yes no pedal edema, No clubbing and No cyanosis Psych: Appearance: grossly normal Objective Data Labs 03/21/23 06:33 03/21/23 06:33 Labs: Laboratory Results - last 24 hr 03/18/23 03/20/23 03/20/23 13:58 12:12 18:31 WBC RBC Hgb Hct MCV MCH MCHC RDW Plt Count MPV Absolute Nucleated RBC Nucleated RBC % (auto) ESR 54 H Sodium Potassium Chloride Carbon Dioxide Anion Gap BUN Creatinine Estim Creat Clear Calc Estimated GFR Random Glucose Calcium Total Bilirubin Direct Bilirubin AST ALT Alkaline Phosphatase Total Creatine Kinase 52 Total Protein Albumin Ur Random Chloride < 20.0 Crossmatch See Detail 03/21/23 06:33 WBC 12.0 H RBC 2.53 L Hgb 7.9 L Hct 23.4 L MCV 92.5 MCH 31.2 MCHC 33.8 RDW 15.2 Plt Count 168 MPV 13.3 H Absolute Nucleated RBC 0.000 Nucleated RBC % (auto) 0.0 ESR Sodium 136 Potassium 4.1 Chloride 105 Carbon Dioxide 20 L Anion Gap 15 BUN 94 H Creatinine 2.81 H Estim Creat Clear Calc 25.5 Estimated GFR 23 Random Glucose 112 Calcium 8.0 L Total Bilirubin 1.0 Direct Bilirubin 0.7 H AST 28 ALT 7 Alkaline Phosphatase 59 Total Creatine Kinase Total Protein 5.9 L Albumin 2.9 L Ur Random Chloride Crossmatch Microbiology Microbiology Results: Microbiology 03/18/23 13:58 Blood - Venous Blood Culture - Final Staphylococcus aureus 03/18/23 13:58 Blood - Venous Blood Culture - Final Staphylococcus aureus 03/17/23 11:23 Blood - Venous Blood Culture - Final Staphylococcus aureus 03/17/23 12:01 Blood - Venous Blood Culture - Final Staphylococcus aureus 03/16/23 05:05 Blood - Venous Blood Culture - Final Staphylococcus aureus 03/16/23 05:05 Blood - Venous Blood Culture - Final Staphylococcus aureus 03/14/23 09:42 Blood - Venous Blood Culture - Final Staphylococcus aureus 03/14/23 08:53 Blood - Venous Blood Culture - Final Staphylococcus aureus Procedures Date of Service Date of Service: 03/21/23 Assessment & Plan Assessment and plan (1) Acute kidney injury: Status: Acute Plan 67-year-old man with MAIRA in the setting of sepsis / MSSA bacteremia. Efra had essentially normal renal function at baseline creatinine 1.04mg/dL Urine sediments were benign few days ago therefore glomerular nephritis or interstitial disease seems unlikely. Karie is actually <20 so this all still points towards a hemodynamic renal hypoperfusion He is at risk for progression to ATN. Imaging did not show any significant obstruction. Recommendations - Increase IVF rate - labs daily - Abx per ID - consider workup of SEA. Time Spent With Patient Time: Total time managing care of this patient today ____ minutes. Progress Note: Quality Stroke Does the patient have a stroke diagnosis?: No
--- NOTE | 2023-03-21 18:04 | PM.DS ---
DS: Providers Provider Date of Service: 03/21/23 Date of admission: 03/14/23 17:22 Date of discharge: 03/21/23 Primary care physician: Latesha Ackerman MD Consults: 03/17/23 13:21 Consult to Infectious Diseases Routine Consulting Provider: [facility] Reason for consultation: gm pos bacteremia Has provider been notified: No 03/20/23 08:00 Consult to Nephrology Routine Consulting Provider: Jake Menard Reason for consultation: maira Has provider been notified: No 03/20/23 15:16 Consult to Cardiology Routine Consulting Provider: [facility] Cardiovascular Services Reason for consultation: persistent mssa positive-need JULIANNE Has provider been notified: No 03/21/23 15:55 Consult to Orthopedics Routine Consulting Provider: [facility] Orthopedic Surgeons Reason for consultation: ? right ankle septic joint /has MSSA bacteremia Attending physician on discharge: Jason Daniels Discharging clinician: Jason Daniels DS: Diagnosis Discharge Diagnosis (1) Severe sepsis: Status: Acute (2) Bacteremia due to methicillin susceptible Staphylococcus aureus (MSSA): Status: Acute (3) Endocarditis: Status: Acute DS: Summary Hospital Course Hospital Course: 67-year-old smoker hypertensive and hyperlipidemic probable underlying COPD yesterday noticed an episode of diarrhea and a small amount of emesis but nothing since then without dyspnea without coughing apparently is being treated with 40 of prednisone for left shoulder tendinitis and also took ibuprofen noticed black tarry stool last night and he is guaiac positive on rectal exam apparently has an alcoholic history but he has not had a drink for years and thus far on the serologies he is COVID negative other notable star thrombocytopenia and a marked left shift on his white count with relative lymphocyte a P knee a but no apparent skin rash. Hospital course: 67y/o M with hx of copd ,htn ,hlp,obesity, admitted with initially to ICU for upper GI bleed , further complicated by MSSA bacteremia with unclear source-initially admitted to ICU: hospital course patient was started on IV antibiotics -initially on vancomycin and doxycycline and subsequently switched to ceftriaxone since blood culture was MSSA-patient still had persistent bacteremia says, blood culture positive x8 for MSSA,sent another set of blood cultures today which is pending. Due to persistent bacteremia patient was switched to daptomycin and then added ceftriaxone. Patient also has right ankle erythema and swelling-? Question of possible septic emboli. Initial ESR was 96 repeated yesterday ESR is 54. fever resolved, wbc count improving from 14 k to 12 k. Patient had multiple imaging studies-CT abdomen, CT chest, WBC scan, CT of the shoulder-CT chest negative, WBC scan fine, CT shoulder showed chronic degenerative changes, CT abdomen showed bilateral perinephric stranding, also has 2.0 cm right hepatic hypodensity ( please see imaging section for detailed information). Transthoracic echo was fine- JULIANNE was done with cardio-Has endocardititis .( Dr berumen d/w case with Dr hernandez Ct surgery in [facility]). patient was also seen by GI for upper GI bleed: Had EGD done: Has gastric ulcer, also erosive esophagitis and duodenitis- patient got 1 PRBC hemoglobin is around 7.9/23.4. Gastro recommended to continue PPI and Carafate. Detailed discussion with infectious disease in Cardiology -patient is to be transferred to [facility]. In addition patient had MAIRA on ckd: cr worseing from last 2 days -2.2 to 2.8( basline around 1.3-1.4) CT abdomen is as above. Discussed with Nephrology likely pre renal component-continue IV fluids LR @100 ml/hr . SIDRA, protease, myeloperoxidase , complement C3 and c4 pending Ct abd:showed 2.0 cm right hepatic hypodensity ( please see imaging section for detailed information)-Lft's improving , patient denies abdominal pain. Consider abdominal MRI and GI follow-up. Consider repeating CBC, CMP in am. Above management discussed in detail with [facility] patient will be transferred to [facility].(accepting physician is Dr. Velasquez). In additionDr berumen d/w case with Dr hernandez Ct surgery in [facility]). Assessment and plan coordination time spent 70 minute. Patient and Family of the patient is updated with the help of bus steward. Time Spent with Patient Time attestation: Total time managing care of this patient today ____ minutes. Discharge coordination time: Greater than 30 minutes Quality: Safe Use of Opioids Does Pt have an Active Cancer Diagnosis on the Problem List?: No Quality: Stroke Does the patient have a stroke diagnosis?: No Physical Exam Vital Signs: Vital Signs: Last Vital Signs Temp 98.0 F 03/21/23 15:43 Pulse 88 03/21/23 15:43 Resp 18 03/21/23 15:43 BP 135/54 L 03/21/23 15:43 Pulse Ox 99 03/21/23 15:43 O2 Del Method Nasal Cannula 03/21/23 15:43 O2 Flow Rate 2 03/21/23 15:43 BMI result Body Mass Index 34.8 Appearance: metal status seems improved. cvs: rrr, [id number]. res: clear to auscultation ,no rhonchii or wheezing abd: no rebound or guarding ,nt, bs present. ext pulses present , no cyanosis. right ankle area swelling/erythema . neuro: axo3 , nonfoca DS: Data Data Completed and Pending Completed studies during hospitalization [Text1]: Pending at discharge 03/18/23 15:24 Surgical [PTH] Routine Labs on day of discharge: Laboratory Results - last 24 hr 03/18/23 03/20/23 03/21/23 13:58 18:31 06:33 WBC 12.0 H RBC 2.53 L Hgb 7.9 L Hct 23.4 L MCV 92.5 MCH 31.2 MCHC 33.8 RDW 15.2 Plt Count 168 MPV 13.3 H Absolute Nucleated RBC 0.000 Nucleated RBC % (auto) 0.0 ESR 54 H Sodium 136 Potassium 4.1 Chloride 105 Carbon Dioxide 20 L Anion Gap 15 BUN 94 H Creatinine 2.81 H Estim Creat Clear Calc 25.5 Estimated GFR 23 Random Glucose 112 Calcium 8.0 L Total Bilirubin 1.0 Direct Bilirubin 0.7 H AST 28 ALT 7 Alkaline Phosphatase 59 Total Creatine Kinase 52 Total Protein 5.9 L Albumin 2.9 L Crossmatch See Detail Imaging Chest x-ray: Radiologist's impression: ITS Impressions Chest X-Ray 03/14/23 08:44 IMPRESSION: Mild right upper lung opacity could be a small area of infiltrate. Follow-up films recommended after treatment to assess for resolution and establish baseline Abdomen/Pelvis CT 03/14/23 09:18 IMPRESSION: This exam is abnormal. There is thickening in the first second and third portion of the duodenum with some surrounding soft tissue stranding. Findings may also include the duodenal bulb and antrum. This would be most consistent with duodenitis. No free air is seen. There are some prominent nodes in the region and these may be reactive. These however appear similar in appearance to previous study. Differential would include pancreatic head abnormality or inflammatory change in the adjacent pancreas but this would seem less likely on the imaging Of course underlying tumor cannot be excluded and follow-up is necessary There is also a low-density lesion which is not present previously in the right lobe of liver. This cannot be said to be a simple cyst on this study. Recommendation is ultrasound or MR to further evaluate Other findings are as described above Fleischner guidelines were followed. Chest CT 03/14/23 15:51 IMPRESSION: No CT evidence of pneumonia or other acute intrathoracic pathology. Fleischner guidelines were followed. Abdomen/Pelvis CT 03/15/23 18:09 IMPRESSION: 1. Interval resolution of duodenal thickening and periduodenal inflammatory stranding involving the second and third part of the duodenum since the prior study done yesterday. No evidence of any retroperitoneal perforation. 2. Interval placement of a Arroyo's catheter. 3. No other significant interval change. Fleischner guidelines were followed. Shoulder CT 03/15/23 18:11 Impression: Chronic appearing and degenerative changes as described above. I do not appreciate any acute fracture or dislocation. Chest X-Ray 03/16/23 05:45 IMPRESSION: Bronchial thickening may be seen with bronchitis. There is no focal consolidation or evidence for significant pleural effusion. WBC Scan Nuclear Medicine 03/17/23 17:10 IMPRESSION: Unremarkable study. Specifically, no scintigraphic evidence of source of infection is identified, and the left shoulder appear unremarkable. Renal Ultrasound 03/20/23 11:20 IMPRESSION: Normal-appearing kidneys. Chest X-Ray 03/20/23 11:50 IMPRESSION: Unremarkable examination. Abdomen/Pelvis CT 03/20/23 15:33 IMPRESSION: Bilateral perinephric stranding. Worse on the right. Correlation should be made with urinalysis. Nondependent gas in the urinary bladder and anterior bladder wall thickening. Nonobstructing left renal calculi. Hepatic steatosis. Ill-defined 2.0 cm right hepatic hypodensity. Further characterization with MRI abdomen is recommended. Small bilateral pleural effusions and dependent atelectasis. echo: Conclusions: - Normal left ventricular size and systolic function. There is mildly increased left ventricular wall thickness. The visually estimated ejection fraction is between 55-60%. - Normal right ventricular cavity size and systolic function. - The left atrium is mildly dilated. - There is mild dilatation of the ascending aorta measuring 3.50 cm. - There is mild aortic valve stenosis. Findings Left Ventricle Normal left ventricular size and systolic function. There is mildly increased left ventricular wall thickness. The visually estimated ejection fraction is between 55-60%. There is no evidence of regional wall motion abnormalities. Diastolic function is normal for age. Right Ventricle Normal right ventricular cavity size and systolic function. Atria The left atrium is mildly dilated. Aortic Valve The aortic valve was not well visualized. There is mild aortic valve stenosis. There is no aortic valve regurgitation. Mitral Valve The mitral valve appears normal. There is trace mitral valve regurgitation. There is no mitral valve stenosis. Pulmonic Valve The pulmonic valve was not well visualized. Tricuspid Valve Normal tricuspid valve structure. There is no tricuspid valve regurgitation. The right ventricular systolic pressure is 28 mmHg. Significantly elevated right atrial pressure. There is no evidence of pulmonary hypertension. Great Vessels There is mild dilatation of the ascending aorta measuring 3.50 cm. Venous The inferior vena cava is dilated and does not collapse with inspiration. Pericardium/Pleural There is no evidence of pericardial effusion. Prior Study Comparison No significant change compared to prior study dated: 05/16/2022. Discharge Plan Discharge Anticipated Discharge Date/Time: 03/21/23 17:30 Patient Disposition: Home, Self-Care Discharge Diagnosis: possible endocarditis ,persistent mssa bacteremia Referrals: Po,Latesha Astudillo MD [Primary Care Provider] - 1 Week Discharge Medications: New ceftriaxone 2 gram Recon Soln 2 g IV Q24H Qty: 1 0RF daptomycin 350 mg recon soln 420 mg IV Q48H Rx Instructions: administer over 30 mins lactated Ringers Parenteral Solution 500 ml IV Q15M Rx Instructions: until hemodynamically stable pantoprazole [Protonix] 40 mg Recon Soln 40 mg IVPUSH BID@0630,1630 Qty: 1 0RF sucralfate 1 gram Tablet 1 g PO BIDAC Qty: 1 0RF Continued buspirone 5 mg tablet 5 mg PO BID Qty: 180 2RF atorvastatin 20 mg tablet 20 mg PO DAILY 30 Days Qty: 30 3RF varenicline [Chantix Continuing Month Box] 1 mg tablet 1 mg PO BID 28 Days Qty: 56 4RF cyclobenzaprine 5 mg tablet 5 mg PO TID PRN (Reason: muscle spasm) Qty: 14 0RF lidocaine [Lidoderm] 5 % adhesive patch,medicated 1 patch topical DAILY Qty: 30 0RF Rx Instructions: leave on most painful area for up to 12 hrs acetaminophen [Tylenol Extra Strength] 500 mg tablet 1,000 mg PO Q6H PRN (Reason: pain) Qty: 30 0RF Rx Instructions: Do not exceed 4000 mg in 24 hours (DME) blood pressure monitor [Blood Pressure Kit] Kit See Rx Instructions .ROUTE .MEDSUPPLY Qty: 1 0RF Rx Instructions: As directed albuterol sulfate 90 mcg/actuation HFA aerosol inhaler 2 puff PO Q6H PRN (Reason: for wheezing) Qty: 8.5 11RF Held fenofibrate 160 mg tablet 160 mg PO DAILY Qty: 90 2RF Hold Instructions: Resume on 04/02/23. lisinopril 40 mg tablet 40 mg PO DAILY 90 Days Qty: 90 2RF Hold Instructions: Resume on 04/02/23. hydrochlorothiazide 12.5 mg tablet 12.5 mg PO QAM Qty: 90 3RF Hold Instructions: Resume on 04/03/23. Discontinued prednisone 20 mg tablet 40 mg PO DAILY 5 Days Qty: 10 0RF Rx Instructions: FOR 5 DAYS Discharge Orders: Discharge Order (Routine); Ordered 03/21/23 Ordered By: Jason Daniels Diet: Advance to usual diet Activity on Discharge: As tolerated Stand Alone Forms: Patient Portal Discharge page Care Plan Goals: 67y/o M with hx of copd ,htn ,hlp,obesity, admitted with initially to ICU for upper GI bleed , further complicated by MSSA bacteremia with unclear source-initially admitted to ICU: hospital course patient was started on IV antibiotics -initially on vancomycin and doxycycline and subsequently switched to ceftriaxone since blood culture was MSSA-patient still had persistent bacteremia says, blood culture positive x8 for MSSA. Due to persistent bacteremia patient was switched to daptomycin and then added ceftriaxone. Initial ESR was 96 repeated ESR is 54. Patient had multiple imaging studies-CT abdomen, CT chest, WBC scan, CT of the shoulder-CT chest negative, WBC scan fine, CT shoulder showed chronic degenerative changes, CT abdomen showed bilateral perinephric stranding, also has 2.0 cm right hepatic hypodensity. Transthoracic echo was fine- JULIANNE was done with cardio-Has endocardititis .( Dr berumen d/w case with Dr hernandez Ct surgery in [facility]). patient was also seen by GI for upper GI bleed: Had EGD done: Has gastric ulcer, patient got 1 PRBC hemoglobin is around 7.9. Gastro recommended to continue PPI and Carafate. Detailed discussion with infectious disease in Cardiology -patient is to be transferred to [facility]. In addition patient had MAIRA on ckd: cr today is 2.8 CT abdomen is as above. Discussed with Nephrology likely pre renal component-continue IV fluids LR @100 ml/hr . SIDRA, protease, myeloperoxidase , complement C3 and c4 pending Health Concerns: as above. Plan of Treatment: as above. Assessment: as above.
--- NOTE | 2023-03-21 19:32 | ECG_ITS ---
Test Reason : chest pain Blood Pressure : / mmHG Vent. Rate : 105 BPM Atrial Rate : 105 BPM P-R Int : 208 ms QRS Dur : 086 ms QT Int : 334 ms P-R-T Axes : 030 071 048 degrees QTc Int : 441 ms Sinus tachycardia Nonspecific ST abnormality Abnormal ECG When compared with ECG of 20-MAR-2023 10:10, ST now depressed in Anterior leads Referred By: Hoang Faye Electronically Signed By:JONATAN LOPEZ
[2023-03-21] MEDS: oxyCODONE HCl Immed Release 5 MG TABLET PO (19:56)
[2023-03-24 14:23] LABS: Myeloperoxidase Antibody <1.0 AI; Proteinase 3 PR3 Antibodies <1.0 AI
[2023-03-25 12:04] LABS: Complement C3 14 mg/dL (82-185)
== END 2023-03-21 21:12 | disposition short-term general hospital (02) | DRG 871 ==
LOC: HO.ED 11:31 → HO.EDOVER 17:37 → HO.ICU 18:45 → HO.IMC 03-17 13:35
PROVIDERS: Internal Medicine Cardiovascular Disease; Internal Medicine Gastroenterology; Internal Medicine Hypertension Specialist; Internal Medicine Pulmonary Disease; Registered Nurse Community Health; Admitting Provider Internal Medicine Cardiovascular Disease; Emergency Provider Emergency Medicine Emergency Medical Services; PCP Internal Medicine; Visit Provider Internal Medicine
PROC: 0DJ08ZZ Inspection of Upper Intestinal Tract, Via Natural or Artificial Opening Endoscopic (ICD-10-PCS; CPT 43235; principal; 2023-03-18 15:50)
PROC: B24BZZ4 Ultrasonography of Heart with Aorta, Transesophageal (ICD-10-PCS; CPT 93312; principal; 2023-03-21 12:00)
DX: A41.9 Sepsis, unspecified organism (principal); G92.8 Other toxic encephalopathy; K22.11 Ulcer of esophagus with bleeding; K25.0 Acute gastric ulcer with hemorrhage; K26.4 Chronic or unspecified duodenal ulcer with hemorrhage; I33.0 Acute and subacute infective endocarditis; D62 Acute posthemorrhagic anemia; N17.9 Acute kidney failure, unspecified; F10.21 Alcohol dependence, in remission; N40.0 Benign prostatic hyperplasia without lower urinary tract symptoms; E66.01 Morbid (severe) obesity due to excess calories; Z68.34 Body mass index [BMI] 34.0-34.9, adult; N18.30 Chronic kidney disease, stage 3 unspecified; I12.9 Hypertensive chronic kidney disease with stage 1 through stage 4 chronic kidney disease, or unspecified chronic kidney disease; E78.5 Hyperlipidemia, unspecified; K44.9 Diaphragmatic hernia without obstruction or gangrene; B95.61 Methicillin susceptible Staphylococcus aureus infection as the cause of diseases classified elsewhere; D69.6 Thrombocytopenia, unspecified; J43.9 Emphysema, unspecified; Z20.822 Contact with and (suspected) exposure to COVID-19; Z79.899 Other long term (current) drug therapy
CPT/HCPCS: 36415; 71045; 71250; 73030; 73200; 74176; 76775; 78306; 80048; 80053; 80076; 80202; 80307; 81001; 82040; 82085; 82150; 82272; 82436; 82550; 82565; 82570; 82803; 82947; 83605; 83690; 83735; 84100; 84133; 84156; 84300; 84484; 85007; 85014; 85018; 85025; 85027; 85610; 85652; 85730; 86021; 86022; 86038; 86039; 86140; 86160; 86235; 86431; 86850; 86900; 86901; 86923; 87040; 87077; 87147; 87186; 87205; 87338; 87468; 87469; 87478; 87484; 87633; 87635; 87640; 87641; 87798; 88305; 88342; 92610; 93005; 93306; 94640; 97163; 99285; A9569; C1758; J0690; J0696; J0878; J1940; J2020; J2060; J2270; J2405; J2543; J3370; J3371; P9016; P9047; Q9957

== ENCOUNTER → 2023-03-14 08:28 | Outpatient (BNV) | payer MEDICARE, MEDICAID, SELFPAY | PROVIDERS: Emergency Provider Emergency Medicine Emergency Medical Services; PCP Internal Medicine; Visit Provider Internal Medicine Cardiovascular Disease | DX: R41.82 Altered mental status, unspecified (principal); N17.9 Acute kidney failure, unspecified; A41.9 Sepsis, unspecified organism; R65.20 Severe sepsis without septic shock; D69.6 Thrombocytopenia, unspecified; K92.2 Gastrointestinal hemorrhage, unspecified; K29.80 Duodenitis without bleeding; E87.5 Hyperkalemia; I10 Essential (primary) hypertension | CPT/HCPCS: 99291 ==

== ENCOUNTER → 2023-03-14 08:28 | Outpatient (BNV) | payer MEDICARE, MEDICAID, SELFPAY | PROVIDERS: Emergency Provider Emergency Medicine Emergency Medical Services; PCP Internal Medicine; Visit Provider Internal Medicine | DX: K29.80 Duodenitis without bleeding (principal); A41.9 Sepsis, unspecified organism; R65.20 Severe sepsis without septic shock; R78.81 Bacteremia; B95.61 Methicillin susceptible Staphylococcus aureus infection as the cause of diseases classified elsewhere | CPT/HCPCS: 43239; 99223; 99232; 99233 ==

== ENCOUNTER 2023-03-14 17:22 | Outpatient (BNV) | payer MEDICARE, MEDICAID, SELFPAY | END 2023-03-17 07:00 | PROVIDERS: Admitting Provider Internal Medicine Cardiovascular Disease; Emergency Provider Emergency Medicine Emergency Medical Services; PCP Internal Medicine; Visit Provider Internal Medicine Cardiovascular Disease | DX: A41.9 Sepsis, unspecified organism (principal); I34.0 Nonrheumatic mitral (valve) insufficiency | CPT/HCPCS: 93306 ==

== ENCOUNTER → 2023-03-14 17:22 | Outpatient (BNV) | payer MEDICARE, MEDICAID, SELFPAY | PROVIDERS: Admitting Provider Internal Medicine Cardiovascular Disease; Emergency Provider Emergency Medicine Emergency Medical Services; PCP Internal Medicine; Visit Provider Internal Medicine | DX: A41.9 Sepsis, unspecified organism (principal); R65.20 Severe sepsis without septic shock; B95.61 Methicillin susceptible Staphylococcus aureus infection as the cause of diseases classified elsewhere; I38 Endocarditis, valve unspecified | CPT/HCPCS: 99232; 99233; 99239 ==

== ENCOUNTER → 2023-03-14 17:22 | Outpatient (BNV) | payer MEDICARE, MEDICAID, SELFPAY | PROVIDERS: Admitting Provider Internal Medicine Cardiovascular Disease; Emergency Provider Emergency Medicine Emergency Medical Services; PCP Internal Medicine; Visit Provider Internal Medicine Pulmonary Disease | DX: R78.81 Bacteremia (principal); B95.61 Methicillin susceptible Staphylococcus aureus infection as the cause of diseases classified elsewhere; K92.2 Gastrointestinal hemorrhage, unspecified; J41.8 Mixed simple and mucopurulent chronic bronchitis | CPT/HCPCS: 99232 ==

== ENCOUNTER → 2023-03-14 17:22 | Outpatient (BNV) | payer MEDICARE, MEDICAID, SELFPAY | PROVIDERS: Admitting Provider Internal Medicine Cardiovascular Disease; Emergency Provider Emergency Medicine Emergency Medical Services; PCP Internal Medicine; Visit Provider Internal Medicine | DX: R41.82 Altered mental status, unspecified (principal); A41.9 Sepsis, unspecified organism; R65.20 Severe sepsis without septic shock; B95.61 Methicillin susceptible Staphylococcus aureus infection as the cause of diseases classified elsewhere | CPT/HCPCS: 99222 ==

== ENCOUNTER → 2023-03-14 17:22 | Outpatient (BNV) | payer MEDICARE, MEDICAID, SELFPAY | PROVIDERS: Admitting Provider Internal Medicine Cardiovascular Disease; Emergency Provider Emergency Medicine Emergency Medical Services; PCP Internal Medicine; Visit Provider Internal Medicine Cardiovascular Disease | DX: A41.9 Sepsis, unspecified organism (principal); R65.20 Severe sepsis without septic shock; B95.61 Methicillin susceptible Staphylococcus aureus infection as the cause of diseases classified elsewhere; I38 Endocarditis, valve unspecified | CPT/HCPCS: 93312; 93320; 93325; 99223 ==

== ENCOUNTER 2023-04-11 14:20 | Outpatient (AMB) | payer MEDICARE, MEDICAID, SELFPAY ==
[2023-04-11 14:37] VITALS: BP 140/58; PULSE 68; O2SAT 96; BMI 27.8
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
== END 2023-04-11 15:24 | disposition home or self-care (01) ==
PROVIDERS: PCP Internal Medicine; Visit Provider Nurse Practitioner Family
DX: K76.9 Liver disease, unspecified (principal); N17.9 Acute kidney failure, unspecified; I38 Endocarditis, valve unspecified; K25.9 Gastric ulcer, unspecified as acute or chronic, without hemorrhage or perforation; R78.81 Bacteremia; B95.61 Methicillin susceptible Staphylococcus aureus infection as the cause of diseases classified elsewhere; Z09 Encounter for follow-up examination after completed treatment for conditions other than malignant neoplasm
CPT/HCPCS: 99214

== ENCOUNTER 2023-04-12 21:59 | Emergency (ER) | payer MEDICARE, MEDICAID, SELFPAY ==
[2023-04-12] VITALS (8 sets, daily range): BP systolic 113–198; BP diastolic 49–86; PULSE 91–125; RESP 13–22; O2SAT 93–100
--- NOTE | ~2023-04-12 | XR_ITS ---
EXAMINATION: XR CHEST CLINICAL INFORMATION: Shortness of breath COMPARISON: 03/20/2023 TECHNIQUE: Frontal view of the chest was obtained. FINDINGS: Endotracheal tube terminates 4.9 cm above the xi. Right internal jugular dual-lumen hemodialysis catheter terminates at the superior cavoatrial junction. There are bilateral patchy and confluent airspace opacities. Bronchial wall thickening suspected. No pleural effusion or pneumothorax. Normal heart size. Pulmonary venous congestion XR/XR chest 1V IMPRESSION: * Endotracheal tube terminates 4.9 cm above the xi. * Bilateral patchy and confluent airspace opacities suspicious for alveolar pulmonary edema in the setting of shortness of breath. Of course multifocal pneumonia/atypical pneumonitis could also have this appearance. * Bronchial wall thickening may represent concurrent bronchitis or edema along the axial interstitium
--- NOTE | 2023-04-12 22:04 | ECG_ITS ---
Test Reason : SOB Blood Pressure : / mmHG Vent. Rate : 131 BPM Atrial Rate : 131 BPM P-R Int : 158 ms QRS Dur : 088 ms QT Int : 310 ms P-R-T Axes : 030 083 -29 degrees QTc Int : 457 ms Sinus tachycardia Possible Left atrial enlargement ST & T wave abnormality, consider inferolateral ischemia Abnormal ECG When compared with ECG of 21-MAR-2023 19:35, ST now depressed in Inferior leads ST elevation now present in Lateral leads Referred By: Connie Gonzalez Electronically Signed By:LIZZ MCRAE MD
[2023-04-12] MEDS: Etomidate 20 MG/10 ML VIAL IVPUSH (22:13)
[2023-04-12] MEDS: Rocuronium Bromide 50 MG/5 ML VIAL IVPUSH (22:13)
[2023-04-12 22:25] LABS: Glucose, Whole Blood 146 mg/dL (60-115)
[2023-04-12] MEDS: fentaNYL citrate/NS 1,000 MCG/100 ML PLAST..BAG 2.5 MCG IVCONT (22:26)
[2023-04-12] MEDS: Midazolam HCl/NS 50 MG/50 ML PLAST..BAG IVCONT (22:28)
--- NOTE | 2023-04-12 22:29 | ED.SOB ---
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 He was brought to the ER by his brother abram after acute onset shortness of breath and patient was screaming help help I am going to . He is screaming, agitated, yelling at staff and trying to rip off VS machine, oxygen delivery devices. Family states he was okay until prior to arrival. MD elicited complaint: shortness of breath Pertinent past history: other (recent endocarditis and CKD) Onset (ago): minute(s) (just prior to arrival ) Context: recent illness Timing: progressively worsening Severity: severe Exacerbating factors: lying flat Relieving factors: upright position Known history of: other Associated symptoms: chest pain and diaphoresis Treatment prior to arrival: none Related Data Home Medications Medication Instructions Recorded Confirmed acetaminophen 500 mg tablet 500 mg PO Q6H PRN pain 04/11/23 (Tylenol Extra Strength) aspirin 81 mg tablet,delayed 81 mg PO DAILY 04/11/23 04/11/23 release metoprolol tartrate 25 mg tablet 25 mg PO BID 04/11/23 04/11/23 pantoprazole 40 mg tablet,delayed 40 mg PO DAILY 04/11/23 04/11/23 release prednisone 10 mg tablet 10 mg PO DAILY 04/11/23 04/11/23 sevelamer carbonate 800 mg tablet 800 mg PO TID 04/11/23 04/11/23 Previous Rx's Medication Instructions Recorded blood pressure monitor (Blood #1 ea 07/12/22 Pressure Kit) buspirone 5 mg tablet 5 mg PO BID #180 tabs 01/20/23 atorvastatin 20 mg tablet 20 mg PO DAILY 30 days #30 tabs 01/21/23 albuterol sulfate 90 mcg/actuation 2 puff PO Q6H PRN for wheezing 01/27/23 aerosol inhaler #8.5 ea varenicline 1 mg tablet (Chantix 1 mg PO BID 28 days #56 tabs 02/27/23 Continuing Month Box) cyclobenzaprine 5 mg tablet 5 mg PO TID PRN muscle spasm #14 03/12/23 tabs lidocaine 5 % topical patch 1 patch topical DAILY #30 ea 03/12/23 (Lidoderm) fenofibrate 160 mg tablet 160 mg PO DAILY #90 tabs 04/11/23 lisinopril 40 mg tablet 40 mg PO DAILY 90 days #90 tabs 04/11/23 Allergies Allergy/AdvReac Type Severity Reaction Status Date / Time bupropion [From Wellbutrin] AdvReac Severe Anxiety Verified 04/11/23 14:55 Review of Systems Review of Systems: ROS unable to be obtained due to resp distress PMF Past Medical History Attestation statement: The following information was validated with the patient. Source: old records reviewed Medical History Altered mental status Murmur, cardiac Arm pain, left Hyperkalemia Pulmonary nodule COPD (chronic obstructive pulmonary disease) COPD exacerbation Emphysema/COPD Bronchitis Lab test negative for COVID-19 virus Elevated cholesterol COVID-19 vaccine series completed Obesity (BMI 30-39.9) Pancreatitis Alcohol abuse Overweight (BMI 25.0-29.9) Tobacco abuse Erectile dysfunction Vitamin D deficiency Hypogonadism Macrocytosis without anemia Osteoarthritis Hypercholesterolemia Hypertension Bipolar disorder Amputation finger Right arm fracture Surgical History History of surgery on arm Finger amputation, no complication Family History Family History Father No problems noted. Mother No problems noted. Sister No problems noted. Sister No problems noted. Son No problems noted. Daughter No problems noted. Daughter No problems noted. Social History Social History Household Members: Significant Other Housing: House Are you a primary child care giver to a significant other at home: No Do you presently have visiting nurse or other home services: No Unable to assess alcohol history related to: Unknown Alcohol intake: never Patient Tobacco Use Status: Current everyday Tobacco user Tobacco use type: Cigarette Cigarettes Per Day: 2 Years Smoked: 35 e-Cigarette/Vaping Use: Never Used Second Hand Smoke Exposure: No Use of substances other than those prescribed or required for medical reasons: Unable to respond Advance Directives: Yes Advance Directives on File: Yes Advance Directives Date on File: 03/14/23 service: No Current occupational status: employed 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 Oriented X3. anxious, agitated, severe acute distress. Eyes: Pupils equal, round and reactive to light. ENT: Pharynx normal. Neck: Normal inspection. JVD both sides CVS: tachcyardic heart rate and rhythm. Pulses decreased R permcath site in place Respiratory: severe respiratory distress agitated pulling at equipment ripping off O2 Breath sounds with rales throughout Abdomen: Soft and nontender. Skin: Skin pale and diaphoretic. Normal skin turgor. Extremities: No lower extremity edema. Neuro: cannot participate in exam but answering questions appropriately when he can and moving all extremities Course Course Course Narrative: lactic 11.8 is due to hypoxia and not infection or severe sepsis I will not be giving fluids as he is in pulmonary edema this was driving by hypoxia will start on nitro gtt pressure is still 170/180 systolic given known MSSA hx will dose with ceftriaxone now was getting ancef at HD per [facility] transfer line family is not fully aware of history Reevaluation(s) Reevaluation #1: call to [facility] [address]pm Dr. Astudillo reviewed case discussed my concerns will accept the patient in CCU. Reevaluation #2: could not be sedated with fentanyl and versed - switched to propofol and fentanyl Medications Administered Generic Name Dose Route Start Last Admin Trade Name Freq PRN Reason Stop Dose Admin Fentanyl 1,000 mcg in 100 mls @ 0 mls/hr 04/12/23 22:30 04/12/23 22:59 Sublimaze/Ns IVCONT 50 mcg/hr .Q0M CATHIE 5 mls/hr Titration Protocol Per Protocol Midazolam HCl 50 mg in 50 mls @ 2 mls/hr 04/12/23 22:30 04/12/23 23:40 Versed IVCONT 0 mg/hr .Q24H CATHIE 0 mls/hr Infusion 2 MG/HR Propofol 1,000 mg in 100 mls @ 0 mls/hr 04/12/23 23:30 04/13/23 00:00 Diprivan IVCONT 40 mcg/kg/min .Q0M CATHIE 17.54 mls/hr Titration Protocol Per Protocol Discontinued Medications Generic Name Dose Route Start Last Admin Trade Name Freq PRN Reason Stop Dose Admin Albuterol Sulfate 5 mg 04/12/23 22:57 04/12/23 23:36 Albuterol Sulfate (0.083%) 2.5 Mg/3 Ml Vial.Neb INHALE 04/12/23 22:58 5 mg ONCE ONE Administration Etomidate 20 mg 04/12/23 22:30 04/12/23 22:13 Etomidate 20 Mg/10 Ml Vial IVPUSH 04/12/23 22:31 20 mg ONCE ONE Administration Furosemide 80 mg 04/12/23 22:23 04/12/23 22:40 Furosemide 100 Mg/10 Ml Vial IVPUSH 04/12/23 22:24 80 mg ONCE ONE Administration Protocol Calcium Gluconate 2 gm in 100 mls @ 50 mls/hr 04/12/23 22:54 04/12/23 23:47 Calcium Gluconate IV 04/13/23 00:53 50 mls/hr ONCE ONE Administration Nitroglycerin 2 inch 04/12/23 22:30 04/12/23 22:40 Nitroglycerin 2 % Oint 1 Gm Packet TRANSDERMA 04/12/23 22:31 2 inch ONCE ONE Administration Propofol 50 mg 04/12/23 23:40 04/12/23 23:44 Propofol 200 Mg/20 Ml Vial IVPUSH 04/12/23 23:41 50 mg ONCE ONE Administration Rocuronium Toone 50 mg 04/12/23 22:30 04/12/23 22:13 Rocuronium Toone 50 Mg/5 Ml Vial IVPUSH 04/12/23 22:31 50 mg ONCE ONE Administration Medical Decision Making Medical Decision Making MDM Narrative: 68 yo male with PMH of GIB - gastric ulcer, new MWF family states he went on Friday, 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 I cannot assess the patient and he is not tolerating NIPPV he is screaming and agitated attempting to remove equipment and lines, we cannot get a blood pressure or O2. At this time he is a full code so I am going to intubate the patient given his severe resp distress and inability to maintain any sort of control on NIPPV. Will order labs, CXR, IV lasix 80mg as family states he still makes urine, nitro paste and possibly nitro drip if pressure remains up. We do not have HD this weekend so he may need to go back to [facility] - I am also not sure what happened at [facility] and if this is an issue with one of his valves given he has no peripheral edema and he went yesterday and this sounds like flash pulm edema. Differential Diagnosis Differential Diagnoses: The differential diagnosis associated with the presentation includes flash pulm edema, reactive airways disease, valvular disease causing issue Admission/Observation Consideration of admission/observation: Escalation of care including admission/observation considered intubated needs admission and treatment of pulm edema Consult Healthcare Provider Management of the patient was discussed with: Solar Technician Lab Data [facility] Lab Attestation statement: I reviewed the patient's lab results. 04/12/23 22:32 04/12/23 22:32 Labs: Lab Results 04/12/23 04/12/23 04/12/23 Range/Units 22:21 22:31 22:32 WBC 22.6 H (4.8-10.8) X10*3/uL RBC 2.96 L (4.60-5.80) X10*6/uL Hgb 9.1 L (14.0-18.0) g/dl Hct 29.8 L D (42.0-52.0) % MCV 100.7 H (80.0-98.0) fL MCH 30.7 (27.0-33.0) pg MCHC 30.5 L (31.0-36.0) g/dl RDW 16.0 (11.0-16.0) % Plt Count 343 D (160-400) X10*3/uL MPV 12.1 (9.4-12.4) fL Immature Gran % (Auto) 1.0 H (0.0-0.4) % Neut % (Auto) 56.5 (45-73) % Lymph % (Auto) 33.3 (20-40) % Forest % (Auto) 9.1 (2-11) % Eos % (Auto) 0.0 (0-4) % Baso % (Auto) 0.1 (0-2) % Lymph # (Auto) 7.5 H (1.2-4.9) X10*3/uL Forest # (Auto) 2.1 H (0.1-1.2) X10*3/uL Eos # (Auto) 0.0 (0.0-0.4) X10*3/uL Baso # (Auto) 0.0 (0.0-0.2) X10*3/uL Abs Immat Gran (auto) 0.22 H (0.00-0.03) X10*3/uL Absolute Neuts (auto) 12.7 H (2.0-8.3) x10*3/uL Absolute Nucleated RBC 0.000 (0.0-0.012) X10*3/uL Nucleated RBC % (auto) 0.0 (0.0-0.2) /100WBC Smear Tech's Comments VERIFIED ESR 38 H (0-15) MM/HR PT 11.0 L (11.1-13.3) SEC INR 0.9 (0.9-1.1) APTT 26.4 (26.0-36.4) SEC Sodium 147 H (135-145) mmol/L Potassium 5.8 H D (3.3-5.1) mmol/L Chloride 111 H (96-108) mmol/L Carbon Dioxide 19 L (22-29) mmol/L Anion Gap 23 H (12-20) BUN 65 H (9-16) mg/dL Creatinine 2.16 H (0.5-1.4) mg/dL Estim Creat Clear Calc TNP Estimated GFR 31 POC Glucose 146 H (60-115) mg/dL Random Glucose 151 H (60-115) mg/dL Lactic Acid 11.8 H* (0.5-2.0) mmol/L Calcium 8.4 (8.4-10.2) mg/dL Magnesium 2.4 (1.6-2.6) mg/dL Total Bilirubin 0.4 (0.0-1.0) mg/dL AST 66 H (5-37) U/L ALT 44 H (0-40) U/L Alkaline Phosphatase 106 (39-117) U/L Troponin I High Sens 115.0 H* D (<3.5-35.0) ng/L C-Reactive Protein 0.90 H (< or = 0.50) mg/dL B-Natriuretic Peptide 2723 H (<100) pg/mL Total Protein 6.6 (6.5-8.0) g/dL Albumin 3.6 (3.5-5.0) g/dL Urine Color Urine Appearance Urine pH (5.0-9.0) Ur Specific Horn[place] (1.005-1.025) Urine Protein (Neg-Trace) mg/dL Urine Glucose (UA) (Negative) mg/dL Urine Ketones (Negative) mg/dL Urine Blood (Negative) Urine Nitrite (Negative) Ur Leukocyte Esterase (Negative) Urine RBC (0-2) /HPF Urine WBC (0-5) /HPF Ur Squamous Epith Cells (0-2) /HPF Urine Bacteria (None Seen) Hyaline Casts (0-2) /LPF COVID-19 (JASSON) Negative (Negative) COVID-19 Clin Com See Note 04/13/23 Range/Units 00:18 WBC (4.8-10.8) X10*3/uL RBC (4.60-5.80) X10*6/uL Hgb (14.0-18.0) g/dl Hct (42.0-52.0) % MCV (80.0-98.0) fL MCH (27.0-33.0) pg MCHC (31.0-36.0) g/dl RDW (11.0-16.0) % Plt Count (160-400) X10*3/uL MPV (9.4-12.4) fL Immature Gran % (Auto) (0.0-0.4) % Neut % (Auto) (45-73) % Lymph % (Auto) (20-40) % Forest % (Auto) (2-11) % Eos % (Auto) (0-4) % Baso % (Auto) (0-2) % Lymph # (Auto) (1.2-4.9) X10*3/uL Forest # (Auto) (0.1-1.2) X10*3/uL Eos # (Auto) (0.0-0.4) X10*3/uL Baso # (Auto) (0.0-0.2) X10*3/uL Abs Immat Gran (auto) (0.00-0.03) X10*3/uL Absolute Neuts (auto) (2.0-8.3) x10*3/uL Absolute Nucleated RBC (0.0-0.012) X10*3/uL Nucleated RBC % (auto) (0.0-0.2) /100WBC Smear Tech's Comments ESR (0-15) MM/HR PT (11.1-13.3) SEC INR (0.9-1.1) APTT (26.0-36.4) SEC Sodium (135-145) mmol/L Potassium (3.3-5.1) mmol/L Chloride (96-108) mmol/L Carbon Dioxide (22-29) mmol/L Anion Gap (12-20) BUN (9-16) mg/dL Creatinine (0.5-1.4) mg/dL Estim Creat Clear Calc Estimated GFR POC Glucose (60-115) mg/dL Random Glucose (60-115) mg/dL Lactic Acid (0.5-2.0) mmol/L Calcium (8.4-10.2) mg/dL Magnesium (1.6-2.6) mg/dL Total Bilirubin (0.0-1.0) mg/dL AST (5-37) U/L ALT (0-40) U/L Alkaline Phosphatase (39-117) U/L Troponin I High Sens (<3.5-35.0) ng/L C-Reactive Protein (< or = 0.50) mg/dL B-Natriuretic Peptide (<100) pg/mL Total Protein (6.5-8.0) g/dL Albumin (3.5-5.0) g/dL Urine Color Yellow Urine Appearance Clear Urine pH 5.5 (5.0-9.0) Ur Specific Hornick 1.010 (1.005-1.025) Urine Protein 100 (2+) H (Neg-Trace) mg/dL Urine Glucose (UA) Negative (Negative) mg/dL Urine Ketones Negative (Negative) mg/dL Urine Blood Moderate (2+) H (Negative) Urine Nitrite Negative (Negative) Ur Leukocyte Esterase Trace H (Negative) Urine RBC 3-5 H (0-2) /HPF Urine WBC 6-10 H (0-5) /HPF Ur Squamous Epith Cells 0-2 (0-2) /HPF Urine Bacteria None Seen (None Seen) Hyaline Casts 0-2 (0-2) /LPF COVID-19 (JASSON) (Negative) COVID-19 Clin Com Independent Interpretation I performed an independent interpretation of an: EKG and Plain X-Ray (pulm edema) Interpretation: Rate: 131 Rhythm: sinus tachycardia [place]: normal Normal P waves. Normal ABBIE. Normal QRS complex. ST T wave : no EDITH but inf t wave inversions as well as ST seg depression in lateral leads qTC: normal prior studies: no STEMI The study has been interpreted contemporaneously by me. . Radiology Impression Discussion of test interpretation with radiology: I have reviewed the radiologist's reading. Independent Historian Clinical information obtained from an independent historian. History obtained from or confirmed by: Other (brother) External Record Review External record reviewed: Inpatient record JULIANNE 03/21 Conclusion: Normal left ventricular size and systolic function. The visually estimated ejection fraction is between 55-60%. There is mild mitral valve regurgitation. There is no mitral valve stenosis. Small vegetation vs torn chordae of mitral valve posterior leaflet. Cannot rule out bicuspid valve, obvious vegetation noted on the valve which is small is size but aortic valve appears quite abnormal with clear prolapse of one of the cusps (difficult to understand anatomy as the valve appears very abnormal and there is prolapse of cusp) with mild to moderate eccentric aortic regurgitation. Cannot rule out a small aortic root abscess anteriorly. Procedures EJ/Peripheral Line Neck L: Time Out Performed: Yes Skin Cleansed in Sterile Fashion: Yes Size (gauge): 18 IV Secured and Dressing Applied: Yes Patient Tolerated Procedure: well and no complications Neck R: Time Out Performed: Yes Skin Cleansed in Sterile Fashion: Yes Size (gauge): 18 IV Secured and Dressing Applied: Yes Patient Tolerated Procedure: well and no complications Intubation Time out performed: Yes sedative: Etomidate Mg Given: 20 paralytic: Rocuronium Mg Given: 50 Laryngoscope: Heber ET Tube Size: 7.5 ET Tube Uncuffed: Yes Tube Secured Depth (cm): 23 Tube Secured Location: teeth Tube Placement Confirmation: visualized tube passing through cords, equal breath sounds bilaterally, no breath sounds over epigastrium and confirmation by capnometry Patient Tolerated Procedure: well and no complications Intubation Complications: none Critical Care Time Critical Care Time Critical Care Time: Yes Total Critical Care Time: 60 Attestation: management of pulm edema and hypoxia, review of records, transfer to tertiary center I attest to this time spent taking care of the patient Discharge Plan Discharge Clinical Impression: Serum potassium elevated, Hypoxia Pulmonary edema Qualifiers: Chronicity: acute Qualified Code(s): J81.0 - Acute pulmonary edema Leukocytosis Qualifiers: Leukocytosis type: unspecified Qualified Code(s): D72.829 - Elevated white blood cell count, unspecified Patient Disposition: [facility] Transfer Details: [facility] Prescriptions: No Action buspirone 5 mg tablet 5 mg PO BID Qty: 180 2RF atorvastatin 20 mg tablet 20 mg PO DAILY 30 Days Qty: 30 3RF varenicline [Chantix Continuing Month Box] 1 mg tablet 1 mg PO BID 28 Days Qty: 56 4RF cyclobenzaprine 5 mg tablet 5 mg PO TID PRN (Reason: muscle spasm) Qty: 14 0RF lidocaine [Lidoderm] 5 % adhesive patch,medicated 1 patch topical DAILY Qty: 30 0RF Rx Instructions: leave on most painful area for up to 12 hrs (DME) blood pressure monitor [Blood Pressure Kit] Kit See Rx Instructions .ROUTE .MEDSUPPLY Qty: 1 0RF Rx Instructions: As directed fenofibrate 160 mg tablet 160 mg PO DAILY Qty: 90 2RF Hold Instructions: Resume on 04/02/23. lisinopril 40 mg tablet 40 mg PO DAILY 90 Days Qty: 90 2RF Hold Instructions: Resume on 04/02/23. acetaminophen [Tylenol Extra Strength] 500 mg tablet 500 mg PO Q6H PRN (Reason: pain) aspirin 81 mg tablet,delayed release (DR/EC) 81 mg PO DAILY metoprolol tartrate 25 mg tablet 25 mg PO BID pantoprazole 40 mg tablet,delayed release (DR/EC) 40 mg PO DAILY sevelamer carbonate 800 mg tablet 800 mg PO TID Rx Instructions: must administer with a meal/food prednisone 10 mg tablet 10 mg PO DAILY Rx Instructions: prednisone taper start 04/10/23 and stop 05/03/23 albuterol sulfate 90 mcg/actuation HFA aerosol inhaler 2 puff PO Q6H PRN (Reason: for wheezing) Qty: 8.5 11RF
--- OUTSIDE RECORDS SUMMARY | 2023-04-12 22:29 | XMS_ITS | Continuity of Care Document ---
Author Name Unknown Organization [facility] ter Address [address] [place] [id number] Care Team Providers Care Lining Printer Name Role Phone Not on Staff, PCP Primary Care Physician Unavail able [place] [facility] [place] - 04/09/[address] [address]- Discharge Disposition: A-D/C Home Attending Physician: Michelle Smith DO Admitting Physician: Ela Hutchinson DO Referring Physician: Not on Staff, Referring MD Allergies, Adverse Reactions, Alerts No Known Allergies Medications acetaminophen 500 mg oral capsule 1 capsule = 500 mg, By Mouth, Every 4 hours, PRN for fever, # 60 capsule, 0 Refills, Maintenance, 03/21/23 21:46:00 EDT, Capsule, Partial fill upon patient request if the prescription is for a schedule II opioid drug. Start Date: 03/21/23 Status: Ordered albuterol 90 mcg/inh inhalation powder 1 puffs, Inhalation, Every 6 hours, PRN as needed, # 1 each, 0 Refills, Maintenance, 03/21/23 21:46:00 EDT, Powder, Partial fill upon patient request if the prescription is for a schedule II opioid drug. Start Date: 03/21/23 Status: Ordered amLODIPine 10 mg oral tablet 10 mg, Tablet, By Mouth, 04/09/23 9:00:00 EDT Start Date: 04/09/23 Stop Date: 04/09/23 Status: Completed aspirin 81 mg oral tablet, chewable 81 mg, By Mouth, Daily, # 30 tablet, Refills 0, Tot. Refills 0, Maintenance, 04/09/23 12:24:00 EDT,Route to Pharmacy Electronically, [facility], Partial fill upon patient request if the prescription is for a schedule II opioid drug., 16... Start Date: 04/09/23 Status: Ordered atorvastatin 20 mg oral tablet 1 tablet = 20 mg, By Mouth, Daily, # 30 tablet, 0 Refills, Maintenance, 03/21/23 21:44:00 EDT, Tablet, Partial fill upon patient request if the prescription is for a schedule II opioid drug. Start Date: 03/21/23 Status: Ordered busPIRone 5 mg oral tablet 5 mg, 1, tablet, By Mouth, 2 times a day, Refills 0, Maintenance, 03/21/23 21:44:00 EDT, Partial fill upon patient request if the prescription is for a schedule II opioid drug. Start Date: 03/21/23 Status: Ordered cyclobenzaprine 5 mg oral tablet 1 tablet = 5 mg, By Mouth, 3 times a day, PRN Pain , Mild, # 21 tablet, 0 Refills, Maintenance, 03/21/23 21:45:00 EDT, Tablet, Partial fill upon patient request if the prescription is for a schedule II opioid drug. Start Date: 03/21/23 Stop Date: 03/28/23 Status: Ordered fenofibrate 160 mg oral tablet 1 tablet = 160 mg, By Mouth, Daily, # 90 tablet, 0 Refills, Maintenance, 03/21/23 21:46:00 EDT, Tablet, Partial fill upon patient request if the prescription is for a schedule II opioid drug. Start Date: 03/21/23 Status: Ordered lidocaine 5% topical film 1 patch, Topically, Daily, PRN Pain , Mild, remove after 12 hours, # 13 each, 0 Refills, Maintenance, 03/21/23 21:45:00 EDT, Film, Partial fill upon patient request if the prescription is for a schedule II opioid drug. Start Date: 03/21/23 Status: Ordered lisinopril 40 mg oral tablet 1 tablet = 40 mg, By Mouth, Daily, # 30 tablet, 0 Refills, Maintenance, 03/21/23 21:47:00 EDT, Tablet, Partial fill upon patient request if the prescription is for a schedule II opioid drug. Start Date: 03/21/23 Status: Ordered metoprolol 25 mg oral tablet 25 mg, Tablet, By Mouth, 04/09/23 9:00:00 EDT Start Date: 04/09/23 Stop Date: 04/09/23 Status: Completed metoprolol 25 mg oral tablet 25 mg, By Mouth, 2 times a day, # 60 tablet, Refills 0, Tot. Refills 0, Maintenance, 04/09/23 12:18:00 EDT, Route to Pharmacy Electronically, [facility], Partial fill upon patient request if the prescription is for a schedule II opioid d... Start Date: 04/09/23 Status: Ordered oxyCODONE 5 mg oral tablet 5 mg, Tablet, By Mouth, Every 6 hours, Hold for: drowsiness or RR < 12, PRN for Pain , Moderate,Routine, 03/26/23 8:10:00 EDT Start Date: 03/26/23 Stop Date: 04/10/23 Status: Discontinued pantoprazole 40 mg oral delayed release tablet = 40 mg, By Mouth, Daily, Take 1 tablet daily, # 120 tablet, 0 Refills, Maintenance, 04/09/23 13:20:00 EDT, EC Tablet, 160, cm, 03/21/23 21:30:00 EDT, Height, 79.7, kg, 03/21/23 21:30:00 EDT, Dry Weight Start Date: 04/09/23 Status: Ordered predniSONE 10 mg oral tablet See Instructions, Take as follows in morning with food: - 6 tablets 04/10/23- 04/12/23 - 3 tablets 04/13/23-04/19/23 - 2 tablets 04/20/23-04/26/23 - 1 tabet 04/27/23-05/03/23 and stop., # 60 tablet, 0 Refills, Maintenance, 04/09/23 12:24:00 EDT, [facility]... Start Date: 04/09/23 Status: Ordered sevelamer carbonate 800 mg oral tablet 3 tablet = 2,400 mg, By Mouth, 3 times a day, take 3 tablets in the morning, 3 tablets in the afternoon, and 3 tablets in the evening, # 270 tablet, 0 Refills, Maintenance, 04/09/23 13:21:00 EDT, Tablet, [facility], Partial fill upon pat... Start Date: 04/09/23 Status: Ordered Problem List Condition Confirmation Course Effective Dates Status Health St atus Informant Obese class I Confirmed Active Results Orders for Microbiology Reports Name Date Blood Culture 03/23/23 Blood Culture #2 03/23/23 Blood Culture 03/22/23 Blood Culture #2 03/22/23 Microbiology Reports TEST:Blood Culture STATUS:Auth (Verified) BODY SITE: SOURCE:Blood COLLECTED DATE/TIME:03/23/23 12:34 AM Blood Culture SPECIMEN DESCRIPTION : BLOOD LT ARM SPECIAL REQUESTS : NONE CULTURE : NO GROWTH 5 DAYS. REPORT STATUS : FINAL 03/28/2023 TEST:Blood Culture, Second Order STATUS:Auth (Verified) BODY SITE: SOURCE:Blood COLLECTED DATE/TIME:03/23/23 12:34 AM Blood Culture, Second Order SPECIMEN DESCRIPTION : BLOOD RT ARM SPECIAL REQUESTS : NONE CULTURE : NO GROWTH 5 DAYS. REPORT STATUS : FINAL 03/28/2023 TEST:Blood Culture STATUS:Auth (Verified) BODY SITE: SOURCE:Blood COLLECTED DATE/TIME:03/22/23 2:37 AM Blood Culture SPECIMEN DESCRIPTION : BLOOD LEFT HAND SPECIAL REQUESTS : NONE CULTURE : NO GROWTH 5 DAYS. REPORT STATUS : FINAL 03/27/2023 TEST:Blood Culture, Second Order STATUS:Auth (Verified) BODY SITE: SOURCE:Blood COLLECTED DATE/TIME:03/22/23 2:37 AM Blood Culture, Second Order SPECIMEN DESCRIPTION : BLOOD RIGHT HAND SPECIAL REQUESTS : NONE CULTURE : NO GROWTH 5 DAYS. REPORT STATUS : FINAL 03/27/2023 Radiology Reports (Most Recent Ten) * Exam Date Time Procedure Performing Provider Status 04/04/23 10:50 PM Shoulder Min 2 Views Left Gregorio Fierro; Auth (Verified) Notes: (Shoulder Min 2 Views Left) Reason For Exam: Pain RESULT: Shoulder Min 2 Views Left Shoulder Min 2 Views Left, views Reason: Pain; Clinical Question(s): Dislocation; Order Comment: COMPARISON: 03/22/2023 FINDINGS: Lucent lesion seen in the mid humeral region. This raises concern for malignancy. Correlate with clinical history. Additional imaging may be appropriate. Moderate glenohumeral joint space narrowing and marginal spurring. Moderate degenerative changes of the AC joint. The portion of the clavicle included on the exam is intact. Calcifications in the distal rotator cuff. IMPRESSION: No fracture or dislocation. Lucent lesion in the left humerus. The appearance raises concern for metastatic lesion or possibly myeloma. Correlate with clinical history. WSN: [id number] Ordering Physician: Thomas Jackson Dictated By: Frantz Greer MD Dictated Date/Time: 04/05/23 0:19 am Reviewed By: Frantz Greer MD Signed By: Frantz Greer MD Signed Date/Time: 04/05/23 0:19 am Transcribed By: KENDALL Transcribed Date/Time: 04/05/23 0:15 am * Exam Date Time Procedure Performing Provider Status 03/29/23 3:[address] Head/Brain W/O Contrast LesReed whitehead stacia; Auth (Verified) Notes: (CT Head/Brain W/O Contrast) Reason For Exam: AMS , MSSA bacteremia with suspected IE, to evaluate for any embolic stroke;Other: RESULT: CT Head/Brain W/O Contrast CT of the head dated March 29, 2023. Comparison films are from March 22, 2023. HISTORY: Acute mental status change. Patient has bacteremia. FINDINGS: CT imaging was performed with multislice acquisition from the foramen magnum through the vertex. No intravenous contrast material was utilized. Axial and coronal reconstruction was performed. A weight based protocol using automatic tube modulation was used to optimize exposure parameters. Examination of the posterior fossa shows a normal size midline fourth ventricle. No mass, hemorrhage, or abnormal extra axial fluid collection is identified. Supratentorially, the lateral and third ventricles are normal in size, contour and position. No mass, hemorrhage, or abnormal extra-axial fluid collection is identified. The del rosario-white matter differentiation is well preserved. No hyperdense vessel or loss of the insular ribbon is appreciated. Visualized osseous structures, paranasal sinuses and orbits shows mucosal thickening in the maxillary sinuses left greater than right and within the right ethmoid sinus. The mastoid air cells are clear. IMPRESSION: No evidence of acute intracranial abnormality. Minimal subacute to chronic inflammatory changes in the paranasal sinuses. Examination [id number]. Thank you for allowing me to participate in the care of this patient. WSN: [id number] Ordering Physician: Anish Shetty Dictated By: Joshua Poole MD Dictated Date/Time: 03/29/23 3:29 pm Reviewed By: Joshua Poole MD Signed By: Joshua Poole MD Signed Date/Time: 03/29/23 3:29 pm Transcribed By: KENDALL Transcribed Date/Time: 03/29/23 3:27 pm * Exam Date Time Procedure Performing Provider Status 03/28/23 7:14 PM Chest Portable Sajan Fierro; Auth (V erified) Notes: (Chest Portable) Reason For Exam: Shortness of Breath RESULT: Chest Portable Chest Portable Reason: Shortness of Breath; Clinical Question(s): Aspiration COMPARISON: 05/27/2008. FINDINGS: LINES AND TUBES: There is a right IJ line with its tip in the expected location of the right atrium. LUNGS AND PLEURA: There is pulmonary vascular congestion with bilateral hazy lung opacities compatible with pulmonaryedema. There is consolidation at the mid to lower right lung field. No pleural effusion. No pneumothorax. HEART, MEDIASTINUM AND ADEEL: The cardiac silhouette is mildly prominent. Normal mediastinal and hilar contour. BONES AND SOFT TISSUES: No acute abnormality. IMPRESSION: 1. Consolidation at the mid to lower right lung field. 2. Extensive pulmonary vascular congestion with bilateral hazy lung opacities which may represent pulmonary edema. 3. Mild prominence of the cardiac silhouette. WSN: [id number] Ordering Physician: Helga Montano Dictated By: Veronica Mascorro MD Dictated Date/Time: 03/28/23 7:17 pm Reviewed By: Veronica Mascorro MD Signed By: Veronica Mascorro MD Signed Date/Time: 03/28/23 7:17 pm Transcribed By: KENDALL Transcribed Date/Time: 03/28/23 7:15 pm * Exam Date Time Procedure Performing Provider Status 03/27/23 2:55 PM IR End of Case Report Aut h (Verified) IR End of Case Report * Exam Date Time Procedure Performing Provider Status 03/27/23 2:55 PM IR Venous Access Device Insertion Auth (Verified) Notes: (IR Venous Access Device Insertion) Reason For Exam: Permcath for new dialysis needs;Other: IR Venous Access Device Insertion Patient: KRIS ZHANG Study Date: 03/27/2023 Performing: Melissa Buck MD Referring: : 1955 Age: 67 Gender: MALE Pre-procedure diagnosis and Indication: 67 yo patient transferred from [facility] in the setting of MSSA bacteremia, endocarditis and infectious glomerulonephritis, hyperkalemia, anxiety, now requiring durable central venous access to initiate hemodialysis. Exam: Prior to the procedure, the patient was seen and the nature of the procedure explained along with its attendant risks and benefits to a family member in person . Informed consent was obtained from, a family member in person . The patient underwent a pre-procedure assessment. On completion of this it was determined the patient is appropriate for the planned procedure given the clinical need for hemodialysis. We will plan for anxiolysis with single agent IV medication and redirection for his anxiety during the procedure. The patient arrived in IR room 1 for a tunneled hemodialysis catheter insertion. PROCEDURE: The patient was positioned supine and secured with arm boards, safety straps. The access site was evaluated with ultrasound and images archived. The site was prepped with chloraprep and draped in the usual sterile fashion. Local anesthetic was given and The vessel was identified using, ultrasound access was gained into the right internal jugular vein using a regular micropuncture set. Next, a site for catheter insertion was selected on the right upper outer chest. Local analgesia was administered at this site and along the anticipated tunneling tract and a small incision was made. The catheter was tunneled from the right chest to the right neck and inserted via the right IJ access following serial dilatation of the access tract. Catheter position was confirmed with a stored image. Both catheter ports aspirated and flushed with ease. The Catheter was flushed with heparin 1000u/ml 2.1 ml's per lumen. The catheter was Secured with 2-0 prolene suture and liquid tissue adhesive was applied at the neck incision site. A dressing was applied. The sterile field was maintained throughout the procedure and patient tolerated the procedure well with no complications of the procedure. estimated blood loss was minimal Specimens/samples: no specimens or samples were sent for [place] procedure [place] [id number] [place] procedure instructions sent in envelope with the patient Impression: 1. Patent and compressible right IJ vein by ultrasound. 2. New 15.5 Fr x 28 cm right-sided tunneled hemodialysis catheter, with catheter tip in the proximal right atrium. The catheter is ready for immediate use. Should catheter malfunction develop please contact this service directly rather than having a diagnostic study performed elsewhere. Fluoroscopy time and dose Total Fluoro Time: 0.1 mins Total dose 5 mGy Total DAP 101.0 - ?Gy/m2 No contrast was used for this procedure Local Anesthetic Lidocaine 1% 8 ml's SQ Lidocaine 1% w/ 1:100,000 epinephrine 9 ml's SQ Agent Dose Route Time By Versed 1 mg IV 15:02:48 ACE Versed 1 mg IV 15:13:35 EJ Signed By Melissa Buck MD On 03/27/2023 15:56:23 Melissa Buck MD Dictated By: Melissa Buck MD Dictated Date/Time: 03/27/23 2:55 pm Reviewed By: Melissa Buck MD Signed By: Melissa Buck MD Signed Date/Time: 03/27/23 2:55 pm Transcribed By: SP Transcribed Date/Time: 03/27/23 2:55 pm * Exam Date Time Procedure Performing Provider Status 03/25/23 12:03 PM US Guide Needle Place Renal Laura Dejesus; Shruthi (Verified) Notes: (US Guide Needle Place Renal) Reason For Exam: Diagnostic RESULT: US Guide Needle Place Renal ULTRASOUND GUIDANCE FOR RENAL BIOPSY Reason: Diagnostic; Clinical Question(s): Other:; Special Instructions: Dr Asif to do Bx in [place]--need to get time slot from [facility] IMAGING TECHNIQUE: geospatial technologist guidance was provided for biopsy of the [place] left kidney. Biopsy the Nephrology service.?A radiologist was not in attendance. COMPARISON: Renal ultrasound 03/22/2023. FINDINGS: Several ultrasound images were obtained during and after kidney biopsy. Images show the biopsy needle passing into the parenchyma of the kidney. 2 passes were made. The left kidney is normal in size with no evidence of hydronephrosis. No postprocedural fluid collection or hematoma noted, although imaging after the second pass may belimited. IMPRESSION: Ultrasound guidance for renal biopsy. No immediate complication demonstrated. WSN: [id number] Ordering Physician: John Asif Dictated By: Jeff Ritter MD Dictated Date/Time: 03/26/23 9:53 am Reviewed By: Jeff Ritter MD Signed By: Jeff Ritter MD Signed Date/Time: 03/26/23 9:53 am Transcribed By: KENDALL Transcribed Date/Time: 03/26/23 9:50 am * Exam Date Time Procedure Performing Provider Status 03/22/23 4:46 PM US Doppler Ext Lower Venous Right Courtney Naila rm; Auth (Verified) Notes: (US Doppler Ext Lower Venous Right) Reason For Exam: Swelling Extremities RESULT: US Doppler Ext Lower Venous Right US Doppler Ext Lower Venous Right REASON: Swelling Extremities; Clinical Question(s): Thrombus COMPARISON: None IMAGING TECHNIQUE: Ultrasound of the veins from the groin through the calf was performed using grayscale, color, and spectral Doppler ultrasound assessing for complete compressibility and normal flowcharacteristics. FINDINGS: Common femoral vein: Patent. No thrombosis. Femoral vein: Patent. No thrombosis. Popliteal vein: Patent. No thrombosis. Gastrocnemius veins: The visualized portions are patent without evidence of thrombosis. Peroneal veins: The visualized portions are patent without evidence of thrombosis. Posterior tibial veins: The visualized portions are patent without evidence of thrombosis. Contralateral common femoral vein: Patent. No thrombosis. IMPRESSION: No evidence of deep venous thrombosis. WSN: [id number] Ordering Physician: Jasper Duenas Dictated By: Jeff Reyna MD Dictated Date/Time: 03/22/23 4:58 pm Reviewed By: Jeff Reyna MD Signed By: Jeff Reyna MD Signed Date/Time: 03/22/23 4:58 pm Transcribed By: KENDALL Transcribed Date/Time: 03/22/23 4:57 pm * Exam Date Time Procedure Performing Provider Status 03/22/23 4:46 PM US Retroperitoneum Comp Nathan Olivera; Auth (Verified) Notes: (US Retroperitoneum Comp) Reason For Exam: MSSA bacteremia with endocarditis and AMIRA, embolic diease?;Intrinsic Renal Disease RESULT: US Retroperitoneum Comp US Retroperitoneum Comp REASON: Intrinsic Renal Disease; MSSA bacteremia with endocarditis and MAIRA, embolic disease? COMPARISON: None. FINDINGS: Right kidney: 12.1 cm in length. No hydronephrosis. Normal parenchymal thickness and echotexture. No stones. No suspicious mass. Left kidney: 11.0 cm in length. No hydronephrosis. Normal parenchymal thickness and echotexture. Nostones. No suspicious mass. Urinary bladder: Incompletely distended, but no evidence of stone, mass or debris. Liver: Partially-imaged liver is echogenic likely representing hepatic steatosis. IMPRESSION: 1. Unremarkable appearance of the kidneys. 2. Echogenic liver, likely due to hepatic steatosis. WSN: [id number] Ordering Physician: Paris Nuñez Dictated By: Jeff Reyna MD Dictated Date/Time: 03/22/23 4:57 pm Reviewed By: Jeff Reyna MD Signed By: Jeff Reyna MD Signed Date/Time: 03/22/23 4:57 pm Transcribed By: FRANSSICOB Transcribed Date/Time: 03/22/23 4:55 pm * Exam Date Time Procedure Performing Provider Status 03/22/23 4:23 PM Ankle Min 3 Views Right Polina Bullock; Auth (Verified) Notes: (Ankle Min 3 Views Right) Reason For Exam: Pain RESULT: Ankle Min 3 Views Right Ankle Min 3 Views Right REASON: Pain; Clinical Question(s): Arthritis COMPARISON: None. FINDINGS: No evidence of acute or healing fracture or bone lesion. Intact ankle mortise and talar dome. No arthritic changes. Enthesophyte at the Achilles tendon insertion. Mild soft tissue swelling. IMPRESSION: No evidence of acute osseous abnormality. WSN: [id number] Ordering Physician: Jasper Duenas Dictated By: Jeff Reyna MD Dictated Date/Time: 03/22/23 4:27 pm Reviewed By: Jeff Reyna MD Signed By: Jeff Reyna MD Signed Date/Time: 03/22/23 4:27 pm Transcribed By: KENDALL Transcribed Date/Time: 03/22/23 4:26 pm * Exam Date Time Procedure Performing Provider Status 03/22/23 4:23 PM Shoulder Min 2 Views Left Cory Bullock; Auth (Verified) Notes: (Shoulder Min 2 Views Left) Reason For Exam: Pain RESULT: Shoulder Min 2 Views Left Shoulder Min 2 Views Left, 3 views REASON: Pain; Clinical Question(s): Arthritis COMPARISON: None. FINDINGS: No fracture or dislocation. No arthritic change of the glenohumeral joint. Normal AC joint and portions of the clavicle included on the exam. Small calcific density adjacent to the humeral head. IMPRESSION: No evidence of acute osseous abnormality. WSN: [id number] Ordering Physician: Jasper Duenas Dictated By: Jeff Reyna MD Dictated Date/Time: 03/22/23 4:26 pm Reviewed By: Jeff Reyna MD Signed By: Jeff Reyna MD Signed Date/Time: 03/22/23 4:26 pm Transcribed By: KENDALL Transcribed Date/Time: 03/22/23 4:26 pm Vital Signs Most recent to oldest [Reference Range]: 1 2 3 Weight 73.6 kg (03/31/23 4:00 AM) 74.1 kg (03/30/23 5:00 AM) 79.5 kg (03/29/23 4:00 AM) Oxygen Saturation [94-100 %] 96 % (04/09/23 11:44 AM) 99 % (04/09/23 5:07 AM) 97 % (04/08/23 10:17 PM) Pulse Rate [55-90 bpm] 78 bpm (04/09/23 1:39 PM) 78 bpm (04/09/23 1:00 PM) 78 bpm (04/09/23 11:44 AM) Blood Pressure [90-138/55-84 mm Hg] 156/56mm Hg *H* (04/09/23 1:40 PM) 156/56mm Hg *H* (04/09/23 1:39 PM) 156/56mm Hg *H* (04/09/23 1:00 PM) Respiratory Rate [16-30 br/min] 18 br/min (04/09/23 11:44 AM) 18 br/min (04/09/23 5:07 AM) 18 br/min (04/09/23 1:25 AM) Temperature [96.8-100.4 DegF] 98.2 DegF (04/09/23 11:44 AM) 98.3 DegF (04/09/23 5:07 AM) 98.0 DegF (04/08/23 10:17 PM) Liters per Minute 3 L/min (03/30/23 12:00 PM) 3 L/min (03/30/23 10:00 AM) 12 L/min (03/30/23 8:00 AM) Mode of Delivery (Oxygen) Room air (04/09/23 11:44 AM) Room air (04/09/23 5:07 AM) Room air (04/08/23 10:17 PM) Blood pressure sites Arm, right (04/09/23 11:44 AM) Arm, left (04/09/23 5:07 AM) Arm, left (04/08/23 10:17 PM) Temperature Route Oral (04/09/23 11:44 AM) Oral (04/09/23 5:07 AM) Oral (04/08/23 10:17 PM) Weight Obtained Via Bed scale (03/31/23 4:00 AM) Bed scale (03/30/23 5:00 AM) Bed scale (03/29/23 4:00 AM) History and physical note * Event Display: History and Physical Hospital Authored Date: Admission evaluation note * Jaime Dejesus MD: MODIFY, PERFORM Event Display: Admission Note Authored Date: Patient: ??KRIS ZHANG ? Age:??67 Years?Sex:??Male?:??1955?? HPI: This is a 67-year-old man with hypertension hyperlipidemia COPD who presented to [facility] with upper GI bleed, found to have??MSSA bacteremia??and endocarditis, transferred to [facility] for further care. ?? The patient has little insight into his medical history. He says he went to the hospital because ofleft??shoulder pain. Transfer documentation is sparse. According to the discharge summary he was initially admitted to the ICU 03/14 for bleeding, HGB was 10.6 with unknown baseline.??He underwent EGD03/18 found gastric ulcer with unknown treatment. Biopsies negative for h pylori. ?? Blood cultures apparently turned positive, it is unclear when. He was started on IV vancomycin and doxycycline switched to ceftriaxone when speciation revealed MSSA bacteremia. ??He had persistently positive cultures despite treatment with ceftriaxone. ??He was switched to daptomycin. ? CT chest abdomen 03/20 were negative except for bilateral perinephric stranding and a 2 cm right hepatic hypodensity. ? Transthoracic echo was negative, no report is available. ?? Cardiology performed a transesophageal echo which demonstrated??endocarditis,??the reprot is not available. ?? He was transferred to [facility]. ?? ON arrival to the floor, he has no complaints. Breathing well, no pain. He notes that he sees ballson the ceiling. ?? ROS: As above, rest of full review negative. ?? PMH: Cardiac murmur Pulmonary nodule COPD Hyperlipidemia Obesity Pancreatitis Alcohol abuse Hypertension Bipolar ?? Medications on Transfer: Acetaminophen (acetaminophen 500 mg oral capsule)?1?capsule?500?Milligram?By Mouth?Every 4 hours?as needed?for fever Albuterol (albuterol 90 mcg/inh inhalation powder)?1?puff(s)?Inhalation?Every 6 hours?as needed?as needed Amlodipine (amlodipine 5 mg oral tablet)?1?tab(s)?5?Milligram?By Mouth?Daily Atorvastatin (atorvastatin 20 mg oral tablet)?1?tab(s)?20?Milligram?By Mouth?Daily BusPIRone (busPIRone 5 mg oral tablet)?5?Milligram?1?tablet?By Mouth?2 times a day Cyclobenzaprine (cyclobenzaprine 5 mg oral tablet)?1?tab(s)?5?Milligram?By Mouth?3 times a day?as needed?Pain , Mild?for 7?Days Fenofibrate (fenofibrate 160 mg oral tablet)?1?tab(s)?160?Milligram?By Mouth?Daily Hydrochlorothiazide (hydroCHLOROthiazide 12.5 mg oral capsule)?1?capsule?12.5?Milligram?By Mouth?Daily Lidocaine Topical (lidocaine 5% topical film)?1?patch(es)?Topically?Daily?as needed?Pain , Mild?remove after 12 hours Lisinopril (lisinopril 40 mg oral tablet)?1?tab(s)?40?Milligram?By Mouth?Daily ?? Social: Lives independently ?? Exam: T 100.5 BP 148/50 HR 105 RR 20 O2 92% RA GEN: Comfortable in bed HEENT: Moist membranes HEART: Warm extremities LUNGS: Breathing comfortably room air ABD: Soft, nontender : No orta EXT: Warm, no edema. R medial ankle with erythema and tenderness NEURO: Alert, oriented to self, [facility], thinks it's fall, doesn't know the month. Strength 5/5 bilateral upper/lower PSYCH: Calm and cooperative ?? Labs on admission 03/14 WBC 4.4 hemoglobin 10.6 PLT 58 ?? Sodium 137 potassium 4.2 CO2 19 BUN 71 creatinine 1.6 glucose 125 calcium 7.9 Phos 3.2 magnesium 1.9 T. bili 1.0 AST 51 ALT 31 alk phos 44 ?? Labs on discharge 03/21/2023 WBC 12.0 Hgb 7.9 PLT 168 Sodium 136 potassium 4.1 CO2 20 BUN 94 creatinine 2.8 glucose 112 Calcium 8.0 CK 52 Urine sodium <20 ? CT abdomen pelvis 03/20/2023 Bilateral perinephric stranding.?? Worse on the right.?? Correlation should be made with urinalysis.?? Nondependent gas in the urinary bladder and anterior wall thickening. Absent nonobstructing left renal calculi. Hepatic status ptosis.?? Ill-defined 2 cm right hepatic hypodensity.?? Further characterization with MRI abdomen is recommended. Small bilateral effusions pleural and dependent atelectasis. ? Assessment and Plan: 67-year-old man with hypertension hyperlipidemia COPD who presented to [facility] with upper GI bleed, found to have??MSSA bacteremia??and endocarditis, transferred to [facility] for further care. ?? # MSSA bacteremia # Endocarditis I confirmed with [place] lab that his cultures did result MSSA. Currently hemodynamically stable, has low grade fever. WBC this morning at [place] 12 with reportedly persistent positive cultures. - cefazolin 2gm q 8 - obtain JULIANNE report from [place] - ID consulted electronically - serial blood cultures ?? # MAIRA Unclear cause of Cr rising from 1.0 on admission to 2.8. Nephrology at [place] suspected prerenal MAIRA/ATN given urine Na <20, he was given unknown amount of fluids. Complement studies sent, thoughvery unlikely that he had abrupt onset. Contrast nephropathy unlikely since MAIRA started before CT. Bilateral perinephric stranding on CT is hard to interpret. - trend Cr - bolus 1 L LR - renally dose meds ?? # Encephalopathy/hallucinations Concerning for septic emboli. - f/u CT head - hold varenecline for now ?? # R ankle erythema Possible septic embolus. - antibiotics - trend exam ?? # Hepatic hypodensity - needs abd MRI ?? # HLD - cont statin ?? # HTN - hold Amlodipine (amlodipine 5 mg oral tablet)?1?tab(s)?5?Milligram?By Mouth?Daily - hold lisinopril ?? # Bipolar - cont BusPIRone (busPIRone 5 mg oral tablet)?5?Milligram?1?tablet?By Mouth?2 times a day ?? # Back pain - hold Flexeril ?? DVT - low risk DIET - regular CODE - presumed full EKG study * Event Display: ECG 12-Lead Authored Date: Please click on pdf link to open report * Event Display: ECG 12-Lead Authored Date: Ventricular Rate: 60 BPM QRS Duration: 74 ms Q-T Interval: 428 ms QTC Calculation(Bazett): 428 ms R [place]: 39 degrees T [place]: 54 degrees Baseline artifact limits ECG interpretation Probable Normal sinus rhythm Otherwise normal ECG When compared with ECG of 06-APR-2023 16:38, No significant change was found Confirmed by TOI IVORY MD ([id number]) on 04/08/2023 7:28:28 PM [place]: TOI IVORY MD * Event Display: EKG Authored Date: * Event Display: ECG 12-Lead Authored Date: Please click on pdf link to open report * Event Display: ECG 12-Lead Authored Date: Ventricular Rate: 72 BPM Atrial Rate: 72 BPM P-R Interval: 194 ms QRS Duration: 100 ms Q-T Interval: 398 ms QTC Calculation(Bazett): 435 ms P [place]: 53 degrees R [place]: 75 degrees T [place]: 92 degrees Normal sinus rhythm Possible Left atrial enlargement ST and T wave abnormality, consider lateral ischemia Abnormal ECG When compared with ECG of 04-APR-2023 10:06, Nonspecific T wave abnormality no longer evident in Inferior leads T wave inversion more evident in Lateral leads Confirmed by TOI IVORY MD ([id number]) on 04/08/2023 7:27:59 PM [place]: TOI IVORY MD * Event Display: ECG 12-Lead Authored Date: Please click on pdf link to open report * Event Display: ECG 12-Lead Authored Date: Ventricular Rate: 91 BPM Atrial Rate: 91 BPM P-R Interval: 212 ms QRS Duration: 92 ms Q-T Interval: 378 ms QTC Calculation(Bazett): 464 ms P [place]: 65 degrees R [place]: 84 degrees T [place]: -39 degrees Sinus rhythm with 1st degree A-V block Nonspecific ST and T wave abnormality Abnormal ECG When compared with ECG of 28-MAR-2023 21:33, TX interval has increased ST no longer depressed in Anterolateral leads Confirmed by TOI IVORY MD ([id number]) on 04/04/2023 11:33:30 AM [place]: TOI IVORY MD Heart * Event Display: Echocardiogram - Complete Authored Date: Transthoracic Echocardiography Report (TTE) Patient Demographics Patient Name KRIS ZHANG Date of Study 04/01/2023 Corporate Gender Male Facility Race Ethnicity or Date of 1955 Height: 63 inches Age 68 year(s) Weight: 196 pounds Accession Number [id number] BSA: 1.92 m2 Room Number [id number] BMI: 34.72 kg/m2 Referring Physician Spencer FUCHS Interpreting Vickey Souza MD Physician Human Factors Scientist Josy Bello Indications Endocarditis. Clinical History Hypertension. Hyperlipidemia. COPD. Alcohol abuse. Study Data Type of Study TTE procedure:Echo 2D Limited or Follow-up. Study Date04/01/2023 Start Time: 10:00 AM [place] [facility] [place] Study Status: Echo lab Patient Status: Routine Technical Quality: Adequate Blood Pressure:131/52 mmHg EKG: Normal sinus rhythm HR: 85 bpm 2D Measurements LV Diastolic Dimension: 6.3 cm LV Systolic Dimension: 4 cm LV Septum Diastolic: 0.9 cm LV PW Diastolic: 1.1 cm AO Root Dimension: 3.2 cm LVOT Stroke Volume: 82.27 ml LVOT: 2 cm Stroke Volume Index42.85 ml/m2 Cardiac Index:3.64 l/min/m2 Doppler Measurements AV Peak Velocity: 296 cm/s AV Peak Gradient: 35.05 mmHg AV Mean Gradient: 18 mmHg AV VTI:61.1 cm LVOT Peak Velocity: 117 cm/s LVOT VTI26.2 cm AV Area (Continuity):1.35 cm2 Cardiac Anatomy Left Ventricle/Interventricular Septum The left ventricle is dilated. The LV systolic function is normal. The left ventricular ejection fraction is 60-65 %. There are no definite regional wall motion abnormalities. Left Atrium/Interatrial Septum The left atrium is dilated. Aortic Valve The aortic valve is poorly visualized, but noted to be mildly calcified. There is mild to moderate aortic stenosis. The aortic valve area is 1.4 cm2 by continuity equation. The mean gradient is 18 mmHg. There is mild aortic regurgitation with an eccentric jet. Mitral Valve Mitral leaflet excursion is normal. Aorta The aortic root is normal in size. Right Ventricle The right ventricle is borderline dilated. Pericardium/Extracardiac There is no significant pericardial effusion. Summary 1) Limited follow up echocardiogram 2) The left ventricle is dilated. The LV systolic function is normal. The left ventricular ejection fraction is 60-65 %. There are no definite regional wall motion abnormalities. 3) The aortic valve is poorly visualized, but noted to be mildly calcified. There is mild to moderate aortic stenosis. The aortic valve area is 1.4 cm2 by continuity equation. The mean gradient is 18 mmHg. There is mild aortic regurgitation with an eccentric jet. Comparison Comparison is made to the study of March 24, 2023. No obvious interval change Signature * Event Display: Echocardiogram - Complete Authored Date: [id number] * Event Display: Echocardiogram - Complete Authored Date: [id number] Transthoracic Echocardiography Report (TTE) Patient Demographics Patient Name KRIS ZHANG Date of Study 03/24/2023 Corporate Gender Male [facility] Race Ethnicity or Date of 1955 Height: 63 inches Age 67 year(s) Weight: 196 pounds Accession Number [id number] BSA: 1.92 m2 Room Number [id number] BMI: 34.72 kg/m2 Referring Physician Spencer FUCHS Interpreting Selma Rivero MD Physician Human Factors Scientist Olivia Fung RDCS Stone RCS Roxy Indications Endocarditis. Clinical History Hypertension. Hyperlipidemia. ETOH COPD Study Data Type of Study TTE procedure:Echo Complete-Doppler, Colorflow, M-Mode. Study Date03/24/2023 Start Time: 01:56 PM [place] [facility] [place] Study Status: Echo lab Patient Status: Routine Technical Quality: Technically difficult due to breathing difficulities. Blood Pressure:145/64 mmHg EKG: Sinus tachycardia HR: 80 bpm 2D Measurements LV Diastolic Dimension: 5.8 cm LV Systolic Dimension: 3.9 cm LV Septum Diastolic: 0.8 cm LV PW Diastolic: 0.8 cm AO Root Dimension: 3.4 cm LA Dimension: 4.7 cm LA ESV (BP):56.4 ml LVOT Stroke Volume: 77.81 ml LA ESV Index: 29 ml/m2 Stroke Volume Index40.53 ml/m2 LVOT: 2 cm Cardiac Index:3.24 l/min/m2 Ascending Aorta:3.1 cm Doppler Measurements AV Peak Velocity: 266 cm/s AV Peak Gradient: 28.3 mmHg AV Mean Gradient: 16 mmHg AV VTI:62 cm LVOT Peak Velocity: 97.4 cm/s LVOT VTI24.78 cm AV Area (Continuity):1.25 cm2 PV Peak Velocity: 109 cm/s PV Peak Gradient: 4.75 mmHg TR Velocity:230 cm/s TR Gradient:21.16 mmHg E' Septal Velocity: 9.32 cm/s E' Lateral Velocity: 9.51 cm/s Cardiac Anatomy Left Ventricle/Interventricular Septum The left ventricle is poorly visualized. The left ventricular size is normal. Left ventricular wall thickness is normal. Normal LV systolic function. Ejection fraction is 60-65%. There are no regional wall motion abnormalities. Unable to assess diastolic function due to E/A fusion . Left Atrium/Interatrial Septum The left atrium is dilated. Aortic Valve The aortic valve is poorly visualized. There is mild to moderate aortic stenosis. mean gradient is 16mmHg, JESUS 1.25cm2. DI 0.36. There is at least mild eccentric aortic regurgitation. Mitral Valve The mitral valve appears grossly normal. There is trace to mild mitral regurgitation. Aorta The aortic root is normal in size. The ascending aorta is not well visualized. Right Ventricle The right ventricle is poorly visualized. The right ventricle is dilated. Right ventricular systolic function appears preserved. Right Atrium The right atrium is dilated. Pulmonic Valve The pulmonic valve is poorly visualized. Tricuspid Valve The tricuspid valve is poorly visualized. There is mild tricuspid valve regurgitation. Pumonary Artery An accurate pulmonary artery pressure could not be obtained. Venous Structures The inferior vena cava appears grossly normal. Inferior vena cava inspiratory collapse is blunted . Pericardium/Extracardiac There is no significant pericardial effusion. There is an epicardial fat pad present. Summary The left ventricle is poorly visualized. The left ventricular size is normal. Left ventricular wall thickness is normal. Normal LV systolic function. Ejection fraction is 60-65%. There are no regional wall motion abnormalities. Unable to assess diastolic function due to E/A fusion . The aortic valve is poorly visualized. There is mild to moderate aortic stenosis. mean gradient is 16mmHg, JESUS 1.25cm2. DI 0.36. There is at least mild eccentric aortic regurgitation. The right ventricle is poorly visualized. The right ventricle is dilated. Right ventricular systolic function appears preserved. There is no significant pericardial effusion. There is an epicardial fat pad present. Sensitivity of this study is inherently limited due to transthoracic technique and suboptimal visualization of cardiac valves. If clinical suspicion remains for endocarditis, consider JULIANNE. Comparison No prior study available for comparison. 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 is getting d/c after tx. _3_ hour _30_min HD/UF _2_ K bath _4.0_K blood level Access Cath Site assessment C/D/I __ Hemostasis achieved within expected time frame Y __1.7__ liters pulled fluid balance _-10.3__ % blood volume change If the goal is not reached why? Goal reached N - Antibiotics given see MAR for documentation N - blood products given see task for documentation N - Temporary access removed - (describe site assessment and dressing applied) N - meds given see MAR for documentation N complication Post HD Vital signs documented in flow sheet HD BP142/45 P75 RR18 T98.2 . * Namita Villaseñor: PERFORM, SIGN, VERIFY Mae BARCLAY, Karlos: SIGN, MODIFY Mae BARCLAY, Karlos: MODIFY Event Display: Progress Note Hospital Authored Date: Patient: KRIS ZHANG Age: 68 years Sex: Male : 1955 Associated Diagnoses: None Author: Namita Villaseñor [facility] Inpatient Nephrology Progress Note Interval History Seen and examined on HD today UOP 550 in 24 hours Review of Systems Review of Systems Constitutional: Weakness, no chills, no fever. Respiratory: no shortness of breath. Cardiovascular: no peripheral edema. Gastrointestinal: no nausea, no vomiting. Physical Examination Vital Signs Vitals : VITALS 04/09/2023 5:07 EDT Temperature 98.3 DegF Temperature Route Oral Pulse Rate 72 bpm Respiratory Rate 18 br/min Systolic Blood Pressure 140 mm Hg H Diastolic Blood Pressure 53 mm Hg L Blood pressure sites Arm, left Mean Arterial Pressure 82 mm Hg Pulse Pressure 87 mm Hg Oxygen Saturation 99 % Mode of Delivery (Oxygen) Room air . General Appearance NAD. Respiratory Lungs: CTA. Cardiac Cardiac: no M/G/R. Extremities Extremities: RIJ PermCath. No edema. Neurologic Alert & oriented x 3 . Results Review 7 Day Results Results Laboratory 04/09/2023 7:54 EDT Sodium 138 mmol/L Potassium 4.0 mmol/L Chloride 97 mmol/L L Bicarbonate Level 28 mmol/L Anion Gap 13 04/09/2023 1:04 EDT WBC 7.2 k/mm3 RBC 2.43 m/mm3 L Hgb 7.3 Gm/dL L Hct 22.9 % L MCV 94.2 femtoliters H MCH 30.0 pg MCHC 31.9 g/dL L Platelet Count 201 k/mm3 RDW-SD 53.6 femtoliters H MPV 12.7 femtoliters H Nucleated RBC (Automated) 0.0 #/100 WBC'S Abs. NRBC 0.0 k/mm3 Impression and Plan Mr. Kris Zhang is a 68-year-old male with past medical history of hypertension, hyperlipidemia, and COPD who presented to [facility] with upper GI bleed (s/p endoscopy with gastric ulcer, transfused ~5u), found to have MSSA bacteremia and endocarditis, transferred to [facility] for further care. MAIRA developed with nephritic sediment. 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 1. 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 bacteremia from left finger osteomyelitis Patient anuric and required SUPERVISORY HISTORIAN, PermCath placed 03/27 UOP improved but still oliguric 2. Hypertension Previously was on lisinopril and HCTZ This admission on amlodipine and metoprolol 3. Hyperphosphatemia: well controlled on sevelamer Plan: - Continue HD MWF outpatient at [place] 1st shift (report time 6:15AM) - 24 hour urine will be collected outpatient to assess renal recovery - On discharge can resume lisinopril and metoprolol for antihypertensives - Prednisone taper and PPI BID: Currently on 60 mg daily, start 30 mg on 04/13, then decrease by 10mg weekly - Continue sevelamer 2400 mg TID w/meals - I have ordered outpatient abx for HD: Cefazolin until 05/02 Namita Santana PA-C [facility] Discussed with Dr. aWll * Mae BARCLAY, Karlos: PERFORM Event Display: Progress Note Hospital Authored Date: I have evaluated the patient and discussed the plan with Namita Santana PA-C * Carlos Kurtz LPNa: SIGN, VERIFY, PERFORM Event Display: Progress Note Hospital Authored Date: [id number] Patient: KRIS ZHANG Age: 68 years Sex: Male : 1955 Associated Diagnoses: None Author: Rehana Kurtz LPN Findings Problem Related to Alteration in Genitourinary : Alteration in Genitourinary Function/new 04/09/2023 6:00 EDT Alteration in Status Related to Renal failure Goals & Outcomes, Genitourinary Pt will achieve normal/improved fluid balance, Pt will maintainadequate GI function appropriate for pt, Pt will maintain adequate function appropriate for pt, Pt will maintain normal fluid balance, Pt will resume normal pattern of elimination, Pt/caregiver will state understanding of self-care skills, Pt will resume/maintain mental status, Pt will state psychosocial implications of renal failure, Pt will be free from complications of hemodialysis Interventions, Assess & monitor hemodialysis access device BH Goals/Interventions, Genitourinary Yes Genitourinary, Problem Start 04/08/2023 6:15 Reviewed Plan with, Genitourinary Patient Patient Progression, Genitourinary Patient progressing according to plan Genitourinary, Problem Ongoing Yes . Nursing Data Reviewed Results: Vital Signs : VITAL SIGNS SECTION(Date Range: 04/07/2023 0:00 EDT - 04/09/2023 6:50 EDT). Evaluation Patient a/o x 4; able to make needs known. Medicated for pain x 1 at hs with desired effect. Mucousmembranes moist. No s/sx reps or cardiac distress. R chest PermCath in place; scheduled for dialysis this morning. Restful night.m No significant events to report over night. VSS. Bed in lowest, locked position. Safety maintained throughout the shift. Call bates within reach; plan of care on going. . Discharge Information Case Management Discharge Plan : Case Management Discharge Plan Data 04/03/2023 13:47 EDT Discharge Level of Care at Discharge Homehealth/VNA Discharge VNA/Hospice/Home Care [facility] [phone] Service Categories #1 Occupational Therapy, Physical Therapy, Long Term Service Comments #1 The agency will contact you after discharge to initiate home services. Rehabilitation Discharge : Rehab Discharge Index 04/08/2023 10:45 EDT Walker: distance >50 04/08/2023 10:44 EDT Full chart review completed Not Done: Task Duplication (Not Done) 04/04/2023 8:26 EDT Walker: distance >50 Consult note * Sanjiv BARCLAY, Zach: PERFORM, MODIFY, MODIFY Event Display: Consultation Note Authored Date: Patient: ??KRIS HZANG ? Age:??67 Years?Sex:??Male?:??1955?? Referrring Provider Not on Staff, Referring MD Osiel Hart MD Chief Complaint endocarditis Reason for Consultation hematochezia History of Present Illness Patient is a 67-year-old Beninese-speaking man with a history of HTN, HLD, previous EtOH use with prior episode of pancreatitis, COPD initially admitted to [facility] for left shoulder pain and was discharged home only to represent with hari hematemesis.?? He was admitted to the ICU, there isunclear whether he required pressor support during his stay.?? Reportedly had an EGD 03/18 was foundto have a gastric ulcer which was apparently stable and without stigmata of recent bleed.?? His course was further complicated by fevers with cultures positive for Staph aureus. He was transferred for MSSA bacteremia with aortic valve endocarditis and concerns for small aorticroot abscess.?? Course further complicated by renal dysfunction with renal biopsy showing infectious glomerulonephritis. Heparin drip was started at 5:30 PM yesterday, and then in the evening??around 7.30 ,??had??a??large??bloody bowel movement,??maroonish in color.?? Remained hemodynamically stable, initial Hb stable but came down to 6.4 Patient appears more alert today.. ??He denies any abdominal pains.?? He reports not having p.o. bowel movement for 7 days??prior??to??this large bloody stool.?? However??his son reports that he had passed stool 2 days ago.?? No recent instrumentation, or rectal tubes. ??No nausea or vomiting. He has remained hemodynamically stable. ??Heparin drip was??held??yesterday. ??Had a further episodes of??brownish blood in stool this morning. ??Transfuse 1 unit of packed red cells yesterday. ??Hb stable. Physical Exam Vitals & Measurements T:??97.8?F?? TMIN:??97.7?F?? TMAX:??98.2?F?? HR:??82??(Monitored)?? RR:??11?? BP:??132/56?? SpO2:??97%?? WT:??79.5??kg?? General:?? looks comfortable at rest HEENT:??[place]UNCAN, Moist mucus membranes, oropharynx benign Respiratory:??normal work of breathing, equal air entry bilaterally, . No wheezes, rhonchi or crepitations Cardiovascular:??Normal rate, regular rhythm, no obviosu murumrs GI/Abdomen:??Normal active bowel sounds, soft, non-tender, non-distended. no palpable masses or organomegaly. Extremities:??Moving extremities,. No peripheral edema, lower limbs are warm and well perfused, ??DP and PT pulses palpable bilaterally. Skin:??No jaundice, no ecchymoses Neurologic:??Alert & Oriented, no obvious focal neurological deficit Psychiatric:??Mood and affect appropriate Assessment/Plan Patient is a 67-year-old??man??recently admitted to [facility] after??episode of hematemesis,??had an EGD??with evidence of gastric ulcer and erosive esophagitis.? [place] [facility]A bacteremia??with concerns for endocarditis and aortic root abscess.?? Started on heparin drip??y afternoon??and had an episode of??hematochezia??around 2 hours later.?? Also??with evidence of uremia. ??Further evidence of??maroon blood in stool this morning. ?? Recommendations - Continue IV PPI twice daily - Please add??Carafate 2g every 6 hours??for 1 week followed by??3 times daily - continue indefinitely. - No current plans for endoscopic evaluation given??recent??endoscopy a week ago and will active issues.?? Recommend transfusing supportively - Okay to??transition??back to anticoagulation required. ? This note was typed using [employer] dictation software. Occasionally, typing errors may occur. Please contact me on??[place] if anything requires further clarification. Patient discussed with attending physician, ?? Zach Kincaid MD Gastroenterology Fellow ??PGY 4?? Problem List/Past Medical History Ongoing Obese class I Medications Inpatient Acetaminophen Tablet, 650 mg, By Mouth, Every 4 hours, PRN amLODIPine 10 mg oral tablet, 10 mg, By Mouth, Daily Ativan 0.5 mg oral tablet, 0.5 mg, By Mouth, 3 times a day, PRN Ativan Inj, 0.5 mg, IV Push Slowly, Once atorvastatin 20 mg oral tablet, 20 mg, By Mouth, Daily busPIRone 10 mg oral tablet, 5 mg, By Mouth, 2 times a day Calcium Gluconate 4.6mEq/50mL NaCL (1Gm), 4.6 mEq= 50 mL, IVPB, Once ceFAZolin Inj, 1 Gm, IV Push, Every 24 hours Dilaudid Inj, 1 mg= 1 mL, IV Push Slowly, Every 4 hours, PRN Docusate Sodium Capsule, 100 mg= 1 capsule, By Mouth, 2 times a day, PRN Duoneb Inhalation Solution, 1 vials, BAND Nebulizer, Every 4 hours, PRN Duoneb Inhalation Solution, 1 vials, BAND Nebulizer, 4 times a day Lidocaine 5% Patch, 1 each, Topically, Daily Lokelma Packet, 10 Gm= 1 pack/packet, By Mouth, Once melatonin 3 mg oral tablet, 3 mg, By Mouth, Daily at bedtime metoprolol 25 mg oral tablet, 25 mg, By Mouth, 2 times a day MiraLax Powder, 17 Gm= 1 pack/packet, By Mouth, Daily, PRN NaCL 0.9% Flush, 3 mL, IV Push, Every 8 hours NaCL 0.9% Flush, 3 mL, IV Push, Every 8 hours, PRN nitroglycerin 0.4 mg sublingual tablet, 0.4 mg, Sublingual, Every 5 minutes, PRN Nitroglycerin 2% Topical, 1 inches, Topically, Daily Ondansetron Inj, 4 mg, IV Push, Every 6 hours, PRN oxyCODONE 5 mg oral tablet, 5 mg, By Mouth, Every 6 hours, PRN Pantoprazole Inj, 40 mg, IV Push Slowly, Every 12 hours predniSONE 20 mg oral tablet, 60 mg, By Mouth, Daily Remove Lidocaine Patch, 1 each, Topically, Daily at bedtime Robitussin Liquid, 200 mg= 10 mL, By Mouth, Every 4 hours, PRN Senna Tablet, 8.6 mg= 1 tablet, By Mouth, 2 times a day, PRN Sevelamer Carbonate Liquid, 2400 mg= 90 mL, By Mouth, 3 times a day with meals Simethicone Tablet, 80 mg, Chew, 3 times a day, PRN Zosyn Extended IVPB, 3.375 Gm, IVPB, Every 12 hours Home acetaminophen 500 mg oral capsule, 500 mg= 1 capsule, By Mouth, Every 4 hours, PRN albuterol 90 mcg/inh inhalation powder, 1 puffs, Inhalation, Every 6 hours, PRN amlodipine 5 mg oral tablet, 5 mg= 1 tablet, By Mouth, Daily, 2 refills atorvastatin 20 mg oral tablet, 20 mg= 1 tablet, By Mouth, Daily busPIRone 5 mg oral tablet, 5 mg= 1 tablet, By Mouth, 2 times a day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 transfusions for anemia, or low blood cell count. ?? Your specific PATIENT CARE INSTRUCTIONS (what to do / when to return): - Please attend your dialysis appointments, every Friday, Friday, and Friday at 6:30am - If??you develop fevers that won't go away,??worsening bleeding, worse nausea and vomiting, are making no urine or have blood in the urine, feeling confused, or any other concerning symptoms, pleasecall your doctor or return to the ED. ?? New medications started: 1.?? Sevelamer, 3 times a day.?? This keeps phosphorus levels normal in blood. 2.?? Metoprolol 25 mg 2 times a day.?? This helps your heart and blood pressure. 3.?? Pantoprazole 40 mg??once a??day, take half hour before your meal.?? This reduces acid in your stomach. 4. Aspirin 81 mg daily: Helps your heart. 5.?? Prednisone this is a steroid tablet that you will take as follows in the morning daily until you finish - Take 6 tablets 04/10/23-04/12/23 - Take?? 3 tablets 04/13/23-04/19/23 - Take 2 tablets 04/20/23-04/26/23 - Take 1 tabet 04/27/23-05/03/23 and stop. ? FOLLOW-UP APPOINTMENTS: Follow-up with your PCP within the next week, call to make an appointment. Follow-up with the GI doctor (insurance account specialist), they will call with an appointment. Follow-up with the Infectious disease doctor in 3-4 weeks. Follow-up with the renal doctor for your kidneys. Home Health Face to Face ^HomeHealthFTF Results Discharge Labs BLOOD BANK Blood Type A Positive ()?? 04/05/2023 17:22 Antibody Screen Negative ()?? 04/05/2023 17:22 RBC Unit ID [id number] ()?? 04/02/2023 08:34 RBC Available PT ()?? 04/02/2023 08:34 ?? BLOOD COUNT & DIFF WBC 7.2 k/mm3 ()?? 04/09/2023 01:04 RBC 2.43 m/mm3 (Low)?? 04/09/2023 01:04 Hgb 7.3 Gm/dL (Low)?? 04/09/2023 01:04 Hct 22.9 % (Low)?? 04/09/2023 01:04 MCV 94.2 femtoliters (High)?? 04/09/2023 01:04 MCH 30.0 pg ()?? 04/09/2023 01:04 MCHC 31.9 g/dL (Low)?? 04/09/2023 01:04 Platelet Count 201 k/mm3 ()?? 04/09/2023 01:04 RDW-SD 53.6 femtoliters (High)?? 04/09/2023 01:04 MPV 12.7 femtoliters (High)?? 04/09/2023 01:04 Nucleated RBC (Automated) 0.0 #/100 WBC'S ()?? 04/09/2023 01:04 Abs. NRBC 0.0 k/mm3 ()?? 04/09/2023 01:04 Abs. Neut 8.3 k/mm3 (High)?? 03/23/2023 00:34 Abs. Lymph 1.0 k/mm3 ()?? 03/23/2023 00:34 Abs. [place] 0.8 k/mm3 ()?? 03/23/2023 00:34 Abs. Eo 0.1 k/mm3 ()?? 03/23/2023 00:34 Abs. Baso 0.0 k/mm3 ()?? 03/23/2023 00:34 Neut % 80.3 % (High)?? 03/23/2023 00:34 Lymph % 9.8 % (Low)?? 03/23/2023 00:34 [place] % 7.3 % ()?? 03/23/2023 00:34 Eos % 1.4 % ()?? 03/23/2023 00:34 Baso % 0.1 % ()?? 03/23/2023 00:34 Hemoglobin (POC) POC Cartridge 8.5 Gm/dL (Low)?? 03/28/2023 18:51 Hematocrit (POC) POC Cartridge 25 % (Low)?? 03/28/2023 18:51 Retic Count 2.7 % (High)?? 04/05/2023 00:58 Retic Count Corrected 1.3 % ()?? 04/05/2023 00:58 Retic Production Index 0.7 % (Low)?? 04/05/2023 00:58 Imm Gran 1.1 % ()?? 03/23/2023 00:34 Abs. Imm Gran 0.1 k/mm3 ()?? 03/23/2023 00:34 ? BLOOD GAS pH (POC) POC Cartridge 7.31 (Low)?? 03/28/2023 18:51 pCO2 (POC) POC Cartridge 46.9 mm Hg (High)?? 03/28/2023 18:51 pO2 (POC) POC Cartridge 203 mm Hg (High)?? 03/28/2023 18:51 Estimated Bicarbonate (POC) POC Cart 23.8 mmol/L ()?? 03/28/2023 18:51 % O2 Sat Arterial (POC) POC Cartridge 100 % ()?? 03/28/2023 18:51 FIO2 (POC) POC Cartridge 100 % ()?? 03/28/2023 18:51 Base Excess (POC) POC Cartridge NEGATIVE 2 ()?? 03/28/2023 18:51 Specimen Type - Blood Gas ARTERIAL ()?? 03/28/2023 18:51 ?? CARDIAC High Sensitivity Troponin (HSTnT) 81 ng/L (Critical)?? 03/25/2023 18:43 ? CHEM GENERAL Sodium 138 mmol/L ()?? 04/09/2023 07:54 Potassium 4.0 mmol/L ()?? 04/09/2023 07:54 Chloride 97 mmol/L (Low)?? 04/09/2023 07:54 Bicarbonate Level 28 mmol/L ()?? 04/09/2023 07:54 Anion Gap 13 ()?? 04/09/2023 07:54 Sodium (POC) POC Cartridge 133 mmol/L ()?? 03/28/2023 18:51 Potassium (POC) POC Cartridge 4.2 mmol/L ()?? 03/28/2023 18:51 Glucose Level 163 mg/dL (High)?? 04/08/2023 00:55 Glucose (POC) POC Cartridge 146 (High)?? 03/28/2023 18:51 Glucose, POC 194 mg/dL (High)?? 03/28/2023 20:21 BUN 64 mg/dL (High)?? 04/08/2023 00:55 Creatinine-Blood 3.0 mg/dL (High)?? 04/08/2023 00:55 Estimated GFR Creatinine 22 ML/MIN/1.73 M2 ()?? 04/08/2023 00:55 Calcium 7.7 mg/dL (Low)?? 04/08/2023 00:55 Ionized Calcium (POC) POC Cartridge 1.01 mmol/L (Critical)?? 03/28/2023 18:51 Phosphorus 4.4 mg/dL ()?? 04/08/2023 00:55 Magnesium 2.0 mg/dL ()?? 04/03/2023 01:08 Protein, Total 5.5 Gm/dL (Low)?? 03/23/2023 00:34 Albumin 3.0 Gm/dL (Low)?? 03/23/2023 00:34 LDH 203 units/L ()?? 03/23/2023 14:08 Alkaline Phosphatase 62 units/L ()?? 03/23/2023 00:34 AST (SGOT) 22 units/L ()?? 04/03/2023 01:08 ALT (SGPT) 6 units/L ()?? 04/03/2023 01:08 Bilirubin, Total 0.5 mg/dL ()?? 04/03/2023 01:08 Bilirubin, Direct 0.2 mg/dL ()?? 04/03/2023 01:08 Bilirubin, Indirect 0.3 mg/dL ()?? 04/03/2023 01:08 Iron Level 84 mcg/dL ()?? 04/05/2023 13:52 Iron Binding Capacity, Unsaturated 142 mcg/dL ()?? 04/05/2023 13:52 Iron Binding Capacity, Estimated Total 226 mcg/dL ()?? 04/05/2023 13:52 % Iron Saturation 37 % ()?? 04/05/2023 13:52 Ferritin Level 629 ng/mL (High)?? 04/05/2023 13:52 C-Reactive Protein 9.6 mg/dL (High)?? 03/24/2023 06:30 ?? COAG INR 1.2 (High)?? 03/24/2023 19:44 Protime (PT) 13.0 seconds (High)?? 03/24/2023 19:44 ?? HEME OTHER Sed Rate 48 mm/hr (High)?? 03/24/2023 06:30 Hold Lavender Top SPECIMEN DISCARDED AFTER 24 HOURS. ()?? 04/01/2023 01:30 ?? IMMUNOLOGY GENERAL Complement C3 21 mg/dL (Low)?? 03/22/2023 02:37 Complement C4 10 mg/dL ()?? 03/22/2023 02:37 IgA 372 mg/dL ()?? 03/23/2023 14:08 Haptoglobin 224 mg/dL (High)?? 03/23/2023 14:08 Anti-Nuclear Antibody Screen NEGATIVE ()?? 03/23/2023 14:08 Anti-[place] DNA 1 ()?? 03/23/2023 14:08 ?? MISC. CHEMISTRY Hold Gel Top SPECIMEN DISCARDED AFTER 1 WEEK ()?? 2023 00:57 ? SEROLOGY INF DISEASE Hepatitis B Surface Antigen NEGATIVE (N)?? 03/27/2023 16:11 Hepatitis C Ab NEGATIVE (N)?? 03/27/2023 16:11 Anti-HBS Quant 0 mIU/mL ()?? 03/27/2023 16:11 ? UA/URINALYSIS Appear/Color, Urine YELLOW ()?? 03/22/2023 11:17 Specific [place], Urine 1.017 ()?? 03/22/2023 11:17 pH, Urine 5.5 ()?? 03/22/2023 11:17 Albumin, Urine 2+ (Abnormal)?? 03/22/2023 11:17 Glucose, Urine NEGATIVE ()?? 03/22/2023 11:17 Ketones, Urine NEGATIVE ()?? 03/22/2023 11:17 Bilirubin, Urine NEGATIVE ()?? 03/22/2023 11:17 Hemoglobin, Urine 2+ (Abnormal)?? 03/22/2023 11:17 Nitrite, Urine NEGATIVE ()?? 03/22/2023 11:17 Leukocyte, Urine 1+ (Abnormal)?? 03/22/2023 11:17 Urobilinogen NORMAL mg/dL ()?? 03/22/2023 11:17 WBC's, Urine 20 /HPF (High)?? 03/22/2023 11:17 RBC's, Urine 56 /HPF (High)?? 03/22/2023 11:17 Bacteria SLIGHT HPF (Abnormal)?? 03/22/2023 11:17 Squamous Epith <1 /HPF ()?? 03/22/2023 11:17 Hyaline Cast 6 LPF (High)?? 03/22/2023 11:17 Mucus SLIGHT /LPF ()?? 03/22/2023 11:17 ? URINE OTHER Eos, Urine 1 % (High)?? 03/22/2023 11:17 Creatinine, Urine Random 197.7 mg/dL ()?? 03/22/2023 11:17 Sodium, Urine Random 25 mmol/L ()?? 03/22/2023 11:17 Urea Nitrogen, Urine Random 512.0 mg/dL ()?? 03/22/2023 11:17 Protein, Total Urine Random 139 mg/dL ()?? 03/22/2023 11:17 TP/Cr Ratio 0.70 (High)?? 03/22/2023 11:17 Creatinine, Urine 197.7 mg/dL ()?? 03/22/2023 11:17 Malb/Creat Ratio 513.7 mg/Gm (High)?? 03/22/2023 11:17 Urine Creat For Micro Alb 197.7 mg/dL ()?? 03/22/2023 11:17 Micro-Albumin 1016.0 mg/L (High)?? 03/22/2023 11:17 ?? VIROLOGY COVID-19 PCR Specimen Source NASAL ()?? 03/29/2023 01:00 COVID-19 PCR Result NEGATIVE ()?? 03/29/2023 01:00 ? Microbiology ?? COVID-19 (2019 Novel Coronavirus) PCR?? Completed?? Source: Nasal Body Site: Nose Collected Dt/Tm: 03/29/2023 00:42 Last Updated Dt/Tm: 03/30/2023 06:54 ? Jose Smith MD PGY-1, Internal Medicine-Pediatrics [facility] or pager-[phone] ?? Patient was seen and discussed with attending, Dr. Smith. ? _ minutes spent on discharge * Michelle Smith DO: PERFORM Event Display: Discharge/Transfer Note Hospital Authored Date: Attending Attestation:??I have seen and evaluated this patient. ??I have discussed the case and itsmanagement with the resident and agree with the findings and plan as documented in the resident???snote. ?? Patient seen and examined on 04/09 * Flower Bradshaw RN: PERFORM Event Display: Patient Education/Instruction Authored Date: Inpatient Adult Discharge Instructions [address] [address] Name: KRIS ZHANG : 1955 Visit: 03/21/2023 21:50:00 Current Date: 04/09/2023 14:21 Account: [id number] Inpatient Adult Discharge Instructions We would like to thank you for allowing us to assist you with your healthcare needs. The following includes patient education materials and information regarding your injury/illness. Our entire staffstrives to provide an excellent experience for our patients and their families. PLEASE ENSURE YOU FOLLOW-UP PER THE INSTRUCTIONS BELOW! ?? YOUR OPINION IS IMPORTANT TO US! Please complete the survey you may receive by mail or email. Your feedback will be used to make improvements to the healthcare experiences of our patients and their families. Surveys are administered by [employer]. ?? If further treatment with your primary care physician or another doctor is recommended, it is important for you to keep the appointment. Call your primary care physician or return to the Emergency Department immediately if your condition worsens, fails to improve, or new symptoms develop. If you need to find a doctor, you can call [facility] for a referral at [phone] or toll free at [phone] or log in to [email or web address] ?? [facility], in keeping with [facility] guidance, no longer requires face masks for staff, patientsor visitors in most situations. Similiar to time spent indoors at other locations, there is the chance that you were exposed to repiratory viruses during your time with us (such as flu or COVID-19). If you develop symptoms concerning for a viral respiratory infection, please seek testing (and treatment if indicated) from your medical provider or home test kit. ?? You can view and manage your care through the patient portal or by using a health care dar of your choosing. [employer] is a website that allows you to securely view your medical information including your hospital discharge summary, office visit summaries, medications and follow-up visits. You can also request appointments, renew medications, and request access to your medical information using a health care dar of your choosing, or just ask a question. You can enroll at [email or web address] or register during your next office visit. You have been discharged from [facility], Patient Care Unit: S3. If you have any questions regarding these instructions after you leave, please call us and we will be happy to assist you. [facility] Your Care Team Attending Physician Michelle Smith DO Consulting Providers Jackelyn FUCHS, Greg Paiz; Noe BARCLAY, Dominic Hernandez; Emmanuel BARCLAY, Bob Perez; Salbador BARCLAY, Negin Hernandez; Chaim BARCLAY, Estrella; Natanael BARCLAY, Da Rivas; Endy BARCLAY, Sissy; Humphrey BARCLAY, Hang Solano; Mae BARCLAY, Karlos; Eugene BARCLAY, [facility] Discharging Providers Willie Smith MD, Delmarazael Reason for Admission ENDOCARDITIS MAIRA BACTEREMIA Your Diagnosis Endocarditis Tests Performed Below is a partial list of the tests performed during your hospitalization. You may have had other tests and procedures not included in this list. Please discuss all test results with your provider. ABG POC CARTRIDGE ALT SIDRA Screen Anti DNA Ab AST BASE EXCESS POC CARTRIDGE Basic Metabolic Panel Blood Urea Nitrogen BUN C-REACTIVE PROTEIN CALCIUM IONIZED POC CART Calcium Level CBC CBC w/ Differential COMPLEMENT C3 COMPLEMENT C4 COVID-19 (2019 Novel Coronavirus) PCR Creatinine Creatinine Urine Electrolytes Ferritin Glucose Level GLUCOSE POC GLUCOSE POC CARTRIDGE H + H Haptoglobin HEMATOCRIT POC CARTRIDGE HEMOGLOBIN POC CARTRIDGE Hepatitis Panel Dial HOLD GEL TUBE HOLD LAVENDER TUBE IgA Level INR Iron + Iron Binding Capacity LDH LFT's Lytes Magnesium Level Microalbumin Urine O2 PERCENT (POINT OF CARE) PHOSPHORUS Potassium Level POTASSIUM POC CARTRIDGE Protein/Creatinine Ratio Urine RETICULOCYTE COUNT SEDIMENTATION RATE,AUTOMATED SODIUM POC CARTRIDGE TOTAL AND DIRECT BILIRUBIN Troponin T, High Sensitivity Type and Screen UREA NITROGEN, URINE MG/DL Urinalysis Complete URINE EOS Urine Sodium CT Head/Brain W/O Contrast CXR Portable IR Generic Order Shoulder Min 2 Views Left US Doppler Ext Lower Venous Right US Guide Needle Place Renal US Retroperitoneum Comp XR Ankle Min 3 Views Right XR Shoulder Min 2 Views Left Primary Care Provider Not on Staff, PCP Advance Directive Health Care Proxy on File Yes - Health Care Proxy Discharge Vitals Temperature: 98.2 DegF Weight: 73.6 kg Pulse Rate: 78 bpm ?? Respiratory Rate: 18 br/min ?? Systolic Blood Pressure:??156 mm Hg??High ?? Diastolic Blood Pressure: 56 mm Hg ?? Oxygen Saturation: 96 % ?? Studies Pending All tests and labs ordered during this hospital stay have been completed unless listed below. Please discuss all pending results with your provider listed above in these instructions. ?? Add On Lab Order Blood Gas Arterial (ABG) CBC RBCs on Hold Transfuse RBCs What to do next Instructions From Your Doctor You were admitted to [facility] due to a bleeding from your stomach and a possible infection in your blood and heart. You were also found to have a kidney injury needing dialysis. You received two blood transfusions for anemia, or low blood cell count. ?? Your specific PATIENT CARE INSTRUCTIONS (what to do / when to return): - Please attend your dialysis appointments, every Friday, Friday, and Friday at 6:30am - If??you develop fevers that won't go away,??worsening bleeding, worse nausea and vomiting, are making no urine or have blood in the urine, feeling confused, or any other concerning symptoms, pleasecall your doctor or return to the ED. ?? New medications started: 1.?? Sevelamer, 3 times a day.?? This keeps phosphorus levels normal in blood. 2.?? Metoprolol 25 mg 2 times a day.?? This helps your heart and blood pressure. 3.?? Pantoprazole 40 mg??once a??day, take half hour before your meal.?? This reduces acid in your stomach. 4. Aspirin 81 mg daily: Helps your heart. 5.?? Prednisone this is a steroid tablet that you will take as follows in the morning daily until you finish - Take 6 tablets 04/10/23-04/12/23 - Take?? 3 tablets 04/13/23-04/19/23 - Take 2 tablets 04/20/23-04/26/23 - Take 1 tabet 04/27/23-05/03/23 and stop. ? FOLLOW-UP APPOINTMENTS: Follow-up with your PCP within the next week, call to make an appointment. Follow-up with the GI doctor (insurance account specialist), they will call with an appointment. Follow-up with the Infectious disease doctor in 3-4 weeks. Follow-up with the renal doctor for your kidneys. Discharge Orders Scheduled Follow-Up Appointments Friday 10:30 AM EDT ?? With: Thaddeus Pinto MD Where: [facility] Infectious Disease [address] [place] [id number] Status: Pending You Need to Schedule the Following Appointments Follow Up with??As Needed Follow Up with??Not on Staff, PCP Discharge Medications KRIS ZHANG :1955 Visit Date:03/21/2023 Medications: Please continue your medications until treatment is completed or stopped by your provider. Medications not listed below should be discontinued. Discuss any questions related to medications with your provider. What How Much When Instructions Next Dose New Aspirin (aspirin 81 mg oral tablet, chewable) 81 Milligram Oral Daily Pickup at [place] [address] 9am 04/10 New Metoprolol (metoprolol 25 mg oral tablet) 25 Milligram Oral Twice a day Pickup at [place] [address] 9pm 04/09 New Pantoprazole (pantoprazole 40 mg oral delayed release tablet) 40 Milligram Oral Daily Take 1 tablet daily ?? Pickup at [place] [address] 04/10 New PredniSONE (predniSONE 10 mg oral tablet) See instructions Take as follows in morning with food: - 6 tablets - - 3 tablets - - 2 tablets - - 1 tabet - and stop. ?? Pickup at [place] [address] see instructions New Sevelamer (sevelamer carbonate 800 mg oral tablet) 3 tab(s) Oral 3 times a day take 3 tablets in the morning, 3 tablets in the afternoon, and 3 tablets in the evening ?? Pickup at [place] [address] 04/09 Unchanged Acetaminophen (acetaminophen 500 mg oral capsule) 1 capsule Oral Every 4 hours as needed for for fever as needed Unchanged Albuterol (albuterol 90 mcg/ inh inhalation powder) 1 puff(s) Inhalation Every 6 hours as needed for as needed as needed Unchanged Atorvastatin (atorvastatin 20 mg oral tablet) 1 tab(s) Oral Daily 04/10 Unchanged BusPIRone (busPIRone 5 mg oral tablet) 1 tab(s) Oral Twice a day 04/09 Unchanged Cyclobenzaprine (cyclobenzaprine 5 mg oral tablet) 1 tab(s) Oral 3 times a day as needed for Pain , Mild Duration: 7 Days as needed Unchanged Fenofibrate (fenofibrate 160 mg oral tablet) 1 tab(s) Oral Daily 04/10 Unchanged Lidocaine Topical (lidocaine 5% topical film) 1 patch(es) Topically Daily as needed for Pain , Mild remove after 12 hours ?? as needed Unchanged Lisinopril (lisinopril 40 mg oral tablet) 1 tab(s) Oral Daily 9am 04/10 Pharmacy Information [facility]: [address], [place] [id number] [phone] ?? What How Much When Comments Stop Taking Acetaminophen/ Codeine (Tylenol with Codeine #3 300 mg-30 mg oral tablet) 1 tab(s) Oral Every 6 hours as needed for Pain , Moderate Stop Taking Amlodipine (amlodipine 5 mg oral tablet) 1 tab(s) Oral Daily Stop Taking Hydrochlorothiazide (hydroCHLOROthiazide 12.5 mg oral capsule) 1 capsule Oral Daily Stop Taking Oxycodone (oxycodone 5 mg oral tablet) 1 tab(s) Oral Every 6 hours Test Results Below is a partial list of the most recent Laboratory test results done prior to this discharge. You may have had other tests and procedures not included in this list. Please discuss all test resultswith your provider. RBC Available - PT (04/02/2023) RBC Unit ID - [id number] (04/02/2023) (03/25/2023) ? ?Surgical Pathology - Patient Name: KRIS ZHANG
Lab
Patient : 1955 (Age: 67)
Collection Date: 03/25/2023
Accession Date: 03/25/2023
Sign Out Date: 04/01/2023

Tissue Source:
1:LEFT [place] KIDNEY FOR LM
2:KIDNEY BIOPSY FOR IMMUNOFLUORESCENCE
3:KIDNEY BX FOR ELECTRON MICROSCOPY

Final Diagnosis:
Kidney, left, core biopsy (diagnosis based on LM/IF):

- Acute Postinfectious Glomerulonephritis, MSSA endocarditis associated.
- Glomeruli with ischemic changesand 33% glomerular sclerosis.
- Interstitial fibrosis and tubular atrophy, mild to moderate.
- Arterioles with no significant change.
- Arteries with no significant ch phill.

Comment:
Histologic findings are consistent with an exudative acute post-infectious glomerulonephritis associated with MSSA endocarditis (documented inCIS notes). 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
Vascular disease is mild.

Light Microscopy (H&E, Periodic acid Cindy, Burr methenamine silver and Isaac&rsquo;s Trichrome stains):
The biopsy consists of two tissue cores, one of subcapsular cortex with diffuse fibrosis and tubular atrophy, with ischemic (3) and obsolete glomeruli (6), on multiple levels. This core is not included in the overall chronic disease scoring.
The second tissue core consists of renal cortex and medulla with on Trichrome stain interstitial edema, and moderate fibrosis and tubular atrophy (30-40%). There are scattered interstitial inflammatoryinfiltrates composed of lymphocytes and plasma cells, and rare eosinophils.
There is patchy acute tubular injury with epithelial cytoplasmic simplification and vacuolization, cell sloughing, and reactive nuclear changes. Few tubules contain neutrophils; several tubules contain RBC casts and granular casts. Few calcifications are present. Tubular atrophy is of the classic and endocrine is chemic type.
There are about 7 glomeruli of which 2 are obsolete. Remaining glomeruli show global endocapillary hypercellularity with capillary occlusion by swollen endothelial cells and influx of leukocytes including neutrophils (exudative lesions). Crescents are not identified. Deposits are not identified histologically.
Arteries and arterioles s how focal mild sclerosis. Vascular microthrombi are not identified.

H&E and PAS stained frozen tissue sections show renal cortex with 2 of 5 glomeruli obsolete and remaining with endocapillary proliferative lesions as described above. Similar interstitial changes are present.

Electron Microscopy:
Glutaraldehyde fixed tissue is sent to [facility] for analysis. Results will be reported once available.

Immunofluorescence studies:
Frozen tissue sections demonstrate 5 glomeruli of which 2 are sclerotic. The following antibodies were used: IgG, IgA, IgM, C3, C1q, [place],Lambda, Fibrinogen, Albumen. The studies show:
- Diffuse global granular peripheral and paramesangial IgG, IgA, [place] and Lambda (2+), C3 (2-3+).
- IgM is weak and C1q is negative.
- Tubular casts are equally positive for [place] and Lambda.

Comment:
Findings discussed with Dr. Asif by Dr. Durán, 03/27/2023.

Primary Pathologist:Connie Durán M.D.,Ph.D.
electronically signed out by: Connie Durán M.D.,Ph.D. / [facility]

Clinical History:
Nephrotic proteinuria, low complement, endocarditis
? GN versus AIN from Abx

Gross Description:
Part 1. Labeled left [place] kidney . Received in formalin a 2 cylindrical portions of luna, soft tissue measuring 0.4 x 0.1 x 0.1 cm and 1.2 x 0.1 x 0.1 cm, one of which has a small amount of attached adipose tissue. The specimen is submitted in toto.
1-2 pieces, x12 plus kidney specials.
2-1 piece, x1. ()*
Part 2. Labeled left [place] kidney for IF . Received in [place] fixative is a 0.5 x 0.1 x 0.1 cm cylindrical portion of luna, soft tissue. The specimen is submitted for immunofluorescence studies. (RM)*
Part 3. Labeled left [place] kidney for EM . Received in glutaraldehyde is a 0.4 x 0.1 x 0.1 cm cylindrical portion of luna, soft tissue. The specimen is submitted for electron microscopy studies. (RM)*

Phone #: [phone], On-Call Pathologist: [id number] ABG POC CARTRIDGE (03/28/2023) ???pH (POC) POC Cartridge - 7.31???pCO2 (POC) POC Cartridge - 46.9 mm Hg???pO2 (POC) POC Cartridge - 203 mm Hg???Estimated Bicarbonate (POC) POC Cart - 23.8 mmol/L???% O2 Sat Arterial (POC) POC Cartridge - 100 %???Specimen Type - Blood Gas - ARTERIAL ALT (04/03/2023) ???ALT (SGPT) - 6 units/L SIDRA Screen (03/23/2023) ???Anti-Nuclear Antibody Screen - NEGATIVE Anti DNA Ab (03/23/2023) ???Anti-[place] DNA - 1 AST (04/03/2023) ???AST (SGOT) - 22 units/L BASE EXCESS POC CARTRIDGE (03/28/2023) ???Base Excess (POC) POC Cartridge - NEGATIVE 2 Basic Metabolic Panel (04/08/2023) ???Sodium - 137 mmol/L???Potassium - 4.1 mmol/L???Chloride - 97 mmol/L???Bicarbonate Level - 26 mmol/L???Anion Gap - 14???Glucose Level - 163 mg/dL???BUN - 64 mg/dL???Creatinine-Blood - 3.0 mg/dL???Estimated GFR Creatinine - 22 ML/MIN/1.73 M2???Calcium - 7.7 mg/dL Blood Urea Nitrogen (03/23/2023) ???BUN - 106 mg/dL BUN (04/01/2023) ???BUN - 57 mg/dL C-REACTIVE PROTEIN (03/24/2023) ???C-Reactive Protein - 9.6 mg/dL CALCIUM IONIZED POC CART (03/28/2023) ???Ionized Calcium (POC) POC Cartridge - 1.01 mmol/L Calcium Level (03/26/2023) ???Calcium - 7.9 mg/dL CBC (04/09/2023) ???WBC - 7.2 k/mm3???RBC - 2.43 m/mm3???Hgb - 7.3 Gm/dL???Hct - 22.9 %???MCV - 94.2 femtoliters???MCH - 30.0 pg???MCHC - 31.9 g/dL???Platelet Count - 201 k/mm3???RDW-SD - 53.6 femtoliters???MPV - 12.7 femtoliters???Nucleated RBC (Automated) - 0.0 #/100 WBC'S???Abs. NRBC - 0.0 k/mm3 CBC w/ Differential (03/23/2023) ???WBC - 10.3 k/mm3???RBC - 2.52 m/mm3???Hgb - 7.9 Gm/dL???Hct - 23.5 %???MCV - 93.3 femtoliters???MCH - 31.3 pg???MCHC - 33.6 g/dL???Platelet Count - 217 k/mm3???RDW-SD - 52.1 femtoliters???MPV - 12.9 femtoliters???Nucleated RBC (Automated) - 0.0 #/100 WBC'S???Abs. NRBC - 0.0 k/mm3???Abs. Neut - 8.3 k/mm3???Abs. Lymph - 1.0 k/mm3???Abs. [place] - 0.8 k/mm3???Abs. Eo - 0.1 k/mm3???Abs. Baso - 0.0 k/mm3???Neut % - 80.3 %???Lymph % - 9.8 %???[place] % - 7.3 %???Eos % - 1.4 %???Baso % - 0.1 %???Imm Gran- 1.1 %???Abs. Imm Gran - 0.1 k/mm3 COMPLEMENT C3 (03/22/2023) ???Complement C3 - 21 mg/dL COMPLEMENT C4 (03/22/2023) ???Complement C4 - 10 mg/dL COVID-19 (2019 Novel Coronavirus) PCR (03/29/2023) ???COVID-19 PCR Specimen Source - NASAL???COVID-19 PCR Result - NEGATIVE Creatinine (04/01/2023) ???Creatinine-Blood - 3.7 mg/dL???Estimated GFR Creatinine - 17 ML/MIN/1.73 M2 Creatinine Urine (03/22/2023) ???Creatinine, Urine Random - 197.7 mg/dL Electrolytes (04/01/2023) ???Sodium - 138 mmol/L???Potassium - 4.2 mmol/L???Chloride - 100 mmol/L???Bicarbonate Level - 26 mmol/L???Anion Gap - 12 Ferritin (04/05/2023) ???Ferritin Level - 629 ng/mL Glucose Level (03/26/2023) ???Glucose Level - 156 mg/dL GLUCOSE POC (03/28/2023) ???Glucose, POC - 194 mg/dL GLUCOSE POC CARTRIDGE (03/28/2023) ???Glucose (POC) POC Cartridge - 146 H + H (04/06/2023) ???Hgb - 7.4 Gm/dL???Hct - 23.3 % Haptoglobin (03/23/2023) ???Haptoglobin - 224 mg/dL HEMATOCRIT POC CARTRIDGE (03/28/2023) ???Hematocrit (POC) POC Cartridge - 25 % HEMOGLOBIN POC CARTRIDGE (03/28/2023) ???Hemoglobin (POC) POC Cartridge - 8.5 Gm/dL Hepatitis Panel Dial (03/27/2023) ???Hepatitis B Surface Antigen - NEGATIVE???Hepatitis C Ab - NEGATIVE???Anti-HBS Quant - 0 mIU/mL HOLD GEL TUBE (2023) ???Hold Gel Top - SPECIMEN DISCARDED AFTER 1 WEEK HOLD LAVENDER TUBE (04/01/2023) ???Hold Lavender Top - SPECIMEN DISCARDED AFTER 24 HOURS. IgA Level (03/23/2023) ???IgA - 372 mg/dL INR (03/24/2023) ???INR - 1.2???Protime (PT) - 13.0 seconds Iron + Iron Binding Capacity (04/05/2023) ???Iron Level - 84 mcg/dL???Iron Binding Capacity, Unsaturated - 142 mcg/dL???Iron Binding Capacity, Estimated Total - 226 mcg/dL???% Iron Saturation - 37 % LDH (03/23/2023) ???LDH - 203 units/L LFT's (03/23/2023) ???Protein, Total - 5.5 Gm/dL???Albumin - 3.0 Gm/dL???Alkaline Phosphatase - 62 units/L???AST (SGOT) - 24 units/L???ALT (SGPT) - 5 units/L???Bilirubin, Total - 0.6 mg/dL???Bilirubin, Direct - 0.4 mg/dL???Bilirubin, Indirect - 0.2 mg/dL Lytes (04/09/2023) ???Sodium - 138 mmol/L???Potassium - 4.0 mmol/L???Chloride - 97 mmol/L???Bicarbonate Level - 28 mmol/L???Anion Gap - 13 Magnesium Level (04/03/2023) ???Magnesium - 2.0 mg/dL Microalbumin Urine (03/22/2023) ???Malb/Creat Ratio - 513.7 mg/Gm???Urine Creat For Micro Alb - 197.7 mg/dL???Micro-Albumin - 1016.0 mg/L O2 PERCENT (POINT OF CARE) (03/28/2023) ???FIO2 (POC) POC Cartridge - 100 % PHOSPHORUS (04/08/2023) ???Phosphorus - 4.4 mg/dL Potassium Level (03/27/2023) ???Potassium - 6.5 mmol/L POTASSIUM POC CARTRIDGE (03/28/2023) ???Potassium (POC) POC Cartridge - 4.2 mmol/L Protein/Creatinine Ratio Urine (03/22/2023) ???Protein, Total Urine Random - 139 mg/dL???TP/Cr Ratio - 0.70???Creatinine, Urine - 197.7 mg/dL RETICULOCYTE COUNT (04/05/2023) ???Retic Count - 2.7 %???Retic Count Corrected - 1.3 %???Retic Production Index - 0.7 % SEDIMENTATION RATE,AUTOMATED (03/24/2023) ???Sed Rate - 48 mm/hr SODIUM POC CARTRIDGE (03/28/2023) ???Sodium (POC) POC Cartridge - 133 mmol/L TOTAL AND DIRECT BILIRUBIN (04/03/2023) ???Bilirubin, Total - 0.5 mg/dL???Bilirubin, Direct - 0.2 mg/dL???Bilirubin, Indirect - 0.3 mg/dL Troponin T, High Sensitivity (03/25/2023) ???High Sensitivity Troponin (HSTnT) - 81 ng/L Type and Screen (04/05/2023) ???Blood Type - A Positive???Antibody Screen - Negative UREA NITROGEN, URINE MG/DL (03/22/2023) ???Urea Nitrogen, Urine Random - 512.0 mg/dL Urinalysis Complete (03/22/2023) ???Appear/Color, Urine - YELLOW???Specific [place], Urine - 1.017???pH, Urine - 5.5???Albumin, Urine - 2+???Glucose, Urine - NEGATIVE???Ketones, Urine - NEGATIVE???Bilirubin, Urine - NEGATIVE???Hemoglobin, Urine - 2+???Nitrite, Urine - NEGATIVE???Leukocyte, Urine - 1+???Urobilinogen - NORMAL???WBC's, Urine - 20 /HPF? ?RBC's, Urine - 56 /HPF? ?Bacteria - SLIGHT? ?Squamous Epith - <1 /HPF? ?Hyaline Cast - 6 LPF???Mucus - SLIGHT URINE EOS (03/22/2023) ???Eos, Urine - 1 % Urine Sodium (03/22/2023) ???Sodium, Urine Random - 25 mmol/L Allergies (NKA means No Known Allergies) NKA Problems Active Problems??(1) Obese class I?? Education Materials Below is the list of Educational Leaflet Providered with your Discharge Instructions. Valuables and Belongings I fully understand and agree that [facility] accepts no responsibility for all my personal property including clothing, toilet articles, radios, jewelry, dentures, hearing aids, rings, money, or any other property that is in my possession or is brought to me after admission. I understand certain valuables may be placed in a hospital safe for a short period of time. I understand that the hospital is not liable for loss or damage due to accident, fire, or other natural occurrence while said property is in the safe. I accept full responsibility for any personal property that I keep with me, and will not hold the hospital responsible in case of loss or disappearance. I acknowledge that i have been encouraged to send valuables and belongings home. ?? Review of Valuable and Belonging List: With patient Date for Pt to Sign Valuables/Belongings: 04/09/23 11:44:00 ?? Other Discharge Information ?? Wound Assessment?? Wound Assessment?? Wound Location I: Fingers, right Wound Type I: Traumatic Wound ?? Case Management Discharge Plan?? Discharge Plan?? Discharge Level of Care at Discharge: Home/Alf/Foster Care ?? Pulmonary Rehab Status?? Pulmonary Rehab Discharge Status?? CPAP/BiPAP Mask Type: Full CPAP/BiPAP Mask Size: Medium Respiratory Rate: 18 br/min ? Common Emergency Awareness Tips IS IT A STROKE? Act FAST and Check for these signs: FACE Does the face look uneven? ARM Does one arm drift down? SPEECH Does their speech sound strange? TIME Call at any sign of stroke ?? Heart Attack Signs Chest discomfort: Most heart attacks involve discomfort in the center of the chest and lasts more than a few minutes, or goes away and comes back. It can feel like uncomfortable pressure, squeezing, fullness or pain. Discomfort in upper body: Symptoms can include pain or discomfort in one or both arms, back, neck, jaw or stomach. Shortness of breath: With or without discomfort. Other signs: Breaking out in a cold sweat, nausea, or lightheaded. Remember, MINUTES DO MATTER. If you experience any of these heart attack warning signs, call to get immediate medical attention! ?? Smoking can increase your chances of developing chronic health problems and can cause harmful effects to other family members in your house. If you smoke, you are strongly encouraged to quit. Please call [facility] [employer] Link at [phone] or [phone]-[facility] ([phone]) or log in to [email or web address] for referrals to smoking cessation programs. ?? 561 Suicide & Crisis Lifeline is available 20/01 if you or someone you know needs to find a reason to keep living. By calling 544 you'll be connected to a skilled, trained counselor at a crisis center in your area. INPATIENT DISCHARGE INSTRUCTIONS SIGNATURE PAGE KRIS ZHANG Location:[facility] Registration Date and Time:03/21/2023 21:50 EDT Primary Care Physician: Not on Staff, PCP Attending Physician: Michelle Smith DO, I KRIS ZHANG, have received the above patient education materials/instructions and have verbalized understanding. If ambulance or transport services are being used I further acknowledge being givena choice of service. ?? If you need to contact me, please call me at this number: . Patient/Attending Anesthesiologist Name: Patient/Attending Anesthesiologist Signature: Relationship to Patient: Witness Name/Signature: Date: Patient Care team information Care Team Personnel Name: Archana Ramachandran RN Position: [facility] RN Member Role: Primary Care Nurse Name: Govind Barrow RN Position: [facility] RN Member Role: Primary Care Nurse Name: Candie Foreman RN Position: [facility] RN Member Role: Primary Care Nurse Name: Sera Lozada RN Position: [facility] RN Member Role: Primary Care Nurse Name: Chasidy Holly RN Position: [facility] RN Member Role: Primary Care Nurse Name: Jeff Aaron RN Position: [facility] RN Member Role: Primary Care Nurse Name: Frances Soares RN Position: [facility] RN Member Role: Primary Care Nurse Name: Rocío Moore RN Position: [facility] RN Member Role: Primary Care Nurse Name: Lisa Jorgensen RN Position: [facility] RN Member Role: Primary Care Nurse Name: Michaela Omalley NP Position: [facility] Associate Professional Member Role: Lifetime Consulting Provider Address: Address: [address] [place], [place] [address] [address] Name: Barbie Zuleta RN Position: [facility] RN Member Role: Primary Care Nurse Name: Emil Malone III, RN Position: [facility] RN Member Role: Primary Care Nurse Name: Kameron Burnham RN Position: [facility] RN Member Role: Primary Care Nurse Name: Not on Staff, PCP Position: [facility] Physician (General Medicine) Member Role: PCP Name: Jh Miguel MD Position: [facility] Renal MD Member Role: Lifetime Consulting Physician Address: Address: [address] [place] [address] [address] [facility] [address] Name: Michael Monsivais RN Position: [facility] RN Member Role: Primary Care Nurse Name: Jovana Barreto RN Position: [facility] RN Member Role: Primary Care Nurse Name: John Asif MD Position: [facility] Renal MD Member Role: Lifetime Consulting Physician Address: Address: [address] [place] [address] [facility] [address] Name: Paresh Cadena RN Position: [facility] RN Member Role: Primary Care Nurse Name: Flower Bradshaw RN Position: S RN Member Role: Primary Care Nurse Name: Karyn Cruz RN Position: S RN Supv Member Role: Primary Care Nurse Name: Hipolito Michaels RN Position: S RN Member Role: Primary Care Nurse Care Team Related Persons Name: ZHANGJANET BRENNANY Address: [address] [place] [address] Name: KENNETH ENAMORADO Address: home [address] [facility]
--- NOTE | 2023-04-12 22:30 | MHC.EDTECH ---
EKG delayed due to patient being very diaphoretic and SOB, at bedside and intubated patient.
--- NOTE | 2023-04-12 22:32 | MHC.EDTECH ---
Patient was changed into hospital attire,vitals, labs and EKG obtained.Patient placed on the manager monitoring and RN at bedside
[2023-04-12] MEDS: Furosemide 100 MG/10 ML VIAL 80 MG IVPUSH (22:40)
[2023-04-12] MEDS: Nitroglycerin 2 % Oint 1 GM Packet 2 INCH TRANSDERMA (22:40)
[2023-04-12 22:43] LABS: Basophils Percent Auto 0.1 % (0-2); Hematocrit 29.8 % (42.0-52.0); Hemoglobin 9.1 g/dl (14.0-18.0); Imm Gran Abs Auto 0.22 X10*3/uL (0.00-0.03); Lymphocytes Percent Auto 33.3 % (20-40); MANUAL DIFF FLAG SCAN; Mean Corpuscular HGB Conc 30.5 g/dl (31.0-36.0); Mean Corpuscular Hemoglobin 30.7 pg (27.0-33.0); Mean Corpuscular Volume 100.7 fL (80.0-98.0); Mean Platelet Volume 12.1 fL (9.4-12.4); Monocytes Absolute Auto 2.1 X10*3/uL (0.1-1.2); Monocytes Percent Auto 9.1 % (2-11); Neutrophils Absolute Auto 12.7 x10*3/uL (2.0-8.3); Neutrophils Percent Auto 56.5 % (45-73); Platelet Count 343 X10*3/uL (160-400); Red Blood Count 2.96 X10*6/uL (4.60-5.80); SCAN SMEAR FLAG 1; White Blood Count 22.6 X10*3/uL (4.8-10.8)
[2023-04-12 22:46] LABS: Lymphocytes Absolute Auto 7.5 X10*3/uL (1.2-4.9)
[2023-04-12 22:52] LABS: Alanine Aminotransferase 44 U/L (0-40); Albumin Level 3.6 g/dL (3.5-5.0); Alkaline Phosphatase 106 U/L (39-117); Anion Gap 23 (12-20); Aspartate Amino Transferase 66 U/L (5-37); Bilirubin Total 0.4 mg/dL (0.0-1.0); Blood Urea Nitrogen 65 mg/dL (9-16); Calcium 8.4 mg/dL (8.4-10.2); Carbon Dioxide 19 mmol/L (22-29); Chloride 111 mmol/L (96-108); Estimated Glomerular Filt Rate 31; Glucose Random 151 mg/dL (60-115); INTERNATIONAL NORM RATIO 0.9 (0.9-1.1); Magnesium 2.4 mg/dL (1.6-2.6); Potassium 5.8 mmol/L (3.3-5.1); Sodium 147 mmol/L (135-145); Total Protein 6.6 g/dL (6.5-8.0)
[2023-04-12 22:53] LABS: Lactic Acid 11.8 mmol/L (0.5-2.0)
[2023-04-12 22:55] LABS: Partial Thromboplastin Time 26.4 SEC (26.0-36.4)
[2023-04-12 22:59] LABS: COVID-19 Test Negative (Negative); IDNOW Serial# BCCEAD1C
[2023-04-12 23:11] LABS: SLIDE REVIEW VERIFIED
[2023-04-12 23:24] LABS: B Type Natriuretic Peptide 2723 pg/mL (<100)
[2023-04-12] MEDS: Albuterol Sulfate (0.083%) 2.5 MG/3 ML VIAL.NEB 5 MG INHALE (23:36)
[2023-04-12 23:42] LABS: Erythrocyte Sedimentation Rate 38 MM/HR (0-15)
[2023-04-12] MEDS: propofoL 200 MG/20 ML VIAL 50 MG IVPUSH (23:44)
[2023-04-12] MEDS: propofoL 1,000 MG/100 ML VIAL 13.16 MG IVCONT (23:45)
[2023-04-12] MEDS: Calcium Gluconate/NaCl,Iso-Osm 2 GM/100 ML PLAST..BAG IV (23:47)
[2023-04-13 00:14] VITALS: BMI 24.5
[2023-04-13 00:27] LABS: Appearance Urine Clear; Color Urine Yellow; Glucose Urine UA Negative (Negative); Leukocyte Esterase Urine Trace (Negative); Nitrite Urine Negative (Negative); PH 5.5 (5.0-9.0); UMIC TRIGGER UACC YES; Urine Blood Moderate (2+) (Negative); Urine Ketones Negative (Negative); Urine Protein 100 (2+) mg/dL (Neg-Trace)
[2023-04-13 00:36] LABS: Reflex Lactate? Lactic Acid Added
--- NOTE | 2023-04-13 00:39 | PC.NURSE ---
Late entry: Pt arrived in respiratory distress screaming for help. Reporting cp and difficulty breathing. Pt arrived agitated and unable to follow commands for treatment. Respiratory distress and diaphoresis noted. Dr. Baeza and respiratory at bedside. Intubation to begin at 2210. 18G bilateral IV established by via EJ. @ 2212 Etomidate 20mg administered @ 2213 Rocuronium 50mg administered @ 221 HR 95 BP 205/66 O2 sat 90% Dr Baeza reports pulmonary edema. @ 2215 Pt successfully intubated with 7.5 ET 23cm @ lip; sat improvement to 100% @ 2216 HR 142 BP 177/89 Vent settings: ACVC+ 18RR 350vol 8peep 80%o2 @ 2250 16F orta cath inserted with no complication. 100cc of clear yellow urine noted in urine collection bag. @ 2345 nitro patch removed as BP 113/49 Pt currently on ventilator, o2 sat 100%. VSS. NSR on monitor with HR 80. Skin warm pink and dry. Son at bedside. Pending transfer to [facility].
[2023-04-13 00:46] LABS: Bacteria Urine None Seen (None Seen); Hyaline Casts Urine 0-2 /LPF (0-2); Squamous Epithelial Cell Urine 0-2 /HPF (0-2); UACC Culture Trigger YES
--- NOTE | 2023-04-13 00:50 | MHC.EDTECH ---
This tech attempted to draw lactic twice. Draw unsuccessful. RN aware.
[2023-04-13 00:58] VITALS: BMI 24.5
[2023-04-13 02:00] VITALS: BP 117/46; PULSE 78; RESP 20; O2SAT 100
--- NOTE | 2023-04-13 02:12 | MHC.EDTECH ---
[facility] called back at 0012 to accept transfer to Dr. Liu Nurse to Nurse # was given
--- NOTE | 2023-04-13 02:14 | MHC.EDTECH ---
call out to steffi at 0020 to book [facility] transport for pt, denied due to not having als truck
--- NOTE | 2023-04-13 02:16 | MHC.EDTECH ---
call out to sol at 0104 to book transport, denied transportaion because no als trucks have vents
--- NOTE | 2023-04-13 02:17 | MHC.EDTECH ---
call out to kemi at 0103 to book [facility] transport for patient, denied transportation due to no [facility] trucks
--- NOTE | 2023-04-13 02:18 | MHC.EDTECH ---
call out to [facility] cct team at 0109 to book [facility] transport for pt to [facility], estimated eta given was 0200
[2023-04-13] MEDS: propofoL 1,000 MG/100 ML VIAL 17.54 MG IVCONT (02:41)
--- NOTE | 2023-04-13 02:42 | PC.NURSE ---
[facility] transporting pt to [facility]. Fentanyl 50 and Propofol 30. New bottle of fentanyl hung as current bottle did not have enough medication available for transport. Pts son at bedside and aware of plan of care.
== END 2023-04-13 02:55 | disposition short-term general hospital (02) ==
PROVIDERS: Physician Assistant Medical; Emergency Provider Emergency Medicine; PCP Internal Medicine
DX: R09.02 Hypoxemia (principal); J81.0 Acute pulmonary edema; D72.829 Elevated white blood cell count, unspecified; R78.81 Bacteremia; I38 Endocarditis, valve unspecified; I25.10 Atherosclerotic heart disease of native coronary artery without angina pectoris; R06.00 Dyspnea, unspecified; E78.5 Hyperlipidemia, unspecified; J44.9 Chronic obstructive pulmonary disease, unspecified; I12.9 Hypertensive chronic kidney disease with stage 1 through stage 4 chronic kidney disease, or unspecified chronic kidney disease; N18.9 Chronic kidney disease, unspecified; K25.9 Gastric ulcer, unspecified as acute or chronic, without hemorrhage or perforation; Z11.52 Encounter for screening for COVID-19; Z79.899 Other long term (current) drug therapy
CPT/HCPCS: 36556; 71045; 80053; 81001; 82947; 83605; 83735; 83880; 84484; 85025; 85610; 85652; 85730; 86140; 87040; 87086; 87635; 93005; 94002; 94640; 96365; 96366; 96367; 96368; 96375; 96376; 99285; J0613; J1940; J2251; J3010

== ENCOUNTER 2023-04-21 03:08 | Emergency (ER) | payer MEDICARE, OTHER, SELFPAY ==
[2023-04-21] VITALS (15 sets, daily range): BP systolic 85–130; BP diastolic 36–60; PULSE 85–117; RESP 12–27; TEMP 36.4–37.1; O2SAT 100; BMI 25.2
--- NOTE | ~2023-04-21 | XR_ITS ---
EXAMINATION: XR CHEST CLINICAL INFORMATION: Central line placement COMPARISON: Multiple priors with the last chest x-ray of 04/21/2023 obtained at 3:26 AM TECHNIQUE: Frontal view of the chest was obtained. FINDINGS: Right central venous catheter tip projects over the expected location of the mid SVC. Right peak via subclavian approach is again noted with the tip projecting over the expected location of the mid SVC. An endotracheal tube is in place terminating 3 cm above the xi. Multiple cardiac leads and wires overlie the chest. No definite evidence of pneumothorax. No significant pleural effusions are seen. Diffuse interstitial prominence along with largely symmetrical appearing bilateral perihilar airspace opacities are again noted. Cardiomediastinal silhouette is unchanged. Aortic arch calcifications. Visualized upper abdomen is unremarkable. XR/XR chest 1V IMPRESSION: Interval placement of a right-sided central venous catheter, with the tip projecting over the expected location of the mid SVC. An endotracheal tube terminates 3 cm above the xi. No significant interval change is noted in the overall appearance of the lung parenchyma with interstitial prominence and perihilar bilateral airspace opacities. The findings are concerning for pulmonary edema.
--- NOTE | ~2023-04-21 | XR_ITS ---
EXAMINATION: XR CHEST CLINICAL INFORMATION: Status post CPR COMPARISON: 04/12/2023 TECHNIQUE: Frontal view of the chest was obtained. FINDINGS: Endotracheal tube tip lies approximately 2.8 cm above the xi. Right PICC tip lies in the region of the distal SVC. Lung volumes are symmetric. Persistent symmetric perihilar predominant bilateral airspace opacities along with interstitial thickening, suspicious for edema. No evidence of pneumothorax or significant pleural effusion. The cardiomediastinal silhouette is stable. Calcification is present at the aortic arch. No acute osseous findings are seen. XR/XR chest 1V IMPRESSION: Persistent symmetric perihilar predominant bilateral airspace opacities and interstitial thickening, suspicious for edema and similar to prior.
--- NOTE | 2023-04-21 03:22 | ECG_ITS ---
Test Reason : UNRESPONSIVE Blood Pressure : / mmHG Vent. Rate : 117 BPM Atrial Rate : 000 BPM P-R Int : 000 ms QRS Dur : 084 ms QT Int : 306 ms P-R-T Axes : 000 077 160 degrees QTc Int : 426 ms Atrial fibrillation with rapid ventricular response with premature ventricular or aberrantly conducted complexes ST & T wave abnormality, consider inferior ischemia ST & T wave abnormality, consider anterolateral ischemia Abnormal ECG When compared with ECG of 12-APR-2023 22:17, Atrial fibrillation has replaced Sinus rhythm ST no longer depressed in Anterior leads T wave inversion now evident in Lateral leads Referred By: Vilma Aden Electronically Signed By:LIZZ MCRAE MD
--- NOTE | 2023-04-21 03:36 | ED_ITS ---
HPI - CPR General Chief Complaint: Altered Mental Status Stated Complaint: ? Time Seen by Provider: 04/21/23 03:21 Source: family Mode of arrival: other (Private vehicle) Limitations: other (Unresponsive) History of Present Illness HPI narrative: Patient comes to the emergency room via private vehicle. The patient's family reports that prior to arrival, patient started complaining of severe shortness of breath. Family called a neighbor to come assist. The neighbor helped to get the patient in the car and they drove themselves. On arrival, patient had no pulse and not breathing spontaneously. CPR was started immediately, patient was immediately intubated. Related Data Home Medications Medication Instructions Recorded Confirmed acetaminophen 500 mg tablet 500 mg PO Q6H PRN pain 04/11/23 (Tylenol Extra Strength) aspirin 81 mg tablet,delayed 81 mg PO DAILY 04/11/23 04/11/23 release metoprolol tartrate 25 mg tablet 25 mg PO BID 04/11/23 04/11/23 prednisone 10 mg tablet 10 mg PO DAILY 04/11/23 04/11/23 sevelamer carbonate 800 mg tablet 800 mg PO TID 04/11/23 04/11/23 pantoprazole 40 mg tablet,delayed 40 mg PO BID 04/13/23 04/13/23 release Previous Rx's Medication Instructions Recorded blood pressure monitor (Blood #1 ea 07/12/22 Pressure Kit) buspirone 5 mg tablet 5 mg PO BID #180 tabs 01/20/23 atorvastatin 20 mg tablet 20 mg PO DAILY 30 days #30 tabs 01/21/23 albuterol sulfate 90 mcg/actuation 2 puff PO Q6H PRN for wheezing 01/27/23 aerosol inhaler #8.5 ea varenicline 1 mg tablet (Chantix 1 mg PO BID 28 days #56 tabs 02/27/23 Continuing Month Box) cyclobenzaprine 5 mg tablet 5 mg PO TID PRN muscle spasm #14 03/12/23 tabs lidocaine 5 % topical patch 1 patch topical DAILY #30 ea 03/12/23 (Lidoderm) fenofibrate 160 mg tablet 160 mg PO DAILY #90 tabs 04/11/23 lisinopril 40 mg tablet 40 mg PO DAILY 90 days #90 tabs 04/11/23 Allergies Allergy/AdvReac Type Severity Reaction Status Date / Time bupropion [From Wellbutrin] AdvReac Severe Anxiety Verified 04/11/23 14:55 Review of Systems 2 Review of Systems: Yes Unobtainable due to mental condition [facility] Past Medical History Medical History Altered mental status Murmur, cardiac Arm pain, left Hyperkalemia Pulmonary nodule COPD (chronic obstructive pulmonary disease) COPD exacerbation Emphysema/COPD Bronchitis Lab test negative for COVID-19 virus Elevated cholesterol COVID-19 vaccine series completed Obesity (BMI 30-39.9) Pancreatitis Alcohol abuse Overweight (BMI 25.0-29.9) Tobacco abuse Erectile dysfunction Vitamin D deficiency Hypogonadism Macrocytosis without anemia Osteoarthritis Hypercholesterolemia Hypertension Bipolar disorder Amputation finger Right arm fracture Surgical History History of surgery on arm Finger amputation, no complication Family History Family History Father No problems noted. Mother No problems noted. Sister No problems noted. Sister No problems noted. Son No problems noted. Daughter No problems noted. Daughter No problems noted. Social History Social History Household Members: Significant Other Housing: House Are you a primary healthcare consulting manager to a significant other at home: No Do you presently have visiting nurse or other home services: No Unable to assess alcohol history related to: Unable to respond and Unknown Alcohol intake: never Patient Tobacco Use Status: Current everyday Tobacco user Tobacco use type: Cigarette Cigarettes Per Day: 2 Years Smoked: 35 e-Cigarette/Vaping Use: Never Used Second Hand Smoke Exposure: No Use of substances other than those prescribed or required for medical reasons: Unable to respond Advance Directives: Yes Advance Directives on File: Yes Advance Directives Date on File: 03/14/23 service: No Current occupational status: employed 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 ENT: Pharynx normal. Neck: Normal inspection. Neck supple. No lymph nodes noted. No crepitus CVS: Pulseless Respiratory: No spontaneous breaths Abdomen: Soft and nontender. No rigidity. No distention. Skin: Pale and clammy Extremities: No lower extremity edema. No Lacerations. No Rash Neuro: Unresponsive Psych: Unresponsive Course Course Course Narrative: -I reviewed patient's medical records, patient has history of CHF, acute GI bleed, atrial fibrillation. 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 Also, on April 12, patient was here in the hospital with flash pulmonary edema, patient needed emergent intubation and was transferred to [facility]. -patient's states that the patient was discharged from [facility] approximately 2 days ago. Medications Administered Generic Name Dose Route Start Last Admin Trade Name Freq PRN Reason Stop Dose Admin Midazolam HCl 50 mg in 50 mls @ 2 mls/hr 04/21/23 03:45 04/21/23 06:05 Versed IVCONT 4 mg/hr .Q24H CATHIE 4 mls/hr Infusion 2 MG/HR Sodium Bicarbonate 150 meq/ 1,150 mls @ 100 mls/hr 04/21/23 05:00 04/21/23 05:12 Dextrose IV 100 mls/hr .[id number] CATHIE Administration Norepinephrine Bitartrate 8 mg in 250 mls @ 0 mls/hr 04/21/23 05:00 04/21/23 06:30 Levophed IV 0.05 mcg/kg/min .Q0M CATHIE 6.85 mls/hr Titration Protocol Per Protocol Propofol 1,000 mg in 100 mls @ 0 mls/hr 04/21/23 05:45 04/21/23 06:03 Diprivan IVCONT 15 mcg/kg/min .Q0M CATHIE 6.78 mls/hr Titration Protocol Per Protocol Dobutamine HCl/Dextrose 500 mg in 250 mls @ 0 mls/hr 04/21/23 06:00 04/21/23 06:33 Dobutrex IVCONT 5 mcg/kg/min .Q0M CATHIE 11.3 mls/hr Administration Protocol Per Protocol Discontinued Medications Generic Name Dose Route Start Last Admin Trade Name Ghulamq PRN Reason Stop Dose Admin Sodium Bicarbonate 150 meq/ 1,000 mls @ 100 mls/hr 04/21/23 04:30 04/21/23 05:50 Sterile Water IV Not Given .Q10H [facility] Medical Decision Making Medical Decision Making [facility] Narrative: -my interpretation of labs: Chronic leukocytosis likely secondary to endocarditis, currently being treated with cefazolin. Hemoglobin 7.6, chronic. Lactic acid 10.4 likely secondary to hypoxia/CPR, not sepsis. Troponin elevation of 166.1 likely secondary to CPR/demand ischemia/CPR. BNP 1131, due to flash pulmonary edema -my interpretation chest x-ray: Pulmonary edema, ET tube in place -patient's cardiac arrest secondary to hypoxia due to pulmonary edema. -patient was given a stress dose of hydrocortisone, 100 mg IV, patient is still on a prednisone taper which was started at [facility] -patient remains intubated, a Versed drip was started. Patient's blood pressure started to drop, propofol had to be given for additional sedation and to prevent further decline of blood pressure, Levophed was started, also, patient on a bicarb drip -I discussed the patient with Dr. Adamson. It is possible that the patient's aortic regurgitation actually worsen. Also, since patient was discharged from [facility] less than 48 hours ago, Dr. Sahu recommends a week all [facility] and asked them if they would like to have the patient back. -I discussed the patient with Dr. Gracia from CCU -I was informed by the patient's nurse that they do not have any further available lines. -a right IJ was inserted by me. No complications. Chest x-ray interpreted by me: No pneumothorax, central line in with good placement Differential Diagnosis Differential Diagnoses: The differential diagnosis associated with the presentation includes (Cardiac arrest, hypoxic respiratory failure, flash pulmonary edema) Admission/Observation Consideration of admission/observation: Escalation of care including admission/observation considered Consult Healthcare Provider Management of the patient was discussed with: Lan Support Specialist Lab Data [facility] Lab Attestation statement: I reviewed the patient's lab results. 04/21/23 03:39 04/21/23 03:39 Labs: Lab Results 10/04/21/23 04/21/23 Range/Units 03:39 03:51 04:06 WBC 19.4 H (4.8-10.8) X10*3/uL RBC 2.42 L (4.60-5.80) X10*6/uL Hgb 7.6 L (14.0-18.0) g/dl Hct 26.1 L (42.0-52.0) % MCV 107.9 H (80.0-98.0) fL MCH 31.4 (27.0-33.0) pg MCHC 29.1 L (31.0-36.0) g/dl RDW 17.1 H (11.0-16.0) % Plt Count 229 D (160-400) X10*3/uL MPV 11.9 (9.4-12.4) fL Immature Gran % (Auto) 2.1 H (0.0-0.4) % Neut % (Auto) 66.4 (45-73) % Lymph % (Auto) 23.9 (20-40) % Wetzel % (Auto) 6.6 (2-11) % Eos % (Auto) 0.7 (0-4) % Baso % (Auto) 0.3 (0-2) % Lymph # (Auto) 4.6 (1.2-4.9) X10*3/uL Wetzel # (Auto) 1.3 H (0.1-1.2) X10*3/uL Eos # (Auto) 0.1 (0.0-0.4) X10*3/uL Baso # (Auto) 0.1 (0.0-0.2) X10*3/uL Abs Immat Gran (auto) 0.40 H (0.00-0.03) X10*3/uL Absolute Neuts (auto) 12.9 H (2.0-8.3) x10*3/uL Absolute Nucleated RBC 0.030 H (0.0-0.012) X10*3/uL Nucleated RBC % (auto) 0.2 (0.0-0.2) /100WBC PT 14.7 H D (11.1-13.3) SEC INR 1.2 H (0.9-1.1) VBG pH 7.26 L (7.32-7.43) VBG pCO2 27 mmHg VBG pO2 98 mmHg VBG HCO3 12 L (22-26) mmol/L VBG O2 Saturation 99.0 % VBG Base Excess -12.6 mmol/L Sodium 141 (135-145) mmol/L Potassium 5.9 H (3.3-5.1) mmol/L Chloride 115 H (96-108) mmol/L Carbon Dioxide 8 L* D (22-29) mmol/L Anion Gap 24 H (12-20) BUN 31 H (9-16) mg/dL Creatinine 1.45 H (0.5-1.4) mg/dL Estim Creat Clear Calc TNP Estimated GFR 49 Random Glucose 125 H (60-115) mg/dL Lactic Acid 10.4 H* (0.5-2.0) mmol/L Calcium 7.8 L D (8.4-10.2) mg/dL Magnesium 1.9 (1.6-2.6) mg/dL Total Bilirubin 0.4 (0.0-1.0) mg/dL Direct Bilirubin TNP AST 30 (5-37) U/L ALT 6 (0-40) U/L Alkaline Phosphatase 55 (39-117) U/L Troponin I High Sens 166.1 H* (<3.5-35.0) ng/L B-Natriuretic Peptide 1131 H (<100) pg/mL Total Protein 5.5 L (6.5-8.0) g/dL Albumin 2.6 L (3.5-5.0) g/dL TSH Cancelled Urine Color Yellow Urine Appearance Hazy Urine pH 5.5 (5.0-9.0) Ur Specific [place] 1.015 (1.005-1.025) Urine Protein 100 (2+) H (Neg-Trace) mg/dL Urine Glucose (UA) Negative (Negative) mg/dL Urine Ketones Negative (Negative) mg/dL Urine Blood Large (3+) H (Negative) Urine Nitrite Negative (Negative) Ur Leukocyte Esterase Negative (Negative) Urine RBC 0-2 (0-2) /HPF Urine WBC 0-5 (0-5) /HPF Ur Squamous Epith Cells 0-2 (0-2) /HPF Other Crystals Present Urine Bacteria Trace (None Seen) Hyaline Casts 0-2 (0-2) /LPF Urine Opiates Screen Not Detected (Not Detect) Urine Fentanyl Screen Not Detected (Not Detect) Ur Barbiturates Screen Not Detected (Not Detect) Ur Phencyclidine Scrn Not Detected (Not Detect) Ur Amphetamines Screen Not Detected (Not Detect) U Benzodiazepines Scrn Not Detected (Not Detect) Urine Cocaine Screen Not Detected (Not Detect) U Marijuana (THC) Screen Not Detected (Not Detect) Ethyl Alcohol < 10 mg/dL COVID-19 (JASSON) Negative (Negative) COVID-19 Clin Com See Note Independent Interpretation I performed an independent interpretation of an: Plain X-Ray Radiology Impression Discussion of test interpretation with radiology: I have reviewed the radiologist's reading. Radiologist Impression: FINDINGS: Endotracheal tube tip lies approximately 2.8 cm above the xi. Right PICC tip lies in the region of the distal SVC. Lung volumes are symmetric. Persistent symmetric perihilar predominant bilateral airspace opacities along with interstitial thickening, suspicious for edema. No evidence of pneumothorax or significant pleural effusion. The cardiomediastinal silhouette is stable. Calcification is present at the aortic arch. No acute osseous findings are seen. XR/XR chest 1V IMPRESSION: Persistent symmetric perihilar predominant bilateral airspace opacities and interstitial thickening, suspicious for edema and similar to prior. Independent Historian Clinical information obtained from an independent historian. History obtained from or confirmed by: Spouse and Other (Patient's son) External Record Review External record reviewed: Inpatient record and Outpatient record ([facility]) Chronic Conditions Patient?s care impacted by: Other (CHF) Procedures Central Line Placement Right IJ: Time Out Performed: Yes Patient Placed on Monitor/Pulse Ox: Yes MD Prep: mask, gown and gloves Central Line Prep: Chlorhexidine scrub Ultrasound Used for Placement: Yes Central Line Lumen Inserted: triple Post Procedure: sutured in place, good blood return, all ports aspirated, flushed, capped and sterile dressing applied Post Procedure X-Ray: tip of catheter in good position and no pneumothorax seen Patient Tolerated Procedure: well and no complications Complications: none Intubation Time out performed: Yes sedative: none Laryngoscope: other (GlideScope) ET Tube Size: 8 ET Tube Uncuffed: No Tube Secured Depth (cm): 23 Tube Secured Location: lips Tube Placement Confirmation: visualized tube passing through cords, no breath sounds over epigastrium and confirmation by capnometry Patient Tolerated Procedure: well and no complications Intubation Complications: none Critical Care Time Critical Care Time Critical Care Time: Yes Total Critical Care Time: 120 Attestation: I have personally provided critical care time. Time includes review of lab data, radiology results, discussion with consultants, and monitoring for potential decompensation. Intervention performed as documented. Discharge Plan Discharge Clinical Impression: Cardiac arrest, Flash pulmonary edema, Respiratory failure Patient Disposition: [facility] Transfer Details: [facility] Cardiac Care Unit, Dr. Dangelo Prescriptions: No Action buspirone 5 mg tablet 5 mg PO BID Qty: 180 2RF atorvastatin 20 mg tablet 20 mg PO DAILY 30 Days Qty: 30 3RF varenicline [Chantix Continuing Month Box] 1 mg tablet 1 mg PO BID 28 Days Qty: 56 4RF cyclobenzaprine 5 mg tablet 5 mg PO TID PRN (Reason: muscle spasm) Qty: 14 0RF lidocaine [Lidoderm] 5 % adhesive patch,medicated 1 patch topical DAILY Qty: 30 0RF Rx Instructions: leave on most painful area for up to 12 hrs (DME) blood pressure monitor [Blood Pressure Kit] Kit See Rx Instructions .ROUTE .MEDSUPPLY Qty: 1 0RF Rx Instructions: As directed fenofibrate 160 mg tablet 160 mg PO DAILY Qty: 90 2RF Hold Instructions: Resume on 04/02/23. lisinopril 40 mg tablet 40 mg PO DAILY 90 Days Qty: 90 2RF Hold Instructions: Resume on 04/02/23. acetaminophen [Tylenol Extra Strength] 500 mg tablet 500 mg PO Q6H PRN (Reason: pain) aspirin 81 mg tablet,delayed release (DR/EC) 81 mg PO DAILY metoprolol tartrate 25 mg tablet 25 mg PO BID sevelamer carbonate 800 mg tablet 800 mg PO TID Rx Instructions: must administer with a meal/food prednisone 10 mg tablet 10 mg PO DAILY Rx Instructions: prednisone taper start 04/10/23 and stop 05/03/23 pantoprazole 40 mg tablet,delayed release (DR/EC) 40 mg PO BID albuterol sulfate 90 mcg/actuation HFA aerosol inhaler 2 puff PO Q6H PRN (Reason: for wheezing) Qty: 8.5 11RF
[2023-04-21 03:51] LABS: MANUAL DIFF FLAG NO
--- NOTE | 2023-04-21 03:54 | PC.NURSE ---
manager of sustainability rosy called pharmacy to make them aware versed drip verification is required as it is imperative that the pt receive it.
[2023-04-21] MEDS: Midazolam HCl/NS 50 MG/50 ML PLAST..BAG IVCONT ×2 (03:55→10:53)
[2023-04-21 03:56] LABS: Venous Blood Gas Refer to POC result
[2023-04-21 03:56] LABS: VBG Base Excess -12.6 mmol/L; VBG HCO3 12 mmol/L (22-26); VBG pCO2 27 mmHg; VBG pH 7.26 (7.32-7.43); VBG pO2 98 mmHg
[2023-04-21 04:04] LABS: Basophils Absolute Auto 0.1 X10*3/uL (0.0-0.2); Basophils Percent Auto 0.3 % (0-2); Eosinophils Absolute Auto 0.1 X10*3/uL (0.0-0.4); Eosinophils Percent Auto 0.7 % (0-4); Hematocrit 26.1 % (42.0-52.0); Hemoglobin 7.6 g/dl (14.0-18.0); Imm Gran Pct Auto 2.1 % (0.0-0.4); Lymphocytes Absolute Auto 4.6 X10*3/uL (1.2-4.9); Lymphocytes Percent Auto 23.9 % (20-40); Mean Corpuscular HGB Conc 29.1 g/dl (31.0-36.0); Mean Corpuscular Hemoglobin 31.4 pg (27.0-33.0); Mean Corpuscular Volume 107.9 fL (80.0-98.0); Mean Platelet Volume 11.9 fL (9.4-12.4); Monocytes Absolute Auto 1.3 X10*3/uL (0.1-1.2); Monocytes Percent Auto 6.6 % (2-11); NRBC Pct Auto 0.2 /100WBC (0.0-0.2); Neutrophils Absolute Auto 12.9 x10*3/uL (2.0-8.3); Neutrophils Percent Auto 66.4 % (45-73); Platelet Count 229 X10*3/uL (160-400); Red Blood Count 2.42 X10*6/uL (4.60-5.80); Red Cell Distribution Width 17.1 % (11.0-16.0); White Blood Count 19.4 X10*3/uL (4.8-10.8)
[2023-04-21 04:20] LABS: INTERNATIONAL NORM RATIO 1.2 (0.9-1.1); Prothrombin Time 14.7 SEC (11.1-13.3)
[2023-04-21 04:20] LABS: Alanine Aminotransferase 6 U/L (0-40); Albumin Level 2.6 g/dL (3.5-5.0); Alkaline Phosphatase 55 U/L (39-117); Anion Gap 24 (12-20); Aspartate Amino Transferase 30 U/L (5-37); Bilirubin Total 0.4 mg/dL (0.0-1.0); Blood Urea Nitrogen 31 mg/dL (9-16); Calcium 7.8 mg/dL (8.4-10.2); Carbon Dioxide 8 mmol/L (22-29); Chloride 115 mmol/L (96-108); Estimated Glomerular Filt Rate 49; Ethanol < 10 mg/dL; Glucose Random 125 mg/dL (60-115); Magnesium 1.9 mg/dL (1.6-2.6); Potassium 5.9 mmol/L (3.3-5.1); Sodium 141 mmol/L (135-145); Total Protein 5.5 g/dL (6.5-8.0)
[2023-04-21 04:21] LABS: Troponin-I High Sensitivity 166.1 ng/L (<3.5-35.0)
[2023-04-21 04:25] LABS: Lactic Acid 10.4 mmol/L (0.5-2.0)
[2023-04-21 04:27] LABS: COVID-19 Test Negative (Negative); IDNOW Serial# 6674DD1D
[2023-04-21 04:34] LABS: B Type Natriuretic Peptide 1131 pg/mL (<100)
[2023-04-21 04:35] LABS: Appearance Urine Hazy; Color Urine Yellow; Glucose Urine UA Negative (Negative); Leukocyte Esterase Urine Negative (Negative); Nitrite Urine Negative (Negative); PH 5.5 (5.0-9.0); Specific Gravity - Urine 1.015 (1.005-1.025); UMIC TRIGGER UACC YES; Urine Blood Large (3+) (Negative); Urine Ketones Negative (Negative); Urine Protein 100 (2+) mg/dL (Neg-Trace)
[2023-04-21 04:41] LABS: Amphetamine Screen Urine Not Detected (Not Detect); Barbiturates, Urine Not Detected (Not Detect); Benzodiazepines Screen Urine Not Detected (Not Detect); Cannabinoid Screen Urine Not Detected (Not Detect); Cocaine Screen Urine Not Detected (Not Detect); Fentanyl, urine Not Detected (Not Detect); Opiate Screen Urine Not Detected (Not Detect); Phencyclidine Screen Urine Not Detected (Not Detect)
[2023-04-21 04:42] LABS: Bacteria Urine Trace (None Seen); Hyaline Casts Urine 0-2 /LPF (0-2); Other Crystals Urine Present; RBC Urine 0-2 /HPF (0-2); Squamous Epithelial Cell Urine 0-2 /HPF (0-2); WBC Urine 0-5 /HPF (0-5)
[2023-04-21] MEDS: Norepinephrine Bitartrate/D5W 8 MG/250 ML PLAST..BAG 6.85 MG IV (05:34)
[2023-04-21] MEDS: propofoL 1,000 MG/100 ML VIAL 13.55 MG IVCONT (05:49)
[2023-04-21 06:11] LABS: Reflex Lactate? Lactic Acid Added
--- NOTE | 2023-04-21 06:14 | MHC.EDTECH ---
Call out to [facility] transfer line @[phone] per request. Spoke to Amita from the transfer gave call to
--- NOTE | 2023-04-21 06:18 | PC.NURSE ---
per pharmacist roberta infuse sodium bicarbonate in dextrose as ordered pharmacist notified that ordered weight for meds slightly different from bed scale weight obtained (only off by 2 kg) pharmacist ok verifying to start infusions at weights as ordered see mar for infusions and titrations
--- NOTE | 2023-04-21 06:21 | PC.NURSE ---
Son: Bijan Hunter,
[2023-04-21] MEDS: DOBUTamine HCL/D5W 500 MG/250 ML IV.SOLN 11.3 MG IVCONT (06:33)
--- NOTE | 2023-04-21 06:39 | PC.NURSE ---
@0639 MD RABAGO ATTEMPTING FOR CENTRAL LINE CURRENTLY LEVOFED RUNNING AT 0.05MCG/KG/MIN VIA PICC LINE R UPPER ARM VERSED 4MG/HR RUNNING THROUGH #20G R HAND PROPOFOL 15MCG/KG/MIN VIA #20G LAC DOBUTAMINE 5 MCG/KG/MIN VIA IO L KNEE SODIUM BICARB IN DEXTROSE ON HOLD UNTIL CENTRAL LINE OBTAINED PT TO BE TRANSFERRED TO [facility] ICU
--- NOTE | 2023-04-21 06:59 | PM.SEPBOLA4 ---
Sepsis Bolus Exclusion Sepsis Bolus Exclusion Date of Occurrence: 04/21/23 This patient met severe sepsis criteria due to the following condition(s):: Hypotension and Lactate>=4mmol/L In my clinical judgement the administration of 30 ml/kg of crystalloid would be detrimental to this patient due to the patient's following conditions:: NYHA class III or IV Heart Failure(symptoms with low exertion or rest), Stage III or IV Chronic Kidney Disease (GFR<30) and Concern for fluid overload Other (must be specific):: This patient with known history of methicillin sensitive Staph aureus AV en Replace the 30 mls/kg with (*zero amount not acceptable): *Note: One of the estes must be documented Crystalloids amount given in mls: (rate must be at least 150cc/hr): 150 At a rate of (must be > 125 cchr):: 125
--- NOTE | 2023-04-21 07:03 | P.CONCC_ITS ---
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 and is on cefazolin IV as an outpatient and just discharged 2 days ago from [facility] where cardiac catheterization revealed nonobstructive coronary disease but they claimed was a a normal LV function but relatively speaking I think he has got some reduction of systolic reserve because ejection fraction is in the neighborhood of 50-55% in the face of significant aortic insufficiency which dated and quite quantify it certainly is a minimally to and probably closer to 3+ at least and discharged 2 days ago reappears in flash pulmonary edema profoundly hypoxic when he arrived he was he was pulseless intubated and CPR for 13 minutes to restore ROSC currently with intermittent myoclonus and he has got an asymmetric neurologic exam while comatose with right leg clonus but nonreactive left leg clearly there is and anoxic damage here but he is in sinus rhythm and bedside echo with 50-55% ejection fraction otherwise normal LV and RV function but aortic valve clearly thickened probably and 0 cardiac at least 10 right coronary cusp of the aortic valve but the regurgitation although it seems to divide into at least 2 jets does feel most of the diameter of the LV outflow tract indicating minimally 3+ or moderately severe aortic insufficiency and by electrolytes you know he he comes in with with evidence potentially of acute on chronic renal insufficiency markedly hyperkalemic but he has a positive anion gap metabolic acidosis seems to be a almost entirely fulfilled by lactic acid at over 10 in but I believe at this point that that this is cardiogenic shock causing this rather than septic shock he has been treated with the cefazolin for his endocarditis but blood cultures are pending but because he is in a an acute cardiogenic form of pulmonary edema he we have to exercise the sepsis exclusion and he therefore should not get the the bolus of fluid despite the hyperkalemia but I would agree because of the hyperkalemia bed he having been on prednisone might have a relative degree of adrenal insufficiency including min or aloe corticoid for that I would give at least an aggressive maintenance dose of IV saline as the ER doctor has been doing I would give a stress dose of high IV hydrocortisone at the same time and treat what might be a a contribution from not only renal insufficiency but a a type 4 renal tubular acidosis and unfortunately Levophed will be counterproductive because of the alpha effect increasing the aortic insufficiency I would work with dobutamine give us pure inotrope PN Crohn intro P to try to enhance forward flow across the aortic valve to sustain a better blood pressure and I think acute consideration for transfer to a tertiary institution mainly [facility] because I think this aortic valve might have to be dealt with on a more acute basis but if we fail to accomplish that I will try to sustain him electrolytic Neeru is I explained with the with the saline central line placement is essential and and we may have to work with dialysis at the same time if he hemodynamically tolerates and await his blood cultures just to be sure that he is sterile and then potentially ventral transfer for valve replacement but of course at the same time we have to evaluate at least by dry CT scan of his head because of the focality of his neurologic exam and then if that is okay he may wind up needing a MRI to renal to truly rule out septic embolization or versus just simple anoxic encephalopathy Review of Systems 2 Review of Systems: Yes Unobtainable due to mental status PMFSH Past Medical History Medical History Altered mental status Murmur, cardiac Arm pain, left Hyperkalemia Pulmonary nodule COPD (chronic obstructive pulmonary disease) COPD exacerbation Emphysema/COPD Bronchitis Lab test negative for COVID-19 virus Elevated cholesterol COVID-19 vaccine series completed Obesity (BMI 30-39.9) Pancreatitis Alcohol abuse Overweight (BMI 25.0-29.9) Tobacco abuse Erectile dysfunction Vitamin D deficiency Hypogonadism Macrocytosis without anemia Osteoarthritis Hypercholesterolemia Hypertension Bipolar disorder Amputation finger Right arm fracture Family History Family History Father No problems noted. Mother No problems noted. Sister No problems noted. Sister No problems noted. Son No problems noted. Daughter No problems noted. Daughter No problems noted. Surgical History Surgical History History of surgery on arm Finger amputation, no complication Social History Social History Household Members: Significant Other Housing: House Are you a primary pet care associate to a significant other at home: No Do you presently have visiting nurse or other home services: No Unable to assess alcohol history related to: Unable to respond and Unknown Alcohol intake: never Patient Tobacco Use Status: Current everyday Tobacco user Tobacco use type: Cigarette Cigarettes Per Day: 2 Years Smoked: 35 e-Cigarette/Vaping Use: Never Used Second Hand Smoke Exposure: No Use of substances other than those prescribed or required for medical reasons: Unable to respond Advance Directives: Yes Advance Directives on File: Yes Advance Directives Date on File: 03/14/23 service: No Current occupational status: employed 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 Cognitive needs: No Hearing needs: No Vision needs: Yes Meds Allergies Allergy/AdvReac Type Severity Reaction Status Date / Time bupropion [From Wellbutrin] AdvReac Severe Anxiety Verified 04/11/23 14:55 Active Medications: Current Medications Midazolam HCl (Versed) 50 mg in 50 mls @ 2 mls/hr IVCONT .Q24H CATHIE Last Infusion: 04/21/23 06:05 Dose: 4 mg/hr, 4 mls/hr Sodium Bicarbonate 150 meq/ (Dextrose) 1,150 mls @ 100 mls/hr IV .[id number] CATHIE Last Admin: 04/21/23 05:12 Dose: 100 mls/hr Norepinephrine Bitartrate (Levophed) 8 mg in 250 mls @ 0 mls/hr IV .Q0M CATHIE; Protocol Last Titration: 04/21/23 06:30 Dose: 0.05 mcg/kg/min, 6.85 mls/hr Propofol (Diprivan) 1,000 mg in 100 mls @ 0 mls/hr IVCONT .Q0M CATHIE; Protocol Last Titration: 04/21/23 06:03 Dose: 15 mcg/kg/min, 6.78 mls/hr Dobutamine HCl/Dextrose (Dobutrex) 500 mg in 250 mls @ 0 mls/hr IVCONT .Q0M CATHIE; Protocol Last Admin: 04/21/23 06:33 Dose: 5 mcg/kg/min, 11.3 mls/hr Pharmacy Consult (Consult Rx Vancomycin Dosing) 1 each MISCELLANE DAILY PRN PRN Reason: Consult order Home Medications Medication Instructions Recorded Confirmed Last Taken Type acetaminophen 500 mg tablet 500 mg PO Q6H PRN pain 04/11/23 Unknown History (Tylenol Extra Strength) aspirin 81 mg tablet,delayed 81 mg PO DAILY 04/11/23 04/11/23 Unknown History release metoprolol tartrate 25 mg tablet 25 mg PO BID 04/11/23 04/11/23 Unknown History prednisone 10 mg tablet 10 mg PO DAILY 04/11/23 04/11/23 Unknown History sevelamer carbonate 800 mg tablet 800 mg PO TID 04/11/23 04/11/23 Unknown History pantoprazole 40 mg tablet,delayed 40 mg PO BID 04/13/23 04/13/23 Unknown History release Physical Exam 2 Vital Signs: Vital Signs: Last Vital Signs Temp 98.6 F 04/21/23 04:22 Pulse 88 04/21/23 06:33 Resp 17 04/21/23 06:03 BP 103/47 L 04/21/23 06:33 Pulse Ox 100 04/21/23 05:49 O2 Del Method Mechanical Ventil ation 04/21/23 04:22 FiO2 50 04/21/23 06:27 BMI result Body Mass Index 25.2 current blood pressure is is only 89 systolics over switching Levophed over to dobutamine he is completely unresponsive so I am weaning to discontinue his sedation at this point potentially just keep a low dose of the midazolam because he does have my a clonus and right lower extremity clonus nonresponsive left lower extremity but tone is equal abdomen soft no organomegaly bedside echo with relative systolic reserve reduction of left ventricle 50-55% ejection fraction should be excessive 75-80% given the degree of aortic insufficiency which I believe is greater than 3+ or moderately severe to severe extensive coarse bilateral rales good bilateral color no acrocyanosis Results Labs 04/21/23 03:39 04/21/23 03:39 Labs: Short CBC 04/21/23 Range/Units 03:39 WBC 19.4 H (4.8-10.8) X10*3/uL Hgb 7.6 L (14.0-18.0) g/dl Hct 26.1 L (42.0-52.0) % Plt Count 229 D (160-400) X10*3/uL BMP 04/21/23 03:39 Sodium 141 Potassium 5.9 H Chloride 115 H Carbon Dioxide 8 L* D BUN 31 H Creatinine 1.45 H Calcium 7.8 L D Liver Function 04/21/23 Range/Units 03:39 Total Bilirubin 0.4 (0.0-1.0) mg/dL Direct Bilirubin TNP AST 30 (5-37) U/L ALT 6 (0-40) U/L Alkaline Phosphatase 55 (39-117) U/L Albumin 2.6 L (3.5-5.0) g/dL Urine 04/21/23 Range/Units 03:39 Urine Color Yellow Urine Appearance Hazy Urine pH 5.5 (5.0-9.0) Ur Specific [place] 1.015 (1.005-1.025) Urine Protein 100 (2+) H (Neg-Trace) mg/dL Urine Glucose (UA) Negative (Negative) mg/dL Assessment and Plan (1) Respiratory failure: Status: Acute (2) Flash pulmonary edema: Status: Acute (3) Cardiac arrest: Status: Acute (4) Hospital discharge follow-up: Status: Acute (5) Endocarditis: Status: Acute (6) Gastric ulcer: Status: Acute (7) Bacteremia due to methicillin susceptible Staphylococcus aureus (MSSA): Status: Acute (8) Acute kidney injury: Status: Acute (9) Hyperkalemia: Status: Acute (10) Fatty liver: Status: Acute (11) Vitamin B 12 deficiency: Status: Acute (12) Hypercholesterolemia: Status: Acute (13) Obesity (BMI 30.0-34.9): Status: Acute (14) COPD (chronic obstructive pulmonary disease): Qualifiers: COPD type: chronic bronchitis Chronic bronchitis type: mixed simple and mucopurulent Qualified Code(s): J41.8 - Mixed simple and mucopurulent chronic bronchitis Status: Acute (15) Impaired glucose tolerance: Status: Acute (16) Lactic acidosis: Status: Acute (17) Cardiogenic shock: Status: Acute (18) Aortic valve insufficiency due to infection: Status: Acute (19) Adrenal insufficiency: Status: Acute Plan the plan as I stated above 1 dose of vancomycin and exclusion from the sepsis bolus did due to the cardiogenic nature of the shock causing the lactic acidosis I do not believe clinically this is septic shock and and will give maintenance of aggressive IV normal saline to offset the hyperkalemia due to what I believe is relative adrenal insufficiency in the face of cardiogenic shock and try to support him due to the aortic insufficiency being at the root with IV dobutamine rather than an alpha stimulator and hopefully tertiary institution namely [facility] will accept him but right now he has got signs of anoxic damage with with focal neurologic exam and right-sided lower extremity clonus not present on the left side and intermittent myoclonic jerks and that has to be tracked to help gauge prognosis when decisions about replacing aortic valve have to be made Time Spent With Patient Time: Total time managing care of this patient today60 ____ minutes.
--- NOTE | 2023-04-21 07:11 | PC.NURSE ---
REPORT CALLED TO [facility] ICU @[phone]
[2023-04-21 07:25] LABS: Glucose, Whole Blood 146 mg/dL (60-115)
[2023-04-21] MEDS: Hydrocortisone Sod Succ/PF 100 MG VIAL IVPUSH (07:53)
[2023-04-21 08:21] LABS: Anion Gap 14 (12-20); Bilirubin Direct 0.2 mg/dL (0.0-0.5); Blood Urea Nitrogen 36 mg/dL (9-16); Carbon Dioxide 23 mmol/L (22-29); Chloride 110 mmol/L (96-108); Creatinine Clr Calc Pharmacy 38.3; Estimated Glomerular Filt Rate 38; Glucose Random 241 mg/dL (60-115); Potassium 4.1 mmol/L (3.3-5.1); Sodium 143 mmol/L (135-145)
[2023-04-21 08:24] LABS: ~Lactic Acid-LAB USE ONLY 2.4 mmol/L (0.5-2.0)
[2023-04-21 08:34] LABS: TSH reflex Free T4 1.84 uIU/mL (0.32-4.0)
[2023-04-21] MEDS: vancomycin/NS 2,000 MG/500 ML PLAST..BAG 250 MG IV (08:55)
[2023-04-21 09:55] LABS: Reflex Lactate? 2 Y
--- NOTE | 2023-04-21 09:56 | PHA.MEDREC ---
Pharmacy Consult ? Medication Reconciliation Pharmacy has completed the medication reconciliation. Used pharmacy claims as patient is unresponsive. Called [facility] to get the dose for patients cefazolin, left voicemail, waiting to hear back.
[2023-04-21] MEDS: Midazolam HCl/PF 2 MG/2 ML VIAL IVPUSH (10:35)
--- NOTE | 2023-04-21 10:55 | PC.NURSE ---
CRITICAL CARE TRANSPORT AND [facility] ON SCENE TO TAKE PT TO [facility]
== END 2023-04-21 11:07 | disposition short-term general hospital (02) ==
PROVIDERS: Emergency Medicine; Emergency Provider Emergency Medicine; PCP Internal Medicine
DX: I46.9 Cardiac arrest, cause unspecified (principal); J81.0 Acute pulmonary edema; J96.90 Respiratory failure, unspecified, unspecified whether with hypoxia or hypercapnia; E27.40 Unspecified adrenocortical insufficiency; I35.1 Nonrheumatic aortic (valve) insufficiency; R57.0 Cardiogenic shock; E87.20 Acidosis, unspecified; I38 Endocarditis, valve unspecified; K25.9 Gastric ulcer, unspecified as acute or chronic, without hemorrhage or perforation; R78.81 Bacteremia; B95.61 Methicillin susceptible Staphylococcus aureus infection as the cause of diseases classified elsewhere; N17.9 Acute kidney failure, unspecified; E87.5 Hyperkalemia; R41.82 Altered mental status, unspecified; R06.02 Shortness of breath; J44.9 Chronic obstructive pulmonary disease, unspecified; I10 Essential (primary) hypertension; E78.00 Pure hypercholesterolemia, unspecified; K76.0 Fatty (change of) liver, not elsewhere classified; F41.1 Generalized anxiety disorder; F17.210 Nicotine dependence, cigarettes, uncomplicated; Z11.52 Encounter for screening for COVID-19; Z79.82 Long term (current) use of aspirin; Z79.899 Other long term (current) drug therapy
CPT/HCPCS: 31500; 36415; 36556; 71045; 80048; 80076; 80307; 81001; 82248; 82803; 82947; 83605; 83735; 83880; 84443; 84484; 85025; 85610; 87040; 87635; 93005; 94002; 96365; 96367; 96375; 99285; J0171; J0690; J1250; J2250; J2251; J3370

== ENCOUNTER → 2023-04-21 04:36 | Outpatient (BNV) | payer MEDICARE, SELFPAY | PROVIDERS: Emergency Provider Emergency Medicine; PCP Internal Medicine; Visit Provider Internal Medicine Cardiovascular Disease | DX: J96.90 Respiratory failure, unspecified, unspecified whether with hypoxia or hypercapnia (principal); J81.0 Acute pulmonary edema; I46.9 Cardiac arrest, cause unspecified; I38 Endocarditis, valve unspecified; N17.9 Acute kidney failure, unspecified | CPT/HCPCS: 99291 ==